=== PATIENT | female | born 1945 | race Caucasian/White ===

== ENCOUNTER 2019-11-18 21:30 | Inpatient (IN) | payer MEDICARE, SELFPAY ==
[2019-11-18 21:37] VITALS: BP 150/89; PULSE 78; RESP 20; TEMP 36.5; O2SAT 95; BMI 47.4
--- NOTE | 2019-11-18 21:44 | XRR_ITS ---
PROCEDURE INFORMATION: Exam: XR Left Knee Exam date and time: 11/18/2019 10:09 PM Age: 74 years old Clinical indication: Injury or trauma; Fall; Initial encounter; Blunt trauma; Knee; Left TECHNIQUE: Imaging protocol: XR Left knee. Views: 3 views. COMPARISON: CR Knee 3 views, LEFT* [id number] 09/04/2016 12:43 PM FINDINGS: Bones/joints: There is a comminuted impacted fracture of the distal left femoral diametaphysis. There is approximately 1 full bone width of posterior displacement of the distal fracture fragment and approximately 4.1 cm overlap and impaction. Soft tissues: Normal. XR/XR knee LT 3V* [id number] IMPRESSION: Acute comminuted impacted posteriorly displaced fracture of the distal left femoral diametaphysis.
[2019-11-18 21:47] VITALS: RESP 20; O2SAT 94
[2019-11-18] MEDS: morphine 4 mg/mL SDV 1 mL IVP ×2 (21:47→22:19)
--- NOTE | 2019-11-18 21:58 | W.ED.FALL ---
HPI - Fall General: Chief Complaint: Fall Stated Complaint: PATELLAR PAIN POST FALL Time Seen by Provider: 11/18/19 21:34 History of Present Illness: MD complaint: fall Onset (ago): minute(s) Fall from: standing Fall witnessed: yes, by family Place fall occurred: home Loss of consciousness: None Prolonged down time: no Symptoms prior to fall: none Context: tripped/slipped (Over a cable) Location of injury - extremities: Left: knee Severity: severe Severity scale (1-10): 6 Quality: sharp Associated symptoms-after fall: Reports no associated symptoms and abdominal pain; Denies chest pain, confusion, headache(s), hematuria, neck pain or vertigo Review of Systems Const: Denies: fever or chills Eyes: Denies: change in vision or blurry vision ENMT: Denies: painful swallowing, swelling of lips/tongue, bleeding gums, dental pain, Change in hearing, nose bleeds, post nasal drip or facial/sinus pain Card: Denies: chest pain, palpitations, irregular heart rhythm or edema Resp: Denies: shortness of breath, productive cough, non-productive cough or wheezing GI: Reports: abdominal pain; Denies: nausea, vomiting or black tarry stool : Denies: painful urination or blood in urine Musc: Denies: neck pain, back pain, redness or joint warmth Skin/Breast: Denies: rash, itching or redness Neuro: Denies: headache, dizziness, vertigo or confusion Psych: Denies: anxiety PFSH ED PFSH: Social History Smoking and tobacco status: never smoked Physical Exam Const: GENERAL APPEARANCE: well developed ORIENTATION/CONSCIOUSNESS: Yes oriented to person, Yes oriented to place and Yes oriented to time HENMT: COMMON NORMALS: normocephalic and external nose normal HEAD & SCALP: normocephalic; no scalp tenderness FACE & SINUS: normal facial exam NOSE: external nose normal and no nasal discharge Eye: COMMON NORMALS: PERRL and EOMs intact bilaterally EYELID: eyelids normal PUPIL: Yes PERRL Neck/C-Spine: GENERAL: No tracheal deviation CERVICAL SPINE: Yes normal cervical lordosis and No cervical spine tenderness Chest: COMMONS NORMALS: inspection of chest normal CHEST: No tenderness Resp: COMMON NORMALS: clear to auscultation bilaterally EFFORT & INSPECTION: No tachypneic, No respiratory distress, No retractions, No uses accessory muscles and No tracheal deviation AUSCULTATION: clear to auscultation bilaterally, no rhonchi, no wheezes and lung sounds not diminished Cardio: COMMON NORMALS: regular rate and regular rhythm RATE: regular rate RHYTHM: regular rhythm HEART SOUNDS: no murmurs PERIPHERAL PULSES: radial pulses present GI: INSPECTION: No abdominal distension AUSCULTATION: No hyperactive bowel sounds and No hypoactive bowel sounds PALPATION: No guarding and No rigid PERCUSSION: no dullness to percussion and no tympanic to percussion Extremity: LEFT LOWER EXTREMITY: Yes knee joint (Appearance of deformity, with swelling. Tenderness to the distal femur and patella. Range of motion significantly limited by pain.) Left knee: Yes inspection Neuro: SENSORIUM/ORIENTATION: Yes oriented to person, Yes oriented to place and Yes oriented to time Psych: COMMON NORMALS: mental status grossly normal Skin: COMMON NORMALS: no rashes or lesions noted GENERAL SKIN EXAM: no rashes or lesions noted Course Vital Signs: Vital signs: Vital Signs Temperature 97.7 F 11/18/19 21:37 Pulse Rate 78 11/18/19 23:35 Respiratory Rate 17 11/18/19 23:35 Blood Pressure 104/47 11/18/19 23:35 Pulse Oximetry 100 11/18/19 23:35 MDM - Fall MDM Narrative: Medical decision making narrative: 74-year-old female who fell at home. She tripped over a cable. She has a comminuted posteriorly displaced supracondylar fracture of her left distal femur. There is a small puncture wound in the anterior distal thigh, consistent with an in and out type opening of the fracture. Discussed with orthopedics. They agreed with Ancef. Splint. Surgery in the morning. They request hospitalist admission, hospitalist has seen the patient in the ER. Discharge Plan Discharge Admit Provider: Salvador George Coding Level of Care Code ED Senior Cost Estimator for g Fwd Exam Comprehensive
[2019-11-18 22:19] VITALS: RESP 18; O2SAT 95
--- NOTE | 2019-11-18 22:19 | XRR_ITS ---
PROCEDURE INFORMATION: Exam: XR Chest, 1 View Exam date and time: 11/18/2019 10:25 PM Age: 74 years old Clinical indication: Injury or trauma; Fall; Initial encounter; Blunt trauma (contusions or hematomas); Injury details: Best images due to patient's condition; Prior surgery; Surgery type: RT shoulder TECHNIQUE: Imaging protocol: XR of the chest Views: 1 view. COMPARISON: CR Chest 1 [place] [id number] 10/25/2016 10:33 AM FINDINGS: Lungs: See Soft tissues finding. Pleural space: Unremarkable. No pleural effusion. No pneumothorax. Heart/Mediastinum: Unremarkable. No cardiomegaly. Bones/joints: Status post total right shoulder replacement. Soft tissues: A calcifications seen in the left mid hemithorax compatible with a calcified granuloma. It appears stable compared with 10/25/2016. There are mildly increased bronchovascular markings present bilaterally, findings likely representing COPD changes. This appears stable as well compared with 10/25/2016. XR/XR chest 1V portable [id number] IMPRESSION: There are no acute chest findings. Stable chest radiograph compared with 10/25/2016.
--- NOTE | 2019-11-18 22:20 | ECG_ITS ---
Measurements Intervals [place] Rate: 74 P: 44 WV: 173 QRS: -74 QRSD: 165 T: 27 QT: 414 QTc: 461 SINUS RHYTHM RIGHT BUNDLE BRANCH BLOCK [120+ ms QRS DURATION, UPRIGHT V1, 40+ ms S IN I I/aVL/V4/V5/V6] LEFT ANTERIOR FASCICULAR BLOCK [QRS AXIS <= -45, QR IN I, RS IN II] POSSIBLE ANTEROSEPTAL MYOCARDIAL INFARCTION , OF INDETERMINATE AGE [30 ms Q WAVE IN V1-V4] Compared to ECG 12/03/2018 10:42:19 Right bundle-branch block now present Left anterior fascicular block now present Myocardial infarct finding now present Electronically Signed On 11-19-2019 14:00:47 CDT by Fely Alvarado M.D. [email or web address]
[2019-11-18 22:30] VITALS: RESP 18; O2SAT 95
[2019-11-18] MEDS: fentaNYL 50 mcg/mL INJ 2mL 100 MCG IVP (22:30)
[2019-11-18] MEDS: ondansetron 2 mg/ML SDV 2 mL 4 MG IVP (22:30)
[2019-11-18 23:06] VITALS: RESP 18; O2SAT 96
[2019-11-18] MEDS: HYDROmorphone 1 mg/mL INJ 1 mL IVP (23:06)
[2019-11-18 23:35] VITALS: BP 104/47; PULSE 78; RESP 17; O2SAT 100
[2019-11-18 23:50] LABS: Add Urine Microscopic? YES; Bacteria Urine TRACE; Bilirubin Urine Neg (NEGATIVE); Blood Urine Neg (Negative); Glucose Urine UA Norm (Normal); Ketones Urine Negative (Negative); Leukocyte Esterase Urine Trace (Negative); Nitrate Urine Negative (Negative); Protein Urine Neg (Negative); RBC Urine RARE /hpf (0-2); Squamous Epithelial Cell Urine RARE (0-5); Urine Appearance Clear (CLEAR); Urine Color Yellow (Yellow); Urobilinogen Urine Norm (Negative); WBC Urine 0-4 /hpf (0-5); pH Urine 5 (5-7)
--- NOTE | 2019-11-18 23:51 | PM.HP ---
Providers/Chief Complaint Admitting Physician: Salvador George MD Primary Care Provider: Vicente More MD Chief Complaint: PATELLAR PAIN POST FALL History of Present Illness Kaitlin Meade is a 74 year old female with a past medical history of hypertension, history of DVT secondary to Humira, hypokalemia secondary to chronic diarrhea Crohn's disease on Entyvio, status post bowel resection, GERD, depression, hypokalemia secondary to chronic diarrhea, who presents to the emergency room status post fall. Patient states that this afternoon, she was taking care of her grandkids, when she tripped over a cord, and she fell on her left knee. Had left knee pain, swelling, pain with ambulation. Patient denies lightheadedness, dizziness, chest pain, shortness of breath preceding the fall. Denies a history of UTIs, dysuria, hematuria. Denies fevers, cough, travel, sick contacts, exposure to covid19. Review of Systems Const: Denies: fever, chills, fatigue or malaise Eyes: Denies: change in vision or blurry vision ENMT: Denies: nasal congestion Resp: Denies: shortness of breath, productive cough, non-productive cough or wheezing GI: Reports: diarrhea; Denies: abdominal pain, nausea, vomiting, vomiting blood, constipation, blood in stool or black tarry stool : Denies: flank pain, painful urination or urinary frequency Musc: Reports: back pain, joint pain and joint swelling; Denies: neck pain Skin/Breast: Denies: rash Neuro: Denies: headache, dizziness or vertigo Psych: Denies: anxiety or depression Endo: Denies: excessive urination or excessive thirst Medications/Allergies Home Medications Medication Instructions Recorded Confirmed Last Taken Type Unable to Assess 11/18/19 11/18/19 Unknown History Allergies Allergy/AdvReac Type Severity Reaction Status Date / Time Iodine and Iodide Containing Allergy ALGY-Anaphy Verified 11/18/19 21:37 Produc laxis prochlorperazine Allergy Unknown Verified 11/18/19 21:37 [From Compazine] PFSH Acute PFSH: Medical History (Updated 11/19/19 @ 00:05 by Salvador George MD) Depression GERD (gastroesophageal reflux disease) History of DVT (deep vein thrombosis) Hypertension Surgical History (Updated 11/18/19 @ 23:57 by Salvador George MD) History of bowel resection History of incisional hernia repair Family History (Updated 11/18/19 @ 23:57 by Salvador George MD) Other Diabetes Social History Smoking and tobacco status: never smoked Vitals/I&O/Wt Last Vital Signs Temp 97.7 F 11/18/19 21:37 Pulse 78 11/18/19 23:35 Resp 17 11/18/19 23:35 BP 104/47 11/18/19 23:35 Pulse Ox 100 11/18/19 23:35 Weight last 48 hrs Weight 137.438 kg Physical Exam Const: COMMON NORMALS: no apparent distress and oriented x3 GENERAL APPEARANCE: cooperative and comfortable HENMT: COMMON NORMALS: normocephalic HEAD & SCALP: normocephalic Eye: COMMON NORMALS: PERRL, EOMs intact bilaterally and no papilledema GENERAL EYE: normal appearance of both eyes PUPIL: Yes PERRL DIRECT OPHTHALMOSCOPY: Yes no papilledema Neck/C-Spine: COMMON NORMALS: full ROM, no lymphadenopathy, no JVD and thyroid normal THYROID: thyroid normal Lymph: LYMPHATIC: no lymphadenopathy noted Resp: COMMON NORMALS: normal respiratory effort, no retractions, no use of accessory muscles and clear to auscultation bilaterally AUSCULTATION: clear to auscultation bilaterally Cardio: COMMON NORMALS: no JVD, regular rate, regular rhythm, S1 normal heart sound, S2 normal heart sound, no gallops, no clicks and no murmurs RATE: regular rate RHYTHM: regular rhythm HEART SOUNDS: S1 normal and S2 normal GI: COMMON NORMALS: normal to inspection, nondistended, normoactive bowel sounds, soft to palpation, non-tender and no hepatosplenomegaly PALPATION: Yes soft and Yes no hepatosplenomegaly Extremity: NARRATIVE EXTREMITY EXAM: Left lower extremity, knee, pain, swelling, tenderness Neuro: COMMON NORMALS: oriented x3, CN's II-XII intact bilaterally, moves all extremities and no focal motor deficits Psych: COMMON NORMALS: mental status grossly normal, thought process normal and cooperative THOUGHT PROCESS: normal thought process Urinary Catheter Management^: Kate: Cath Placed During This Visit: yes Urinary Catheter Date of Insertion: 11/18/19 Urinary Catheter Time of Insertion: 22:58 A&P Assessment and plan (1) Fracture of distal end of left femur: -Acute comminuted impacted posteriorly displaced fracture of the distal left femoral diametaphysis status post mechanical fall -Surgical risk: -Patient denies any history of issues with anesthesia in the past -does have a history of DVT related to Humira for which she took for her Crohn's disease, off anticoagulation for some time -Denies a history of pulmonary embolism -Denies a history of CAD -Did have a cardiac stress test for palpitations on 05/22/2019: Myocardial perfusion imaging revealing a small area of persistent decreased tracer uptake in the mid inferior wall region, suggestive of myocardial scarring versus attenuation artifact, normal left ventricular ejection fraction of 61%, left ventricular wall motion analysis revealing no gross wall motion abnormalities, slightly elevated transient ischemic dilatation index of 1.17 -She also had Holter monitoring which showed isolated PVCs and PACs -EKG shows right bundle branch block, left anterior fascicular block, T wave inversions in leads V1 to V3 -Chest x-ray showed no focal pneumonia, blood work pending -Patient states that they thought that her palpitations related to hypokalemia, that she takes potassium pills, due to her chronic diarrhea from her Crohn's disease -Denies chest pain, denies shortness of breath, denies history of heart failure -Denies any history of strokes, denies any of diabetes, denies a history of chronic kidney disease -Patient is a moderate risk for moderate risk surgery Plan: -N.p.o. midnight -We will have surgical treatment by Dr. Fuentes tomorrow morning -Pain control with Dilaudid -DVT prophylaxis Heparin -Anticoagulation as per orthopedic team -Physical therapy, observational therapy -Consult case management -Gentle IV hydration over midnight Status: Acute (2) Hypertension: -States she takes half a pill of chlorthalidone, she is not sure of the dose, hold for now Status: Acute (3) GERD (gastroesophageal reflux disease): Hold Protonix Status: Acute (4) Depression: Uses Zoloft 50 mg once daily Status: Acute (5) History of DVT (deep vein thrombosis): -Secondary to Humira, off anticoagulation Status: Acute (6) Crohn disease: -Status post bowel resection -Suffered a DVT with Humira, off Humira -Currently on Entyvio -Has chronic diarrhea with hypokalemia Status: Acute Attestations Medical Necessity Statement*: Patient requires hospitalization, inpatient, greater than 2 midnights, mechanical fall, right femur fracture Coding Level of Care Code Acute Ingot Car Operator for Chg Fwd Diagnoses Fracture of distal end of left femur S72.402A Hypertension I10 GERD (gastroesophageal reflux disease) K21.9 Depression F32.9 History of DVT (deep vein thrombosis) Z86.718 Crohn disease K50.90
[2019-11-19] VITALS (44 sets, daily range): BP systolic 106–150; BP diastolic 58–106; PULSE 74–96; RESP 10–27; TEMP 36.3–37.2; O2SAT 92–100
[2019-11-19] LABS: Basophils # 0.1 10^3/uL (0.0-0.1); Basophils % 0.4 %; Eosinophils # 0.1 10^3/uL (0.0-0.8); Eosinophils % 0.6 %; Hematocrit 36.9 % (37.0-47.0); Hemoglobin 11.2 g/dL (11.5-15.3); Lymphocytes % 7.9 %; Mean Corpuscular HGB Conc 30.4 g/dL (30.0-36.0); Mean Corpuscular Hemoglobin 28.6 pg (28.0-34.0); Mean Corpuscular Volume 94.4 fL (81-99); Mean Platelet Volume 9.4 fL (7.4-10.4); Monocytes # 0.5 10^3/uL (0.2-0.9); Monocytes % 3.9 %; Neutrophils % 86.7 %; Nucleated Red Blood Cells % 0 %; Platelet Count 208 10^3/cmm (130-400); Red Blood Count 3.91 10^6/uL (4.1-5.3); Red Cell Distribution Width 13.5 % (12.1-15.1); White Blood Count 12.7 10^3/uL (4.0-10.0)
--- NOTE | 2019-11-19 | XRR_ITS ---
PROCEDURE INFORMATION: Exam: XR Left Femur Exam date and time: 11/19/2019 12:37 PM Age: 74 years old Clinical indication: Condition or disease; Other: Surgery; Additional info: Or pics. Femur FX TECHNIQUE: Imaging protocol: XR Left femur. Views: Frontal and lateral views. Other technique: 5 stored digital fluoroscopic images obtained during operative reduction and internal fixation of the distal femoral fracture are submitted for evaluation. The fluoroscopic time was 129.1 seconds continuous mode. COMPARISON: CR XR knee LT 3V* [id number] 11/18/2019 9:49 PM FINDINGS: The interpreting radiologist was not present at the fluoroscopy. Serial images in orthogonal planes demonstrate final hardware placement. Comminuted distal femoral diaphyseal, metadiaphyseal, lateral metaphyseal and intercondylar fracture with reduced impaction, and lateral reconstruction with long lateral plate and multiple screws. Improved postsurgical alignment XR/XR femur LT min 2V* [id number] IMPRESSION: Status post ORIF.
--- NOTE | 2019-11-19 | SCC_ITS ---
Procedure Done: Open reduction internal fixation left distal femur 129.1 seconds of fluoroscopic guidance, for a cumulative dose of 8.64 mGy, was provided to Dr. Fuentes by the radiology department. C-arm images of the LEFT femur were saved for the patient's permanent record. [facility]
[2019-11-19] MEDS: HYDROmorphone 1 mg/mL INJ 1 mL IVP ×4 (00:02→07:58)
[2019-11-19 00:16] LABS: Alanine Aminotransferase 17 U/L (0-33); Alkaline Phosphatase 85 IU/L (35-105); Aspartate Amino Transferase 28 U/L (0-32); Blood Urea Nitrogen 28 mg/dL (8-23); Carbon Dioxide 26 mmol/L (22-29); Chloride 101 mmol/L (98-107); Globulin 2.6 g/dL (1.3-4.6); Glucose 175 mg/dL (65-115); Osmolality Calculated 291 mOsm/kg (285-295); Sodium 140 mmol/L (136-145); Total Bilirubin 0.4 mg/dL (0.15-1.2); Total Protein 6.6 g/dL (6.6-8.7)
--- NOTE | 2019-11-19 00:23 | ECG_ITS ---
Measurements Intervals [place] Rate: 81 P: 41 [place]: 163 QRS: 264 QRSD: 154 T: 3 QT: 401 QTc: 466 SINUS RHYTHM MARKED RIGHT AXIS DEVIATION [QRS AXIS > 100] RIGHT BUNDLE BRANCH BLOCK [120+ ms QRS DURATION, UPRIGHT V1, 40+ ms S IN I/aVL/V4/V5/V6] POSSIBLE ANTEROSEPTAL MYOCARDIAL INFARCTION [30 ms Q WAVE IN V1-V4], PROBABLY OLD Compared to ECG 11/18/2019 23:20:58 Right-axis deviation now present Left anterior fascicular block no longer present Myocardial infarct finding still present Electronically Signed On 11-19-2019 18:01:53 CDT by Fely Alvarado M.D. [email or web address]
[2019-11-19 00:29] LABS: INR 1.06 (0.8-1.2); Partial Thromboplastin Time 22.1 SECONDS (23.9-36.7)
[2019-11-19] MEDS: ondansetron 2 mg/ML SDV 2 mL 4 MG IVP ×3 (00:44→13:43)
[2019-11-19 01:20] LABS: Magnesium 1.4 mg/dL (1.7-2.3); Phosphorus 2.5 mg/dL (2.5-4.5)
[2019-11-19] MEDS: dextrose 5%-sod chloride 0.9% 1,000 ML 100 ML IV ×2 (01:51→17:13)
[2019-11-19 06:08] LABS: Basophils % 0.4 %; Eosinophils % 0.1 %; Hematocrit 32.8 % (37.0-47.0); Hemoglobin 9.7 g/dL (11.5-15.3); Lymphocytes # 0.8 10^3/uL (0.8-4.8); Lymphocytes % 8.1 %; Mean Corpuscular HGB Conc 29.6 g/dL (30.0-36.0); Mean Corpuscular Volume 98.2 fL (81-99); Mean Platelet Volume 9.7 fL (7.4-10.4); Monocytes # 0.5 10^3/uL (0.2-0.9); Monocytes % 5.3 %; Neutrophils # 8.4 10^3/uL (1.8-7.7); Neutrophils % 85.7 %; Nucleated Red Blood Cells % 0 %; Platelet Count 168 10^3/cmm (130-400); Red Blood Count 3.34 10^6/uL (4.1-5.3); Red Cell Distribution Width 13.6 % (12.1-15.1); White Blood Count 9.8 10^3/uL (4.0-10.0)
[2019-11-19 06:21] LABS: Alanine Aminotransferase 15 U/L (0-33); Albumin Level 3.5 g/dL (3.5-5.2); Alkaline Phosphatase 71 IU/L (35-105); Anion Gap 17.3 (5-19); Aspartate Amino Transferase 22 U/L (0-32); Blood Urea Nitrogen 23 mg/dL (8-23); Calcium 8.6 mg/dL (8.5-10.5); Carbon Dioxide 24 mmol/L (22-29); Chloride 102 mmol/L (98-107); Globulin 2.7 g/dL (1.3-4.6); Glucose 167 mg/dL (65-115); Magnesium 1.5 mg/dL (1.7-2.3); Osmolality Calculated 289 mOsm/kg (285-295); Phosphorus 3.7 mg/dL (2.5-4.5); Potassium 4.3 mmol/L (3.5-5.1); Sodium 139 mmol/L (136-145); Total Bilirubin 0.3 mg/dL (0.15-1.2); Total Protein 6.2 g/dL (6.6-8.7)
[2019-11-19 06:32] LABS: Procalcitonin 0.13 ng/mL (0-0.5)
[2019-11-19] MEDS: chlorthalidone 25 mg Tablet 12.5 MG PO (09:05)
--- NOTE | 2019-11-19 09:08 | P.CONIM_ITS ---
Providers/Reason For Consult Consulting Physican/Specialty*: Anup Fuentes MD; orthopedic surgeon Reason for Consult*: Left distal femur fracture Attending Physician: Kady Brandon MD Primary Care Provider: Vicente More MD History of Present Illness History of Present Illness Kaitlin Meade is a 74 year old female who tripped over a cord in her home last night falling forward on her flexed left knee. She described a previous history of arthritis with symptoms more on the right than the left but states she certainly did have some knee pain in the left prior to this fall. She is seen in the emergency room where she was found to have a small anterior puncture wound and radiographs showing a displaced fracture of the left supracondylar femur. She is admitted to the medicine service and Ortho was consulted for ultimate stabilization of the fracture. Review of Systems Const: Denies: fever or chills Card: Denies: chest pain or palpitations Resp: Denies: shortness of breath or productive cough Neuro: Reports: weakness in extremities (Left lower extremity secondary to fracture); Denies: numbness in extremities (Left lower extremity) Meds/Allergies Home Medications and Allergies Home Medications Medication Instructions Recorded Confirmed Type Unable to Assess 11/18/19 11/18/19 History Allergies Allergy/AdvReac Type Severity Reaction Status Date / Time Iodine and Iodide Containing Allergy ALGY-Anaphy Verified 11/18/19 21:37 Produc laxis prochlorperazine Allergy Unknown Verified 11/18/19 21:37 [From Compazine] Current Medications Current Medications Generic Name Dose Route Start Last Admin Trade Name Freq PRN Reason Stop Dose Admin Heparin Sodium (Beef Lung) 5,000 unit 11/19/19 00:23 11/19/19 02:04 Heparin SUBCUT Not Given Q12H SAMANTHA Hydromorphone HCl 1 mg 11/19/19 00:23 11/19/19 07:58 Dilaudid Inj IVP 1 mg Q4H PRN Administration pain Dextrose/Sodium Chloride 1,000 mls @ 100 mls/hr 11/19/19 00:23 11/19/19 01:51 Dextrose 5%-Sod Chloride 0.9% IV 100 mls/hr .Q10H SAMANTHA Administration Ondansetron HCl 4 mg 11/19/19 00:23 11/19/19 00:44 Zofran IVP 4 mg Q8H PRN Administration vomiting, or N/V if npo Pantoprazole Sodium 40 mg 11/19/19 09:00 11/19/19 08:56 Protonix PO Not Given DAILY SAMANTHA Potassium Chloride 20 meq 11/19/19 09:00 11/19/19 08:56 Klor-Con 10 PO Not Given DAILY SAMANTHA Sertraline HCl 50 mg 11/19/19 09:00 11/19/19 08:56 Zoloft PO Not Given DAILY SAMANTHA PFSH Acute PFSH: Medical History (Updated 11/19/19 @ 09:53 by Kady Brandon MD) CKD stage G3b/A1, GFR 30-44 and albumin creatinine ratio <30 mg/g Depression GERD (gastroesophageal reflux disease) History of DVT (deep vein thrombosis) Hypertension Morbid obesity Normocytic anemia Surgical History History of bowel resection History of incisional hernia repair Family History (Updated 11/18/19 @ 23:58 by Salvador George MD) Other Diabetes Social History Smoking and tobacco status: never smoked Vitals/I&O/Wt Last Vital Signs Temp 98.9 F 11/19/19 08:00 Pulse 96 11/19/19 08:00 Resp 18 11/19/19 08:00 BP 136/86 11/19/19 08:00 Pulse Ox 98 11/19/19 08:00 11/18/19 11/19/19 11/19/19 22:59 06:59 14:59 Intake Total 50 / 50 Output Total 225 / 225 Balance -175 / -175 Weight last 48 hrs Weight 303 lb Physical Exam Narrative: EXAM NARRATIVE: Patient is supine in bed in no obvious distress. She has a splint on her left leg. She will flex extend her left toes and ankle. The splint is not removed to check vascular status or examined the knee. He has no pain with palpation or range of motion of her right lower extremity or upper extremities Heart her heart reveals normal heart sounds Chest her chest is clear to auscultation Abdomen she is obese but her abdomen is soft nontender nondistended Urinary Catheter Management^: Kate: Cath Placed During This Visit: yes Reason for Continuing Indwelling Catheter: Required Immobilization for Trauma or Surgery or Anesthesia Urinary Catheter Date of Insertion: 11/18/19 Urinary Catheter Time of Insertion: 22:58 A&P Additional A&P Information Left supracondylar femur fracture in a previously ambulatory female. She was noted to have a small anterior puncture wound by and the emergency room but I suspect this represents a grade 1 open injury. I discussed treatment options with the patient. Certainly think she would benefit from surgical stabilization of the femur to facilitate immobilization allow her best chance of healing in a functional position. I told her at her age she is certainly there are risk involved. There are risk of nonunion malunion. Discussed hardware at much my ultimately need to be removed. Certain there is a risk of infection with any procedure. I suspect, as above, this is grade 1 open wound but with reasonable antibiotics and debridement we should be able to minimize any risk of infection. I discussed the risk of bleeding. Her hemoglobin is a bit low and she is aware of the possible need for blood products. She is on an immunosuppressant for Crohn's disease. I am not familiar with his agent but this may place her at a slightly higher risk for infection. Unfortunately we do not have the lecture he can be able to stop the medication before surgery. She will be given appropriate DVT prophylaxis. We will proceed to the operating today if medicine feels she is medically stable. Coding Level of Care Code Acute Senior Information Security Consultant for Shahriar Dubois
--- NOTE | 2019-11-19 09:08 | P.PN_ITS ---
Subjective Subjective: Interval history: Chart reviewed, including labs and imaging, plan for OR today by Dr. Fuentes. Patient seen and examined prior to going to the OR, is alert and oriented x3, currently on 2 L nasal cannula, hemodynamically stable. Kate catheter in place with approximately 500 mL output so far. This discussed briefly with Dr. Fuentes. Will replace magnesium IV and start on Rocephin for treatment of UTI. Patient states that she prefers dilaudid to morphine in terms of pain control as morphine typically gives her a headache. She requests that we call her daughter Amaya Jaramillo when she returns from surgery to update her. Medications: Reviewed: Yes Medication Review Details: Active Medications Generic Name Dose Route Start Last Admin Trade Name Freq PRN Reason Stop Dose Admin Chlorthalidone 12.5 mg 11/19/19 09:00 11/19/19 09:05 Thalitone PO 12.5 mg DAILY SAMANTHA Administration Heparin Sodium (Be ef Lung) 5,000 unit 11/19/19 00:23 11/19/19 02:04 Heparin SUBCUT Not Given Q12H SAMANTHA Hydromorphone HCl 1 mg 11/19/19 00:23 11/19/19 07:58 Dilaudid Inj IVP 1 mg Q4H PRN Administration pain Dextrose/Sodium Ch loride 1,000 mls @ 100 m ls/hr 11/19/19 00:23 11/19/19 01:51 Dextrose 5%-Sod Chloride 0.9% IV 100 mls/hr .Q10H SAMANTHA Administration Magnesium Sulfate 2 gm in 50 mls @ 50 mls/hr 11/19/19 09:06 Magnesium Sulfat e Premix IV 11/19/19 10:05 ONCE ONE Ceftriaxone Sodium 1,000 mg/ 50 mls @ 100 mls/ hr 11/19/19 09:30 Sodium Chloride IV Q24H SAMANTHA Protocol Labetalol HCl 10 mg 11/19/19 00:23 Trandate IVP Q4H.RESPIRATORY P RN SBP>180, hold if HR<60 Ondansetron HCl 4 mg 11/19/19 00:23 11/19/19 00:44 Zofran IVP 4 mg Q8H PRN Administration vomiting, or N/V if npo Pantoprazole Sodiu m 40 mg 11/19/19 09:00 11/19/19 08:56 Protonix PO Not Given DAILY SAMANTHA Potassium Chloride 20 meq 11/19/19 09:00 11/19/19 08:56 Klor-Con 10 PO Not Given DAILY SAMANTHA Sertraline HCl 50 mg 11/19/19 09:00 11/19/19 08:56 Zoloft PO Not Given DAILY SAMANTHA Iodine and Iodide Containing Produc Allergy (Verified 11/18/19 21:37) ALGY-Anaphylaxis prochlorperazine [From Compazine] Allergy (Verified 11/18/19 21:37) Unknown Vitals/I&O/Wt Last Vital Signs Temp 98.9 F 11/19/19 08:00 Pulse 96 11/19/19 08:00 Resp 18 11/19/19 08:00 BP 136/86 11/19/19 08:00 Pulse Ox 98 11/19/19 08:00 11/18/19 11/19/19 11/19/19 22:59 06:59 14:59 Intake Total 50 / 50 Output Total 225 / 225 Balance -175 / -175 Weight last 48 hrs Weight 137.438 kg Physical Exam Const: COMMON NORMALS: no apparent distress, oriented x3 and alert GENERAL APPEARANCE: cooperative and comfortable; not ill appearing NUTRITIONAL APPEARANCE: obese morbidly obese ORIENTATION/CONSCIOUSNESS: Yes awake, Yes oriented to person, Yes oriented to place and Yes oriented to time HENMT: COMMON NORMALS: normocephalic, head/scalp atraumatic and hearing grossly normal bilaterally HEAD & SCALP: normocephalic and atraumatic MOUTH: moist mucous membranes abnormal Details: parched Eye: COMMON NORMALS: PERRL, EOMs intact bilaterally and conjunctivae normal CONJUNCTIVA: Yes conjunctivae normal PUPIL: Yes PERRL Neck/C-Spine: COMMON NORMALS: full ROM GENERAL: Yes normal visual inspection and Yes trachea midline OTHER: -short, thick neck Chest: COMMONS NORMALS: inspection of chest normal Resp: COMMON NORMALS: normal respiratory effort, no retractions, no use of accessory muscles and clear to auscultation bilaterally EFFORT & INSPECTION: Yes able to speak in complete sentences, Yes symmetric chest movement and No tachypneic AUSCULTATION: clear to auscultation bilaterally OTHER: -on 2 L NC Cardio: COMMON NORMALS: regular rate, regular rhythm, S1 normal heart sound, S2 normal heart sound and no murmurs RATE: regular rate RHYTHM: regular rhythm HEART SOUNDS: S1 normal and S2 normal GI: COMMON NORMALS: normal to inspection, nondistended, normoactive bowel sounds, soft to palpation and non-tender INSPECTION: Yes central obesity PALPATION: Yes soft : BLADDER/KIDNEY EXAM: Yes catheter in place Catheter type (Female): urethral Extremity: COMMON NORMALS: no clubbing, cyanosis or edema and no pedal edema NARRATIVE EXTREMITY EXAM: -LLE: bulky dressing in place -RLE: normal to inspection Neuro: COMMON NORMALS: oriented x3, no focal motor deficits and no sensory deficits noted SENSORIUM/ORIENTATION: Yes alert, Yes oriented to person, Yes oriented to place and Yes oriented to time Psych: COMMON NORMALS: mental status grossly normal, thought process normal, cooperative, affect normal and speech normal SPEECH: Yes normal speech THOUGHT PROCESS: normal thought process Skin: COMMON NORMALS: no rashes or lesions noted, no jaundice, no petechiae and no mottling GENERAL SKIN EXAM: no rashes or lesions noted Urinary Catheter Management^: Kate: Cath Placed During This Visit: yes Urethral Indwelling: Yes Reason for Continuing Indwelling Catheter: Required Immobilization for Trauma or Surgery or Anesthesia Urinary Catheter Date of Insertion: 11/18/19 Urinary Catheter Time of Insertion: 22:58 Data : 11/19/19 05:40 11/19/19 05:40 A&P Assessment and plan (1) Fracture of distal end of left femur: -L femur fracture secondary to mechanical fall -imaging reviewed -pain control as needed -splinted in ED -has been NPO after midnight -Ortho consult by Dr. Fuentes appreciated; OR today -IVF hydration -has had prior surgical procedures with no reported issues with anesthesia in the past -denies prior OR, has known HTN, is morbidly obese; has had prior cardiac workup including stress testing in 05/2019 (negative), Holter monitoring (no arrhythmia), no active chest pain, SOB, clinical evidence of fluid overload -UA borderline indicative of infection (trace LE, trace bacteria, trace pyuria); will start on ceftriaxone -no leukocytosis, K wnl; Mg low, replacement ongoing -has Kate catheter in place, continue to monitor Is & Os, anticipate removal post-op -telemetry monitoring -VSS; continue to monitor -supplemental oxygen as needed -complete jerson-op abx (on Cefazolin) -fall precautions; bed rest for now -PT/OT evaluations post-op Status: Acute Qualifiers: Encounter type: initial encounter Fracture type: closed Fracture morphology: unspecified fracture morphology Qualified Code(s): S72.402A - Unspecified fracture of lower end of left femur, initial encounter for closed fracture (2) Normocytic anemia: -has hx of chronic normocytic anemia; baseline Hg 10-11 -monitor H/H closely Status: Chronic (3) CKD stage G3b/A1, GFR 30-44 and albumin creatinine ratio <30 mg/g: -has known CKD stage 3; now with AURELIA -monitor renal function closely, avoid nephrotoxins, renally dose meds -on IVF hydration Status: Chronic (4) History of DVT (deep vein thrombosis): -prior hx of RLE DVT secondary to Humira in 2018; treated with Eliquis and now off AC Status: Chronic (5) Crohn disease: -has hx of Crohn's disease with prior bowel resections secondary to SBO and adhesions -previously treated with Humira which was discontinued after she developed RLE DVT (2018); not on Entivyo Status: Chronic Qualifiers: Gastrointestinal tract location: unspecified location Digestive disease complication type: unspecified complication Qualified Code(s): K50.919 - Crohn's disease, unspecified, with unspecified complications Additional A&P Information -Morbid obesity: BMI-48 kg/m2 -HTN; BP controlled; diuretic on hold -GERD; on PPI -Depression -GI ppx with PPI -DVT ppx with heparin -Dispo: pending surgery -Code status: FULL code Attestations Medical Necessity Statement*: Patient requires hospitalization pending surgery for left femur fracture as well as appropriate postop care. Time Spent in Patient Care: Greater than 35 minutes (>than 50% of time spent in counselling and/or direct pt care on unit) . Coding Level of Care Code Acute Java Developer With Security Clearance for Chg Fwd Diagnoses Fracture of distal end of left femur S72.402A Encounter type: initial encounter Fracture type: closed Fracture morphology: unspecified fracture morphology Normocytic anemia D64.9 CKD stage G3b/A1, GFR 30-44 and albumin creatinine ratio <30 mg/g N18.3 History of DVT (deep vein thrombosis) Z86.718 Crohn disease K50.919 Gastrointestinal tract location: unspecified location Digestive disease complication type: unspecified complication
[2019-11-19] MEDS: magnesium sulfate premix 2 GM/50 ML PIGGYBACK IV (09:25)
[2019-11-19] MEDS: cefTRIAXone 1,000 MG in sodium chloride 0.9% (plus) 50 ML 100 MG IV (09:26)
--- NOTE | 2019-11-19 09:59 | P.ANESASSM_ITS ---
Pre-Anesthetic Assessment Pre-Anesthetic Assessment: Height/Weight: Height 1.7 m Weight 137.438 kg Temp Pulse Resp BP Pulse Ox 98.3 F 83 18 113/75 96 11/19/19 09:43 11/19/19 09:43 11/19/19 09:43 11/19/19 09:43 11/19/19 09:43 Preop Diagnosis: left distal femur fracxture Proposed Procedure: Operation Date: 11/19/19 11:20 Proposed Procedures p ORIF Femur(Left) - Anup Fuentes MD Last intake: Intake Last Liquid Date 11/18/19 Last Liquid Time 20:00 Last Solid Date 11/18/19 Last Solid Time 20:00 Social: Social History: No alcohol and No tobacco Exam: Pre-Anes Outpt Exam: alert, oriented x 3, clear to auscultation bilaterally and regular rate & rhythm Airway: Submandibular: WNL Cervical ROM: WNL MP: 2 Dentition: Other (front upper bridge.) History/ROS: No significant history except as noted Pulmonary: Pulmonary: BILLS CV/HEM: CV/HEM: HTN : : Chronic renal Insufficiency (stage III. stones) Hepatic: Hepatic: None reported GI: GI: GERD Comments: Crohn's Dz Metabolic: Metabolic: Morbid obesity Musc/skel: Musc/skel: Lower Back Pain and OA/DJD Neuropsych: Neuropsych: Anxiety and Depression Anesthetic Plan: ASA status: 3 Anesthesia: Anesthesia Evaluation and General Risk of > 500 ml blood loss (7ml/kg in children): Yes, adequate IV access and fluids planned Meds/Allergies Current Medications: Current Medications Generic Name Dose Route Start Last Admin Trade Name Freq PRN Reason Stop Dose Admin Chlorthalidone 12.5 mg 11/19/19 09:00 11/19/19 09:05 Thalitone PO 12.5 mg DAILY SAMANTHA Administration Heparin Sodium (Be ef Lung) 5,000 unit 11/19/19 00:23 11/19/19 02:04 Heparin SUBCUT Not Given Q12H SAMANTHA Hydromorphone HCl 1 mg 11/19/19 00:23 11/19/19 07:58 Dilaudid Inj IVP 1 mg Q4H PRN Administration pain Dextrose/Sodium Ch loride 1,000 mls @ 100 m ls/hr 11/19/19 00:23 11/19/19 01:51 Dextrose 5%-Sod Chloride 0.9% IV 100 mls/hr .Q10H SAMANTHA Administration Magnesium Sulfate 2 gm in 50 mls @ 50 mls/hr 11/19/19 09:06 11/19/19 09:25 Magnesium Sulfat e Premix IV 11/19/19 10:05 50 mls/hr ONCE ONE Administration Ceftriaxone Sodium 1,000 mg/ 50 mls @ 100 mls/ hr 11/19/19 09:30 11/19/19 09:26 Sodium Chloride IV 100 mls/hr Q24H SAMANTHA Administration Protocol Ondansetron HCl 4 mg 11/19/19 00:23 11/19/19 00:44 Zofran IVP 4 mg Q8H PRN Administration vomiting, or N/V if npo Pantoprazole Sodiu m 40 mg 11/19/19 09:00 11/19/19 08:56 Protonix PO Not Given DAILY SAMANTHA Potassium Chloride 20 meq 11/19/19 09:00 11/19/19 08:56 Klor-Con 10 PO Not Given DAILY SAMANTHA Sertraline HCl 50 mg 11/19/19 09:00 11/19/19 08:56 Zoloft PO Not Given DAILY SAMANTHA Additional Medication Information: Active Medications Generic Name Dose Route Start Last Admin Trade Name Freq PRN Reason Stop Dose Admin Chlorthalidone 12.5 mg 11/19/19 09:00 11/19/19 09:05 Thalitone PO 12.5 mg DAILY SAMANTHA Administration Heparin Sodium (Be ef Lung) 5,000 unit 11/19/19 00:23 11/19/19 02:04 Heparin SUBCUT Not Given Q12H SAMANTHA Hydromorphone HCl 1 mg 11/19/19 00:23 11/19/19 07:58 Dilaudid Inj IVP 1 mg Q4H PRN Administration pain Dextrose/Sodium Ch loride 1,000 mls @ 100 m ls/hr 11/19/19 00:23 11/19/19 01:51 Dextrose 5%-Sod Chloride 0.9% IV 100 mls/hr .Q10H SAMANTHA Administration Magnesium Sulfate 2 gm in 50 mls @ 50 mls/hr 11/19/19 09:06 Magnesium Sulfat e Premix IV 11/19/19 10:05 ONCE ONE Ceftriaxone Sodium 1,000 mg/ 50 mls @ 100 mls/ hr 11/19/19 09:30 Sodium Chloride IV Q24H SAMANTHA Protocol Labetalol HCl 10 mg 11/19/19 00:23 Trandate IVP Q4H.RESPIRATORY P RN SBP>180, hold if HR<60 Ondansetron HCl 4 mg 11/19/19 00:23 11/19/19 00:44 Zofran IVP 4 mg Q8H PRN Administration vomiting, or N/V if npo Pantoprazole Sodiu m 40 mg 11/19/19 09:00 11/19/19 08:56 Protonix PO Not Given DAILY [facility] Potassium Chloride 20 meq 11/19/19 09:00 11/19/19 08:56 Klor-Con 10 PO Not Given DAILY SAMANTHA Sertraline HCl 50 mg 11/19/19 09:00 11/19/19 08:56 Zoloft PO Not Given DAILY SAMANTHA Iodine and Iodide Containing Produc Allergy (Verified 11/18/19 21:37) ALGY-Anaphylaxis prochlorperazine [From Compazine] Allergy (Verified 11/18/19 21:37) Unknown PFSH Anesthesia PFSH: Medical History CKD stage G3b/A1, GFR 30-44 and albumin creatinine ratio <30 mg/g Depression GERD (gastroesophageal reflux disease) History of DVT (deep vein thrombosis) Hypertension Morbid obesity Normocytic anemia Surgical History History of bowel resection History of incisional hernia repair Family History Other Diabetes Social History Smoking and tobacco status: never smoked Data Anesthesia CBC & Chem 7: 11/19/19 05:40 11/19/19 05:40 Other Labs: Laboratory Results - last 48 hr 11/18/19 11/18/19 11/18/19 22:53 23:52 23:52 WBC 12.7 H RBC 3.91 L Hgb 11.2 L Hct 36.9 L MCV 94.4 MCH 28.6 MCHC 30.4 RDW 13.5 Plt Count 208 MPV 9.4 Neut % (Auto) 86.7 Lymph % (Auto) 7.9 [place] % (Auto) 3.9 Eos % (Auto) 0.6 Baso % (Auto) 0.4 Neut # (Auto) 11.0 H Lymph # (Auto) 1.0 [place] # (Auto) 0.5 Eos # (Auto) 0.1 Baso # (Auto) 0.1 Nucleated RBC % (auto) 0 Nucleated RBCs # 0.0 PT 13.90 H INR 1.06 APTT 22.1 L Sodium Potassium Chloride Carbon Dioxide Anion Gap BUN Creatinine Glucose Calculated Osmolality Calcium Phosphorus Magnesium Total Bilirubin AST ALT Alkaline Phosphatase Total Protein Albumin Globulin Procalcitonin Urine Color Yellow Urine Appearance Clear Urine pH 5 Ur Specific [place] 1.020 Urine Protein Neg Urine Glucose (UA) Norm Urine Ketones Negative Urine Blood Neg Urine Nitrate Negative Urine Bilirubin Neg Urine Urobilinogen Norm Ur Leukocyte Esterase Trace H Urine RBC Rare Urine WBC 0-4 H Ur Squamous Epith Cells Rare Urine Bacteria Trace 11/18/19 11/18/19 11/19/19 23:52 23:52 05:40 WBC 9.8 RBC 3.34 L Hgb 9.7 L Hct 32.8 L MCV 98.2 MCH 29.0 MCHC 29.6 L RDW 13.6 Plt Count 168 MPV 9.7 Neut % (Auto) 85.7 Lymph % (Auto) 8.1 [place] % (Auto) 5.3 Eos % (Auto) 0.1 Baso % (Auto) 0.4 Neut # (Auto) 8.4 H Lymph # (Auto) 0.8 [place] # (Auto) 0.5 Eos # (Auto) 0.0 Baso # (Auto) 0.0 Nucleated RBC % (auto) 0 Nucleated RBCs # 0.0 PT INR APTT Sodium 140 Potassium 4.0 Chloride 101 Carbon Dioxide 26 Anion Gap 17.0 BUN 28 H Creatinine 2.3 H Glucose 175 H Calculated Osmolality 291 Calcium 9.0 Phosphorus 2.5 Magnesium 1.4 L Total Bilirubin 0.4 AST 28 ALT 17 Alkaline Phosphatase 85 Total Protein 6.6 Albumin 4.0 Globulin 2.6 Procalcitonin Urine Color Urine Appearance Urine pH Ur Specific [place] Urine Protein Urine Glucose (UA) Urine Ketones Urine Blood Urine Nitrate Urine Bilirubin Urine Urobilinogen Ur Leukocyte Esterase Urine RBC Urine WBC Ur Squamous Epith Cells Urine Bacteria 11/19/19 11/19/19 05:40 05:40 WBC RBC Hgb Hct MCV MCH MCHC RDW Plt Count MPV Neut % (Auto) Lymph % (Auto) [place] % (Auto) Eos % (Auto) Baso % (Auto) Neut # (Auto) Lymph # (Auto) [place] # (Auto) Eos # (Auto) Baso # (Auto) Nucleated RBC % (auto) Nucleated RBCs # PT INR APTT Sodium 139 Potassium 4.3 Chloride 102 Carbon Dioxide 24 Anion Gap 17.3 BUN 23 Creatinine 1.9 H Glucose 167 H Calculated Osmolality 289 Calcium 8.6 Phosphorus 3.7 Magnesium 1.5 L Total Bilirubin 0.3 AST 22 ALT 15 Alkaline Phosphatase 71 Total Protein 6.2 L Albumin 3.5 Globulin 2.7 Procalcitonin 0.13 Urine Color Urine Appearance Urine pH Ur Specific [place] Urine Protein Urine Glucose (UA) Urine Ketones Urine Blood Urine Nitrate Urine Bilirubin Urine Urobilinogen Ur Leukocyte Esterase Urine RBC Urine WBC Ur Squamous Epith Cells Urine Bacteria Cardiac Studies: No Data to Display
--- NOTE | 2019-11-19 12:49 | P.OP_ITS ---
Operative Report Date of procedure: November 19, 2019 Pre-op Diagnosis: Left supracondylar femur fracture Post-op Diagnosis: Left supracondylar femur fracture with intra-articular extension Post-op Findings: The patient had a comminuted supracondylar fracture of the left femur with a sagittal split Procedure Done: Open reduction internal fixation left distal femur Implants: [place] AXOS distal femoral plate Pathology: none sent Perishable Fruit Inspector: Anup Fuentes Anesthesia: General Estimated blood loss (mL): 300 Complications: None Findings: The patient had a comminuted supracondylar humerus fracture with a displaced sagittal split extending into the intercondylar notch Condition: stable Disposition: PACU Procedure: The patient was taken to the operating room and given 2 g of Ancef. She is prepped and draped in the supine position. A timeout was performed. Initially an 8 cm lateral incision was made beginning just distal to the joint line and extending proximally over the lateral condyle and the distal shaft. Dissection was carried down to the iliotibial band which was split the vastus lateralis was elevated distally and the intra-articular sagittal split identified. With a Rdz elevator and bone hooks the lateral condyle could be redrew reduced to the medial condyle. It was fixed distally with a two 6.0 mm partially-threaded cancellous screws. The distal femoral plate was then passed subperiosteally along the lateral femur. His distal position was secured on the lateral femoral condyle with a K wire. It was positioned over the lateral femur and a unicortical screw placed to the proximal hole along the lateral femur utilizing the guide. The fracture was then reduced in the sagittal plane and fixed with a nonlocking cortical screw to the distal diaphysis. Efforts were made to leg a medial butterfly fragment. The plate was then fixed to the distal condyles with 6 locking screws. An additional distal nonlocking screw was placed to the distal diaphysis to control a butterfly fragment and proximal to that 5 bicortical locking screws were placed. An additional nonlocking and 1 locking screw were placed approximately. Intraoperative imaging showed satisfactory alignment. 15 cc or allograft bone were packed in defects in the diaphyseal diaphyseal junction. The wound was irrigated with saline. The fascia pratibha was closed with 1 Ethibond. Subcutaneous tissues were closed with 2-0 Vicryl. The skin was closed with skin thai. Sterile dressings were applied. The patient was extubated and taken to recovery in stable condition.
--- NOTE | 2019-11-19 13:02 | SUR.PHASEI ---
Addendum entered by Nancy Bhandari RN 11/19/19 13:06: LEFT PEDAL PULSE MARKED. CAP REFILL INTACT. FIRST ICE APPLIED. Original Note: 1256 PATIENT TO PACU AT THIS TIME FROM OR. PLACED ON SIMPLE MASK AT 8L, SPO2 100%. NOVAK CATH IN PLACE, DRAINING CLEAR YELLOW URINE, SECURED TO RIGHT LEG. DRESSING TO LEFT KNEE, CDI.
[2019-11-19] MEDS: fentaNYL 50 mcg/mL INJ 2mL IVP ×3 (13:44→14:29)
[2019-11-19] MEDS: metoclopramide 5 mg/mL SDV 2 mL 10 MG IVP ×2 (13:50→14:06)
[2019-11-19] MEDS: HYDROmorphone 1 mg/mL INJ 1 mL 0.5 MG IVP ×2 (14:08→14:18)
--- NOTE | 2019-11-19 14:15 | SUR.PHASEI ---
1408 DILAUDID GIVEN PRIOR TO MORPHINE DUE TO PATIENT HAVING NAUSEA. REVIEWED WITH DR. BRITO PRIOR TO ADMINISTRATION.
--- NOTE | 2019-11-19 14:34 | PC.CHAP ---
Pastoral Care Encounter/Spiritual Assessment Type of Contact [] Declined wedding planner visit [] Patient/Family/Request visit [] Outpatient visit [] Follow-up visit [] Physician referral [] Code/Alert [] Routine visit [] Staff referral [] Actively dying [] Patient sleeping [] Family support [] [] Out of room [] Palliative care [] [] Receiving care in room [] Pre-surgical visit [] Trauma [] Long length of stay [] ICU visit [] Other: Relational/Emotional Strength [] Patient feels connected with others/family/visitors/staff [] Distress [] Loneliness/isolation [] Abandonment Spirituality of Patient [] Person of Stephanie [] Attends Judaism of their Stephanie [] Believes in Prayer [] Reads Bible or Jain materials [] There are Spiritual issues to be addressed Chili Powder Mixer Interventions [] Prayer [] Active listening [] Non-anxious presence [] Spiritual/emotional support [] Crisis/trauma care [] Spiritual counseling [] Bereavement support [] Provided bereavement packet [] Provided Bible/devotional materials [] Provided toy/stuffed animal, coloring book to patient or family member [] Provided Communion [] Anointing/[place] [] Salvation [] Completed spiritual assessment [] Other: Impact on Illness or Injury [] Angry [] Fearful [] Anxious [] Often cries [] Exhaustion [] Unable to work [] Unable to attend alevism [] Unable to walk/stand [] Unable to read [] Unable to drive [] Unable to eat/drink [] Unable to sleep [] Unable to be with family [] Patient intubated [] Other: Summary DISCHARGED Time spent with patient
--- NOTE | 2019-11-19 14:50 | SUR.PHASEI ---
1437 PATIENT TO MED SURG AT THIS TIME. RR EVEN AND UNLABORED. DRESSING TO LEFT KNEE, CDI, WITH FIRST ICE IN PLACE. PATIENT NAUSEA MUCH IMPROVED. ANESTHESIA AWARE OF LAST PAIN MEDICATIONS GIVEN. THIS NURSE REMAINED WITH PATIENT UNTIL 1444.
[2019-11-19] MEDS: oxyCODONE 5 mg IR Tab/Cap PO (21:38)
[2019-11-20] VITALS (17 sets, daily range): BP systolic 101–136; BP diastolic 53–77; PULSE 78–97; RESP 16–20; TEMP 36.7–37.6; O2SAT 90–98
[2019-11-20] MEDS: oxyCODONE 5 mg IR Tab/Cap PO ×6 (00:53→23:57)
[2019-11-20] MEDS: rivaroxaban 10 mg Tablet PO ×2 (00:54→08:40)
[2019-11-20 05:51] LABS: Basophils % 0.3 %; Eosinophils % 0.2 %; Hematocrit 25.7 % (37.0-47.0); Hemoglobin 7.6 g/dL (11.5-15.3); Lymphocytes # 1.2 10^3/uL (0.8-4.8); Mean Corpuscular HGB Conc 29.6 g/dL (30.0-36.0); Mean Corpuscular Hemoglobin 28.8 pg (28.0-34.0); Mean Corpuscular Volume 97.3 fL (81-99); Mean Platelet Volume 9.6 fL (7.4-10.4); Monocytes # 0.9 10^3/uL (0.2-0.9); Monocytes % 10.1 %; Neutrophils # 7.1 10^3/uL (1.8-7.7); Neutrophils % 75.9 %; Nucleated Red Blood Cells % 0 %; Platelet Count 126 10^3/cmm (130-400); Red Blood Count 2.64 10^6/uL (4.1-5.3); White Blood Count 9.3 10^3/uL (4.0-10.0)
[2019-11-20 06:18] LABS: Anion Gap 16.3 (5-19); Blood Urea Nitrogen 19 mg/dL (8-23); Calcium 7.5 mg/dL (8.5-10.5); Carbon Dioxide 22 mmol/L (22-29); Chloride 102 mmol/L (98-107); Glucose 167 mg/dL (65-115); Osmolality Calculated 282 mOsm/kg (285-295); Potassium 4.3 mmol/L (3.5-5.1); Sodium 136 mmol/L (136-145)
[2019-11-20 06:32] LABS: Magnesium 1.6 mg/dL (1.7-2.3)
[2019-11-20] MEDS: pantoprazole DR 40 mg Tablet PO (08:40)
[2019-11-20] MEDS: chlorthalidone 25 mg Tablet 12.5 MG PO (08:41)
[2019-11-20] MEDS: sertraline 50 mg Tablet PO (08:41)
[2019-11-20] MEDS: cefTRIAXone 1,000 MG in sodium chloride 0.9% (plus) 50 ML 100 MG IV (08:46)
--- NOTE | 2019-11-20 09:10 | P.PN_ITS ---
Subjective Subjective: Interval history: Complain of pain /10. Better with meds. Tolerating po intake Vitals/I&O/Wt Last Vital Signs Temp 99.7 F H 11/20/19 08:00 Pulse 78 11/20/19 08:00 Resp 16 11/20/19 08:41 BP 112/69 11/20/19 08:00 Pulse Ox 93 11/20/19 08:00 11/19/19 11/20/19 11/20/19 22:59 06:59 14:59 Intake Total 240 / 1490 60 / 60 Output Total 0 / 775 300 / 1075 Balance 0 / 475 -60 / 415 60 / 60 Weight last 48 hrs Weight 303 lb Physical Exam Narrative: EXAM NARRATIVE: LLE dressing clean and dry. Very large leg but I can not appreciate any atypical swelling. Moves toes and ankle. Palpable Dorsalis pedis pulse. Distal sensation intact to light touch Urinary Catheter Management^: Kate: Cath Placed During This Visit: yes Urethral Indwelling: Yes Reason for Continuing Indwelling Catheter: Perioperative Use in Selected Surgeries Urinary Catheter Date of Insertion: 11/18/19 Urinary Catheter Time of Insertion: 22:58 Data : 11/20/19 05:31 11/20/19 05:31 A&P Assessment and plan (1) Postoperative state: The patient had severe comminution in the metaphyseal femur as well as the intra-articular split. She will be no more than touchdown weightbearing for at least 3 months. Therapy can begin mobilizing the patient to work on range of motion from 0 to 90 degrees. Unfortunately the size of her leg makes bracing r eally not an option. She has a history of a deep venous thromboses and with her obesity and difficu lty with mobilization I think she is at a higher DVT risk. She is placed on Xarelto postoperatively Status: Acute (2) Postoperative anemia: We will check a hemoglobin in the morning Status: Acute Attestations Medical Necessity Statement*: Okay for transfer to [facility] tomorrow Coding Level of Care Code Acute Airport Shuttle Driver for Shahriar Dubois Diagnoses Postoperative state Z98.890 Postoperative anemia D64.9
--- NOTE | 2019-11-20 09:57 | PM.PN ---
Subjective Subjective: Interval history: Patient is POD # 1 ORIF of left distal femur. Had 300 mL urine output overnight. AM labs noted, drop in Hg to 7.6, improved renal function, slight drop in platelet count. Seen while working with PT, able to stand briefly, is toe-touch weight bearing status on the L. PT setting up trapeze. Will repeat H/H this afternoon. Had dose of Entivyo about 2 weeks ago (given every 8 weeks) and gets monthly vitamin B12 injections (last given just before admission). Med rec pending. Medications: Reviewed: Yes Medication Review Details: Active Medications Generic Name Dose Route Start Last Admin Trade Name Freq PRN Reason Stop Dose Admin Albuterol Sulfate 2.5 mg 11/19/19 10:53 Albuterol INHALATION ONCE PRN WHEEZING Chlorthalidone 12.5 mg 11/19/19 09:00 11/20/19 08:41 Thalitone PO 12.5 mg DAILY SAMANTHA Administration Hydromorphone HCl 1 mg 11/19/19 00:23 11/19/19 07:58 Dilaudid Inj IVP 1 mg Q4H PRN Administration pain Ceftriaxone Sodium 1,000 mg/ 50 mls @ 100 mls/ hr 11/19/19 09:30 11/20/19 08:46 Sodium Chloride IV 100 mls/hr Q24H SAMANTHA Administration Protocol Labetalol HCl 10 mg 11/19/19 00:23 Trandate IVP Q4H.RESPIRATORY P RN SBP>180, hold if HR<60 Morphine Sulfate 2 mg 11/19/19 15:12 Morphine IVP Q1H PRN PAIN not managed by oral agent Ondansetron HCl 4 mg 11/19/19 00:23 11/19/19 00:44 Zofran IVP 4 mg Q8H PRN Administration vomiting, or N/V if npo Oxycodone HCl 5 - 10 mg 11/19/19 15:12 11/20/19 08:41 Oxycodone Ir PO 10 mg Q4H PRN Administration MODERATE TO SEVER E PAIN Pantoprazole Sodiu m 40 mg 11/19/19 09:00 11/20/19 08:40 Protonix PO 40 mg DAILY SAMANTHA Administration Potassium Chloride 20 meq 11/19/19 09:00 11/20/19 08:41 Klor-Con 10 PO 20 meq DAILY SAMANTHA Administration Sertraline HCl 50 mg 11/19/19 09:00 11/20/19 08:41 Zoloft PO 50 mg DAILY SAMANTHA Administration Iodine and Iodide Containing Produc Allergy (Verified 11/18/19 21:37) ALGY-Anaphylaxis prochlorperazine [From Compazine] Allergy (Verified 11/18/19 21:37) Unknown Vitals/I&O/Wt Last Vital Signs Temp 99.7 F H 11/20/19 08:00 Pulse 78 11/20/19 08:00 Resp 16 11/20/19 08:41 BP 112/69 11/20/19 08:00 Pulse Ox 93 11/20/19 08:00 11/19/19 11/20/19 11/20/19 22:59 06:59 14:59 Intake Total 240 / 1490 60 / 60 Output Total 0 / 775 300 / 1075 Balance 0 / 475 -60 / 415 60 / 60 Weight last 48 hrs Weight 137.438 kg Physical Exam Const: COMMON NORMALS: no apparent distress, oriented x3 and alert GENERAL APPEARANCE: cooperative and comfortable; not ill appearing NUTRITIONAL APPEARANCE: obese morbidly obese ORIENTATION/CONSCIOUSNESS: Yes awake, Yes oriented to person, Yes oriented to place and Yes oriented to time HENMT: COMMON NORMALS: normocephalic, head/scalp atraumatic and hearing grossly normal bilaterally HEAD & SCALP: normocephalic and atraumatic MOUTH: moist mucous membranes abnormal Details: parched Eye: COMMON NORMALS: PERRL, EOMs intact bilaterally and conjunctivae normal CONJUNCTIVA: Yes conjunctivae normal PUPIL: Yes PERRL Neck/C-Spine: COMMON NORMALS: full ROM GENERAL: Yes normal visual inspection and Yes trachea midline OTHER: -short, thick neck Chest: COMMONS NORMALS: inspection of chest normal Resp: COMMON NORMALS: normal respiratory effort, no retractions, no use of accessory muscles and clear to auscultation bilaterally EFFORT & INSPECTION: Yes able to speak in complete sentences, Yes symmetric chest movement and No tachypneic AUSCULTATION: clear to auscultation bilaterally OTHER: -on RA Cardio: COMMON NORMALS: regular rate, regular rhythm, S1 normal heart sound, S2 normal heart sound and no murmurs RATE: regular rate RHYTHM: regular rhythm HEART SOUNDS: S1 normal and S2 normal GI: COMMON NORMALS: normal to inspection, nondistended, normoactive bowel sounds, soft to palpation and non-tender INSPECTION: Yes central obesity PALPATION: Yes soft : BLADDER/KIDNEY EXAM: Yes catheter in place Catheter type (Female): urethral Extremity: COMMON NORMALS: no clubbing, cyanosis or edema and no pedal edema NARRATIVE EXTREMITY EXAM: -LLE: bulky dressing in place -RLE: normal to inspection Neuro: COMMON NORMALS: oriented x3, no focal motor deficits and no sensory deficits noted SENSORIUM/ORIENTATION: Yes alert, Yes oriented to person, Yes oriented to place and Yes oriented to time Psych: COMMON NORMALS: mental status grossly normal, thought process normal, cooperative, affect normal and speech normal SPEECH: Yes normal speech THOUGHT PROCESS: normal thought process Skin: COMMON NORMALS: no rashes or lesions noted, no jaundice, no petechiae and no mottling GENERAL SKIN EXAM: no rashes or lesions noted Urinary Catheter Management^: Kate: Cath Placed During This Visit: yes Urethral Indwelling: Yes Reason for Continuing Indwelling Catheter: Perioperative Use in Selected Surgeries Urinary Catheter Date of Insertion: 11/18/19 Urinary Catheter Time of Insertion: 22:58 Data : 11/20/19 05:31 11/20/19 05:31 A&P Assessment and plan (1) Fracture of distal end of left femur: -L supracondylar comminuted femur fracture secondary to mechanical fall; POD # 1 s/p ORIF, done by Dr. Fuentes -imaging reviewed -pain control as needed -Ortho consult by Dr. Fuentes appreciated -off IVF hydration; encourage oral hydration -has had prior surgical procedures with no reported issues with anesthesia in the past -denies prior MO, has known HTN, is morbidly obese; has had prior cardiac workup including stress testing in 05/2019 (negative), Holter monitoring (no arrhythmia), no active chest pain, SOB, clinical evidence of fluid overload -UA borderline indicative of infection (trace LE, trace bacteria, trace pyuria); on ceftriaxone -no leukocytosis, K wnl; Mg low, replacement ongoing -has Kate catheter in place, continue to monitor Is & Os, anticipate removal post-op -telemetry monitoring -VSS; continue to monitor -supplemental oxygen as needed -complete jerson-op abx (Cefazolin) -fall precautions; toe-touch on LLE -PT/OT evaluations post-op Status: Acute Qualifiers: Encounter type: initial encounter Fracture morphology: unspecified fracture morphology Fracture type: closed Qualified Code(s): S72.402A - Unspecified fracture of lower end of left femur, initial encounter for closed fracture (2) Normocytic anemia: -has hx of chronic normocytic anemia now with post-op worsening anemia -baseline Hg 10-11 -noted continued drop in Hg, may need transfusion of blood products if continued -continue to monitor H/H closely Status: Chronic (3) CKD stage G3b/A1, GFR 30-44 and albumin creatinine ratio <30 mg/g: -has known CKD stage 3, baseline Cr around 1; now with AURELIA -continue to monitor renal function closely, avoid nephrotoxins, renally dose meds -off IVF; encourage oral hydration Status: Chronic (4) History of DVT (deep vein thrombosis): -prior hx of RLE DVT secondary to Humira in 2018; treated with Eliquis and now off AC -due to hx and high risk for developing another DVT, is on ppx with Xarelto Status: Chronic (5) Crohn disease: -has hx of Crohn's disease with prior bowel resections secondary to SBO and adhesions -previously treated with Humira which was discontinued after she developed RLE DVT (2018); now on Entivyo Status: Chronic Qualifiers: Digestive disease complication type: unspecified complication Gastrointestinal tract location: unspecified location Qualified Code(s): K50.919 - Crohn's disease, unspecified, with unspecified complications Additional A&P Information -Morbid obesity: BMI-48 kg/m2 -HTN; BP controlled; diuretic on hold due to renal impairment -GERD; on PPI -Depression -GI ppx with PPI -DVT ppx with Xarelto; with caution due to worsening anemia -Dispo: will need SNF placement, preference is [facility] -Code status: FULL code Attestations Medical Necessity Statement*: Patient requires hospitalization for continued post-op care including pain management, therapy, management of post-op anemia and pending appropriate disposition. Time Spent in Patient Care: 16 - 35 minutes (>than 50% of time spent in counselling and/or direct pt care on unit). Coding Level of Care Code Acute Web Marketing Strategist for [facility] Fwd Exam Comprehensive Diagnoses Fracture of distal end of left femur S72.402A Encounter type: initial encounter Fracture morphology: unspecified fracture morphology Fracture type: closed Normocytic anemia D64.9 CKD stage G3b/A1, GFR 30-44 and albumin creatinine ratio <30 mg/g N18.3 History of DVT (deep vein thrombosis) Z86.718 Crohn disease K50.919 Digestive disease complication type: unspecified complication Gastrointestinal tract location: unspecified location
[2019-11-20] MEDS: magnesium sulfate premix 2 GM/50 ML PIGGYBACK IV (11:06)
[2019-11-20 18:07] LABS: Hematocrit 23.5 % (37.0-47.0); Hemoglobin 6.8 g/dL (11.5-15.3)
[2019-11-21] VITALS (18 sets, daily range): BP systolic 104–122; BP diastolic 50–71; PULSE 77–99; RESP 16–20; TEMP 36.6–37.2; O2SAT 94–100
[2019-11-21] MEDS: morphine 4 mg/mL SDV 1 mL 2 MG IVP (02:03)
[2019-11-21] MEDS: oxyCODONE 5 mg IR Tab/Cap PO ×4 (05:35→21:13)
[2019-11-21] MEDS: sodium chloride 0.9% 100 ML 125 ML (05:37)
[2019-11-21] MEDS: sodium chloride 0.9% 100 ML 150 ML (05:38)
[2019-11-21 05:49] LABS: Basophils % 0.2 %; Eosinophils # 0.1 10^3/uL (0.0-0.8); Hematocrit 25.4 % (37.0-47.0); Lymphocytes # 1.1 10^3/uL (0.8-4.8); Lymphocytes % 12.5 %; Mean Corpuscular HGB Conc 31.5 g/dL (30.0-36.0); Mean Corpuscular Hemoglobin 29.3 pg (28.0-34.0); Mean Platelet Volume 9.9 fL (7.4-10.4); Monocytes # 0.7 10^3/uL (0.2-0.9); Neutrophils # 6.9 10^3/uL (1.8-7.7); Neutrophils % 77.2 %; Nucleated Red Blood Cells % 0.2 %; Platelet Count 128 10^3/cmm (130-400); Red Blood Count 2.73 10^6/uL (4.1-5.3); Red Cell Distribution Width 14.8 % (12.1-15.1)
[2019-11-21 05:56] LABS: Anion Gap 13.9 (5-19); Blood Urea Nitrogen 18 mg/dL (8-23); Calcium 7.5 mg/dL (8.5-10.5); Carbon Dioxide 26 mmol/L (22-29); Chloride 101 mmol/L (98-107); Glucose 151 mg/dL (65-115); Osmolality Calculated 283 mOsm/kg (285-295); Potassium 3.9 mmol/L (3.5-5.1); Sodium 137 mmol/L (136-145)
[2019-11-21 06:04] LABS: Magnesium 2.1 mg/dL (1.7-2.3)
--- NOTE | 2019-11-21 08:56 | PC.NURSE ---
blood vitals in chart. blood sheet says blood ended at 0410 on 11/21/19 for unit #[id number]. leader writer entered end time in [facility]AR.
--- NOTE | 2019-11-21 09:14 | PC.SOCIAL ---
*IMM* Patient received the important message from medicare. Original is in the chart, copy gave to the patient.
[2019-11-21] MEDS: sertraline 50 mg Tablet PO (09:18)
[2019-11-21] MEDS: pantoprazole DR 40 mg Tablet PO (09:18)
[2019-11-21] MEDS: cefTRIAXone 1,000 MG in sodium chloride 0.9% (plus) 50 ML 100 MG IV (09:18)
[2019-11-21] MEDS: rivaroxaban 10 mg Tablet PO (09:18)
--- NOTE | 2019-11-21 09:19 | PM.PN ---
Subjective Subjective: Interval history: The patient continues to have significant pain related to her fracture. She is also having constipation secondary to the pain medications. Says that she is feeling well overall. She denies any chest pains or shortness of breath. Vitals/I&O/Wt Last Vital Signs Temp 98.6 F 11/21/19 08:00 Pulse 77 11/21/19 08:00 Resp 18 11/21/19 08:00 BP 108/69 11/21/19 08:00 Pulse Ox 97 11/21/19 08:00 11/20/19 11/21/19 11/21/19 22:59 06:59 14:59 Intake Total 600 / 1900 350 / 2250 350 / 350 Output Total 650 / 650 450 / 1100 Balance -50 / 1250 -100 / 1150 350 / 350 Physical Exam Narrative: EXAM NARRATIVE: General: Alert and oriented x3, patient sitting on bedside commode. Cardiac: Regular rate and rhythm without murmurs Lungs: Clear to auscultation bilaterally without wheezes, crackles or rhonchi Abdomen: Soft, non-tender Extremities: Trace edema in the right lower extremity, with +1 pitting edema in the left lower extremity. Urinary Catheter Management^: Kate: Cath Placed During This Visit: yes Urethral Indwelling: Yes Reason for Continuing Indwelling Catheter: Required Immobilization for Trauma or Surgery or Anesthesia Urinary Catheter Date of Insertion: 11/18/19 Urinary Catheter Time of Insertion: 22:58 Data : 11/21/19 05:30 11/21/19 05:30 A&P Additional A&P Information 1. Severe fracture of the left distal femur status post ORIF day #2 -the patient is continued to have significant pain related to this. Her pain meds are controlling it sufficiently. The patient will need to have senior care facility placement secondary to being nonweightbearing. They are working on getting her transferred to [facility]. 2. Anemia -the patient received 2 units of blood yesterday, and her hemoglobin has increased from 6.8 to 8.0. I would like to follow her hemoglobin for 1 more day to be sure that it is not dropping again. If it is stable, then I would be comfortable with discharging her tomorrow from a medical standpoint. 3. Chronic kidney disease -improving. 4. Crohn's disease -she received her last dose of Entyvio 2 weeks ago. Her next dose is not due for 6 weeks. 5. Prophylaxis -we will continue with Eliquis as recommended by orthopedics for DVT prophylaxis. This will be secondary to her prolonged immobility. Attestations Medical Necessity Statement*: Patient will be here for greater than 2 midnights due to the above issues. Coding Level of Care Code Acute Senior Datastage Developer for Shahriar Dubois
[2019-11-21] MEDS: sennosides-docusate Tablet 1 TAB PO (17:35)
[2019-11-21] MEDS: diphenhydrAMINE 25 mg Capsule PO (21:35)
[2019-11-22] VITALS: BP 175/88; PULSE 82; RESP 18; TEMP 36.7; O2SAT 93
[2019-11-22 04:00] VITALS: BP 93/59; PULSE 76; RESP 18; TEMP 36.9; O2SAT 93
[2019-11-22 04:24] LABS: Basophils % 0.5 %; Eosinophils # 0.3 10^3/uL (0.0-0.8); Eosinophils % 2.9 %; Hematocrit 26.1 % (37.0-47.0); Hemoglobin 7.8 g/dL (11.5-15.3); Lymphocytes # 1.2 10^3/uL (0.8-4.8); Lymphocytes % 13.7 %; Mean Corpuscular HGB Conc 29.9 g/dL (30.0-36.0); Mean Corpuscular Hemoglobin 29.1 pg (28.0-34.0); Mean Corpuscular Volume 97.4 fL (81-99); Mean Platelet Volume 10.3 fL (7.4-10.4); Monocytes # 0.6 10^3/uL (0.2-0.9); Neutrophils # 6.4 10^3/uL (1.8-7.7); Neutrophils % 74.6 %; Nucleated Red Blood Cells % 0.4 %; Platelet Count 159 10^3/cmm (130-400); Red Blood Count 2.68 10^6/uL (4.1-5.3); Red Cell Distribution Width 15.2 % (12.1-15.1); White Blood Count 8.6 10^3/uL (4.0-10.0)
[2019-11-22 04:54] LABS: Alanine Aminotransferase 11 U/L (0-33); Alkaline Phosphatase 70 IU/L (35-105); Anion Gap 16.6 (5-19); Aspartate Amino Transferase 22 U/L (0-32); Blood Urea Nitrogen 22 mg/dL (8-23); Calcium 7.8 mg/dL (8.5-10.5); Carbon Dioxide 23 mmol/L (22-29); Chloride 100 mmol/L (98-107); Glucose 120 mg/dL (65-115); Osmolality Calculated 280 mOsm/kg (285-295); Phosphorus 2.6 mg/dL (2.5-4.5); Potassium 3.6 mmol/L (3.5-5.1); Sodium 136 mmol/L (136-145); Total Bilirubin 0.5 mg/dL (0.15-1.2)
[2019-11-22 05:54] VITALS: RESP 16
[2019-11-22] MEDS: oxyCODONE 5 mg IR Tab/Cap PO (05:54)
[2019-11-22 07:29] VITALS: BP 101/66; PULSE 76; RESP 18; TEMP 37.1; O2SAT 94
--- NOTE | 2019-11-22 07:41 | PM.DCS ---
Discharge Providers Date of Admission: 11/18/19 22:59 Date of Discharge: November 22, 2019 Attending Provider at Admission: Salvador George MD Attending Provider at Discharge: Vicente More MD Primary Care Provider: Vicente More MD Diagnoses at Discharge Discharge Diagnosis (1) Fracture of distal end of left femur: Status: Acute Qualifiers: Encounter type: initial encounter Fracture morphology: unspecified fracture morphology Fracture type: closed Qualified Code(s): S72.402A - Unspecified fracture of lower end of left femur, initial encounter for closed fracture (2) Normocytic anemia: Status: Chronic (3) CKD stage G3b/A1, GFR 30-44 and albumin creatinine ratio <30 mg/g: Status: Chronic (4) History of DVT (deep vein thrombosis): Status: Chronic (5) Crohn disease: Status: Chronic Qualifiers: Digestive disease complication type: unspecified complication Gastrointestinal tract location: unspecified location Qualified Code(s): K50.919 - Crohn's disease, unspecified, with unspecified complications Reason for Visit Reason for Visit: Reason For Visit: PATELLAR PAIN POST FALL Hospital Course Hospital Course: The patient presents to the emergency department secondary to a fall where she tripped on a cord in her home and landed on her left knee. She sustained a left supracondylar femur fracture with intra-articular extension. The patient had ORIF by Dr. Fuentes on 11/19/2019. The patient is nonweightbearing at this time on this leg. The patient has done well after surgery and is currently on oxycodone for pain control. The patient is also been placed on Xarelto for DVT prophylaxis. I would recommend that she is on this for a total of 5 weeks. She has history of a DVT after being on Humira a couple of years ago. The patient did have some blood loss during surgery and her hemoglobin dropped to 6.8. She was given 2 units of packed red blood cells and her hemoglobin increased to 8.0. 24 hours later it was 7.8. Overall her hemoglobin is stable at this time, however her CBC does need to be rechecked on Thursday to be sure that it is starting to rebound. Certainly being on a blood thinner for DVT prophylaxis could increase the risk of this. The patient should be fine to continue with her Entyvio for Crohn's disease. The patient has had some itching and Benadryl has helped relieve this. This is likely secondary to the pain medications. Currently the patient is improving well and will be discharged to the nursing facility for further rehabilitation. All questions were answered. Physical Exam Narrative: EXAM NARRATIVE: General: Alert and oriented x3. Cardiac: Regular rate and rhythm without murmurs Lungs: Clear to auscultation bilaterally without wheezes, crackles or rhonchi Abdomen: Soft, non-tender Extremities: Trace edema in the right lower extremity, with +1 pitting edema in the left lower extremity. Left lower extremity wrapped. Urinary Catheter Management^: Kate: Cath Placed During This Visit: yes Urethral Indwelling: Yes Reason for Continuing Indwelling Catheter: Required Immobilization for Trauma or Surgery or Anesthesia Urinary Catheter Date of Insertion: 11/18/19 Urinary Catheter Time of Insertion: 22:58 Discharge Data Data Completed and Pending: Completed Studies During Hospitalization Category Date Time Status XR chest 1V ariel ble [id number] Stat Exams 11/18/19 22:19 Completed XR femur LT min 2 V* [id number] Routine Exams 11/19/19 Completed XR knee LT 3V* [id number] Stat Exams 11/18/19 21:44 Completed Pending at discharge Category Date Time Status Leukocyte Reduced RBC Routine Lab 11/18/19 23:52 Results Type and Screen R outine Lab 11/18/19 23:52 Results Labs from last 24 hours 11/22/19 11/22/19 11/18/19 04:10 04:10 23:52 WBC 8.6 RBC 2.68 L Hgb 7.8 L Hct 26.1 L MCV 97.4 MCH 29.1 MCHC 29.9 L D RDW 15.2 H Plt Count 159 MPV 10.3 Neut % (Auto) 74.6 Lymph % (Auto) 13.7 Dickinson % (Auto) 7.0 Eos % (Auto) 2.9 Baso % (Auto) 0.5 Neut # (Auto) 6.4 Lymph # (Auto) 1.2 Dickinson # (Auto) 0.6 Eos # (Auto) 0.3 Baso # (Auto) 0.0 Nucleated RBC % (a uto) 0.4 Nucleated RBCs # 0.0 Sodium 136 Potassium 3.6 Chloride 100 Carbon Dioxide 23 Anion Gap 16.6 BUN 22 Creatinine 1.3 H Glucose 120 H Calculated Osmolal ity 280 L Calcium 7.8 L Phosphorus 2.6 Magnesium 2.0 Total Bilirubin 0.5 AST 22 ALT 11 Alkaline Phosphata se 70 Total Protein 5.0 L Albumin 3.0 L Globulin 2.0 Crossmatch See Detail Vitals: Last Vital Signs Temp 98.8 F 11/22/19 07:29 Pulse 76 11/22/19 07:29 Resp 18 11/22/19 07:29 BP 101/66 11/22/19 07:29 Pulse Ox 94 11/22/19 07:29 Discharge Plan Discharge Patient Disposition: Xfer SNF Condition: Stable Prescriptions: New oxycodone 5 mg Tablet 5 - 10 mg PO Q4H PRN (Reason: Moderate To Severe Pain) Qty: 60 RF: 0 diphenhydramine HCl 25 mg Capsule 25 mg PO Q6H PRN (Reason: PRN) Qty: 30 RF: 0 Xarelto 10 mg Tablet 10 mg PO DAILY Qty: 30 RF: 0 magnesium hydroxide [Milk of Magnesia] 400 mg/5 mL Suspension 30 ml PO DAILY PRN (Reason: Constipation) Qty: 100 RF: 0 sennosides-docusate sodium 8.6-50 mg Tablet 1 tab PO BID Qty: 60 RF: 0 ferrous gluconate 324 mg (37.5 mg iron) tablet 324 mg PO BID Qty: 60 RF: 0 Continued potassium chloride 10 mEq Tablet Extended Release 10 meq PO BID RF: 0 chlorthalidone 25 mg Tablet 12.5 mg PO DAILY RF: 0 Protonix 40 mg Tablet,Delayed Release (Dr/Ec) 40 mg PO DAILY RF: 0 folic acid 1 mg Tablet 1 mg PO DAILY RF: 0 Zoloft 50 mg Tablet 50 mg PO BEDTIME RF: 0 Vitamin D3 10 mcg (400 unit) Tablet 10 mcg PO DAILY RF: 0 Entyvio 300 mg Recon Soln See Rx Instructions .ROUTE .COMPLEX RF: 0 Discharge Orders: Discharge Order (Routine); Ordered 11/22/19 Ordered By: Vicente More Referrals: Vicente More MD [Primary Care Provider] - (Please follow up with Dr. More upon discharge from nursing facility.) Discharge Diet: Low Fat Discharge Activity: Limit activity as instructed Activity Restrictions/Additional Instructions: Please recheck his CBC on 11/25/2019. Discharge Attestations Time Spent in Discharge Care*: greater than 30 min Specific Discharge Activities: Specific discharge activities: educating patient, documenting/other paperwork and evaluating patient/reviewing data Quality Metrics Clinical Quality Measures During this hospital stay, did patient experience: None Coding Level of Care Code Acute Speech Therapy Assistant for [employer] Fwd Diagnoses Fracture of distal end of left femur S72.402A Encounter type: initial encounter Fracture morphology: unspecified fracture morphology Fracture type: closed Normocytic anemia D64.9 CKD stage G3b/A1, GFR 30-44 and albumin creatinine ratio <30 mg/g N18.3 History of DVT (deep vein thrombosis) Z86.718 Crohn disease K50.919 Digestive disease complication type: unspecified complication Gastrointestinal tract location: unspecified location
[2019-11-22 08:04] VITALS: BP 101/66; PULSE 76; RESP 18; TEMP 37.1; O2SAT 94
[2019-11-22] MEDS: rivaroxaban 10 mg Tablet PO (08:30)
[2019-11-22] MEDS: sertraline 50 mg Tablet PO (08:31)
[2019-11-22] MEDS: sennosides-docusate Tablet 1 TAB PO (08:31)
[2019-11-22] MEDS: pantoprazole DR 40 mg Tablet PO (08:31)
[2019-11-22] MEDS: cefTRIAXone 1,000 MG in sodium chloride 0.9% (plus) 50 ML 100 MG IV (08:48)
--- NOTE | 2019-11-22 09:56 | PC.NURSE ---
ot is helping the patient with her ADL's
--- NOTE | 2019-11-22 09:58 | PM.PN ---
Subjective Subjective: Interval history: Pain controlled with oral meds. Better p.o. intake. Vitals/I&O/Wt Last Vital Signs Temp 98.8 F 11/22/19 08:04 Pulse 76 11/22/19 08:04 Resp 18 11/22/19 08:04 BP 101/66 11/22/19 08:04 Pulse Ox 94 11/22/19 08:04 11/21/19 11/22/19 11/22/19 22:59 06:59 14:59 Intake Total 360 / 1300 240 / 1540 480 / 480 Output Total 0 / 250 650 / 900 Balance 360 / 1050 -410 / 640 480 / 480 Physical Exam Narrative: EXAM NARRATIVE: Incisions clean and free of drainage left leg. She has a larger leg and I cannot appreciate any swelling Urinary Catheter Management^: Kate: Cath Placed During This Visit: yes Urethral Indwelling: Yes Reason for Continuing Indwelling Catheter: Required Immobilization for Trauma or Surgery or Anesthesia Urinary Catheter Date of Insertion: 11/18/19 Urinary Catheter Time of Insertion: 22:58 Data : 11/22/19 04:10 11/22/19 04:10 A&P Assessment and plan (1) Displaced supracondylar fracture of distal end of left femur with intracondylar extension: Status: Acute (2) Postoperative state: I discussed patient's postoperative plan with her. Due to the degree of comminution and intra-articular extension she will be non-weightbearing for some period of time, I would estimate at least 3 months. Will be discharged to assisted today. She will be no more than touchdown weightbearing of the left lower extremity. She performed gentle passive and active assisted range of motion. I will see her back in my clinic in 2 weeks Status: Acute Attestations Medical Necessity Statement*: Discharge plan today Coding Level of Care Code Acute Coke Oven Patcher for Shahriar Fwhelena Diagnoses Displaced supracondylar fracture of distal end of left femur with intracondylar extension S72.462A Postoperative state Z98.890
--- NOTE | 2019-11-22 10:19 | PC.NURSE ---
tag writer called patient's daughter celeste pelaez [phone], unable to leave message. [employer] called SANDY Jaramillo [phone] and let her know patient is being discharged to [facility] today.
[2019-11-22 11:18] VITALS: BP 101/66; PULSE 76; RESP 18; TEMP 37.1; O2SAT 94
== END 2019-11-22 11:19 | disposition skilled nursing facility (03) | DRG 481 ==
LOC: ER 22:03 → MEDSURG 23:17
PROVIDERS: Family Medicine; Orthopaedic Surgery; Admitting Provider Family Medicine; Emergency Provider Emergency Medicine; Family Provider Family Medicine; PCP Family Medicine; Visit Provider Family Medicine
PROC: 0QSC04Z Reposition Left Lower Femur with Internal Fixation Device, Open Approach (ICD-10-PCS; principal; 2019-11-19 10:50)
DX: S72.462A Displaced supracondylar fracture with intracondylar extension of lower end of left femur, initial encounter for closed fracture (principal); K50.90 Crohn's disease, unspecified, without complications; Z68.42 Body mass index [BMI] 45.0-49.9, adult; N17.9 Acute kidney failure, unspecified; D62 Acute posthemorrhagic anemia; W01.0XXA Fall on same level from slipping, tripping and stumbling without subsequent striking against object, initial encounter; Y93.89 Activity, other specified; Y92.009 Unspecified place in unspecified non-institutional (private) residence as the place of occurrence of the external cause; I12.9 Hypertensive chronic kidney disease with stage 1 through stage 4 chronic kidney disease, or unspecified chronic kidney disease; N18.3 Chronic kidney disease, stage 3 (moderate); Z86.718 Personal history of other venous thrombosis and embolism; E87.6 Hypokalemia; Z79.899 Other long term (current) drug therapy; Z90.49 Acquired absence of other specified parts of digestive tract; K21.9 Gastro-esophageal reflux disease without esophagitis; F32.9 Major depressive disorder, single episode, unspecified; E66.01 Morbid (severe) obesity due to excess calories; D63.1 Anemia in chronic kidney disease; K59.03 Drug induced constipation; L29.9 Pruritus, unspecified; T40.2X5A Adverse effect of other opioids, initial encounter
CPT/HCPCS: 12345; 29505; 36415; 36430; 51702; 71045; 73552; 73562; 76000; 80048; 80053; 81001; 83735; 84100; 84145; 85014; 85018; 85025; 85610; 85730; 86850; 86900; 86920; 93005; 94664; 96365; 96374; 96375; 96376; 97162; 97166; 97530; 97535; 99283; 99285; C1713; J0330; J0690; J0696; J1170; J1580; J2001; J2250; J2270; J2405; J2704; J2710; J2765; J3010; J3475; J3490; P9016

== ENCOUNTER 2019-11-25 08:45 | Outpatient (CLI) | payer MEDICARE, SELFPAY ==
[2019-11-25] VITALS (10 sets, daily range): BP systolic 111–131; BP diastolic 59–85; PULSE 72–88; RESP 16–19; TEMP 36.8–37.1; O2SAT 93–98
--- NOTE | 2019-11-25 20:11 | PC.NURSE ---
Blood Pt. IV noted to be infiltrated by patient care nurse Josefa. This nurse agrees that IV appears to be infiltrated. Blood administration stopped. Pt. was an extremely hard stick during day shift requiring multiple attempts. Anesthesia was unable to obtain IV access during the day. ER nurse with ultrasound obtained IV during day shift. ER notified by this nurse to attempt IV access with ultrasound, that patient is in the middle of a unit of blood. ER to floor to attempt IV access.
--- NOTE | 2019-11-25 20:30 | PC.NURSE ---
IV access IV access obtained to right AC by ER staff with ultrasound. Blood administration continued.
[2019-11-25] MEDS: HYDROcodone-acetaminophen 5-325 mg Tablet 1 TAB PO (21:04)
[2019-11-26] VITALS (10 sets, daily range): BP systolic 108–125; BP diastolic 65–79; PULSE 65–86; RESP 18; TEMP 36.7–37; O2SAT 92–96
== END 2019-11-26 07:30 | disposition home or self-care (01) ==
LOC: OPMS 08:47 → MEDSURG 14:09
PROVIDERS: Family Provider Family Medicine; PCP Family Medicine; Visit Provider Family Medicine
DX: D64.9 Anemia, unspecified (principal)
CPT/HCPCS: 36430; 86850; 86900; 86920; P9016

== ENCOUNTER → 2019-12-22 15:37 | Outpatient (BNVA) | payer MEDICARE, SELFPAY | PROVIDERS: Family Provider Family Medicine; PCP Family Medicine; Visit Provider Orthopaedic Surgery | DX: S72.462D Displaced supracondylar fracture with intracondylar extension of lower end of left femur, subsequent encounter for closed fracture with routine healing (principal); W18.09XD Striking against other object with subsequent fall, subsequent encounter | CPT/HCPCS: 73560 ==

== ENCOUNTER → 2020-01-24 16:03 | Outpatient (BNVA) | payer MEDICARE, SELFPAY | PROVIDERS: Family Provider Family Medicine; PCP Family Medicine; Visit Provider Orthopaedic Surgery | DX: S72.462D Displaced supracondylar fracture with intracondylar extension of lower end of left femur, subsequent encounter for closed fracture with routine healing (principal); Z48.89 Encounter for other specified surgical aftercare; W18.09XD Striking against other object with subsequent fall, subsequent encounter | CPT/HCPCS: 73562 ==

== ENCOUNTER → 2020-02-21 15:23 | Outpatient (BNVA) | payer MEDICARE, SELFPAY | PROVIDERS: Family Provider Family Medicine; PCP Family Medicine; Visit Provider Orthopaedic Surgery | DX: S72.462D Displaced supracondylar fracture with intracondylar extension of lower end of left femur, subsequent encounter for closed fracture with routine healing (principal); W18.09XD Striking against other object with subsequent fall, subsequent encounter; Z47.89 Encounter for other orthopedic aftercare | CPT/HCPCS: 73560; 73562 ==

== ENCOUNTER → 2020-02-28 11:54 | Outpatient (BNVA) | payer MEDICARE, SELFPAY | PROVIDERS: Family Provider Family Medicine; PCP Family Medicine; Visit Provider Orthopaedic Surgery | DX: S72.462A Displaced supracondylar fracture with intracondylar extension of lower end of left femur, initial encounter for closed fracture (principal); Z98.890 Other specified postprocedural states; X58.XXXA Exposure to other specified factors, initial encounter | CPT/HCPCS: 73562 ==

== ENCOUNTER → 2020-03-20 15:31 | Outpatient (BNVA) | payer MEDICARE, SELFPAY | PROVIDERS: Family Provider Family Medicine; PCP Family Medicine; Visit Provider Orthopaedic Surgery | DX: S72.492D Other fracture of lower end of left femur, subsequent encounter for closed fracture with routine healing (principal); X58.XXXD Exposure to other specified factors, subsequent encounter | CPT/HCPCS: 73562 ==

== ENCOUNTER → 2020-04-17 14:35 | Outpatient (BNVA) | payer MEDICARE, SELFPAY | PROVIDERS: Family Provider Family Medicine; PCP Family Medicine; Visit Provider Orthopaedic Surgery | DX: S72.462A Displaced supracondylar fracture with intracondylar extension of lower end of left femur, initial encounter for closed fracture (principal); X58.XXXA Exposure to other specified factors, initial encounter | CPT/HCPCS: 73560; 73562 ==

== ENCOUNTER 2020-05-10 10:48 | Inpatient (IN) | payer MEDICARE, SELFPAY ==
[2020-05-10] VITALS (10 sets, daily range): BP systolic 106–189; BP diastolic 60–95; PULSE 64–108; RESP 12–20; TEMP 36.7–37.1; O2SAT 93–97
--- NOTE | 2020-05-10 11:32 | PC.NURSE ---
EKG done at 1130 and shown to ER doctor
[2020-05-10] MEDS: potassium chloride oral liq 20 mEq/15 mL UDC 60 MEQ PO (11:42)
[2020-05-10 11:57] LABS: Basophils # 0.1 10^3/uL (0.0-0.1); Eosinophils # 0.1 10^3/uL (0.0-0.8); Eosinophils % 1.7 %; Hematocrit 43.1 % (37.0-47.0); Hemoglobin 13.4 g/dL (11.5-15.3); Lymphocytes # 1.7 10^3/uL (0.8-4.8); Lymphocytes % 20.4 %; Mean Corpuscular HGB Conc 31.1 g/dL (30.0-36.0); Mean Corpuscular Hemoglobin 28.8 pg (28.0-34.0); Mean Corpuscular Volume 92.7 fL (81-99); Mean Platelet Volume 9.3 fL (7.4-10.4); Monocytes # 0.4 10^3/uL (0.2-0.9); Neutrophils # 5.89 10^3/uL (1.8-7.7); Neutrophils % 71.4 %; Nucleated Red Blood Cells % 0 %; Platelet Count 233 10^3/cmm (130-400); Red Blood Count 4.65 10^6/uL (4.1-5.3); Red Cell Distribution Width 14.8 % (12.1-15.1); White Blood Count 8.2 10^3/uL (4.0-10.0)
[2020-05-10] MEDS: ondansetron 2 mg/ML SDV 2 mL 4 MG IM (12:15)
[2020-05-10 12:22] LABS: Anion Gap 19.2 (5-19); Blood Urea Nitrogen 28 mg/dL (8-23); Calcium 8.2 mg/dL (8.5-10.5); Carbon Dioxide 26 mmol/L (22-29); Chloride 98 mmol/L (98-107); Glucose 143 mg/dL (65-115); Magnesium 1.3 mg/dL (1.7-2.3); Osmolality Calculated 300 mOsm/kg (285-295); Sodium 141 mmol/L (136-145)
[2020-05-10 12:34] LABS: Potassium 2.2 mmol/L (3.5-5.1)
[2020-05-10 12:53] LABS: Slide Review Slide Review Perform
--- NOTE | 2020-05-10 13:48 | PC.NURSE ---
pt transferred from er via wheelchair. admission and assessment performed. pt resting in bed with call light within reach and will continue to monitor.
--- NOTE | 2020-05-10 13:59 | ECG_ITS ---
[facility] Test Date: 2020-05-10 Pat Name: Kaitlin Meade Department: Room: 104 Gender: Female Pattern Data Operator: : 1945 Requested By: Jasper Moore Order Number: [id number] Kody MD: Gloria Bass M.D. Measurements Intervals [place] Rate: 66 P: 18 [place]: 181 QRS: -87 QRSD: 192 T: 29 QT: 479 QTc: 502 Interpretive Statements SINUS RHYTHM LEFT AXIS DEVIATION [QRS AXIS < -30] RIGHT BUNDLE BRANCH BLOCK [120+ ms QRS DURATION, UPRIGHT V1, 40+ ms S IN I/aVL/V4/V5/V6] POSSIBLE ANTEROSEPTAL MYOCARDIAL INFARCTION , OF INDETERMINATE AGE [30 ms Q WAVE IN V1-V4] Compared to ECG 11/19/2019 15:01:27 Left-axis deviation now present Right-axis deviation no longer present Myocardial infarct finding still present Electronically Signed On 05-10-2020 21:36:49 CDT by Gloria Bass M.D. [email or web address]
[2020-05-10] MEDS: D5-NS 0.45% + KCL 20 mEq 20 MEQ/1,000 ML BAG 100 MEQ IV ×2 (14:16→23:55)
--- NOTE | 2020-05-10 15:59 | PM.HP ---
Providers/Chief Complaint Admitting Physician: Vicente More MD Primary Care Provider: Vicente More MD Chief Complaint: low potassium History of Present Illness Kaitlin Meade is a 75 year old female with past medical history of Crohn's disease, hypertension who presented to my clinic on 05/09/2020 with complaints of weakness and muscle cramps. The patient had labs done and was found to have a potassium level of 2.4. I contacted her on the morning of 05/10/2020 to give her lab results and she stated that she was having significant palpitations like her heart was jumping. For this reason she was sent to the emergency department for further evaluation. In the emergency department her potassium level was 2.2. Her magnesium level was also low. The patient was given 60 milequivalents of liquid potassium by mouth. Currently the patient is starting to feel better. She denies any active chest pains, nausea, vomiting, constipation. She does have chronic diarrhea secondary to Crohn's disease. Medications/Allergies Home Medications Medication Instructions Recorded Confirmed Last Taken Type Entyvio See Rx Instructions .ROUTE .COMPLEX 11/20/19 05/10/20 Unknown History chlorthalidone 12.5 mg PO DAILY 11/20/19 05/10/20 05/09/20 History cholecalciferol (vitamin D3) 10 mcg PO DAILY 11/20/19 05/10/20 05/09/20 History [Vitamin D3] pantoprazole [Protonix] 40 mg PO DAILY 11/20/19 05/10/20 05/09/20 History potassium chloride 10 meq PO BID 11/20/19 05/10/20 05/09/20 History sertraline [Zoloft] 50 mg PO BEDTIME 11/20/19 05/10/20 05/09/20 History Wheelchair #1 each 12/22/19 05/10/20 Unknown Rx cyanocobalamin (vitamin B-12) 1,000 mcg IM Q30D 05/10/20 05/10/20 05/03/20 History Allergies Allergy/AdvReac Type Severity Reaction Status Date / Time Iodine and Iodide Containing Allergy ALGY-Anaphy Verified 04/17/20 14:47 Produc laxis prochlorperazine Allergy Unknown Verified 04/17/20 14:47 [From Compazine] PFSH Acute PFSH: Medical History (Updated 05/10/20 @ 16:03 by Vicente More MD) CKD stage G3b/A1, GFR 30-44 and albumin creatinine ratio <30 mg/g Depression GERD (gastroesophageal reflux disease) History of DVT (deep vein thrombosis) Hypertension Morbid obesity Normocytic anemia Surgical History History of bowel resection History of incisional hernia repair Family History Other Diabetes Social History Smoking and tobacco status: never smoked Vitals/I&O/Wt Last Vital Signs Temp 98.5 F 05/10/20 15:06 Pulse 69 05/10/20 15:06 Resp 15 05/10/20 15:06 BP 167/90 05/10/20 15:06 Pulse Ox 94 05/10/20 15:06 Physical Exam Narrative: EXAM NARRATIVE: General: Alert and oriented x3 Eyes: PERRLA, EOMI Mouth: Mucous membranes are moist without lesions Neck: No masses noted Cardiac: Regular rate and rhythm without murmurs Lungs: Clear to auscultation bilaterally without wheezes, crackles or rhonchi Abdomen: Soft, stable mild tenderness, no hepatosplenomegaly appreciated Extremities: Trace edema in the bilateral lower extremities Data : 05/10/20 11:52 05/10/20 11:52 A&P Assessment and plan (1) Crohn disease: Status: Chronic Qualifiers: Gastrointestinal tract location: unspecified location Digestive disease complication type: unspecified complication Qualified Code(s): K50.919 - Crohn's disease, unspecified, with unspecified complications (2) CKD stage G3b/A1, GFR 30-44 and albumin creatinine ratio <30 mg/g: Status: Chronic Additional A&P Information 1. Severe hypokalemia -the patient had a potassium level of 2.2 in the emergency department. She has been given 60 mEq of potassium by mouth and is getting potassium via IV. We will continue with 40 mEq by mouth twice daily. I will recheck levels this afternoon and in the morning. The likely underlying cause was secondary to chlorthalidone use in association with chronic diarrhea and the patient not taking her potassium for a number of weeks. 2. Hypomagnesemia -we will replace by IV for now and by mouth after that if improving. 3. Muscle weakness -this is likely secondary to hypokalemia and hypomagnesemia. We will watch to be sure that this continues to improve with treatment. 4. Palpitations -the patient is currently on telemetry and does not show any signs of concerning arrhythmia. Symptomatically things are starting to improve. We will continue to follow as her potassium levels improve. 5. Crohn's disease -the patient is on Entyvio for Crohn's disease and received her last infusion a couple of weeks ago. This is stable at this point. 6. Hypertension -the patient's blood pressure is elevated at this time. If he continues to be high, we may need to add further medications. 7. Prophylaxis -we will start Lovenox for DVT prophylaxis. Attestations Medical Necessity Statement*: The patient will be here for observation as we work on increasing her potassium and magnesium levels. If they are not coming up sufficiently, she may need to stay beyond 1 midnight. Coding Level of Care Code Acute Sports Umpire for [facility] Diagnoses Crohn disease K50.919 Gastrointestinal tract location: unspecified location Digestive disease complication type: unspecified complication CKD stage G3b/A1, GFR 30-44 and albumin creatinine ratio <30 mg/g N18.3
[2020-05-10 16:45] LABS: Phosphorus 2.6 mg/dL (2.5-4.5)
[2020-05-10 17:17] LABS: Potassium 2.4 mmol/L (3.5-5.1)
[2020-05-10] MEDS: magnesium sulfate premix 2 GM/50 ML PIGGYBACK IV (17:35)
[2020-05-10] MEDS: enoxaparin 40 mg/0.4 mL Syringe SUBCUT (17:37)
[2020-05-10] MEDS: potassium chloride ER 10 mEq Tablet 40 MEQ PO (17:38)
--- NOTE | 2020-05-10 18:39 | PC.NURSE ---
pt had an uneventful shift. pt resting in bed. call light within reach, will continue to monitor.
[2020-05-10] MEDS: sertraline 50 mg Tablet PO (21:17)
--- NOTE | 2020-05-10 21:26 | PC.NURSE ---
Addendum entered by Nishi Osorio RN 05/10/20 21:43: Called Dr More and informed of patient request and mentioned what order I received from Dr George. Changed order to reflect order from Dr More who was in total agreement with Dr George's order. Original Note: Patient requesting something to help with sleep. Patient reports taking something over the counter from [employer]. Informed Dr George in person of patient request. Received verbal order which was read back and verified.
[2020-05-11 03:11] VITALS: BP 126/78; PULSE 67; RESP 19; TEMP 36.7; O2SAT 90
[2020-05-11 04:03] LABS: Basophils # 0.1 10^3/uL (0.0-0.1); Basophils % 0.6 %; Eosinophils # 0.2 10^3/uL (0.0-0.8); Eosinophils % 2.4 %; Hematocrit 35.8 % (37.0-47.0); Hemoglobin 11.3 g/dL (11.5-15.3); Mean Corpuscular HGB Conc 31.6 g/dL (30.0-36.0); Mean Corpuscular Volume 91.8 fL (81-99); Mean Platelet Volume 10.7 fL (7.4-10.4); Monocytes # 0.5 10^3/uL (0.2-0.9); Neutrophils # 5.63 10^3/uL (1.8-7.7); Neutrophils % 66.6 %; Nucleated Red Blood Cells % 0 %; Platelet Count 178 10^3/cmm (130-400); White Blood Count 8.5 10^3/uL (4.0-10.0)
[2020-05-11 04:27] LABS: Blood Urea Nitrogen 28 mg/dL (8-23); Calcium 7.6 mg/dL (8.5-10.5); Carbon Dioxide 23 mmol/L (22-29); Chloride 102 mmol/L (98-107); Glucose 131 mg/dL (65-115); Osmolality Calculated 297 mOsm/kg (285-295); Sodium 140 mmol/L (136-145)
[2020-05-11 04:31] LABS: Anion Gap 17.5 (5-19)
[2020-05-11 04:32] LABS: Magnesium 1.6 mg/dL (1.7-2.3); Potassium 2.5 mmol/L (3.5-5.1)
--- NOTE | 2020-05-11 04:37 | PC.NURSE ---
Critical KCL of 2.5. Informed Dr More of critical value. Order received.
[2020-05-11] MEDS: potassium chloride ER 10 mEq Tablet 60 MEQ PO ×2 (04:44→17:13)
[2020-05-11 05:07] LABS: Slide Review Slide Review Perform
[2020-05-11 08:00] VITALS: BP 108/64; PULSE 70; RESP 14; TEMP 36.6; O2SAT 94
[2020-05-11] MEDS: pantoprazole DR 40 mg Tablet PO (08:38)
[2020-05-11] MEDS: D5-NS 0.45% + KCL 20 mEq 20 MEQ/1,000 ML BAG 100 MEQ IV (09:06)
[2020-05-11] MEDS: magnesium sulfate premix 2 GM/50 ML PIGGYBACK IV (10:35)
[2020-05-11 11:18] VITALS: BP 104/77; PULSE 67; RESP 16; TEMP 36.6; O2SAT 94
[2020-05-11 12:30] LABS: Potassium 2.5 mmol/L (3.5-5.1)
--- NOTE | 2020-05-11 12:38 | PC.NURSE ---
Dr. More notified of critical lab of K 2.5. No new orders received. Physician gave telephone order to only notify if level is lower, otherwise do not notify provider, RBTO.
--- NOTE | 2020-05-11 13:10 | P.PN_ITS ---
Subjective Subjective: Interval history: The patient has less muscle twitching and is starting to feel better. She does not have any palpitations anymore. We had a discussion regarding her home medications and she says that she has likely been forgetting them. She had not been on her potassium for a number of weeks as she ran out and never got the refill. She has been having lots of loose stools that are 3-5 times per day. She feels that this is secondary to her Crohn's disease. Vitals/I&O/Wt Last Vital Signs Temp 97.9 F 05/11/20 11:18 Pulse 67 05/11/20 11:18 Resp 16 05/11/20 11:18 BP 104/77 05/11/20 11:18 Pulse Ox 94 05/11/20 11:18 05/10/20 05/11/20 05/11/20 22:59 06:59 14:59 Intake Total 170 / 170 965 / 1135 1338.333 / 1338.333 Balance 170 / 170 965 / 1135 1338.333 / 1338.333 Physical Exam Narrative: EXAM NARRATIVE: General: Alert and oriented x3 Eyes: PERRLA, EOMI Mouth: Mucous membranes are moist without lesions Neck: No masses noted Cardiac: Regular rate and rhythm without murmurs Lungs: Clear to auscultation bilaterally without wheezes, crackles or rhonchi Abdomen: Soft, stable mild tenderness, no hepatosplenomegaly appreciated Extremities: Trace edema in the bilateral lower extremities Data : 05/11/20 03:19 05/11/20 10:54 A&P Assessment and plan (1) Crohn disease: Status: Chronic Qualifiers: Gastrointestinal tract location: unspecified location Digestive disease complication type: unspecified complication Qualified Code(s): K50.919 - Crohn's disease, unspecified, with unspecified complications (2) CKD stage G3b/A1, GFR 30-44 and albumin creatinine ratio <30 mg/g: Status: Chronic Additional A&P Information 1. Severe hypokalemia -the patient had a potassium level of 2.2 upon admission and this has increased to 2.5 after receiving approximately 180 mEq of potassium in the last 24 hours. We will continue with potassium in the IV fluids and give a K rider of 40 mEq. Recheck levels in the morning. At this time she is not stable for discharge. 2. Hypomagnesemia -the patient has received 2 doses of magnesium IV. These levels are starting to improve. Continue to replace as needed. The likely underlying cause is her frequent bowel movements in combination with chlorthalidone and the patient not taking her oral potassium supplements. 3. Muscle weakness -this is likely secondary to hypokalemia and hypomagnesemia. This is starting to improve. 4. Palpitations -the patient is no longer symptomatic with palpitations. Continue telemetry for now. 5. Crohn's disease -the patient is on Entyvio for Crohn's disease and received her last infusion a couple of weeks ago. This is stable at this point. 6. Hypertension -the patient's blood pressure is stable at this time. 7. Diarrhea -the patient states that she is having 3-4 loose bowel movements per day. To be sure that this is noninfectious we will check a C. difficile level. As long as this is negative, we can start Bentyl for slowing down bowel movements that may be related to Crohn's disease and complicating her low potassium levels. 8. Acute on chronic kidney disease -the patient's creatinine has only slightly improved. We will continue with IV rehydration. 9. Prophylaxis -we will start Lovenox for DVT prophylaxis. Attestations Medical Necessity Statement*: The patient will need to be switched to inpatient status as she continues to have significantly low potassium levels. I expect her stay to cross 2 midnights. Coding Level of Care Code Acute Refrigeration Houseman for [facility] Diagnoses Crohn disease K50.919 Gastrointestinal tract location: unspecified location Digestive disease complication type: unspecified complication CKD stage G3b/A1, GFR 30-44 and albumin creatinine ratio <30 mg/g N18.3
[2020-05-11] MEDS: lidocaine 1% 5 ML in potassium chloride premix 100 ML 25 ML IV (14:24)
[2020-05-11] MEDS: dicyclomine 20 mg Tablet PO (14:29)
--- NOTE | 2020-05-11 14:35 | PC.CHAP ---
Pastoral Care Encounter/Spiritual Assessment Type of Contact [x] Declined life cycle assessment analyst visit [] Patient/Family/Request visit [] Outpatient visit [] Follow-up visit [] Physician referral [] Code/Alert [] Routine visit [] Staff referral [] Actively dying [] Patient sleeping [] Family support [] [] Out of room [] Palliative care [] [] Receiving care in room [] Pre-surgical visit [] Trauma [] Long length of stay [] ICU visit [] Other: Relational/Emotional Strength [] Patient feels connected with others/family/visitors/staff [] Distress [] Loneliness/isolation [] Abandonment Spirituality of Patient [] Person of Stephanie [] Attends Quaker of their Stephanie [] Believes in Prayer [] Reads Bible or Presybeterian materials [] There are Spiritual issues to be addressed Three Dimensional Map Modeler Interventions [] Prayer [] Active listening [] Non-anxious presence [] Spiritual/emotional support [] Crisis/trauma care [] Spiritual counseling [] Bereavement support [] Provided bereavement packet [] Provided Bible/devotional materials [] Provided toy/stuffed animal, coloring book to patient or family member [] Provided Communion [] Anointing/[place] [] Salvation [] Completed spiritual assessment [] Other: Impact on Illness or Injury [] Angry [] Fearful [] Anxious [] Often cries [] Exhaustion [] Unable to work [] Unable to attend anglican [] Unable to walk/stand [] Unable to read [] Unable to drive [] Unable to eat/drink [] Unable to sleep [] Unable to be with family [] Patient intubated [] Other: Summary Patient was tired and declined a visit at this time. Referred patient for a follow up visit by the next life cycle assessment analyst. Patient visit was attempted by Three Dimensional Map Modeler Indra Carter. Time spent with patient 3 minutes
[2020-05-11 15:35] VITALS: BP 98/60; PULSE 60; RESP 22; TEMP 36.7; O2SAT 97
--- NOTE | 2020-05-11 16:20 | PC.NURSE ---
Dr. More updated on patient condition. Patient BP is 98/60, HR 60. Patient is asymptomatic. Physician gave telephone order to increase fluid rate to 125 ml/hr and notify provider if patient develops symptomatic hypotension. RBTO. Nurse to continue to monitor.
[2020-05-11] MEDS: enoxaparin 40 mg/0.4 mL Syringe SUBCUT (17:13)
[2020-05-11] MEDS: D5-NS 0.45% + KCL 20 mEq 20 MEQ/1,000 ML BAG 125 MEQ IV (17:40)
[2020-05-11 19:12] VITALS: BP 96/55; PULSE 68; RESP 22; TEMP 36.8; O2SAT 96
--- NOTE | 2020-05-11 19:18 | PC.NURSE ---
Received report from ROSA Charles. Assumed care at this time. Patient lying in bed watching tv. Patient reports feeling some better, denies pain. No other distress observed. Assessment completed as documented.
[2020-05-11] MEDS: sertraline 50 mg Tablet PO (20:46)
[2020-05-11 23:32] VITALS: BP 98/61; PULSE 67; RESP 18; TEMP 36.6; O2SAT 92
[2020-05-12] MEDS: D5-NS 0.45% + KCL 20 mEq 20 MEQ/1,000 ML BAG 125 MEQ IV (01:23)
[2020-05-12 03:51] VITALS: BP 129/62; PULSE 62; RESP 22; TEMP 36.6; O2SAT 94
[2020-05-12 04:54] LABS: Alanine Aminotransferase 14 U/L (0-33); Alkaline Phosphatase 107 IU/L (35-105); Aspartate Amino Transferase 26 U/L (0-32); Blood Urea Nitrogen 22 mg/dL (8-23); Calcium 7.9 mg/dL (8.5-10.5); Carbon Dioxide 20 mmol/L (22-29); Chloride 106 mmol/L (98-107); Globulin 2.9 g/dL (1.3-4.6); Glucose 123 mg/dL (65-115); Osmolality Calculated 291 mOsm/kg (285-295); Sodium 138 mmol/L (136-145); Total Bilirubin 0.2 mg/dL (0.15-1.2); Total Protein 5.9 g/dL (6.6-8.7)
[2020-05-12 05:15] LABS: Anion Gap 15.2 (5-19); Potassium 3.2 mmol/L (3.5-5.1)
[2020-05-12 07:32] VITALS: BP 100/69; PULSE 62; RESP 18; TEMP 36.7; O2SAT 96
[2020-05-12 07:54] LABS: Basophils # 0.1 10^3/uL (0.0-0.1); Basophils % 0.8 %; Eosinophils # 0.2 10^3/uL (0.0-0.8); Eosinophils % 2.9 %; Hematocrit 39.4 % (37.0-47.0); Hemoglobin 11.6 g/dL (11.5-15.3); Lymphocytes # 1.6 10^3/uL (0.8-4.8); Lymphocytes % 24.5 %; Mean Corpuscular HGB Conc 29.4 g/dL (30.0-36.0); Mean Corpuscular Hemoglobin 28.6 pg (28.0-34.0); Mean Platelet Volume 9.4 fL (7.4-10.4); Monocytes # 0.3 10^3/uL (0.2-0.9); Monocytes % 4.9 %; Neutrophils # 4.35 10^3/uL (1.8-7.7); Neutrophils % 66.3 %; Nucleated Red Blood Cells % 0 %; Platelet Count 213 10^3/cmm (130-400); Red Blood Count 4.06 10^6/uL (4.1-5.3); Red Cell Distribution Width 15.4 % (12.1-15.1); White Blood Count 6.6 10^3/uL (4.0-10.0)
[2020-05-12] MEDS: pantoprazole DR 40 mg Tablet PO (08:11)
[2020-05-12] MEDS: potassium chloride ER 10 mEq Tablet 60 MEQ PO (08:12)
--- NOTE | 2020-05-12 08:31 | PM.DCS ---
Discharge Providers Date of Admission: 05/11/20 13:09 Date of Discharge: May 12, 2020 Attending Provider at Admission: Vicente More MD Attending Provider at Discharge: Vicente More MD Primary Care Provider: Vicente More MD Diagnoses at Discharge Discharge Diagnosis (1) Crohn disease: Status: Chronic Qualifiers: Gastrointestinal tract location: unspecified location Digestive disease complication type: unspecified complication Qualified Code(s): K50.919 - Crohn's disease, unspecified, with unspecified complications (2) CKD stage G3b/A1, GFR 30-44 and albumin creatinine ratio <30 mg/g: Status: Chronic (3) Hypokalemia: Status: Acute (4) Hypomagnesemia: Status: Acute (5) Palpitations: Status: Acute (6) Muscle weakness: Status: Acute Other Information Additional DC diagnoses/information: 1. Severe hypokalemia 2. Hypomagnesemia 3. Muscle weakness 4. Palpitations 5. Crohn's disease 6. Hypertension 7. Diarrhea 8. Acute on chronic renal insufficiency Reason for Visit Reason for Visit: low potassium Hospital Course Hospital Course: The patient was admitted to the hospital secondary to severe hypokalemia with potassium levels of 2.2. The patient was given a significant amount of potassium orally and by IV. Her levels did not improve quickly at first and she had palpitations with significant muscle weakness and for this reason she was admitted for further observation. The patient was given potassium via IV fluids, K rider and orally. It has taken approximately 48 hours to get her levels up to 3.2. The patient's palpitations, muscle weakness and overall status is improving at this time. The patient feels better and is ready to be discharged home. All questions were answered. She will take potassium 30 mEq by mouth twice a day for the next week and follow-up with pain clinic. She will also take magnesium once a day for the next week and follow-up with me in clinic. The patient did have some acute on chronic renal insufficiency and this is also showing signs of improvement. The patient is in agreement with discharge home at this time. Physical Exam Narrative: EXAM NARRATIVE: General: Alert and oriented x3 Neck: No masses noted Cardiac: Regular rate and rhythm without murmurs Lungs: Clear to auscultation bilaterally without wheezes, crackles or rhonchi Abdomen: Soft, stable mild tenderness, no hepatosplenomegaly appreciated Extremities: Trace edema in the bilateral lower extremities Discharge Data Data Completed and Pending: Labs from last 24 hours 05/12/20 05/12/20 05/12/20 07:32 03:57 03:57 WBC 6.6 Cancelled Corrected WBC Cancelled RBC 4.06 L Cancelled Hgb 11.6 Cancelled Hct 39.4 Cancelled MCV 97.0 Cancelled MCH 28.6 Cancelled MCHC 29.4 L Cancelled RDW 15.4 H Cancelled Plt Count 213 Cancelled MPV 9.4 Cancelled Gran % Cancelled Neut % (Auto) 66.3 Cancelled Lymph % (Auto) 24.5 Cancelled [place] % (Auto) 4.9 Cancelled Eos % (Auto) 2.9 Cancelled Baso % (Auto) 0.8 Cancelled Neut # (Auto) 4.35 Cancelled Lymph # (Auto) 1.6 Cancelled [place] # (Auto) 0.3 Cancelled Eos # (Auto) 0.2 Cancelled Baso # (Auto) 0.1 Cancelled Absolute Gran (aut o) Cancelled Nucleated RBC % (a uto) 0 Cancelled Nucleated RBCs # 0.0 Cancelled Sodium 138 Potassium 3.2 L Chloride 106 Carbon Dioxide 20 L Anion Gap 15.2 BUN 22 Creatinine 1.8 H GFR Calculation Not Reportable Glucose 123 H Calculated Osmolal ity 291 Calcium 7.9 L Magnesium 2.0 Total Bilirubin 0.2 AST 26 ALT 14 Alkaline Phosphata se 107 H C-React Prot High Sens 1.030 H Total Protein 5.9 L Albumin 3.0 L Globulin 2.9 05/11/20 10:54 WBC Corrected WBC RBC Hgb Hct MCV MCH MCHC RDW Plt Count MPV Gran % Neut % (Auto) Lymph % (Auto) [place] % (Auto) Eos % (Auto) Baso % (Auto) Neut # (Auto) Lymph # (Auto) [place] # (Auto) Eos # (Auto) Baso # (Auto) Absolute Gran (aut o) Nucleated RBC % (a uto) Nucleated RBCs # Sodium Potassium 2.5 L* Chloride Carbon Dioxide Anion Gap BUN Creatinine GFR Calculation Glucose Calculated Osmolal ity Calcium Magnesium Total Bilirubin AST ALT Alkaline Phosphata se C-React Prot High Sens Total Protein Albumin Globulin Vitals: Last Vital Signs Temp 98.1 F 05/12/20 07:32 Pulse 62 05/12/20 07:32 Resp 18 05/12/20 07:32 BP 100/69 05/12/20 07:32 Pulse Ox 96 05/12/20 07:32 Discharge Plan Discharge Patient Disposition: Home Condition: Stable Prescriptions: New potassium chloride 10 mEq Tablet Extended Release 30 meq PO BID Qty: 60 RF: 1 dicyclomine 20 mg Tablet 20 mg PO Q4H PRN (Reason: Spasms) Qty: 30 RF: 0 Continued pantoprazole [Protonix] 40 mg Tablet,Delayed Release (Dr/Ec) 40 mg PO DAILY RF: 0 sertraline [Zoloft] 50 mg Tablet 50 mg PO BEDTIME RF: 0 cholecalciferol (vitamin D3) [Vitamin D3] 10 mcg (400 unit) Tablet 10 mcg PO DAILY RF: 0 Entyvio 300 mg Recon Soln See Rx Instructions .ROUTE .COMPLEX RF: 0 cyanocobalamin (vitamin B-12) 1,000 mcg/mL Solution 1,000 mcg IM Q30D RF: 0 Discontinued potassium chloride 10 mEq Tablet Extended Release 10 meq PO BID RF: 0 chlorthalidone 25 mg Tablet 12.5 mg PO DAILY RF: 0 No Action (DME) Wheelchair See Rx Instructions .ROUTE .MEDSUPPLY Qty: 1 RF: 0 Discharge Orders: Discharge Order (Routine); Ordered 05/12/20 Ordered By: Vicente More Referrals: Vicente More MD [Primary Care Provider] - 4-7 days Discharge Diet: Regular Discharge Activity: Increase activity as tolerated Activity Restrictions/Additional Instructions: Please make sure you take the potassium 30 mEq twice a day for the next week. We will check your potassium levels in clinic at that time and readjust dosing as needed. Discharge Attestations Time Spent in Discharge Care*: greater than 30 min Quality Metrics Clinical Quality Measures During this hospital stay, did patient experience: None Coding Level of Care Code Acute Cutter Head Sharpener for [facility] Diagnoses Crohn disease K50.919 Gastrointestinal tract location: unspecified location Digestive disease complication type: unspecified complication CKD stage G3b/A1, GFR 30-44 and albumin creatinine ratio <30 mg/g N18.3 Hypokalemia E87.6 Hypomagnesemia E83.42 Palpitations R00.2 Muscle weakness M62.81
[2020-05-12 09:26] VITALS: BP 100/69; PULSE 62; RESP 18; TEMP 36.7; O2SAT 96
--- NOTE | 2020-05-15 08:47 | W.ED.RECABL ---
HPI - Recheck/Abnormal Lab/Rx General: Chief Complaint: Recheck/Abnormal Lab/Rx Stated Complaint: low potassium Time Seen by Provider: 05/10/20 11:23 History of Present Illness: HPI narrative: 75-year-old female who presents to the emergency room at the direction of her primary care provider she had a potassium of 2.4 yesterday at her doctor's office the result just came back and she was advised to present here. She did take 10 mEq of p.o. potassium yesterday. She denies any other recent illness she denies any diarrhea no nausea or vomiting she is not had a cough or short of breath she denies any congestion or cold symptoms or rhinorrhea. She does state she has chronic loose stools but does not note significant change from her baseline. complaint: abnormal lab Initial visit (ago): day(s) (Yesterday) Returns today for: other (Hypokalemia, potassium of 2.4 yesterday.) Symptoms since prior visit: no new symptoms Context: called for abnormal lab result Review of Systems Const: Denies: fever(s), chills, body aches, change in appetite, fatigue or malaise ENMT: Denies: throat pain, ear or mastoid pain, nasal discharge or nasal congestion Card: Denies: chest pain, edema, dyspnea on exertion or orthopnea Resp: Denies: dyspnea, productive cough or non-productive cough GI: Denies: abdominal pain, nausea, vomiting, hematemesis, coffee ground emesis, diarrhea, constipation, bloating, hematochezia or melena : Denies: flank pain, difficulty voiding, dysuria, urinary frequency or urinary urgency Skin/Breast: Denies: rash or pruritus PFSH ED PFSH: Medical History CKD stage G3b/A1, GFR 30-44 and albumin creatinine ratio <30 mg/g Depression GERD (gastroesophageal reflux disease) History of DVT (deep vein thrombosis) Hypertension Morbid obesity Normocytic anemia Surgical History History of bowel resection History of incisional hernia repair Family History Other Diabetes Social History Smoking and tobacco status: never smoked Physical Exam Const: COMMON NORMALS: no acute distress GENERAL APPEARANCE: cooperative and comfortable ORIENTATION/CONSCIOUSNESS: Yes awake, Yes oriented to person, Yes oriented to place and Yes oriented to time HENMT: COMMON NORMALS: normocephalic, atraumatic and hearing grossly normal bilaterally HEAD & SCALP: normocephalic and atraumatic Neck/C-Spine: COMMON NORMALS: no JVD Resp: COMMON NORMALS: normal respiratory effort, No retractions, No use of accessory muscles and clear to auscultation bilaterally AUSCULTATION: clear to auscultation bilaterally Cardio: COMMON NORMALS: no JVD, regular rate, regular rhythm and No murmurs present (Cardio) RATE: regular rate RHYTHM: regular rhythm GI: COMMON NORMALS: Soft to palpation and No hepatosplenomegaly present AUSCULTATION: Yes normoactive bowel sounds PALPATION: Yes Soft to palpation, No Tenderness to palpation present (GI), No Guarding due to palpation present (GI) and Yes No hepatosplenomegaly present Extremity: COMMON NORMALS: normal to inspection, capillary refill normal, no clubbing, cyanosis or edema, no calf tenderness and no pedal edema Neuro: SENSORIUM/ORIENTATION: Yes oriented to person, Yes oriented to place and Yes oriented to time Skin: COMMON NORMALS: no rashes or lesions noted GENERAL SKIN EXAM: no rashes or lesions noted Course Vital Signs: Vital signs: Vital Signs Temperature 98.1 F 05/12/20 09:26 Pulse Rate 62 05/12/20 09:26 Respiratory Rate 18 05/12/20 09:26 Blood Pressure 100/69 05/12/20 09:26 Pulse Oximetry 96 05/12/20 09:26 MDM - Recheck/Abnormal Lab/Rx MDM Narrative: Medical decision making narrative: Mar More will admit for her hypokalemia as well as underlying chronic kidney disease. Orders have been written Lab Data: Labs: Lab Results 05/10/20 05/10/20 05/10/20 Range/Units 11:52 11:52 16:13 WBC 8.2 (4.0-10.0) 10^3/ uL RBC 4.65 (4.1-5.3) 10^6/u L Hgb 13.4 (11.5-15.3) g/dL Hct 43.1 (37.0-47.0) % MCV 92.7 (81-99) fL MCH 28.8 (28.0-34.0) pg MCHC 31.1 (30.0-36.0) g/dL RDW 14.8 (12.1-15.1) % Plt Count 233 (130-400) 10^3/c mm MPV 9.3 (7.4-10.4) fL Neut % (Auto) 71.4 % Lymph % (Auto) 20.4 % [place] % (Auto) 5.0 % Eos % (Auto) 1.7 % Baso % (Auto) 1.0 % Neut # (Auto) 5.89 (1.8-7.7) 10^3/u L Lymph # (Auto) 1.7 (0.8-4.8) 10^3/u L [place] # (Auto) 0.4 (0.2-0.9) 10^3/u L Eos # (Auto) 0.1 (0.0-0.8) 10^3/u L Baso # (Auto) 0.1 (0.0-0.1) 10^3/u L Nucleated RBC % (a uto) 0 % Nucleated RBCs # 0.0 /100WBC Sodium 141 (136-145) mmol/L Potassium 2.2 L* 2.4 L* (3.5-5.1) mmol/L Chloride 98 (98-107) mmol/L Carbon Dioxide 26 (22-29) mmol/L Anion Gap 19.2 H (5-19) BUN 28 H (8-23) mg/dL Creatinine 2.4 H (0.5-0.9) mg/dL GFR Calculation Not Reportable Glucose 143 H (65-115) mg/dL Calculated Osmolal ity 300 H (285-295) mOsm/k g Calcium 8.2 L (8.5-10.5) mg/dL Phosphorus 2.6 (2.5-4.5) mg/dL Magnesium 1.3 L (1.7-2.3) mg/dL 05/11/20 05/11/20 05/11/20 Range/Units 03:19 03:19 03:19 WBC 8.5 (4.0-10.0) 10^3/ uL RBC 3.90 L (4.1-5.3) 10^6/u L Hgb 11.3 L (11.5-15.3) g/dL Hct 35.8 L (37.0-47.0) % MCV 91.8 (81-99) fL MCH 29.0 (28.0-34.0) pg MCHC 31.6 (30.0-36.0) g/dL RDW 15.0 (12.1-15.1) % Plt Count 178 (130-400) 10^3/c mm MPV 10.7 H (7.4-10.4) fL Neut % (Auto) 66.6 % Lymph % (Auto) 24.0 % [place] % (Auto) 6.0 % Eos % (Auto) 2.4 % Baso % (Auto) 0.6 % Neut # (Auto) 5.63 (1.8-7.7) 10^3/u L Lymph # (Auto) 2.0 (0.8-4.8) 10^3/u L [place] # (Auto) 0.5 (0.2-0.9) 10^3/u L Eos # (Auto) 0.2 (0.0-0.8) 10^3/u L Baso # (Auto) 0.1 (0.0-0.1) 10^3/u L Nucleated RBC % (a uto) 0 % Nucleated RBCs # 0.0 /100WBC Sodium 140 (136-145) mmol/L Potassium 2.5 L* (3.5-5.1) mmol/L Chloride 102 (98-107) mmol/L Carbon Dioxide 23 (22-29) mmol/L Anion Gap 17.5 (5-19) BUN 28 H (8-23) mg/dL Creatinine 2.2 H (0.5-0.9) mg/dL GFR Calculation Not Reportable Glucose 131 H (65-115) mg/dL Calculated Osmolal ity 297 H (285-295) mOsm/k g Calcium 7.6 L (8.5-10.5) mg/dL Phosphorus (2.5-4.5) mg/dL Magnesium 1.6 L (1.7-2.3) mg/dL 05/11/20 Range/Units 10:54 WBC (4.0-10.0) 10^3/ uL RBC (4.1-5.3) 10^6/u L Hgb (11.5-15.3) g/dL Hct (37.0-47.0) % MCV (81-99) fL MCH (28.0-34.0) pg MCHC (30.0-36.0) g/dL RDW (12.1-15.1) % Plt Count (130-400) 10^3/c mm MPV (7.4-10.4) fL Neut % (Auto) % Lymph % (Auto) % [place] % (Auto) % Eos % (Auto) % Baso % (Auto) % Neut # (Auto) (1.8-7.7) 10^3/u L Lymph # (Auto) (0.8-4.8) 10^3/u L [place] # (Auto) (0.2-0.9) 10^3/u L Eos # (Auto) (0.0-0.8) 10^3/u L Baso # (Auto) (0.0-0.1) 10^3/u L Nucleated RBC % (a uto) % Nucleated RBCs # /100WBC Sodium (136-145) mmol/L Potassium 2.5 L* (3.5-5.1) mmol/L Chloride (98-107) mmol/L Carbon Dioxide (22-29) mmol/L Anion Gap (5-19) BUN (8-23) mg/dL Creatinine (0.5-0.9) mg/dL GFR Calculation Glucose (65-115) mg/dL Calculated Osmolal ity (285-295) mOsm/k g Calcium (8.5-10.5) mg/dL Phosphorus (2.5-4.5) mg/dL Magnesium (1.7-2.3) mg/dL Discharge Plan Discharge Patient Disposition: Admitted As Inpatient Admit Provider: Vicente More Condition: Stable Referrals: Vicente More MD [Primary Care Provider] - 4-7 days (Please call patient and schedule a follow up at the earliest convenience for 4-7 days.) Discharge Diet: Regular Discharge Activity: Increase activity as tolerated Patient Instructions: Dicyclomine (By mouth), Potassium Chloride (By mouth) Additional Instructions: Please make sure you take the potassium 30 mEq twice a day for the next week. We will check your potassium levels in clinic at that time and readjust dosing as needed. Discharge Date/Time: 05/10/20 13:37 Coding Level of Care Code ED Veterinary Bacteriologist for Shahriar Dubois
== END 2020-05-12 11:36 | disposition home or self-care (01) | DRG 641 ==
LOC: ER 11:23 → CSU 13:21
PROVIDERS: Emergency Medicine; Family Medicine; Admitting Provider Family Medicine; PCP Family Medicine; Visit Provider Family Medicine
DX: E87.6 Hypokalemia (principal); K50.919 Crohn's disease, unspecified, with unspecified complications; N17.9 Acute kidney failure, unspecified; Z68.41 Body mass index [BMI] 40.0-44.9, adult; N18.30 Chronic kidney disease, stage 3 unspecified; E83.42 Hypomagnesemia; I12.9 Hypertensive chronic kidney disease with stage 1 through stage 4 chronic kidney disease, or unspecified chronic kidney disease; R19.7 Diarrhea, unspecified; M62.81 Muscle weakness (generalized); F32.9 Major depressive disorder, single episode, unspecified; K21.9 Gastro-esophageal reflux disease without esophagitis; Z86.718 Personal history of other venous thrombosis and embolism; E66.01 Morbid (severe) obesity due to excess calories; D64.9 Anemia, unspecified
CPT/HCPCS: 12345; 36415; 80048; 80053; 83735; 84100; 84132; 85025; 86141; 87493; 93005; 96372; 99283; G0378; J1650; J2405; J3475; J3480; J3490

== ENCOUNTER → 2020-05-15 13:30 | Outpatient (BNVA) | payer MEDICARE, SELFPAY | PROVIDERS: PCP Family Medicine; Visit Provider Orthopaedic Surgery | DX: S72.462A Displaced supracondylar fracture with intracondylar extension of lower end of left femur, initial encounter for closed fracture (principal); Z98.890 Other specified postprocedural states; Z48.89 Encounter for other specified surgical aftercare; X58.XXXA Exposure to other specified factors, initial encounter | CPT/HCPCS: 73562 ==

== ENCOUNTER 2020-05-31 20:00 | Outpatient (CLI) | payer MEDICARE, SELFPAY | END 2020-05-31 20:01 | disposition home or self-care (01) | LOC: SLEEP 06-01 09:25 | PROVIDERS: PCP Family Medicine; Visit Provider Family Medicine | DX: G47.10 Hypersomnia, unspecified (principal); G47.33 Obstructive sleep apnea (adult) (pediatric) | CPT/HCPCS: 95810 ==

== ENCOUNTER → 2020-06-26 13:18 | Outpatient (BNVA) | payer MEDICARE, SELFPAY | PROVIDERS: PCP Family Medicine; Visit Provider Orthopaedic Surgery | DX: S72.462A Displaced supracondylar fracture with intracondylar extension of lower end of left femur, initial encounter for closed fracture (principal); Z98.890 Other specified postprocedural states; Z48.89 Encounter for other specified surgical aftercare; X58.XXXA Exposure to other specified factors, initial encounter | CPT/HCPCS: 73560 ==

== ENCOUNTER → 2020-08-28 13:28 | Outpatient (BNVA) | payer MEDICARE, SELFPAY | PROVIDERS: PCP Family Medicine; Visit Provider Orthopaedic Surgery | DX: Z47.89 Encounter for other orthopedic aftercare (principal); S72.462D Displaced supracondylar fracture with intracondylar extension of lower end of left femur, subsequent encounter for closed fracture with routine healing; W18.09XD Striking against other object with subsequent fall, subsequent encounter | CPT/HCPCS: 73560 ==

== ENCOUNTER 2020-12-25 17:40 | Emergency (ER) | payer MEDICARE, SELFPAY ==
[2020-12-25 17:52] VITALS: BP 90/62; PULSE 86; RESP 18; TEMP 37.6; O2SAT 98; BMI 41.9
--- NOTE | 2020-12-25 21:06 | XRR_ITS ---
PROCEDURE INFORMATION: Exam: XR Chest Exam date and time: 12/25/2020 9:13 PM Age: 75 years old Clinical indication: Fever; Additional info: Weakness TECHNIQUE: Imaging protocol: XR of the chest. Views: 1 view. COMPARISON: CR XR chest 1V portable [id number] 11/18/2019 9:55 PM FINDINGS: Lungs: Left upper lobe calcified granuloma. Pleural spaces: Unremarkable. No pleural effusion. No pneumothorax. Heart/Mediastinum: Unremarkable. No cardiomegaly. Bones/joints: Unremarkable. XR/XR chest 1V portable [id number] IMPRESSION: Negative for infiltrate
--- NOTE | 2020-12-25 21:07 | ECG_ITS ---
Test Date: 2020-12-25 Pat Name: Kaitlin Meade Department: Room: Gender: Female [employer]: : 1945 Requested By: Vicente Chase Order Number: [id number] Kody MD: Eugenio Echavarria M.D. Measurements Intervals [place] Rate: 71 P: -67 [place]: 165 QRS: -84 QRSD: 147 T: -3 QT: 375 QTc: 408 Interpretive Statements SINUS RHYTHM RIGHT BUNDLE BRANCH BLOCK [120+ ms QRS DURATION, UPRIGHT V1, 40+ ms S IN I/aVL/V4/V5/V6] POSSIBLE ANTERIOR MYOCARDIAL INFARCTION , OF INDETERMINATE AGE [30 ms Q WAVE IN V3/V4, OR R < 0.2 mV IN V4] INFERIOR MYOCARDIAL INFARCTION , OF INDETERMINATE AGE [40+ ms Q WAVE AND/OR ST/T ABNORMALITY IN II/aVF] Compared to ECG 05/10/2020 11:28:06 Sinus rhythm no longer present Left-axis deviation no longer present Myocardial infarct finding still present Electronically Signed On 12-26-2020 17:33:31 CDT by Eugenio Echavarria M.D. [email or web address]
--- NOTE | 2020-12-25 21:09 | ED_ITS ---
HPI - Dizziness General: Chief Complaint: Dizziness Stated Complaint: fever,muscle aches,headache,dizzy Time Seen by Provider: 12/25/20 21:06 History of Present Illness: HPI Narrative: Patient is a 75-year-old female comes to the ED with dizziness and weakness. Patient says symptoms started this morning when she woke up. She states last night she woke up with chills. This morning she is been feeling weak and has gotten nauseous every time she eats something. She is also reporting some dizziness and a headache as well. She states the headache is located in the front part of her head and she says is unusual for her to get headaches. She does state that she was having some neck muscle pain all day and the headache developed after she was having the neck muscle pain. Patient had a hernia surgery performed back in Early November 2020 and was supposed to get thai removed in [place] today, but since she was not feeling very good she remove the thai herself at home and did not go to follow up. Patient says surgery went well and there were no complications. She reports her abdominal pain post surgery is mild and in line with postsurgical pain. She denies any acute pain of abdomen. Associated symptoms: Reports chills, headache(s) and nausea; Denies chest pain, nasal congestion, palpitations or vomiting Associated neuro symptoms: Deny numbness in extremities Review of Systems Const: Reports: chills, change in appetite (Decreased appetite today) and fatigue; Denies: fever(s) Eyes: Denies: change in vision or eye discomfort ENMT: Denies: throat pain, odynophagia, nasal discharge or nasal congestion Card: Denies: chest pain, palpitations, edema, swelling of feet/ankles, dyspnea on exertion or orthopnea Resp: Denies: dyspnea, productive cough or non-productive cough GI: Reports: nausea; Denies: abdominal pain, vomiting, diarrhea, constipation or hematochezia : Denies: flank pain, dysuria or hematuria Musc: Reports: muscle cramps (Generalized muscle aches); Denies: neck pain, back pain or extremity swelling Skin/Breast: Denies: rash or new lesions Neuro: Reports: headache(s) and dizziness; Denies: numbness in extremities or weakness in extremities PFS ED PFSH: Medical History CKD stage G3b/A1, GFR 30-44 and albumin creatinine ratio <30 mg/g Depression GERD (gastroesophageal reflux disease) History of DVT (deep vein thrombosis) Hypertension Morbid obesity Normocytic anemia Surgical History History of bowel resection History of incisional hernia repair Family History Other Diabetes Social History Smoking and tobacco status: never smoked Physical Exam Const: COMMON NORMALS: no acute distress, patient oriented x3 and alert GENERAL APPEARANCE: cooperative and comfortable NUTRITIONAL APPEARANCE: obese HENMT: COMMON NORMALS: normocephalic HEAD & SCALP: normocephalic MOUTH: Normal oral and palatal mucosa present THROAT: posterior oropharynx normal and uvula midline Neck/C-Spine: COMMON NORMALS: supple GENERAL: Yes normal visual inspection Resp: COMMON NORMALS: normal respiratory effort, No retractions, No use of accessory muscles and clear to auscultation bilaterally AUSCULTATION: clear to auscultation bilaterally Cardio: COMMON NORMALS: regular rate, regular rhythm, S1 normal heart sound present, S2 normal heart sound present, No gallops present (Cardio), No clicks present (Cardio), No murmurs present (Cardio) and Peripheral pulses 2+ throughout RATE: regular rate RHYTHM: regular rhythm HEART SOUNDS: S1 normal heart sound present and S2 normal heart sound present PERIPHERAL PULSES: Peripheral pulses 2+ throughout GI: COMMON NORMALS: Normal to inspection, nondistended, normoactive bowel sounds present, Soft to palpation, non-tender and no masses INSPECTION: Yes incision (Central Abdomen-Mostly healing well. Umbilical area mild cellulitis.) and Yes central obesity PALPATION: Yes Soft to palpation and Yes Tenderness to palpation present (GI) (Mild tenderness over surgical site on central abdomen) OTHER: Patient's surgical site centrally located on abdomen appears to be healing well. There is a little bit of erythema and warmth around incision site near periumbilical region. No purulent drainage seen. Exam findings suggestive of some very mild cellulitis. : COMMON NORMALS: Yes no CVA tenderness BLADDER/KIDNEY EXAM: Yes no CVA tenderness Back/Pelvis: COMMON NORMALS: no CVA tenderness Extremity: COMMON NORMALS: normal to inspection Neuro: COMMON NORMALS: patient oriented x3 and moves all extremities SENSORIUM/ORIENTATION: Yes alert Skin: GENERAL SKIN EXAM: dry skin Course Vital Signs: Vital signs: Vital Signs Temperature 98.4 F 12/26/20 01:45 Pulse Rate 64 12/26/20 01:45 Respiratory Rate 16 12/26/20 01:45 Blood Pressure 100/58 12/26/20 01:45 Pulse Oximetry 96 12/26/20 01:45 MDM - Dizziness MDM Narrative: Medical decision making narrative: Patient is a 75-year-old female comes to the ED with headache, dizziness chills. Denies chest pain or shortness of breath. Patient had hernia surgery back in early November and was supposed to have a follow-up appointment today with the surgeon and have thai removed. Since patient was not feeling well she did not go and remove the thai her self. Here in the ED patient appears in no acute distress or pain and appears nontoxic. Her surgical site on the abdomen does appear to have some developing cellulitis around the umbilical region. White blood cell count 15.7 and she had a potassium of 3.4. Rest of her CBC and CMP were unremarkable. Troponins negative. EKG showed normal sinus rhythm with no ST segment elevation or depression seen. CT of head showed no acute findings. Chest x-ray showed no acute findings. Lactic was normal. Patient was given IV fluids and IV Tylenol while here in the ED. She was also given a dose of cephalexin while here in the ED. Patient was diagnosed with postoperative cellulitis of surgical wound and headache. She was told to follow-up with her PCP in 7 to 10 days for reevaluation. She was discharged home with a prescription for cephalexin and Zofran as needed for nausea. Return to ED precautions given. Patient understood with plan. Lab Data: Labs: Lab Results 12/25/20 12/25/20 12/25/20 Range/Units 22:40 22:40 22:40 WBC 15.7 H (4.0-10.0) 10^3/ uL RBC 3.56 L (4.1-5.3) 10^6/u L Hgb 10.5 L (11.5-15.3) g/dL Hct 35.1 L (37.0-47.0) % MCV 98.6 (81-99) fL MCH 29.5 (28.0-34.0) pg MCHC 29.9 L (30.0-36.0) g/dL RDW 13.8 (12.1-15.1) % Plt Count 157 (130-400) 10^3/c mm MPV 10.0 (7.4-10.4) fL Neut % (Auto) 89.9 % Lymph % (Auto) 7.2 % [place] % (Auto) 2.2 % Eos % (Auto) 0.0 % Baso % (Auto) 0.3 % Neut # (Auto) 14.09 H (1.8-7.7) 10^3/u L Lymph # (Auto) 1.1 (0.8-4.8) 10^3/u L [place] # (Auto) 0.4 (0.2-0.9) 10^3/u L Eos # (Auto) 0.0 (0.0-0.8) 10^3/u L Baso # (Auto) 0.1 (0.0-0.1) 10^3/u L Nucleated RBC % (a uto) 0 % Nucleated RBCs # 0.0 /100WBC Sodium 141 (136-145) mmol/L Potassium 3.4 L (3.5-5.1) mmol/L Chloride 108 H (98-107) mmol/L Carbon Dioxide 19 L (22-29) mmol/L Anion Gap 17.4 (5-19) BUN 20 (8-23) mg/dL Creatinine 1.1 H (0.5-0.9) mg/dL GFR Calculation Not Reportable Glucose 95 (65-115) mg/dL Calculated Osmolal ity 294 (285-295) mOsm/k g Lactic Acid (0.5-2.2) mmol/L Calcium 7.9 L (8.5-10.5) mg/dL Total Bilirubin 0.5 (0.15-1.2) mg/dL AST 15 (0-32) U/L ALT 8 (0-33) U/L Alkaline Phosphata se 89 (35-105) IU/L Troponin T Baselin e 31 H (0-10) ng/L Troponin T 120 Min santiago (0-10) ng/L Delta Troponin T (0-10) ABS# Total Protein 5.8 L (6.6-8.7) g/dL Albumin 3.7 (3.5-5.2) g/dL Globulin 2.1 (1.3-4.6) g/dL Lipase 46 (13-60) U/L Urine Color (Yellow) Urine Appearance (CLEAR) Urine pH (5-7) Ur Specific Gravit y (1.005-1.030) Urine Protein (Negative) Urine Glucose (UA) (Normal) Urine Ketones (Negative) Urine Blood (Negative) Urine Nitrate (Negative) Urine Bilirubin (Negative) Urine Urobilinogen (Negative) mg/dL Ur Leukocyte Valencia ase (Negative) Urine RBC (0-2) /hpf Urine WBC (0-5) /hpf Ur Squamous Epith Cells (0-5) /hpf Amorphous Sediment Urine Bacteria (NONE) /hpf Hyaline Casts /lpf Urine Mucus /hpf 12/25/20 12/26/20 12/26/20 Range/Units 22:40 00:00 00:00 WBC (4.0-10.0) 10^3/ uL RBC (4.1-5.3) 10^6/u L Hgb (11.5-15.3) g/dL Hct (37.0-47.0) % MCV (81-99) fL MCH (28.0-34.0) pg MCHC (30.0-36.0) g/dL RDW (12.1-15.1) % Plt Count (130-400) 10^3/c mm MPV (7.4-10.4) fL Neut % (Auto) % Lymph % (Auto) % [place] % (Auto) % Eos % (Auto) % Baso % (Auto) % Neut # (Auto) (1.8-7.7) 10^3/u L Lymph # (Auto) (0.8-4.8) 10^3/u L [place] # (Auto) (0.2-0.9) 10^3/u L Eos # (Auto) (0.0-0.8) 10^3/u L Baso # (Auto) (0.0-0.1) 10^3/u L Nucleated RBC % (a uto) % Nucleated RBCs # /100WBC Sodium (136-145) mmol/L Potassium (3.5-5.1) mmol/L Chloride (98-107) mmol/L Carbon Dioxide (22-29) mmol/L Anion Gap (5-19) BUN (8-23) mg/dL Creatinine (0.5-0.9) mg/dL GFR Calculation Glucose (65-115) mg/dL Calculated Osmolal ity (285-295) mOsm/k g Lactic Acid 0.7 (0.5-2.2) mmol/L Calcium (8.5-10.5) mg/dL Total Bilirubin (0.15-1.2) mg/dL AST (0-32) U/L ALT (0-33) U/L Alkaline Phosphata se (35-105) IU/L Troponin T Baselin e (0-10) ng/L Troponin T 120 Min santiago 31.13 H (0-10) ng/L Delta Troponin T 0.13 (0-10) ABS# Total Protein (6.6-8.7) g/dL Albumin (3.5-5.2) g/dL Globulin (1.3-4.6) g/dL Lipase (13-60) U/L Urine Color Yellow (Yellow) Urine Appearance Clear (CLEAR) Urine pH 5 (5-7) Ur Specific Gravit y 1.020 (1.005-1.030) Urine Protein 1+ H (Negative) Urine Glucose (UA) Norm (Normal) Urine Ketones Negative (Negative) Urine Blood Trace H (Negative) Urine Nitrate Negative (Negative) Urine Bilirubin 1+ H (Negative) Urine Urobilinogen Norm (Negative) mg/dL Ur Leukocyte Valencia ase 1+ H (Negative) Urine RBC 0-4 H (0-2) /hpf Urine WBC 25-40 H (0-5) /hpf Ur Squamous Epith Cells 0-4 H (0-5) /hpf Amorphous Sediment Not Reportable Urine Bacteria 3+ H (NONE) /hpf Hyaline Casts 0-4 H /lpf Urine Mucus Trace /hpf Imaging Data^: CT Head: Attestation: I personally reviewed and interpreted this imaging study as follows: Radiologist's impression: [address] [address] [address] Scan Report Signed Patient: Kaitlin Meade Unit #: [id number] : 1945 Age/Sex: 75 / F ADM Date: 12/25/20 Loc: ER Room/Bed: Attending Dr: Ordering Provider/Ordering MD: Vicente Chase Date of Service: 12/25/20 Procedure(s): CT head wo con* [id number] Accession Number(s): [id number] Report Number: [id number] PROCEDURE INFORMATION: Exam: CT Head Without Contrast Exam date and time: 12/25/2020 10:02 PM Age: 75 years old Clinical indication: Pain; Headache; Patient HX: BAY with dizziness. Hypotensive. ; Additional info: Dizziness and headache TECHNIQUE: Imaging protocol: Computed tomography of the head without contrast. Radiation optimization: All CT scans at this facility use at least one of these dose optimization techniques: automated exposure control; mA and/or kV adjustment per patient size (includes targeted exams where dose is matched to clinical indication); or iterative reconstruction. COMPARISON: CT head wo con* [id number] 04/06/2016 6:41 PM RADIATION DOSE METRICS: Total DLP (mGy-cm): 1001.4 FINDINGS: Brain: Normal. No hemorrhage. Unremarkable white matter. No mass effect. Cerebral ventricles: No ventriculomegaly. Bones/joints: Unremarkable. No acute fracture. Paranasal sinuses: Visualized sinuses are unremarkable. No fluid levels. Mastoid air cells: Visualized mastoid air cells are well aerated. Soft tissues: Unremarkable. CT/CT head wo con* [id number] IMPRESSION: Negative for intracranial hemorrhage or mass effect. Radiation Dose CTDIVOL = (mGy): DLP = 1001.4 (mGy-cm) Dictated By: Rikki Mckeon MD Signed By: Rikki Mckeon MD Signed Date/Time: 12/25/202217 DD/ 16 CXR: Attestation: I personally reviewed and interpreted this imaging study as follows: Radiologist's impression: [address] [place] [address] XRay Report Signed Patient: Kaitlin Meade Unit #: [id number] : 1945 Age/Sex: 75 / F ADM Date: 12/25/20 Loc: ER Room/Bed: Attending Dr: Ordering Provider/Ordering MD: Vicente Chase Date of Service: 12/25/20 Procedure(s): XR chest 1V portable [id number] Accession Number(s): [id number] Report Number: [id number] PROCEDURE INFORMATION: Exam: XR Chest Exam date and time: 12/25/2020 9:13 PM Age: 75 years old Clinical indication: Fever; Additional info: Weakness TECHNIQUE: Imaging protocol: XR of the chest. Views: 1 view. COMPARISON: CR XR chest 1V portable [id number] 11/18/2019 9:55 PM FINDINGS: Lungs: Left upper lobe calcified granuloma. Pleural spaces: Unremarkable. No pleural effusion. No pneumothorax. Heart/Mediastinum: Unremarkable. No cardiomegaly. Bones/joints: Unremarkable. XR/XR chest 1V portable [id number] IMPRESSION: Negative for infiltrate Dictated By: Rikki Mckeon MD Signed By: Rikki Mckeon MD Signed Date/Time: 12/25/202156 DD/ 54 EKG Data^: EKG 1: Attestation: I personally reviewed and interpreted this EKG as follows: EKG interpretation date: 12/25/20 Interpretation: Ectopic atrial rhythm, 71 bpm, no ST segment elevation or depression seen. EKG 2: Attestation: I personally reviewed and interpreted this EKG as follows: EKG interpretation date: 12/26/20 Interpretation: Normal sinus rhythm, 64 bpm, no ST segment elevation or depression seen. No acute changes compared to first EKG. Discharge Plan Discharge Patient Disposition: Home Clinical Impression: Postoperative cellulitis of surgical wound Headache Qualifiers: Headache type: tension-type Headache chronicity pattern: acute headache Intractability: not intractable Qualified Code(s): G44.209 - Tension-type headache, unspecified, not intractable Condition: Stable Prescriptions: New cephalexin 500 mg capsule 500 mg PO Q6H 7 Days Qty: 28 RF: 0 ondansetron 4 mg tablet,disintegrating 4 mg PO Q8H Qty: 15 RF: 0 No Action (DME) Wheelchair See Rx Instructions .ROUTE .MEDSUPPLY Qty: 1 RF: 0 tramadol 50 mg tablet 50 mg PO Q6H PRN (Reason: pain) Qty: 30 RF: 0 pantoprazole [Protonix] 40 mg Tablet,Delayed Release (Dr/Ec) 40 mg PO DAILY RF: 0 sertraline [Zoloft] 50 mg Tablet 50 mg PO BEDTIME RF: 0 cholecalciferol (vitamin D3) [Vitamin D3] 10 mcg (400 unit) Tablet 10 mcg PO DAILY RF: 0 Entyvio 300 mg Recon Soln See Rx Instructions .ROUTE .COMPLEX RF: 0 cyanocobalamin (vitamin B-12) 1,000 mcg/mL Solution 1,000 mcg IM Q30D RF: 0 potassium chloride 10 mEq Tablet Extended Release 30 meq PO BID Qty: 60 RF: 1 dicyclomine 20 mg Tablet 20 mg PO Q4H PRN (Reason: Spasms) Qty: 30 RF: 0 Discharge Orders: Discharge ED (Routine); Ordered 12/26/20 Ordered By: Vicente Chase Referrals: Vicente More MD [Primary Care Provider] - Discharge Diet: Regular Discharge Activity: Increase activity as tolerated Patient Instructions: Cellulitis (ED), Tension Headache (ED) Activity Restrictions/Additional Instructions: Follow-up with medical provider as directed in 7 to 10 days for reevaluation. Take medications as prescribed. Return to the ER or your medical provider if condition worsens. Please read and understand discharge instructions. Thank you for choosing [facility] for your healthcare needs today. Please realize this is an emergency room and that we are providing you with a medical screening exam and this may not be complete and all inclusive of all the testing and or work up that you may need to determine your ailment or severity of your illness. It is very important that you follow up as instructed or that you return to the Emergency Department should you have concerns or if your condition changes or worsens in any way. 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
--- NOTE | 2020-12-25 21:54 | CTR_ITS ---
PROCEDURE INFORMATION: Exam: CT Head Without Contrast Exam date and time: 12/25/2020 10:02 PM Age: 75 years old Clinical indication: Pain; Headache; Patient HX: BAY with dizziness. Hypotensive. ; Additional info: Dizziness and headache TECHNIQUE: Imaging protocol: Computed tomography of the head without contrast. Radiation optimization: All CT scans at this facility use at least one of these dose optimization techniques: automated exposure control; mA and/or kV adjustment per patient size (includes targeted exams where dose is matched to clinical indication); or iterative reconstruction. COMPARISON: CT head wo con* [id number] 04/06/2016 6:41 PM RADIATION DOSE METRICS: Total DLP (mGy-cm): 1001.4 FINDINGS: Brain: Normal. No hemorrhage. Unremarkable white matter. No mass effect. Cerebral ventricles: No ventriculomegaly. Bones/joints: Unremarkable. No acute fracture. Paranasal sinuses: Visualized sinuses are unremarkable. No fluid levels. Mastoid air cells: Visualized mastoid air cells are well aerated. Soft tissues: Unremarkable. CT/CT head wo con* [id number] IMPRESSION: Negative for intracranial hemorrhage or mass effect. Radiation Dose CTDIVOL = (mGy): DLP = 1001.4 (mGy-cm)
[2020-12-25 21:59] VITALS: BP 120/90; PULSE 78; RESP 17; TEMP 37.4; O2SAT 96
[2020-12-25 22:49] LABS: Basophils # 0.1 10^3/uL (0.0-0.1); Basophils % 0.3 %; Hematocrit 35.1 % (37.0-47.0); Hemoglobin 10.5 g/dL (11.5-15.3); Lymphocytes # 1.1 10^3/uL (0.8-4.8); Lymphocytes % 7.2 %; Mean Corpuscular HGB Conc 29.9 g/dL (30.0-36.0); Mean Corpuscular Hemoglobin 29.5 pg (28.0-34.0); Mean Corpuscular Volume 98.6 fL (81-99); Monocytes # 0.4 10^3/uL (0.2-0.9); Monocytes % 2.2 %; Neutrophils # 14.09 10^3/uL (1.8-7.7); Neutrophils % 89.9 %; Nucleated Red Blood Cells % 0 %; Platelet Count 157 10^3/cmm (130-400); Red Blood Count 3.56 10^6/uL (4.1-5.3); Red Cell Distribution Width 13.8 % (12.1-15.1); White Blood Count 15.7 10^3/uL (4.0-10.0)
[2020-12-25 23:04] LABS: Troponin(5th) Baseline 31 ng/L (0-10)
[2020-12-25 23:06] LABS: Alanine Aminotransferase 8 U/L (0-33); Albumin Level 3.7 g/dL (3.5-5.2); Alkaline Phosphatase 89 IU/L (35-105); Anion Gap 17.4 (5-19); Aspartate Amino Transferase 15 U/L (0-32); Blood Urea Nitrogen 20 mg/dL (8-23); Calcium 7.9 mg/dL (8.5-10.5); Carbon Dioxide 19 mmol/L (22-29); Chloride 108 mmol/L (98-107); Globulin 2.1 g/dL (1.3-4.6); Glucose 95 mg/dL (65-115); Lipase 46 U/L (13-60); Osmolality Calculated 294 mOsm/kg (285-295); Potassium 3.4 mmol/L (3.5-5.1); Sodium 141 mmol/L (136-145); Total Bilirubin 0.5 mg/dL (0.15-1.2); Total Protein 5.8 g/dL (6.6-8.7)
--- NOTE | 2020-12-25 23:07 | ECG_ITS ---
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 Measurements Intervals [place] Rate: 64 P: 38 ND: 186 QRS: -83 QRSD: 178 T: -2 QT: 440 QTc: 455 Interpretive Statements SINUS RHYTHM RIGHT BUNDLE BRANCH BLOCK [120+ ms QRS DURATION, UPRIGHT V1, 40+ ms S IN I/aVL/V4/V5/V6] LEFT ANTERIOR FASCICULAR BLOCK [QRS AXIS <= -45, QR IN I, RS IN II] POSSIBLE SEPTAL MYOCARDIAL INFARCTION , PROBABLY OLD [30 ms Q WAVE IN V1/V2] Compared to ECG 12/25/2020 22:16:09 Left anterior fascicular block now present Ectopic atrial rhythm no longer present Myocardial infarct finding still present Electronically Signed On 12-26-2020 17:42:56 CDT by Eugenio Echavarria M.D. [id number]
[2020-12-25 23:14] LABS: Add Urine Culture? Yes; Bacteria Urine 3+ /hpf; Bilirubin Urine 1+ (Negative); Blood Urine Trace (Negative); Glucose Urine UA Norm (Normal); Hyaline Casts Urine 0-4 /lpf; Ketones Urine Negative (Negative); Leukocyte Esterase Urine 1+ (Negative); Mucus Urine TRACE /hpf; Nitrate Urine Negative (Negative); Protein Urine 1+ (Negative); RBC Urine 0-4 /hpf (0-2); Squamous Epithelial Cell Urine 0-4 /hpf (0-5); Urine Appearance Clear (CLEAR); Urine Color Yellow (Yellow); Urobilinogen Urine Norm (Negative); WBC Urine 25-40 /hpf (0-5); pH Urine 5 (5-7)
[2020-12-25] MEDS: sodium chloride 0.9% 1,000 ML 999 ML IV (23:22)
[2020-12-25] MEDS: acetaminophen 1,000 MG/100 ML PIGGYBACK 400 MG IV (23:23)
[2020-12-25 23:29] VITALS: BP 115/59; PULSE 73; RESP 16; O2SAT 97
[2020-12-26] VITALS: BP 102/62; PULSE 65; RESP 20; O2SAT 92
[2020-12-26 00:24] LABS: Troponin 5 2HR 31.13 ng/L (0-10); Troponin 5 2HR Delta 0.13 ABS# (0-10)
[2020-12-26 00:25] LABS: Lactic Sepsis W/Reflex 0.7 mmol/L (0.5-2.2)
[2020-12-26] MEDS: cephALEXin 500 mg Capsule PO (01:31)
[2020-12-26] MEDS: potassium chloride ER 20 mEq Tablet PO (01:31)
[2020-12-26 01:45] VITALS: BP 100/58; PULSE 64; RESP 16; TEMP 36.9; O2SAT 96
== END 2020-12-26 01:48 | disposition home or self-care (01) ==
PROVIDERS: Emergency Provider Physician Assistant; PCP Family Medicine
DX: T81.41XA Infection following a procedure, superficial incisional surgical site, initial encounter (principal); L03.316 Cellulitis of umbilicus; Y83.8 Other surgical procedures as the cause of abnormal reaction of the patient, or of later complication, without mention of misadventure at the time of the procedure; G44.209 Tension-type headache, unspecified, not intractable; I12.9 Hypertensive chronic kidney disease with stage 1 through stage 4 chronic kidney disease, or unspecified chronic kidney disease; N18.32 Chronic kidney disease, stage 3b; Z86.718 Personal history of other venous thrombosis and embolism; E66.01 Morbid (severe) obesity due to excess calories; Z68.41 Body mass index [BMI] 40.0-44.9, adult
CPT/HCPCS: 36415; 70450; 71045; 80053; 81001; 83605; 83690; 84484; 85025; 87086; 93005; 96361; 96374; 99284; J7030

== ENCOUNTER 2021-02-11 11:33 | Emergency (ER) | payer MEDICARE, SELFPAY ==
--- NOTE | 2021-02-11 | CTR_ITS ---
[facility] Final Radiology Report Call: [phone] assistance Online chat: [email or web address] Name: RUTH KAPLAN Age: 75Years F Date: 02/11/2021 SSN: -- : 1945 Study: CT ABDOMEN/PELVIS WO Requesting Physician: CANDIDO ERAZO Images: [id number] Add?l Studies: Provided Clinical History: Procedure Accession CTDI Vol (mGy) DLP (mGy-cm) CT ABDOMEN/PELVIS WO [id number] 1762.2 PROCEDURE INFORMATION: Exam: CT Abdomen And Pelvis Without Contrast Exam date and time: 02/11/2021 1:55 PM Age: 75 years old Clinical indication: Other: Bladder pain; Prior surgery; Surgery type: Hernia, bowel TECHNIQUE: Imaging protocol: Computed tomography of the abdomen and pelvis without contrast. Radiation optimization: All CT scans at this facility use at least one of these dose optimization techniques: automated exposure control; mA and/or kV adjustment per patient size (includes targeted exams where dose is matched to clinical indication); or iterative reconstruction. COMPARISON: CT abdomen pelvis wo con [id number] 10/24/2016 11:09 AM RADIATION DOSE METRICS: Total DLP (mGy-cm): 1762.2 FINDINGS: Liver: Normal. No mass. Gallbladder and bile ducts: Normal. No calcified stones. No ductal dilation. Pancreas: Normal. No ductal dilation. Spleen: Calcified splenic granulomas. Adrenal glands: Normal. No mass. Kidneys and ureters: Normal. No hydronephrosis. Stomach and bowel: Stable partial right colectomy. Appendix: No evidence of appendicitis. Intraperitoneal space: Unremarkable. No free air. No significant fluid collection. Vasculature: Unremarkable. No abdominal aortic aneurysm. Lymph nodes: Unremarkable. No enlarged lymph nodes. Urinary bladder: Unremarkable as visualized. Reproductive: Unremarkable as visualized. Bones/joints: Grade 1 anterior non-spondylitic spondylolisthesis of L4 on L5 with central spinal stenosis and prominent facet degenerative changes. Moderate to severe multilevel spine degenerative changes including degenerative disc disease, spondylosis and facet degenerative changes. Soft tissues: Interval appearance of midline laparotomy scar. IMPRESSION: 1. Stable partial right colectomy. 2. Interval appearance of midline laparotomy scar. Thank you for allowing us to participate in the care of your patient. Dictated and Authenticated by: Ghassan Lux MD 02/11/2021 2:50 PM Central Time ([place] & [place]) LUL[facility]
[2021-02-11 11:37] VITALS: BP 123/68; PULSE 76; RESP 18; TEMP 36.6; O2SAT 95; BMI 40.1
[2021-02-11 13:00] VITALS: BP 133/87; PULSE 76; RESP 18; TEMP 36.7
--- NOTE | 2021-02-11 13:37 | ED_ITS ---
HPI - Female Genitourinary General: Chief complaint: Urogenital-Female Stated complaint: Kidney Stone Complications Time Seen by Provider: 02/11/21 13:28 Source: patient Mode of arrival: ambulatory Limitations: no limitations History of Present Illness: HPI Narrative: Patient is a 75-year-old female with a history of Crohn's disease and urolithiasis presents to the emergency de partment with urinary symptoms that started 3 days ago. Symptoms include suprapubic pain, dysuria, frequency, hematuria. She states that she feels she has a kidney stone that is lodged in her bladder as she has had similar thing happen in the past. She denies any fever has occasional nausea. She was unable to sleep yesterday because of the pain. She has been drinking lots of cranberry juice and water hoping to improve her symptoms. MD elicited complaint: dysuria Onset (ago): day(s) (3) Location of symptoms: suprapubic Severity: severe Female Urogenital Radiation: Non-Radiating Quality of pain: cramping Consistency: constant Vaginal discharge: none Vaginal bleeding: none Urinary symptoms: Dysuria Exacerbating factors: urination Relieving factors: none Associated symptoms: Reports abdominal pain and nausea; Deny short of breath, fevers/chills, headache(s), rash, seizures, syncope, vaginal discharge or weakness Treatment prior to arrival: OTC urinary analgesics Sexual activity: No Patient : No Review of Systems General: Reports: 10 or more systems reviewed and unremarkable except in HPI and below Card: Denies: syncope GI: Reports: abdominal pain and nausea : Denies: vaginal discharge Neuro: Denies: headache(s) PFS ED PFSH: Medical History (Updated 02/11/21 @ 17:18 by Muriel Erazo MD, [facility] [place]) CKD stage G3b/A1, GFR 30-44 and albumin creatinine ratio <30 mg/g Depression GERD (gastroesophageal reflux disease) History of DVT (deep vein thrombosis) Hypertension Morbid obesity Normocytic anemia Surgical History History of bowel resection History of incisional hernia repair Family History Other Diabetes Social History Smoking and tobacco status: never smoked Physical Exam Const: COMMON NORMALS: no acute distress, average body habitus, patient oriented x3, no limitations, healthy appearing, alert and well nourished HENMT: COMMON NORMALS: normocephalic, atraumatic and moist oral mucous membranes HEAD & SCALP: normocephalic and atraumatic Neck/C-Spine: COMMON NORMALS: no meningeal signs and no JVD Resp: COMMON NORMALS: normal respiratory effort, No retractions, No use of accessory muscles, clear to auscultation bilaterally and percussion normal AUSCULTATION: clear to auscultation bilaterally PERCUSSION: percussion normal Cardio: COMMON NORMALS: no JVD, regular rate, regular rhythm, S1 normal heart sound present, S2 normal heart sound present, No gallops present (Cardio), No clicks present (Cardio), No murmurs present (Cardio), No rub (Cardio) and Peripheral pulses 2+ throughout RATE: regular rate RHYTHM: regular rhythm HEART SOUNDS: S1 normal heart sound present and S2 normal heart sound present PERIPHERAL PULSES: Peripheral pulses 2+ throughout GI: COMMON NORMALS: Normal to inspection, nondistended, normoactive bowel sounds present, Soft to palpation, No hepatosplenomegaly present, no masses and no bruits PALPATION: Yes Soft to palpation, Yes Tenderness to palpation present (GI) (suprapubic) and Yes No hepatosplenomegaly present : COMMON NORMALS: Yes no CVA tenderness BLADDER/KIDNEY EXAM: Yes no CVA tenderness Back/Pelvis: COMMON NORMALS: no CVA tenderness Extremity: COMMON NORMALS: normal to inspection, full ROM, capillary refill normal, no calf tenderness and no pedal edema Neuro: COMMON NORMALS: patient oriented x3 SENSORIUM/ORIENTATION: Yes alert MENINGEAL SIGNS: Yes no meningeal signs Course Reevaluation(s): Reevaluation #1: Discussed her lab and imaging findings with her. Imaging findings are negative for urolithiasis. Lab work-up is consistent with a urinary tract infection. She was given a dose of intravenous ceftriaxone in the emergency department and discharged home with a prescription for Augmentin. She voiced understanding and is in agreement with the plan. Time: 17:18 Vital Signs: Vital signs: Vital Signs Temperature 97.9 F 02/11/21 17:54 Pulse Rate 79 02/11/21 17:54 Respiratory Rate 16 02/11/21 17:54 Blood Pressure 139/72 02/11/21 17:54 Pulse Oximetry 99 02/11/21 17:54 MDM - Female MDM Narrative: Medical decision making narrative: 75-year-old female patient who presents to the emergency department with lower abdominal pain that she thought was from a kidney stone. Work-up in the emergency department shows a urinary tract infection, acute cystitis only. No urolithiasis noted on imaging. She is discharged home with a prescription for Augmentin. Medical Records: Attestation: I reviewed the patient's medical records. Lab Data: Attestation: I reviewed the patient's lab results. Labs: Lab Results 02/11/21 02/11/21 02/11/21 Range/Units 14:17 15:46 15:46 WBC 12.1 H (4.0-10.0) 10^3/ uL RBC 3.50 L (4.1-5.3) 10^6/u L Hgb 10.6 L (11.5-15.3) g/dL Hct 34.0 L (37.0-47.0) % MCV 97.1 (81-99) fL MCH 30.3 (28.0-34.0) pg MCHC 31.2 (30.0-36.0) g/dL RDW 13.8 (12.1-15.1) % Plt Count 179 (130-400) 10^3/c mm MPV 9.7 (7.4-10.4) fL Neut % (Auto) 82.8 % Lymph % (Auto) 10.4 % Logan % (Auto) 5.7 % Eos % (Auto) 0.4 % Baso % (Auto) 0.5 % Neut # (Auto) 9.99 H (1.8-7.7) 10^3/u L Lymph # (Auto) 1.3 (0.8-4.8) 10^3/u L Logan # (Auto) 0.7 (0.2-0.9) 10^3/u L Eos # (Auto) 0.1 (0.0-0.8) 10^3/u L Baso # (Auto) 0.1 (0.0-0.1) 10^3/u L Nucleated RBC % (a uto) 0 % Nucleated RBCs # 0.0 /100WBC Sodium 140 (136-145) mmol/L Potassium 3.0 L (3.5-5.1) mmol/L Chloride 108 H (98-107) mmol/L Carbon Dioxide 18 L (22-29) mmol/L Anion Gap 17.0 (5-19) BUN 16 (8-23) mg/dL Creatinine 1.6 H (0.5-0.9) mg/dL GFR Calculation Not Reportable Glucose 109 (65-115) mg/dL Calculated Osmolal ity 292 (285-295) mOsm/k g Calcium 8.0 L (8.5-10.5) mg/dL Total Bilirubin 0.5 (0.15-1.2) mg/dL AST 14 (0-32) U/L ALT 10 (0-33) U/L Alkaline Phosphata se 82 (35-105) IU/L C-Reactive Protein 29.7 H (0.0-4.9) mg/L Total Protein 6.3 L (6.6-8.7) g/dL Albumin 3.6 (3.5-5.2) g/dL Globulin 2.7 (1.3-4.6) g/dL Lipase 33 (13-60) U/L Urine Color [place] (Yellow) Urine Appearance Sl hazy (CLEAR) Urine pH 5 (5-7) Ur Specific Gravit y 1.010 (1.005-1.030) Urine Protein 3+ H (Negative) Urine Glucose (UA) Norm (Normal) Urine Ketones 1+ H (Negative) Urine Blood 3+ H (Negative) Urine Nitrate Negative (Negative) Urine Bilirubin Neg (Negative) Urine Urobilinogen 1 H (Negative) mg/dL Ur Leukocyte Valencia ase 2+ H (Negative) Urine RBC 25-40 H (0-2) /hpf Urine WBC 25-40 H (0-5) /hpf Ur Squamous Epith Cells 0-4 H (0-5) /hpf Amorphous Sediment Not Reportable Urine Bacteria Trace (NONE) /hpf Imaging Data: CT Abd/Pel: Attestation: I personally reviewed and interpreted this imaging study as follows: Radiologist's impression: [address] [place] [address] CT Scan Report Signed Patient: Kaitlin Meade Unit #: [id number] : 1945 Age/Sex: 75 / F ADM Date: 02/11/21 Loc: ER Room/Bed: Attending Dr: Ordering Provider/Ordering MD: Muriel Erazo MD, [facility] [place] Date of Service: 02/11/21 Procedure(s): CT kidney stone 38560 Accession Number(s): [id number] Report Number: [id number] [facility] Final Radiology Report Call: [phone] assistance Online chat: [email or web address] Name: KAITLIN MEADE Age: 75Years F Date: 02/11/2021 SSN: -- : 1945 Study: CT ABDOMEN/PELVIS WO Requesting Physician: MURIEL ERAZO Images: [id number] Add???l Studies: Provided Clinical History: Procedure Accession CTDI Vol (mGy) DLP (mGy-cm) CT ABDOMEN/PELVIS WO [id number] 1762.2 PROCEDURE INFORMATION: Exam: CT Abdomen And Pelvis Without Contrast Exam date and time: 02/11/2021 1:55 PM Age: 75 years old Clinical indication: Other: Bladder pain; Prior surgery; Surgery type: Hernia, bowel TECHNIQUE: Imaging protocol: Computed tomography of the abdomen and pelvis without contrast. Radiation optimization: All CT scans at this facility use at least one of these dose optimization techniques: automated exposure control; mA and/or kV adjustment per patient size (includes targeted exams where dose is matched to clinical indication); or iterative reconstruction. COMPARISON: CT abdomen pelvis wo con [id number] 10/24/2016 11:09 AM RADIATION DOSE METRICS: Total DLP (mGy-cm): 1762.2 FINDINGS: Liver: Normal. No mass. Gallbladder and bile ducts: Normal. No calcified stones. No ductal dilation. Pancreas: Normal. No ductal dilation. Spleen: Calcified splenic granulomas. Adrenal glands: Normal. No mass. Kidneys and ureters: Normal. No hydronephrosis. Stomach and bowel: Stable partial right colectomy. Appendix: No evidence of appendicitis. Intraperitoneal space: Unremarkable. No free air. No significant fluid collection. Vasculature: Unremarkable. No abdominal aortic aneurysm. Lymph nodes: Unremarkable. No enlarged lymph nodes. Urinary bladder: Unremarkable as visualized. Reproductive: Unremarkable as visualized. Bones/joints: Grade 1 anterior non-spondylitic spondylolisthesis of L4 on L5 with central spinal stenosis and prominent facet degenerative changes. Moderate to severe multilevel spine degenerative changes including degenerative disc disease, spondylosis and facet degenerative changes. Soft tissues: Interval appearance of midline laparotomy scar. IMPRESSION: 1. Stable partial right colectomy. 2. Interval appearance of midline laparotomy scar. Thank you for allowing us to participate in the care of your patient. Dictated and Authenticated by: Ghassan Lux MD 02/11/2021 2:50 PM Central Time ([facility]) Dictated By: Ghassan Contreras MD Signed By: Ghassan Contreras MD Signed Date/Time: 02/11/21 151 DD/ 1450 Discharge Plan Discharge Patient Disposition: Home Clinical Impression: Urinary tract infection Qualifiers: Urinary tract infection type: acute cystitis Hematuria presence: with hematuria Qualified Code(s): N30.01 - Acute cystitis with hematuria Condition: Stable Prescriptions: New Augmentin 500-125 mg tablet 1 tab PO BID Qty: 10 RF: 0 Continued pantoprazole [Protonix] 40 mg Tablet,Delayed Release (Dr/Ec) 40 mg PO DAILY RF: 0 cholecalciferol (vitamin D3) [Vitamin D3] 10 mcg (400 unit) Tablet 10 mcg PO DAILY RF: 0 Entyvio 300 mg Recon Soln See Rx Instructions .ROUTE .COMPLEX RF: 0 ondansetron 4 mg tablet,disintegrating 4 mg PO Q8H Qty: 15 RF: 0 sucralfate 1 gram tablet 1 g PO Q6H RF: 0 Vitamin C 250 mg Tablet 250 mg PO DAILY RF: 0 venlafaxine 50 mg tablet 50 mg PO BID RF: 0 Vitamin D3 50 mcg (2,000 unit) Tablet 50 mcg PO DAILY RF: 0 cyanocobalamin (vitamin B-12) 1,000 mcg/mL Solution 1,000 mcg IM Q30D RF: 0 potassium chloride 10 mEq Tablet Extended Release 30 meq PO BID Qty: 60 RF: 1 Discharge Orders: Discharge ED (Routine); Ordered 02/11/21 Ordered By: Muriel Erazo Referrals: Vicente More MD [Primary Care Provider] - 1-3 days Discharge Diet: Usual diet Discharge Activity: Increase activity as tolerated Patient Instructions: Urinary Tract Infection in Women (ED) Activity Restrictions/Additional Instructions: Return for any new or worsening symptoms. Follow-up with your primary care provider within 3 days. Continue home medications. Take the antibiotic as prescribed. Drink plenty of fluids to keep well-hydrated. Coding Level of Care Code ED Drug Abuse Social Worker for Chg Fwd Exam Comprehensive
[2021-02-11 14:44] LABS: Blood Urine 3+ (Negative); Glucose Urine UA Norm (Normal); Ketones Urine 1+ (Negative); Nitrate Urine Negative (Negative); Protein Urine 3+ (Negative); Urine Appearance SL Hazy (CLEAR); Urine Color Amber (Yellow); pH Urine 5 (5-7)
[2021-02-11 14:45] LABS: Add Urine Culture? Yes; Add Urine Microscopic? YES; Bacteria Urine TRACE /hpf; Bilirubin Urine Neg (Negative); Leukocyte Esterase Urine 2+ (Negative); RBC Urine 25-40 /hpf (0-2); Squamous Epithelial Cell Urine 0-4 /hpf (0-5); Urobilinogen Urine 1 mg/dL (Negative); WBC Urine 25-40 /hpf (0-5)
[2021-02-11 16:00] VITALS: BP 103/62; PULSE 69; RESP 16; O2SAT 95
[2021-02-11] MEDS: ondansetron 2 mg/ML SDV 2 mL 4 MG IVP (16:01)
[2021-02-11 16:07] VITALS: O2SAT 95
[2021-02-11] MEDS: morphine 4 mg/mL SDV 1 mL IVP (16:07)
[2021-02-11 16:08] LABS: Basophils # 0.1 10^3/uL (0.0-0.1); Basophils % 0.5 %; Eosinophils # 0.1 10^3/uL (0.0-0.8); Eosinophils % 0.4 %; Hemoglobin 10.6 g/dL (11.5-15.3); Lymphocytes # 1.3 10^3/uL (0.8-4.8); Lymphocytes % 10.4 %; Mean Corpuscular HGB Conc 31.2 g/dL (30.0-36.0); Mean Corpuscular Hemoglobin 30.3 pg (28.0-34.0); Mean Corpuscular Volume 97.1 fL (81-99); Mean Platelet Volume 9.7 fL (7.4-10.4); Monocytes # 0.7 10^3/uL (0.2-0.9); Monocytes % 5.7 %; Neutrophils # 9.99 10^3/uL (1.8-7.7); Neutrophils % 82.8 %; Nucleated Red Blood Cells % 0 %; Platelet Count 179 10^3/cmm (130-400); Red Cell Distribution Width 13.8 % (12.1-15.1); White Blood Count 12.1 10^3/uL (4.0-10.0)
[2021-02-11 16:37] LABS: Alanine Aminotransferase 10 U/L (0-33); Albumin Level 3.6 g/dL (3.5-5.2); Alkaline Phosphatase 82 IU/L (35-105); Aspartate Amino Transferase 14 U/L (0-32); Blood Urea Nitrogen 16 mg/dL (8-23); C Reactive Protein 29.7 mg/L (0.0-4.9); Carbon Dioxide 18 mmol/L (22-29); Chloride 108 mmol/L (98-107); Globulin 2.7 g/dL (1.3-4.6); Glucose 109 mg/dL (65-115); Lipase 33 U/L (13-60); Osmolality Calculated 292 mOsm/kg (285-295); Sodium 140 mmol/L (136-145); Total Bilirubin 0.5 mg/dL (0.15-1.2); Total Protein 6.3 g/dL (6.6-8.7)
[2021-02-11] MEDS: cefTRIAXone 1,000 MG in sodium chloride 0.9% (plus) 50 ML 100 MG IV (16:57)
[2021-02-11 17:54] VITALS: BP 139/72; PULSE 79; RESP 16; TEMP 36.6; O2SAT 99
== END 2021-02-11 17:48 | disposition home or self-care (01) ==
PROVIDERS: Emergency Provider Family Medicine; PCP Family Medicine
DX: N30.01 Acute cystitis with hematuria (principal); I12.9 Hypertensive chronic kidney disease with stage 1 through stage 4 chronic kidney disease, or unspecified chronic kidney disease; N18.32 Chronic kidney disease, stage 3b
CPT/HCPCS: 36415; 74176; 80053; 81001; 83690; 85025; 86140; 87086; 96365; 96375; 99284; J0696; J2270; J2405

== ENCOUNTER 2021-02-22 12:07 | Emergency (ER) | payer MEDICARE, SELFPAY ==
[2021-02-22 12:19] VITALS: BP 119/70; PULSE 65; RESP 14; TEMP 36.5; O2SAT 95; BMI 44.1
--- NOTE | 2021-02-22 15:04 | XR_ITS ---
WS: [id number] Portable AP upright chest, 02/22/2021 Clinical Data: dizziness, palpitations Comparison: Portable chest, 12/25/2020. Findings: No nodules, masses or effusions are seen. The heart is normal. The pulmonary vascularity is not increased. No pneumonia or pneumothorax is seen. The aortic arch and descending aorta show tortu osity. There is a right shoulder arthroplasty. Monitor leads are on the chest wall. XR/XR chest 1V portable 12116 Impression: Atherosclerosis.
--- NOTE | 2021-02-22 15:05 | ECG_ITS ---
[facility] Test Date: 2021-02-22 Pat Name: Kaitlin Meade Department: Room: Gender: Female [employer]: : 1945 Requested By: Muriel Solitario I Order Number: [id number] Kody MD: Fely Alvarado M.D. Measurements Intervals [place] Rate: 51 P: 63 [place]: 184 QRS: -78 QRSD: 191 T: 15 QT: 479 QTc: 442 Interpretive Statements SINUS BRADYCARDIA WITH OCCASIONAL VENTRICULAR PREMATURE COMPLEXES MARKED LEFT AXIS DEVIATION [QRS AXIS < -30] RIGHT BUNDLE BRANCH BLOCK [120+ ms QRS DURATION, UPRIGHT V1, 40+ ms S IN I/aVL/V4/V5/V6] POSSIBLE SEPTAL MYOCARDIAL INFARCTION [30 ms Q WAVE IN V1/V2], PROBABLY OLD Compared to ECG 12/26/2020 00:33:16 Ventricular premature complex(es) now present Left-axis deviation now present Sinus rhythm no longer present Left anterior fascicular block no longer present Myocardial infarct finding still present Electronically Signed On 02-25-2021 22:16:14 CDT by Fely Alvarado M.D. [id number]
[2021-02-22 15:45] VITALS: BP 115/66; PULSE 56; RESP 18; O2SAT 96
--- NOTE | 2021-02-22 15:47 | ED_ITS ---
HPI - General Adult General: Chief complaint: General Medical Stated complaint: DIZZY, WEAK, HEART PALPITATIONS Time Seen by Provider: 02/22/21 14:55 Source: patient, RN notes reviewed and old records reviewed Mode of arrival: ambulatory Limitations: no limitations History of Present Illness: HPI narrative: This is a 75-year-old female with a history of Crohn's disease who has recurrent episodes of hypokalemia according to her and she presents with dizziness, palpitation, generalized weakness that she says is consistent with when she has hypokalemia. Symptoms started last night and have persisted today. She denies any chest pain or shortness of breath. She called her primary care provider who advised that she come to the emergency department to be evaluated. Onset (ago): day(s) (1) Associated symptoms: Reports malaise and palpitations; Deny chest pain, confusion, cough, diaphoresis, decreased appetite, dyspnea, fevers/chills, headache(s), nausea, rash, seizures, short of breath, syncope, vomiting or weakness Treatments prior to arrival: none Review of Systems General: Reports: 10 or more systems reviewed and unremarkable except in HPI and below Const: Reports: malaise; Denies: diaphoresis Card: Reports: palpitations; Denies: chest pain or syncope Resp: Denies: dyspnea GI: Denies: nausea or vomiting Skin/Breast: Denies: rash Neuro: Denies: headache(s) or confusion PFS ED PFSH: Medical History (Updated 02/22/21 @ 20:25 by Muriel Solitario MD, [facility] [place]) CKD stage G3b/A1, GFR 30-44 and albumin creatinine ratio <30 mg/g Depression GERD (gastroesophageal reflux disease) History of DVT (deep vein thrombosis) Hypertension Morbid obesity Normocytic anemia Surgical History (Reviewed 02/22/21 @ 15:50 by Muriel Solitario MD, [facility] [place]) History of bowel resection History of incisional hernia repair Family History (Reviewed 02/22/21 @ 15:50 by Muriel Solitario MD, [facility] [place]) Other Diabetes Social History (Reviewed 02/22/21 @ 15:50 by Muriel Sloitario MD, [facility] [place]) Smoking and tobacco status: never smoked Physical Exam Const: COMMON NORMALS: no acute distress, average body habitus, patient oriented x3, no limitations, healthy appearing, alert and well nourished HENMT: COMMON NORMALS: normocephalic, atraumatic and moist oral mucous membranes HEAD & SCALP: normocephalic and atraumatic Eye: COMMON NORMALS: Equal, round and reactive pupils present, EOMs intact bilaterally, conjunctivae normal and no scleral icterus CONJUNCTIVA: Yes conjunctivae normal PUPIL: Yes Equal, round and reactive pupils present Neck/C-Spine: COMMON NORMALS: no meningeal signs and no JVD Resp: COMMON NORMALS: normal respiratory effort, No retractions, No use of accessory muscles, clear to auscultation bilaterally and percussion normal AUSCULTATION: clear to auscultation bilaterally PERCUSSION: percussion normal Cardio: COMMON NORMALS: no JVD, regular rate, regular rhythm, S1 normal heart sound present, S2 normal heart sound present, No gallops present (Cardio), No clicks present (Cardio), No murmurs present (Cardio), No rub (Cardio) and Peripheral pulses 2+ throughout RATE: regular rate RHYTHM: regular rhythm HEART SOUNDS: S1 normal heart sound present and S2 normal heart sound present PERIPHERAL PULSES: Peripheral pulses 2+ throughout GI: COMMON NORMALS: Normal to inspection, nondistended, normoactive bowel sounds present, Soft to palpation, non-tender, No hepatosplenomegaly present, no masses and no bruits PALPATION: Yes Soft to palpation and Yes No hepatosplenomegaly present Extremity: COMMON NORMALS: normal to inspection, full ROM, capillary refill normal, no calf tenderness and no pedal edema Neuro: COMMON NORMALS: patient oriented x3 SENSORIUM/ORIENTATION: Yes alert MENINGEAL SIGNS: Yes no meningeal signs Skin: COMMON NORMALS: no rashes or lesions noted, no wounds, turgor normal, no jaundice, no petechiae and no mottling GENERAL SKIN EXAM: no rashes or lesions noted and turgor normal Course Reevaluation(s): Reevaluation #1: Discussed her lab and imaging findings with her. Unremarkable. She has mild hypokalemia. She was instructed to be compliant with her potassium dose as she has not been taking potassium supplements before yesterday when she started feeling symptoms. No need for intravenous replacement of potassium. She will be discharged home with no new orders. She voiced understanding and is in agreement with the plan. Time: 20:23 Vital Signs: Vital signs: Vital Signs Temperature 97.7 F 02/22/21 12:19 Pulse Rate 62 02/22/21 20:31 Respiratory Rate 18 02/22/21 20:31 Blood Pressure 123/53 02/22/21 20:31 Pulse Oximetry 98 02/22/21 18:00 MDM - General Adult MDM Narrative: Medical decision making narrative: 75-year-old female patient with a history of hypokalemia and who was supposed to be taking potassium supplements 3 times a day. The patient has not been taking her potassium as prescribed by her primary care provider. She had nonspecific symptoms of nausea, dizziness, or generalized weakness which she says is how she feels when her potassium is low. Potassium today was a little low at 3, last time she was in the emergency department it was the same value. It is not low enough to require intravenous replacement. She is discharged home and is advised to be compliant with her potassium. Medical Records: Attestation: I reviewed the patient's medical records. Lab Data: Attestation: I reviewed the patient's lab results. Labs: Lab Results 02/22/21 02/22/21 02/22/21 Range/Units 16:25 16:25 16:25 WBC 7.1 (4.0-10.0) 10^3/ uL RBC 3.66 L (4.1-5.3) 10^6/u L Hgb 10.9 L (11.5-15.3) g/dL Hct 35.4 L (37.0-47.0) % MCV 96.7 (81-99) fL MCH 29.8 (28.0-34.0) pg MCHC 30.8 (30.0-36.0) g/dL RDW 13.7 (12.1-15.1) % Plt Count 222 (130-400) 10^3/c mm MPV 9.6 (7.4-10.4) fL Neut % (Auto) 63.6 % Lymph % (Auto) 27.2 % Cannon % (Auto) 4.6 % Eos % (Auto) 3.2 % Baso % (Auto) 1.0 % Neut # (Auto) 4.51 (1.8-7.7) 10^3/u L Lymph # (Auto) 1.9 (0.8-4.8) 10^3/u L Cannon # (Auto) 0.3 (0.2-0.9) 10^3/u L Eos # (Auto) 0.2 (0.0-0.8) 10^3/u L Baso # (Auto) 0.1 (0.0-0.1) 10^3/u L Nucleated RBC % (a uto) 0 % Nucleated RBCs # 0.0 /100WBC Sodium 142 (136-145) mmol/L Potassium 3.0 L (3.5-5.1) mmol/L Chloride 110 H (98-107) mmol/L Carbon Dioxide 17 L (22-29) mmol/L Anion Gap 18.0 (5-19) BUN 17 (8-23) mg/dL Creatinine 1.8 H (0.5-0.9) mg/dL GFR Calculation Not Reportable Glucose 101 (65-115) mg/dL Calculated Osmolal ity 296 H (285-295) mOsm/k g Calcium 8.1 L (8.5-10.5) mg/dL Total Bilirubin 0.2 (0.15-1.2) mg/dL AST 17 (0-32) U/L ALT 12 (0-33) U/L Alkaline Phosphata se 84 (35-105) IU/L Troponin T Baselin e 35 H (0-10) ng/L Troponin T 120 Min [place] Delta Troponin T NT-Pro-B Natriuret Pep 233 H (0-125) pg/mL Total Protein 5.9 L (6.6-8.7) g/dL Albumin 3.6 (3.5-5.2) g/dL Globulin 2.3 (1.3-4.6) g/dL TSH 2.24 (0.27-4.20) uIU/ mL Urine Color (Yellow) Urine Appearance (CLEAR) Urine pH (5-7) Ur Specific Gravit y (1.005-1.030) Urine Protein (Negative) Urine Glucose (UA) (Normal) Urine Ketones (Negative) Urine Blood (Negative) Urine Nitrate (Negative) Urine Bilirubin (Negative) Urine Urobilinogen (Negative) mg/dL Ur Leukocyte Valencia ase (Negative) Urine RBC (0-2) /hpf Urine WBC (0-5) /hpf Ur Squamous Epith Cells (0-5) /hpf Amorphous Sediment Urine Bacteria (NONE) /hpf 02/22/21 02/22/21 02/22/21 Range/Units 16:51 18:19 19:30 WBC (4.0-10.0) 10^3/ uL RBC (4.1-5.3) 10^6/u L Hgb (11.5-15.3) g/dL Hct (37.0-47.0) % MCV (81-99) fL MCH (28.0-34.0) pg MCHC (30.0-36.0) g/dL RDW (12.1-15.1) % Plt Count (130-400) 10^3/c mm MPV (7.4-10.4) fL Neut % (Auto) % Lymph % (Auto) % Cannon % (Auto) % Eos % (Auto) % Baso % (Auto) % Neut # (Auto) (1.8-7.7) 10^3/u L Lymph # (Auto) (0.8-4.8) 10^3/u L Cannon # (Auto) (0.2-0.9) 10^3/u L Eos # (Auto) (0.0-0.8) 10^3/u L Baso # (Auto) (0.0-0.1) 10^3/u L Nucleated RBC % (a uto) % Nucleated RBCs # /100WBC Sodium (136-145) mmol/L Potassium (3.5-5.1) mmol/L Chloride (98-107) mmol/L Carbon Dioxide (22-29) mmol/L Anion Gap (5-19) BUN (8-23) mg/dL Creatinine (0.5-0.9) mg/dL GFR Calculation Glucose (65-115) mg/dL Calculated Osmolal ity (285-295) mOsm/k g Calcium (8.5-10.5) mg/dL Total Bilirubin (0.15-1.2) mg/dL AST (0-32) U/L ALT (0-33) U/L Alkaline Phosphata se (35-105) IU/L Troponin T Baselin e (0-10) ng/L Troponin T 120 Min [place] Cancelled 30.96 H Delta Troponin T Cancelled -4.04 L NT-Pro-B Natriuret Pep (0-125) pg/mL Total Protein (6.6-8.7) g/dL Albumin (3.5-5.2) g/dL Globulin (1.3-4.6) g/dL TSH (0.27-4.20) uIU/ mL Urine Color Yellow (Yellow) Urine Appearance Clear (CLEAR) Urine pH 6 (5-7) Ur Specific Gravit y 1.015 (1.005-1.030) Urine Protein Neg (Negative) Urine Glucose (UA) Norm (Normal) Urine Ketones Negative (Negative) Urine Blood Neg (Negative) Urine Nitrate Negative (Negative) Urine Bilirubin Neg (Negative) Urine Urobilinogen Norm (Negative) mg/dL Ur Leukocyte Valencia ase Negative (Negative) Urine RBC None (0-2) /hpf Urine WBC 10-15 H (0-5) /hpf Ur Squamous Epith Cells 0-4 H (0-5) /hpf Amorphous Sediment Not Reportable Urine Bacteria Trace (NONE) /hpf Imaging Data^: CXR: Attestation: I personally reviewed and interpreted this imaging study as follows: Radiologist's impression: [address] [id number] ReportSigned Patient: Kaitlin Meade #: [id number]: 1945cct#:[id number]/Sex: 75 / FADM Date: 02/22/21Loc: [facility]/Bed:Attending Dr: Ordering Provider/Ordering MD: Muriel Solitario MD, [facility] [place] Date of Service: 02/22/21 Procedure(s): XR chest 1V portable [id number] Accession Number(s): [id number] Report Number: [id number] WS: [id number] Portable AP upright chest, 02/22/2021 Clinical Data: dizziness, palpitations Comparison: Portable chest, 12/25/2020. Findings: No nodules, masses or effusions are seen. The heart is normal. The pulmonary vascularity is not increased. No pneumonia or pneumothorax is seen. The aortic arch and descending aorta show tortuosity. There is a right shoulder arthroplasty. Monitor leads are on the chest wall. XR/XR chest 1V portable [id number] Impression: Atherosclerosis. Dictated By:Ondina Greco MDSigned By:Ondina Greco MDSigned Date/Time:02/22/21 1529DD/ 1528 EKG Data^: EKG 1: Attestation: I personally reviewed and interpreted this EKG as follows: EKG interpretation date: 02/22/21 EKG interpretation time: 15:45 Prior EKG tracings: available for review Interpretation: Sinus bradycardia with occasional PVCs. Heart rate 51 bpm. Left axis deviation. Right bundle branch block. No ST changes. No significant change from the EKG of 12/25/2020 Computer generated interpretation: Chest X-Ray 02/22/21 15:04 Impression: Atherosclerosis. Discharge Plan Discharge Patient Disposition: Home Clinical Impression: Hypokalemia Condition: Stable Prescriptions: Continued pantoprazole [Protonix] 40 mg Tablet,Delayed Release (Dr/Ec) 40 mg PO DAILY RF: 0 Entyvio 300 mg Recon Soln See Rx Instructions .ROUTE .COMPLEX RF: 0 ondansetron 4 mg tablet,disintegrating 4 mg PO Q8H Qty: 15 RF: 0 sucralfate 1 gram tablet 1 g PO Q6H RF: 0 ascorbic acid (vitamin C) [Vitamin C] 250 mg Tablet 250 mg PO DAILY RF: 0 sulfamethoxazole-trimethoprim 800-160 mg tablet 1 tab PO BID RF: 0 cyanocobalamin (vitamin B-12) 1,000 mcg/mL Solution 1,000 mcg IM Q30D RF: 0 potassium chloride 10 mEq Tablet Extended Release 30 meq PO BID Qty: 60 RF: 1 Discharge Orders: Discharge ED (Routine); Ordered 02/22/21 Ordered By: Muriel Solitario Referrals: Vicente More MD [Primary Care Provider] - 1-3 days Discharge Diet: Usual diet Discharge Activity: Increase activity as tolerated Patient Instructions: Hypokalemia (ED) Activity Restrictions/Additional Instructions: Return for any new or worsening symptoms. Follow-up with your primary care provider within 3 days. It is important that you take your potassium as prescribed 3 times a day this will prevent your potassium from getting low and you develop any symptoms again. Coding Level of Care Code ED Cycle Consultant for Chg Fwd Exam Comprehensive
[2021-02-22 16:49] LABS: Basophils # 0.1 10^3/uL (0.0-0.1); Eosinophils # 0.2 10^3/uL (0.0-0.8); Eosinophils % 3.2 %; Hematocrit 35.4 % (37.0-47.0); Hemoglobin 10.9 g/dL (11.5-15.3); Lymphocytes # 1.9 10^3/uL (0.8-4.8); Lymphocytes % 27.2 %; Mean Corpuscular HGB Conc 30.8 g/dL (30.0-36.0); Mean Corpuscular Hemoglobin 29.8 pg (28.0-34.0); Mean Corpuscular Volume 96.7 fL (81-99); Mean Platelet Volume 9.6 fL (7.4-10.4); Monocytes # 0.3 10^3/uL (0.2-0.9); Monocytes % 4.6 %; Neutrophils # 4.51 10^3/uL (1.8-7.7); Neutrophils % 63.6 %; Nucleated Red Blood Cells % 0 %; Platelet Count 222 10^3/cmm (130-400); Red Blood Count 3.66 10^6/uL (4.1-5.3); Red Cell Distribution Width 13.7 % (12.1-15.1); White Blood Count 7.1 10^3/uL (4.0-10.0)
[2021-02-22 17:00] VITALS: BP 122/58; PULSE 55; RESP 16; O2SAT 98
[2021-02-22 17:15] LABS: Troponin(5th) Baseline 35 ng/L (0-10)
[2021-02-22 17:18] LABS: Alanine Aminotransferase 12 U/L (0-33); Albumin Level 3.6 g/dL (3.5-5.2); Alkaline Phosphatase 84 IU/L (35-105); Aspartate Amino Transferase 17 U/L (0-32); Blood Urea Nitrogen 17 mg/dL (8-23); Calcium 8.1 mg/dL (8.5-10.5); Carbon Dioxide 17 mmol/L (22-29); Chloride 110 mmol/L (98-107); Globulin 2.3 g/dL (1.3-4.6); Glucose 101 mg/dL (65-115); NT Pro B Type Natriuretic Pept 233 pg/mL (0-125); Osmolality Calculated 296 mOsm/kg (285-295); Sodium 142 mmol/L (136-145); Thyroid Stimulating Hormone 2.24 uIU/mL (0.27-4.20); Total Bilirubin 0.2 mg/dL (0.15-1.2); Total Protein 5.9 g/dL (6.6-8.7)
[2021-02-22 18:00] VITALS: BP 117/74; PULSE 56; RESP 17; O2SAT 98
[2021-02-22 18:39] LABS: Bilirubin Urine Neg (Negative); Blood Urine Neg (Negative); Glucose Urine UA Norm (Normal); Ketones Urine Negative (Negative); Leukocyte Esterase Urine Negative (Negative); Nitrate Urine Negative (Negative); Protein Urine Neg (Negative); Specific Gravity, Urine 1.015 (1.005-1.030); Urine Appearance Clear (CLEAR); Urine Color Yellow (Yellow); Urobilinogen Urine Norm (Negative); pH Urine 6 (5-7)
[2021-02-22 18:46] LABS: Squamous Epithelial Cell Urine 0-4 /hpf (0-5)
[2021-02-22 18:47] LABS: Add Urine Culture? No; Bacteria Urine TRACE /hpf
[2021-02-22 20:16] LABS: Troponin 5 2HR 30.96 ng/L (0-10)
[2021-02-22 20:18] LABS: Troponin 5 2HR Delta -4.04 ABS# (0-10)
[2021-02-22 20:31] VITALS: BP 123/53; PULSE 62; RESP 18
== END 2021-02-22 20:40 | disposition home or self-care (01) ==
PROVIDERS: Emergency Provider Family Medicine; PCP Family Medicine
DX: E87.6 Hypokalemia (principal); K50.90 Crohn's disease, unspecified, without complications; I12.9 Hypertensive chronic kidney disease with stage 1 through stage 4 chronic kidney disease, or unspecified chronic kidney disease; N18.32 Chronic kidney disease, stage 3b; E66.01 Morbid (severe) obesity due to excess calories; Z68.41 Body mass index [BMI] 40.0-44.9, adult
CPT/HCPCS: 71045; 80053; 81001; 83880; 84443; 84484; 85025; 93005; 99283

== ENCOUNTER → 2021-03-21 12:01 | Outpatient (BNVA) | payer MEDICARE, SELFPAY | PROVIDERS: PCP Family Medicine; Visit Provider Surgery | DX: Z20.822 Contact with and (suspected) exposure to COVID-19 (principal); Z11.52 Encounter for screening for COVID-19 | CPT/HCPCS: 87635 ==

== ENCOUNTER → 2021-05-10 13:28 | Outpatient (BNVA) | payer MEDICARE, SELFPAY | PROVIDERS: PCP Family Medicine; Visit Provider Surgery | DX: I87.8 Other specified disorders of veins (principal) | CPT/HCPCS: 87635 ==

== ENCOUNTER 2021-05-15 06:48 | Day surgery (SDC) | payer MEDICARE, SELFPAY ==
[2021-05-14 11:05] VITALS: BMI 40.7
[2021-05-15] VITALS (7 sets, daily range): BP systolic 124–146; BP diastolic 69–92; PULSE 54–70; RESP 13–18; TEMP 36.1–36.3; O2SAT 96–99
--- NOTE | 2021-05-15 | SC_ITS ---
WS: [id number] C-ARM RADIOGRAPHS CHEST; 2 IMAGES HISTORY: PORTACATH PLACEMENT COMPARISON: None available. Intraoperative imaging during right-sided Mediport placement. Tip in the distal SVC. SC/C-arm FL for CVA [id number] IMPRESSION: Intraoperative imaging during Mediport placement.
--- NOTE | 2021-05-15 | SCC_ITS ---
Procedure Done: 1. Placement of PowerPort in the right internal jugular vein 2. Fluoroscopic guidance and interpretation for placement of catheter 3. Ultrasound guidance and interpretation to access the right internal jugular vein 72.2 seconds of fluoroscopic guidance, for a cumulative dose of 12.26mGy, was provided to Dr. Christiansen by the radiology department. C-arm images of the chest were saved for the patient's permanent record. LULU
--- NOTE | 2021-05-15 06:51 | W.PM.OPSFHP ---
Same Day Surgery H&P Indication for Procedure/HPI DATE OF PROCEDURE: May 15, 2021 CHIEF COMPLAINT/INDICATIONFOR SURGICAL PROCEDURE: port placement PREOP DIAGNOSIS: Left supracondylar femur fracture PLANNED PROCEDRUE: Operation Date: 05/15/21 08:15 Proposed Procedures p Portacath Placement 00506 I87.8(Not Applicable) - Gokul Christiansen MD Medications/Allergies* Home Medications Medication Instructions Recorded Confirmed Type Entyvio See Rx Instructions .ROUTE .COMPLEX 11/20/19 05/14/21 History pantoprazole [Protonix] 40 mg PO DAILY 11/20/19 05/14/21 History cyanocobalamin (vitamin B-12) 1,000 mcg IM Q30D 05/10/20 05/14/21 History ascorbic acid (vitamin C) [Vitamin 250 mg PO DAILY 02/11/21 05/14/21 History C] sucralfate 1 g PO Q6H 02/11/21 05/14/21 History venlafaxine [Effexor] 50 mg PO BID 05/14/21 05/14/21 History Allergies/Adverse Reactions Allergy/AdvReac Type Severity Reaction Status Date / Time Iodine and Iodide Containing Allergy ALGY-Anaphy Verified 05/15/21 07:07 Produc laxis prochlorperazine Allergy Unknown Verified 05/15/21 07:07 [From Compazine] Pertinent History/Comorbid Conditions* Medical History (Updated 03/19/21 @ 10:00 by Gokul Christiansen MD) CKD stage G3b/A1, GFR 30-44 and albumin creatinine ratio <30 mg/g Crohn's disease Depression GERD (gastroesophageal reflux disease) History of DVT (deep vein thrombosis) Hypertension Normocytic anemia Surgical History (Updated 11/20/19 @ 09:12 by Anup Fuentes MD) History of bowel resection History of incisional hernia repair Family History (Updated 11/18/19 @ 23:57 by Salvador George MD) Diabetes Social History Smoking and tobacco status: never smoked Pertinent Exam Findings alert, oriented x 3 and regular rate & rhythm Recommendations Surgery/Procedure today Coding Level of Care Code Acute Probate Clerk for Chg Silvino
--- NOTE | 2021-05-15 07:19 | ANES.PREANE2 ---
Pre-Anesthetic Assessment Pre-Anesthetic Assessment: Height/Weight: Height 1.7 m Weight 117.934 kg Temp Pulse Resp BP Pulse Ox 97.2 F L 70 18 146/84 96 05/15/21 07:03 05/15/21 07:03 05/15/21 07:03 05/15/21 07:03 05/15/21 07:03 Preop Diagnosis: poor venous access Proposed Procedure: Operation Date: 05/15/21 08:15 Proposed Procedures p Portacath Placement 86116 I87.8(Not Applicable) - Gokul Christiansen MD Familial anesthetic complications: none Was Beta Xin taken within 24 hours: N/A Was Clonidine taken within 24 hours: N/A Last intake: Intake Last Liquid Date 05/14/21 Last Liquid Time 21:00 Last Solid Date 05/14/21 Last Solid Time 17:00 Social: Social History: No alcohol and No tobacco Exam: Pre-Anes Outpt Exam: alert, oriented x 3, clear to auscultation bilaterally and regular rate & rhythm Airway: Cervical ROM: WNL MP: 2 Dentition: Full Pulmonary: Comments: hx remote asthma CV/HEM: CV/HEM: HTN : : Chronic renal Insufficiency GI: GI: GERD Comments: crohn's Metabolic: Metabolic: Morbid obesity Comments: chronic hypokalemia/hypomagnesemia Anesthetic Plan: ASA status: 3 Anesthesia: MAC Risk of > 500 ml blood loss (7ml/kg in children): No PFSH Anesthesia PFSH: Medical History (Updated 03/19/21 @ 10:00 by Gokul Christiansen MD) CKD stage G3b/A1, GFR 30-44 and albumin creatinine ratio <30 mg/g Crohn's disease Depression GERD (gastroesophageal reflux disease) History of DVT (deep vein thrombosis) Hypertension Normocytic anemia Surgical History History of bowel resection History of incisional hernia repair Family History Other Diabetes Social History Smoking and tobacco status: never smoked Data Anesthesia Cardiac Studies: No Data to Display
[2021-05-15] MEDS: sodium chloride 0.9% 1,000 ML 30 ML IV (07:29)
[2021-05-15] MEDS: lidocaine 1% INJ 20 mL INJECTION (08:51)
[2021-05-15] MEDS: heparin, porcine 1,000 unit/mL INJ 10 mL 10000 UNIT INJECTION (08:52)
--- NOTE | 2021-05-15 09:23 | PM.OP ---
Operative Report Date of procedure: May 15, 2021 Pre-op Diagnosis: Poor venous access requiring frequent IV infusions Post-op diagnosis: same Procedure Done: 1. Placement of PowerPort in the right internal jugular vein 2. Fluoroscopic guidance and interpretation for placement of catheter 3. Ultrasound guidance and interpretation to access the right internal jugular vein Pathology: none sent Surgeon: Gokul Christiansen Anesthesia: MAC Condition: stable Disposition: PACU Procedure: The patient was taken to the Operating Room and the chest and neck bilaterally were prepped and draped in a sterile manner after the antibiotic had been administered and shoulder rolls had been placed. 1% lidocaine with 0.5% Marcaine was infiltrated at the side at the site of the planned around the left subclavian vein. I was able to access the left subclavian vein but could not thread the guidewire. An ultrasound of the right internal jugular vein revealed patent flow, no thrombus. An introducer needle was then used to access the right internal jugular vein and after withdrawing blood syringe was removed and a guidewire passed under fluoroscopy into the superior vena cava. The site of the planned port was then marked on the chest and a 15 blade was used to make a 3 cm skin incision this was extended into the subcutaneous tissue using electrocautery and a subcutaneous pocket over the pectoralis fascia was created 2-0 Vicryl suture was used to suture the port to the pectoral fascia in the pocket on 3 sides. The catheter, after having been flushed with hep saline, was attached to the tunneler and a tunnel created between the port site and the internal jugular vein entry site. Under fluoroscopy the dilator sheath was passed over the guidewire into the proximal superior vena cava. The inner dilator was removed and the sheath left behind and the catheter was introduced through the peel-away sheath with the tip in the superior vena cava. The peel-away sheath was removed. The proximal end of the catheter was cut to the right size and was attached to the port. Using a Roberts needle the port was accessed, it withdrew blood easily and flushed easily. A final 5cc of heparin was used to flush the PowerPort. The subcutaneous tissue was approximated using interrupted 3-0 Vicryl sutures and the skin at the introducer site and the port site was closed using subcuticular running 4-0 Monocryl sutures. Surgical glue was applied and the patient was stable throughout the procedure. Fluoroscopic guidance and interpretation was performed for introduction of the guidewire in the right internal jugular vein, passage of dilator and placement of catheter tip in the distal superior vena cava
--- NOTE | 2021-05-15 09:27 | XR_ITS ---
WS: [id number] PORTABLE CHEST HISTORY: Postop. COMPARISON: Intraoperative imaging. Since the intraoperative imaging during Port-A-Cath placement the tip has retracted by 3 to 4 cm. The tip now terminates in the proximal at the junction of the RIGHT brachiocephalic vein with the SVC. Lungs are clear and well expanded. No pleural effusion or pneumothorax. Cardiac size: Normal. Mediastinum/Aorta: Mildly prominent mediastinum is probably due to positioning. Prior RIGHT humeral head prosthesis. XR/XR chest 1V portable [id number] IMPRESSION: 1. Since the intraoperative placement of the Mediport the tip has retracted an d now lies near the junction of the RIGHT brachiocephalic with the SVC. 2. No pneumothorax.
--- NOTE | 2021-05-15 09:32 | P.PCN_ITS ---
PACU note PACU note: VSS, Good respiratory effort, report to FEED IN WORKER Post-Anesthesia Exam: awake
--- NOTE | 2021-05-15 09:32 | PM.PACU ---
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
--- NOTE | 2021-05-15 15:06 | ANE.PACU2 ---
Inpatient post-anesthesia follow up: Airway intact: Yes Vital signs: Temperature 97 F Pulse Rate 56 Respiratory Rate 18 Blood Pressure 124/92 Pulse Oximetry 98 Oxygen Delivery Me thod Room Air Oxygen Flow Rate Fraction of Inspir ed Oxygen Hydration adequate: Yes Nausea and vomiting: No Pain level: 2 Mental status: Baseline
== END 2021-05-15 10:45 | disposition home or self-care (01) ==
PROVIDERS: PCP Family Medicine; Visit Provider Surgery
PROC: (CPT 36561; principal; 2021-05-15 08:15)
DX: Z45.2 Encounter for adjustment and management of vascular access device (principal); E66.01 Morbid (severe) obesity due to excess calories; Z68.41 Body mass index [BMI] 40.0-44.9, adult; K50.90 Crohn's disease, unspecified, without complications; I12.9 Hypertensive chronic kidney disease with stage 1 through stage 4 chronic kidney disease, or unspecified chronic kidney disease; N18.32 Chronic kidney disease, stage 3b; F32.9 Major depressive disorder, single episode, unspecified; Z86.718 Personal history of other venous thrombosis and embolism; Z83.3 Family history of diabetes mellitus
CPT/HCPCS: 36561; 71045; 77001; C1788; J0690; J1644; J2704; J3010; J3490; J7030

== ENCOUNTER 2021-07-05 12:39 | Emergency (ER) | payer MEDICARE, SELFPAY ==
[2021-07-05 12:57] VITALS: BP 119/70; PULSE 72; RESP 16; TEMP 36.4; O2SAT 96
--- NOTE | 2021-07-05 13:09 | USCV_ITS ---
Kaitlin Meade Age: 76 Gender: F : 1945 Exam Date: 07/05/2021 13:31 Ordering Phys: Breanna Echols Technologist: Geetha Garay [place] [facility] [place] LLE PAIN AND SWELLING HISTORY: Lower extremity swelling. Lower extremity pain. PROCEDURES: Venous duplex imaging was performed in only the left lower extremity. The following venous structures were evaluated: common femoral vein, profunda vein, proximal portion of the greater saphenous vein, superficial femoral vein, and the popliteal vein. In addition, the posterior tibial and peroneal trunk were evaluated. Serial compression, augmentation maneuvers, and spectral Doppler flow evaluation were performed. FINDINGS: No evidence of DVT seen in any vessel visualized at this time. Examination was technically limited due to body habitus. CONCLUSIONS No evidence of left lower extremity DVT. Dallas Rhodes MD (Electronically Signed) Final Date: 05 July 2021 17:28 S
--- NOTE | 2021-07-05 13:33 | ED_ITS ---
HPI - Extremity Problem General: Chief complaint: Extremity Problem,Nontraumatic Stated complaint: L THIGH PAIN (PENS/NEEDLES):HX DVT,FEELS SIMILAR Time Seen by Provider: 07/05/21 13:11 Source: patient Mode of arrival: ambulatory Limitations: no limitations History of Present Illness: HPI Narrative: 76-year-old female presents to the ER today for left lower extremity pain x3 to 4 days that has been worsening. Patient reports this is a numbness and tingling from her left knee to the left foot. She reports in the past she did have a DVT and at that time had some numbness and tingling so she became concerned that maybe she has a DVT again. Patient denies any swelling or redness of this leg. She denies any known injury. Patient does admit to chronic low back pain with significant degeneration in her disc spaces of the L-spine and sacrum. Patient has been taking her home medications with minimal relief of the pain. Denies any other concerns at this time. Denies chest pain, shortness of breath, nausea, vomiting, diarrhea, constipation. MD Complaint: extremity pain Onset (ago): day(s) Pain Consistency: constant Location: left and lower extremity Severity scale (1-10): 6 Quality: burning and other (numbness and tingling) Relieving factors: nothing Exacerbating factors: weight bearing Associated symptoms: Deny chest pain, fever(s) or rash Review of Systems General: Reports: 10 or more systems reviewed and unremarkable except in HPI and below Const: Denies: fever(s), chills or body aches ENMT: Denies: throat pain, nasal discharge or nasal congestion Card: Denies: chest pain, palpitations, edema or swelling of feet/ankles Resp: Denies: dyspnea, productive cough or wheezing GI: Denies: abdominal pain, nausea, vomiting, diarrhea or constipation Musc: Reports: back pain and extremity pain Skin/Breast: Denies: rash or pruritus Neuro: Reports: numbness in extremities; Denies: headache(s) PFSH ED PFSH: Medical History CKD stage G3b/A1, GFR 30-44 and albumin creatinine ratio <30 mg/g Crohn's disease Depression GERD (gastroesophageal reflux disease) History of DVT (deep vein thrombosis) Hypertension Normocytic anemia Surgical History History of bowel resection History of incisional hernia repair Port-A-Cath in place (05/15/21) Family History Other Diabetes Physical Exam Const: COMMON NORMALS: no acute distress, patient oriented x3 and no limitations GENERAL APPEARANCE: cooperative and comfortable NUTRITIONAL APPEARANCE: obese HENMT: COMMON NORMALS: normocephalic, external ears normal and Normal external nose present HEAD & SCALP: normocephalic NOSE: Normal external nose present EXTERNAL EAR: Yes external ears normal Eye: COMMON NORMALS: conjunctivae normal CONJUNCTIVA: Yes conjunctivae normal Resp: COMMON NORMALS: normal respiratory effort EFFORT & INSPECTION: Yes able to speak in complete sentences Cardio: COMMON NORMALS: regular rate and regular rhythm RATE: regular rate RHYTHM: regular rhythm GI: COMMON NORMALS: Normal to inspection, nondistended, normoactive bowel sounds present, Soft to palpation and non-tender PALPATION: Yes Soft to palpation Back/Pelvis: LUMBAR SPINE/LOWER BACK: Yes normal to inspection, Yes ROM limited (chronic), No lumbar spinal tenderness, No paraspinal muscle tenderness and No paraspinal muscle spasm Extremity: COMMON NORMALS: normal to inspection, full ROM, no joint enlargement and no clubbing, cyanosis or edema NARRATIVE EXTREMITY EXAM: pulses equal bilaterally Neuro: COMMON NORMALS: patient oriented x3, moves all extremities and gait normal Psych: COMMON NORMALS: mental status grossly normal, Normal thought process present and cooperative THOUGHT PROCESS: Normal thought process present Skin: COMMON NORMALS: no rashes or lesions noted and no wounds GENERAL SKIN EXAM: no rashes or lesions noted Course ED course: Patient presents to the ER today with left lower extremity pain with concerns of a DVT. Will get Doppler venous ultrasound left lower extremity. Vital Signs: Vital signs: Vital Signs Temperature 97.6 F 07/05/21 12:57 Pulse Rate 72 07/05/21 12:57 Respiratory Rate 16 07/05/21 12:57 Blood Pressure 119/70 07/05/21 12:57 Pulse Oximetry 96 07/05/21 12:57 Critical Care Time Critical Care Time: Critical Care Time: No MDM - Extremity (Nontraumatic) MDM Narrative: Medical decision making narrative: 76-year-old female presents to the ER today for left lower extremity pain. Patient reports this is a numbness and tingling that goes from the knee to the foot. She reports a history of DVT and at that time had some numbness and tingling and so she became concerned. Ultrasound performed of Doppler venous lower left extremity appears negative in ER. Discussed findings with patient. This is likely stemming from patient's chronic low back pain and issues with her disc spacing there. We will try a short burst of steroids in addition to some gabapentin to see if that helps with patient's pain. She should follow-up with her PCP in 3 to 5 days to discuss further imaging. Return to the ER with any new or worsening symptoms. Patient verbalized understanding and is in agreement with this treatment plan. Lab Data: Labs: Lab Results 07/05/21 07/05/21 13:50 13:50 WBC 9.8 10^3/uL 10^3/ uL (4.0-10.0) RBC 4.22 10^6/uL 10^6 /uL (4.1-5.3) Hgb 12.4 g/dL g/dL (11.5-15.3) Hct 43.4 % % (37.0-47.0) MCV 102.8 fl H fl (81-99) MCH 29.4 pg pg (28.0-34.0) MCHC 28.6 g/dL L g/dL (30.0-36.0) RDW 13.1 % % (12.1-15.1) Plt Count 192 10^3/cmm 10^3 /cmm (130-400) MPV 9.3 fL fL (7.4-10.4) Neut % (Auto) 74.9 % % Lymph % (Auto) 18.5 % % [place] % (Auto) 4.4 % % Eos % (Auto) 1.3 % % Baso % (Auto) 0.6 % % Neut # (Auto) 7.36 10^3/uL 10^3 /uL (1.8-7.7) Lymph # (Auto) 1.8 10^3/uL 10^3/ uL (0.8-4.8) [place] # (Auto) 0.4 10^3/uL 10^3/ uL (0.2-0.9) Eos # (Auto) 0.1 10^3/uL 10^3/ uL (0.0-0.8) Baso # (Auto) 0.1 10^3/uL 10^3/ uL (0.0-0.1) Nucleated RBC % (a uto) 0 % % Nucleated RBCs # 0.0 /100WBC /100W BC Sodium 140 mmol/L mmol/L (136-145) Anion Gap 15.4 (5-19) BUN 17 mg/dL mg/dL (8-23) GFR Calculation Not Reportable Glucose 84 mg/dL mg/dL (65-115) Calculated Osmolal ity 291 mOsm/kg mOsm/ kg (285-295) Total Bilirubin 0.4 mg/dL mg/dL (0.15-1.2) AST 15 U/L U/L (0-32) ALT 10 U/L U/L (0-33) Alkaline Phosphata se 91 IU/L IU/L (35-105) Total Protein 6.6 g/dL g/dL (6.6-8.7) Albumin 3.8 g/dL g/dL (3.5-5.2) Globulin 2.8 g/dL g/dL (1.3-4.6) Imaging Data^: US Vascular: Radiologist's impression: neg for DVT Discharge Plan Discharge Patient Disposition: Home Clinical Impression: Numbness and tingling of left leg Chronic low back pain Qualifiers: Back pain laterality: bilateral Sciatica presence: with sciatica Sciatica laterality: sciatica of left side Qualified Code(s): M54.42 - Lumbago with sciatica, left side Condition: Stable Prescriptions: New gabapentin 100 mg capsule 100 mg PO DAILY Qty: 14 RF: 0 prednisone 20 mg tablet 40 mg PO DAILY 4 Days RF: 0 No Action pantoprazole [Protonix] 40 mg Tablet,Delayed Release (Dr/Ec) 40 mg PO DAILY RF: 0 Entyvio 300 mg Recon Soln See Rx Instructions .ROUTE .COMPLEX RF: 0 ondansetron 4 mg tablet,disintegrating 4 mg PO Q8H Qty: 15 RF: 0 ascorbic acid (vitamin C) [Vitamin C] 250 mg Tablet 250 mg PO DAILY RF: 0 venlafaxine 50 mg Tablet 50 mg PO BID RF: 0 hydrocodone-acetaminophen 5-325 mg tablet 1 tab PO Q6H PRN (Reason: pain) Qty: 20 RF: 0 Zofran 4 mg tablet 4 mg PO Q6H PRN (Reason: nausea and vomiting) Qty: 20 RF: 0 Colace 100 mg capsule 100 mg PO BID Qty: 30 RF: 0 cyanocobalamin (vitamin B-12) 1,000 mcg/mL Solution 1,000 mcg IM Q30D RF: 0 potassium chloride 10 mEq Tablet Extended Release 30 meq PO BID Qty: 60 RF: 1 Discharge Orders: Discharge ED (Routine); Ordered 07/05/21 Ordered By: Breanna Echols Referrals: Vicente More MD [Primary Care Provider] - Discharge Diet: Usual diet Discharge Activity: Resume usual activity Patient Instructions: Opioid Safety Activity Restrictions/Additional Instructions: Take gabapentin and prednisone as prescribed. Warm, moist heat recommended on the low back. Recommend topical muscle rub but do not use with heat or ice. Contact primary care doctor and follow-up in 3 to 5 days. Return to the ER with any new or worsening symptoms. 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
[2021-07-05 14:06] LABS: Basophils # 0.1 10^3/uL (0.0-0.1); Basophils % 0.6 %; Eosinophils # 0.1 10^3/uL (0.0-0.8); Eosinophils % 1.3 %; Hematocrit 43.4 % (37.0-47.0); Hemoglobin 12.4 g/dL (11.5-15.3); Lymphocytes # 1.8 10^3/uL (0.8-4.8); Lymphocytes % 18.5 %; Mean Corpuscular HGB Conc 28.6 g/dL (30.0-36.0); Mean Corpuscular Hemoglobin 29.4 pg (28.0-34.0); Mean Corpuscular Volume 102.8 fl (81-99); Mean Platelet Volume 9.3 fL (7.4-10.4); Monocytes # 0.4 10^3/uL (0.2-0.9); Monocytes % 4.4 %; Neutrophils # 7.36 10^3/uL (1.8-7.7); Neutrophils % 74.9 %; Nucleated Red Blood Cells % 0 %; Platelet Count 192 10^3/cmm (130-400); Red Blood Count 4.22 10^6/uL (4.1-5.3); Red Cell Distribution Width 13.1 % (12.1-15.1); White Blood Count 9.8 10^3/uL (4.0-10.0)
[2021-07-05 14:18] LABS: Alanine Aminotransferase 10 U/L (0-33); Albumin Level 3.8 g/dL (3.5-5.2); Alkaline Phosphatase 91 IU/L (35-105); Anion Gap 15.4 (5-19); Aspartate Amino Transferase 15 U/L (0-32); Blood Urea Nitrogen 17 mg/dL (8-23); Calcium 8.1 mg/dL (8.5-10.5); Carbon Dioxide 19 mmol/L (22-29); Chloride 109 mmol/L (98-107); Globulin 2.8 g/dL (1.3-4.6); Glucose 84 mg/dL (65-115); Osmolality Calculated 291 mOsm/kg (285-295); Potassium 3.4 mmol/L (3.5-5.1); Sodium 140 mmol/L (136-145); Total Bilirubin 0.4 mg/dL (0.15-1.2); Total Protein 6.6 g/dL (6.6-8.7)
== END 2021-07-05 14:27 | disposition home or self-care (01) ==
PROVIDERS: Emergency Provider Physician Assistant; PCP Family Medicine
DX: M54.42 Lumbago with sciatica, left side (principal); R20.0 Anesthesia of skin; I12.9 Hypertensive chronic kidney disease with stage 1 through stage 4 chronic kidney disease, or unspecified chronic kidney disease; N18.32 Chronic kidney disease, stage 3b
CPT/HCPCS: 80053; 85025; 93971; 99282

== ENCOUNTER 2021-07-15 15:44 | Outpatient (CLI) | payer MEDICARE, SELFPAY ==
--- NOTE | 2021-07-15 15:51 | XR_ITS ---
WS: [id number] XR lumbar spine 2-3V* [id number] REASON FOR EXAM: BACK PAIN,LUMBAR WITH RADICULOPATHY FINDINGS: Rotatory scoliosis of the lumbar spine convex right. Mild compression deformities of the vertebral bodies L2-L4. The examination of 08/27/2017 the L5 vertebral body had a normal configuration but appeared to be mild ly sclerotic with somewhat indistinct cortices. At this time the L5 vertebral body has indistinct cor tices and mild sclerosis with a moderate degree of compression posteriorly. Compared to the previous examination of 08/27/2017 the L1-L2 disc space has become significantly narro wed with degenerative gas in the interspace. There is mild narrowing of the intervertebral disc space s L2-L4 without significant interval change. There is anterior subluxation of L4 in relation to L3 and L5. The degree of subluxation of L4 in rela tion to L3 is increased from 6 to 10 mm compared to the previous study. The subluxation of L4 in rela tion to L5 is relatively stable. No significant change in vertebral body position with flexion and extension. Severe degenerative changes in the lumbar facet joints L3-S1, most notably at L4-L5 and L5-S1. XR/XR lumbar spine 2-3V* [id number] IMPRESSION: Progression of degenerative spondylosis as above. Abnormal L5 vertebral body with progression since the previous examination. Unc ertain etiology. If further evaluation is needed, MRI of the lumbar spine is re commended.
== END 2021-07-15 15:45 | disposition home or self-care (01) ==
LOC: RAD 15:48
PROVIDERS: PCP Family Medicine; Visit Provider Family Medicine
DX: M54.16 Radiculopathy, lumbar region (principal)
CPT/HCPCS: 72100

== ENCOUNTER 2021-10-13 13:21 | Emergency (ER) | payer MEDICARE, SELFPAY ==
[2021-10-13 13:29] VITALS: BP 135/77; TEMP 36.2; BMI 43.2
--- NOTE | 2021-10-13 13:34 | ECG_ITS ---
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 Measurements Intervals [place] Rate: 66 P: 64 HI: 182 QRS: -72 QRSD: 140 T: 23 QT: 396 QTc: 417 Interpretive Statements SINUS RHYTHM RIGHT BUNDLE BRANCH BLOCK [120+ ms QRS DURATION, UPRIGHT V1, 40+ ms S IN I/aVL/V4/V5/V6] LEFT ANTERIOR FASCICULAR BLOCK [QRS AXIS <= -45, QR IN I, RS IN II] VOLTAGE CRITERIA FOR LVH [MEETS CRITERIA IN ONE OF: R(aVL), S(V1), R(V5), R(V5/V6)+S(V1)] POSSIBLE ANTEROSEPTAL MYOCARDIAL INFARCTION , OF INDETERMINATE AGE [30 ms Q WAVE IN V1-V4] Compared to ECG 02/22/2021 15:44:51 Left anterior fascicular block now present Left ventricular hypertrophy now present Sinus bradycardia no longer present Ventricular premature complex(es) no longer present Left-axis deviation no longer present Myocardial infarct finding still present Electronically Signed On 10-13-2021 15:38:12 CDT by Eugenio Echavarria M.D. [id number]
--- NOTE | 2021-10-13 13:51 | W.ED.WEAKNES ---
HPI - Weakness General: Chief complaint: Weakness Stated complaint: states low potassium Time Seen by Provider: 10/13/21 13:41 Source: patient Mode of arrival: ambulatory Limitations: no limitations History of Present Illness: 76-year-old female states she has a history of Crohn's disease causing her have chronic diarrhea that is caused to be hypokalemic in the past. States over the last 3 to 4 days she been having some generalized weakness she states she feels exactly like this when her potassium gets low. She has not had her blood checked but she believes she may have low potassium. She denies any vomiting denies any abdominal pain she has some dyspnea she states that is typical with her symptoms as well. Denies any worsening improving factors. Associated symptoms: Denies chest pain, chills, dysuria, easy bruising or fever(s) Review of Systems Const: Denies: fever(s), chills, body aches or change in appetite Eyes: Denies: blurry vision or eye discomfort ENMT: Denies: throat pain or dental pain Card: Denies: chest pain Resp: Denies: dyspnea GI: Reports: diarrhea : Denies: dysuria Musc: Denies: neck pain or back pain Skin/Breast: Denies: rash Neuro: Reports: weakness in extremities Psych: Denies: depression Eddie/Lymph: Denies: easy bruising All/Imm: Denies: urticaria PFSH ED PFSH: Medical History CKD stage G3b/A1, GFR 30-44 and albumin creatinine ratio <30 mg/g Crohn's disease Depression GERD (gastroesophageal reflux disease) History of DVT (deep vein thrombosis) Hypertension Normocytic anemia Surgical History History of bowel resection History of incisional hernia repair Port-A-Cath in place (05/15/21) Family History Other Diabetes Physical Exam Const: COMMON NORMALS: no acute distress, patient oriented x3 and healthy appearing HENMT: COMMON NORMALS: normocephalic and atraumatic HEAD & SCALP: normocephalic and atraumatic Eye: COMMON NORMALS: Equal, round and reactive pupils present and EOMs intact bilaterally PUPIL: Yes Equal, round and reactive pupils present Neck/C-Spine: COMMON NORMALS: full ROM and supple Chest: COMMONS NORMALS: normal inspection of the chest and normal palpation of entire chest wall Resp: COMMON NORMALS: normal respiratory effort, No retractions, No use of accessory muscles and clear to auscultation bilaterally AUSCULTATION: clear to auscultation bilaterally Cardio: COMMON NORMALS: regular rate, regular rhythm and No murmurs present (Cardio) RATE: regular rate RHYTHM: regular rhythm GI: COMMON NORMALS: Normal to inspection, nondistended, normoactive bowel sounds present, Soft to palpation, non-tender and no masses PALPATION: Yes Soft to palpation Extremity: COMMON NORMALS: normal to inspection and full ROM Neuro: COMMON NORMALS: patient oriented x3, moves all extremities and no focal motor deficits Psych: COMMON NORMALS: mental status grossly normal, Normal thought process present and cooperative THOUGHT PROCESS: Normal thought process present Skin: COMMON NORMALS: no rashes or lesions noted and no wounds GENERAL SKIN EXAM: no rashes or lesions noted Course Vital Signs: Vital signs: Vital Signs Temperature 97.1 F L 10/13/21 13:29 Pulse Rate 65 10/13/21 14:14 Respiratory Rate 16 10/13/21 14:14 Blood Pressure 148/86 10/13/21 14:14 Pulse Oximetry 95 10/13/21 14:14 MDM - Weakness Medical Decision Making Patient does present here with some weakness could be related to her diarrhea and hypomagnesia. Her potassium level here is normal she has no signs of acute infection other blood works normal did give her IV magnesium she is to take a supplement [id number] at home as well. She feels improved here she is to follow-up with her PCP and return if worsening she understands agrees to plan. Lab Data : 10/13/21 14:12 10/13/21 14:12 Laboratory Results WBC 8.4 10^3/uL (4.0-10.0) 10/13/21 14:12 RBC 3.84 10^6/uL (4.1-5.3) L 10/13/21 14:12 Hgb 11.2 g/dL (11.5-15.3) L 10/13/21 14:12 Hct 37.0 % (37.0-47.0) 10/13/21 14:12 MCV 96.4 fl (81-99) 10/13/21 14:12 MCH 29.2 pg (28.0-34.0) 10/13/21 14:12 MCHC 30.3 g/dL (30.0-36.0) 10/13/21 14:12 RDW 13.0 % (12.1-15.1) 10/13/21 14:12 Plt Count 230 10^3/cmm (130-400) 10/13/21 14:12 MPV 9.2 fL (7.4-10.4) 10/13/21 14:12 Neut % (Auto) 75.6 % 10/13/21 14:12 Lymph % (Auto) 17.6 % 10/13/21 14:12 [place] % (Auto) 4.3 % 10/13/21 14:12 Eos % (Auto) 1.3 % 10/13/21 14:12 Baso % (Auto) 0.8 % 10/13/21 14:12 Neut # (Auto) 6.36 10^3/uL (1.8-7.7) 10/13/21 14:12 Lymph # (Auto) 1.5 10^3/uL (0.8-4.8) 10/13/21 14:12 [place] # (Auto) 0.4 10^3/uL (0.2-0.9) 10/13/21 14:12 Eos # (Auto) 0.1 10^3/uL (0.0-0.8) 10/13/21 14:12 Baso # (Auto) 0.1 10^3/uL (0.0-0.1) 10/13/21 14:12 Nucleated RBC % (auto) 0 % 10/13/21 14:12 Nucleated RBCs # 0.0 /100WBC 10/13/21 14:12 Sodium 139 mmol/L (136-145) 10/13/21 14:12 Potassium 4.0 mmol/L (3.5-5.1) 10/13/21 14:12 Chloride 109 mmol/L (98-107) H 10/13/21 14:12 Carbon Dioxide 18 mmol/L (22-29) L 10/13/21 14:12 Anion Gap 16.0 (5-19) 10/13/21 14:12 BUN 15 mg/dL (8-23) 10/13/21 14:12 Creatinine 1.3 mg/dL (0.5-0.9) H 10/13/21 14:12 GFR Calculation Not Reportable 10/13/21 14:12 Glucose 111 mg/dL (65-115) 10/13/21 14:12 Calculated Osmolality 290 mOsm/kg (285-295) 10/13/21 14:12 Calcium 8.6 mg/dL (8.5-10.5) 10/13/21 14:12 Magnesium 1.3 mg/dL (1.7-2.3) L 10/13/21 14:12 Total Bilirubin 0.4 mg/dL (0.15-1.2) 10/13/21 14:12 AST 15 U/L (0-32) 10/13/21 14:12 ALT 10 U/L (0-33) 10/13/21 14:12 Alkaline Phosphatase 88 IU/L (35-105) 10/13/21 14:12 Total Protein 6.2 g/dL (6.6-8.7) L 10/13/21 14:12 Albumin 4.2 g/dL (3.5-5.2) 10/13/21 14:12 Globulin 2.0 g/dL (1.3-4.6) 10/13/21 14:12 EKG Data EKG 1: I personally reviewed and interpreted this EKG as follows: EKG interpretation date: 10/13/21 EKG interpretation time: 13:37 Interpretation: nsr hr [address] or t wave abnormalities qrs 140 qtc 410 Discharge Plan Discharge Patient Disposition: Home Clinical Impression: Hypomagnesemia, Weakness Condition: Stable Prescriptions: No Action pantoprazole [Protonix] 40 mg Tablet,Delayed Release (Dr/Ec) 40 mg PO DAILY 0RF Entyvio 300 mg Recon Soln See Rx Instructions .ROUTE .COMPLEX 0RF Rx Instructions: IV every 6 weeks ondansetron 4 mg tablet,disintegrating 4 mg PO Q8H Qty: 15 0RF ascorbic acid (vitamin C) [Vitamin C] 250 mg Tablet 250 mg PO DAILY 0RF venlafaxine 50 mg Tablet 50 mg PO BID 0RF hydrocodone-acetaminophen 5-325 mg tablet 1 tab PO Q6H PRN (Reason: pain) Qty: 20 0RF Zofran 4 mg tablet 4 mg PO Q6H PRN (Reason: nausea and vomiting) Qty: 20 0RF Colace 100 mg capsule 100 mg PO BID Qty: 30 0RF gabapentin 100 mg capsule 100 mg PO DAILY Qty: 14 0RF Rx Instructions: at bedtime cyanocobalamin (vitamin B-12) 1,000 mcg/mL Solution 1,000 mcg IM Q30D 0RF potassium chloride 10 mEq Tablet Extended Release 30 meq PO BID Qty: 60 1RF Discharge Orders: Discharge ED (Routine); Ordered 10/13/21 Ordered By: Noelle Wong Referrals: Vicente More MD [Primary Care Provider] - 1-3 days Discharge Diet: Advance as tolerated Discharge Activity: Resume usual activity Patient Instructions: Hypomagnesemia (ED) Coding Level of 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
[2021-10-13 14:14] VITALS: BP 148/86; PULSE 65; RESP 16; O2SAT 95
[2021-10-13 14:19] LABS: Basophils # 0.1 10^3/uL (0.0-0.1); Basophils % 0.8 %; Eosinophils # 0.1 10^3/uL (0.0-0.8); Eosinophils % 1.3 %; Hemoglobin 11.2 g/dL (11.5-15.3); Lymphocytes # 1.5 10^3/uL (0.8-4.8); Lymphocytes % 17.6 %; Mean Corpuscular HGB Conc 30.3 g/dL (30.0-36.0); Mean Corpuscular Hemoglobin 29.2 pg (28.0-34.0); Mean Corpuscular Volume 96.4 fl (81-99); Mean Platelet Volume 9.2 fL (7.4-10.4); Monocytes # 0.4 10^3/uL (0.2-0.9); Monocytes % 4.3 %; Neutrophils # 6.36 10^3/uL (1.8-7.7); Neutrophils % 75.6 %; Nucleated Red Blood Cells % 0 %; Platelet Count 230 10^3/cmm (130-400); Red Blood Count 3.84 10^6/uL (4.1-5.3); White Blood Count 8.4 10^3/uL (4.0-10.0)
--- NOTE | 2021-10-13 14:22 | XRR_ITS ---
PROCEDURE INFORMATION: Exam: XR Chest Exam date and time: 10/13/2021 2:22 PM Age: 76 years old Clinical indication: Shortness of breath; Additional info: SOB TECHNIQUE: Imaging protocol: XR of the chest. Views: 1 view. COMPARISON: CR XR chest 1V portable [id number] 05/15/2021 9:21 AM FINDINGS: Lungs: There is a calcified granuloma in the mid left lung. No acute pneumonia or edema. Pleural spaces: Unremarkable. No pleural effusion. No pneumothorax. Heart/Mediastinum: Cardiomegaly is identified. Bones/joints: There has been a right shoulder replacement. XR/XR chest 1V portable [id number] IMPRESSION: There are no acute concerning abnormalities.
[2021-10-13 14:50] LABS: Alanine Aminotransferase 10 U/L (0-33); Albumin Level 4.2 g/dL (3.5-5.2); Alkaline Phosphatase 88 IU/L (35-105); Aspartate Amino Transferase 15 U/L (0-32); Blood Urea Nitrogen 15 mg/dL (8-23); Calcium 8.6 mg/dL (8.5-10.5); Carbon Dioxide 18 mmol/L (22-29); Chloride 109 mmol/L (98-107); Glucose 111 mg/dL (65-115); Magnesium 1.3 mg/dL (1.7-2.3); Osmolality Calculated 290 mOsm/kg (285-295); Sodium 139 mmol/L (136-145); Total Bilirubin 0.4 mg/dL (0.15-1.2); Total Protein 6.2 g/dL (6.6-8.7)
[2021-10-13 15:55] VITALS: BP 154/85; PULSE 58; RESP 16; O2SAT 94
[2021-10-13 16:01] VITALS: BP 152/98; PULSE 82; RESP 16; O2SAT 97
== END 2021-10-13 16:05 | disposition home or self-care (01) ==
PROVIDERS: Physician Assistant; Emergency Provider Emergency Medicine; PCP Family Medicine
DX: R53.1 Weakness (principal); E83.42 Hypomagnesemia; I12.9 Hypertensive chronic kidney disease with stage 1 through stage 4 chronic kidney disease, or unspecified chronic kidney disease; N18.32 Chronic kidney disease, stage 3b; Z86.718 Personal history of other venous thrombosis and embolism
CPT/HCPCS: 71045; 80053; 83735; 85025; 93005; 96365; 99284; J3475

== ENCOUNTER → 2021-12-27 09:42 | Outpatient (BNVA) | payer MEDICARE, SELFPAY | PROVIDERS: PCP Family Medicine; Visit Provider Surgery | DX: Z95.828 Presence of other vascular implants and grafts (principal) | CPT/HCPCS: 71046; 99214 ==

== ENCOUNTER 2022-01-09 07:27 | Day surgery (SDC) | payer MEDICARE, SELFPAY ==
[2022-01-08 11:00] VITALS: BMI 42.4
[2022-01-09] VITALS (8 sets, daily range): BP systolic 118–153; BP diastolic 63–85; PULSE 56–68; RESP 15–18; TEMP 36.2–36.6; O2SAT 93–98
--- NOTE | 2022-01-09 | SCC_ITS ---
Procedure done: 1. Removal of PowerPort from the right internal jugular vein 2. Placement of PowerPort in the right internal jugular vein 3. Fluoroscopic guidance and interpretation for placement of catheter 4. Ultrasound guidance to access the right internal jugular vein 36.6 seconds of fluoroscopic guidance, for a cumulative dose of 7.56 mGy, was provided to Dr. Christiansen by the radiology department. C-arm images of the chest were saved for the patient's permanent record. [facility]
--- NOTE | 2022-01-09 | SC_ITS ---
WS: [id number] Exam: C-arm FL for CVA [id number] Date/Time of Exam: 01/09/2022 12:00 AM Reason For Exam: Port a cath placement Single anterior posterior C-arm image of the right chest is submitted for evaluation. A right-sided port has been placed. The tip of the port probably extends into the right atrium. The r ight lung is fully expanded and clear as visualized. No other significant finding on this limited jose luis dy. SC/C-arm FL for CVA [id number] IMPRESSION: 1. Right-sided Port-A-Cath is been placed and probably extends into the right a trium.
--- NOTE | 2022-01-09 07:36 | P.HP_ITS ---
Same Day Surgery H&P Indication for Procedure/HPI DATE OF PROCEDURE: January 09, 2022 CHIEF COMPLAINT/INDICATIONFOR SURGICAL PROCEDURE: port exchange PREOP DIAGNOSIS: non functioning powerport PLANNED PROCEDURE: Operation Date: 01/09/22 08:55 Proposed Procedures p PLACEMENT OF PORT-A-CATH, [id number] [id number],[id number](Not Applicable) - Gokul Christiansen MD s Portacath Placement(Not Applicable) - Gokul Christiansen MD Medications/Allergies* Home Medications Medication Instructions Recorded Confirmed Type pantoprazole 40 mg tablet,delayed 40 mg PO DAILY 11/20/19 12/27/21 History release (Protonix) vedolizumab 300 mg intravenous See Rx Instructions .ROUTE .COMPLEX 11/20/19 12/27/21 History solution (Entyvio) cyanocobalamin (vitamin B-12) 1,000 mcg IM Q30D 05/10/20 12/27/21 History 1,000 mcg/mL injection solution ascorbic acid (vitamin C) 250 mg 250 mg PO DAILY 02/11/21 12/27/21 History tablet (Vitamin C) cholecalciferol (vitamin D3) 25 25 mcg PO DAILY 12/27/21 12/27/21 History mcg (1,000 unit) capsule cyclobenzaprine 10 mg tablet 10 mg PO TID PRN 12/27/21 12/27/21 History folic acid 1 mg tablet 1 mg PO DAILY 12/27/21 12/27/21 History magnesium oxide 500 mg capsule 500 mg PO DAILY 12/27/21 12/27/21 History sertraline 50 mg tablet 50 mg PO DAILY 01/08/22 01/08/22 History Allergies/Adverse Reactions Allergy/AdvReac Type Severity Reaction Status Date / Time Iodine and Iodide Containing Allergy ALGY-Anaphy Verified 07/22/21 09:52 Produc laxis prochlorperazine Allergy Unknown Verified 07/22/21 09:52 [From Compazine] Pertinent History/Comorbid Conditions* Medical History (Updated 10/21/21 @ 00:01 by ) CKD stage G3b/A1, GFR 30-44 and albumin creatinine ratio <30 mg/g Crohn's disease Depression GERD (gastroesophageal reflux disease) History of DVT (deep vein thrombosis) Hypertension Normocytic anemia Surgical History (Updated 12/27/21 @ 12:45 by Gokul Christiansen MD) History of bowel resection History of incisional hernia repair Port-A-Cath in place (05/15/21) Family History (Updated 11/18/19 @ 23:57 by Salvador George MD) Diabetes Social History Smoking and tobacco status: never smoked Pertinent Exam Findings alert, oriented x 3 and regular rate & rhythm Recommendations Surgery/Procedure today Coding Level of Care Code Acute 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
[2022-01-09] MEDS: sodium chloride 0.9% 1,000 ML 30 ML IV (08:16)
--- NOTE | 2022-01-09 08:43 | ANES.PREANE2 ---
Pre-Anesthetic Assessment Height/Weight: Height 1.65 m Weight 115.666 kg Temp Pulse Resp BP Pulse Ox 97.8 F 68 16 153/84 96 01/09/22 07:50 01/09/22 07:50 01/09/22 07:50 01/09/22 07:50 01/09/22 07:50 Preop Diagnosis: non functioning powerport Operation Date: 01/09/22 08:55 Proposed Procedures p PLACEMENT OF PORT-A-CATH, [id number]-[id number] [id number],Z95.828(Not Applicable) - Gokul Christiansen MD s Portacath Placement(Not Applicable) - Gokul Christiansen MD Familial anesthetic complications: none Was Beta Xin taken within 24 hours: N/A Was Clonidine taken within 24 hours: N/A Last intake: Intake Last Liquid Date 01/08/22 Last Liquid Time 23:00 Last Solid Date 01/08/22 Last Solid Time 21:00 Social No alcohol and No tobacco Exam alert, oriented x 3, clear to auscultation bilaterally and regular rate & rhythm Airway Submandibular: within normal limits Cervical ROM: within normal limits Mallampati: Class II Comments: Comments: missing teeth Pulmonary None reported Denies COPD, JEFFREY CV/HEM Anemia, Arrythmia (Hx of palpitations with hypokalemia/hypomagnesemia ), Deep Vein Thrombosis and Hypertension METS = 4 Denies CAD EKG 10/2021 SINUS RHYTHM RIGHT BUNDLE BRANCH BLOCK? [120+ ms QRS DURATION, UPRIGHT V1, 40+ ms S IN I/aVL/V4/V5/V6] LEFT ANTERIOR FASCICULAR BLOCK? [QRS AXIS <= -45, QR IN I, RS IN II] VOLTAGE CRITERIA FOR LVH? [MEETS CRITERIA IN ONE OF: R(aVL), S(V1), R(V5), R(V5/V6)+S(V1)] POSSIBLE ANTEROSEPTAL MYOCARDIAL INFARCTION , OF INDETERMINATE AGE [30 ms Q WAVE IN V1-V4] Compared to ECG 02/22/2021 15:44:51 Left anterior fascicular block now present Left ventricular hypertrophy now present Sinus bradycardia no longer present Ventricular premature complex(es) no longer present Left-axis deviation no longer present Myocardial infarct finding still present Electronically Signed On 10-13-2021 15:38:12 CDT by Eugenio Echavarria M.D. [id number] Hx of hypokalemia, hypomagnesemia related to chronic diarreha from Crohn's disease Hepatic None reported GI Gastroesophageal Reflux Disease (Well controlled on pantroprazole ) Crohn's Metabolic Morbid Obesity Musc/[facility] Osteoarthritis/DJD Hx of LE knee injury limiting mobility Anesthetic Plan ASA status: 3 Anesthesia: Anesthesia Evaluation, General and MAC Other: We discussed risk and benefits of general anesthesia including PONV, sore throat (sometimes severe), corneal abrasion, positioning and peripheral nerve injuries, life threatening allergic reaction, post operative ICU admission requiring prolonged intubation, aspiration, stroke, heart attack, , and rare incidences of recall. I discussed with the patient risks, goals, and benefits of MAC and general anesthesia. We discussed spectrum of MAC anesthesia including conversion to general as well as possibility of recall of intraoperative stimuli including discomfort/pain. Patient consents to MAC or General pending further discussion with surgeon. Risk of > 500 ml blood loss (7ml/kg in children): No Other Pertinent Information Potassium level pending Medications/Allergies Home Medications Medication Instructions Recorded Confirmed Last Taken Type pantoprazole 40 mg tablet,delayed 40 mg PO DAILY 11/20/19 01/09/22 05/15/21 05:00 History release (Protonix) vedolizumab 300 mg intravenous See Rx Instructions .ROUTE .COMPLEX 11/20/19 01/09/22 12/19/21 History solution (Entyvio) cyanocobalamin (vitamin B-12) 1,000 mcg IM Q30D 05/10/20 01/09/22 05/03/20 History 1,000 mcg/mL injection solution potassium chloride 10 mEq 30 meq PO BID #60 tab 05/12/20 01/09/22 1 Day Ago Rx tablet,extended release ~05/14/21 ascorbic acid (vitamin C) 250 mg 250 mg PO DAILY 02/11/21 01/09/22 01/08/22 History tablet (Vitamin C) ondansetron HCl 4 mg tablet 4 mg PO Q6H PRN #20 tab 05/15/21 01/09/22 Unknown Rx (Zofran) gabapentin 100 mg capsule 100 mg PO DAILY #14 cap 07/05/21 01/09/22 01/08/22 Rx cholecalciferol (vitamin D3) 25 25 mcg PO DAILY 12/27/21 01/09/22 01/08/22 History mcg (1,000 unit) capsule cyclobenzaprine 10 mg tablet 10 mg PO TID PRN 12/27/21 01/09/22 Unknown History folic acid 1 mg tablet 1 mg PO DAILY 12/27/21 01/09/22 01/08/22 History magnesium oxide 500 mg capsule 500 mg PO DAILY 12/27/21 01/09/22 01/08/22 History sertraline 50 mg tablet 50 mg PO DAILY 01/08/22 01/08/22 Unknown History Allergies Allergy/AdvReac Type Severity Reaction Status Date / Time Iodine and Iodide Containing Allergy ALGY-Anaphy Verified 01/09/22 07:39 Produc laxis prochlorperazine Allergy Unknown Verified 01/09/22 07:39 [From Compazine] [facility] Anesthesia Medical History CKD stage G3b/A1, GFR 30-44 and albumin creatinine ratio <30 mg/g Crohn's disease Depression GERD (gastroesophageal reflux disease) History of DVT (deep vein thrombosis) Hypertension Normocytic anemia Surgical History History of bowel resection History of incisional hernia repair Port-A-Cath in place (05/15/21) Family History Other Diabetes Social History Smoking and tobacco status: never smoked Data Anesthesia : 01/09/22 08:31 Cardiac Studies: No Data to Display
[2022-01-09 09:05] LABS: Magnesium 1.3 mg/dL (1.7-2.3); Potassium 3.4 mmol/L (3.5-5.1)
[2022-01-09] MEDS: heparin, porcine 1,000 unit/mL INJ 10 mL 10000 UNIT IRRIGATION (10:11)
[2022-01-09] MEDS: lidocaine 2% INJ 20 mL INJECTION (10:11)
[2022-01-09] MEDS: sodium chloride 0.9% 100 mL Bag XX (10:13)
--- NOTE | 2022-01-09 10:44 | PM.OP ---
Operative Report Date of procedure: January 09, 2022 Pre-op diagnosis: Nonfunctioning PowerPort with poor peripheral venous access requiring central venous access for IV infusions Post-op diagnosis: Nonfunctioning PowerPort with poor peripheral venous access requiring central venous access for IV infusions Tip of the catheter in the right internal jugular vein Procedure done: 1. Removal of PowerPort from the right internal jugular vein 2. Placement of PowerPort in the right internal jugular vein 3. Fluoroscopic guidance and interpretation for placement of catheter 4. Ultrasound guidance to access the right internal jugular vein Pathology: none sent Surgeon: Gokul Christiansen Anesthesia: MAC Condition: stable Disposition: PACU Procedure: Patient was taken to the operating room and her right chest was prepped and draped in a sterile manner after she was placed under MAC and IV antibiotic had been administered. Fluoroscopy showed tip of the catheter in the right internal jugular vein. A skin incision was made at the site of entry of the cath into the right internal jugular vein and the catheter was dissected free but only a small portion of the catheter was within the vein and it soon fell out. 20 mL of 1% lidocaine with 0.5% Marcaine was infiltrated around the MediPort . Using a 15 blade the previous incision was opened, the subcutaneous tissue was divided using electrocautery and MediPort along the catheter was dissected free from the surrounding subcutaneous tissue and removed entirely. The wound was irrigated with saline, hemostasis ensured with electrocautery and subcutaneous tissue was approximated using 3-0 Vicryl suture and skin was closed using running subcuticular 4-0 Monocryl suture. An ultrasound of the right internal jugular vein revealed patent flow, no thrombus. An introducer needle was then used to access the right internal jugular vein and after withdrawing blood syringe was removed and a guidewire passed under fluoroscopy into the superior vena cava. The site of the planned port was then marked on the chest and a 15 blade was used to make a 3 cm skin incision this was extended into the subcutaneous tissue using electrocautery and a subcutaneous pocket over the pectoralis fascia was created 2-0 Vicryl suture was used to suture the port to the pectoral fascia in the pocket on 3 sides. The catheter, after having been flushed with hep saline, was attached to the tunneler and a tunnel created between the port site and the internal jugular vein entry site. Under fluoroscopy the dilator sheath was passed over the guidewire into the proximal superior vena cava. The inner dilator was removed and the sheath left behind and the catheter was introduced through the peel-away sheath with the tip in the superior vena cava. The peel-away sheath was removed. The proximal end of the catheter was cut to the right size and was attached to the port. Using a Roberts needle the port was accessed, it withdrew blood easily and flushed easily. A final 5cc of heparin was used to flush the PowerPort. The subcutaneous tissue was approximated using interrupted 3-0 Vicryl sutures and the skin at the introducer site and the port site was closed using subcuticular running 4-0 Monocryl sutures. Surgical glue was applied and the patient was stable throughout the procedure. Fluoroscopic guidance and interpretation was performed for introduction of the guidewire in the right internal jugular vein, passage of dilator and placement of catheter tip in the distal superior vena cava 4x4 and sterile dressings were used as a pressure dressing. The patient was transferred to the recovery room in stable condition.
[2022-01-09] MEDS: fentaNYL 50 mcg/mL INJ 2mL IVP (10:59)
[2022-01-09] MEDS: magnesium sulfate premix 2 GM/50 ML PIGGYBACK IV (11:05)
[2022-01-09] MEDS: HYDROcodone-acetaminophen 5-325 mg Tablet 1 TAB PO (11:30)
[2022-01-09] MEDS: ondansetron 2 mg/ML SDV 2 mL 4 MG IVP (12:00)
--- NOTE | 2022-01-09 14:02 | ANE.PACU2 ---
Inpatient post-anesthesia follow up: Airway intact: Yes Vital signs: Temperature 98 F Pulse Rate 58 Respiratory Rate 16 Blood Pressure 137/85 Pulse Oximetry 95 Oxygen Delivery Me thod Room Air Oxygen Flow Rate Fraction of Inspir ed Oxygen Hydration adequate: Yes Nausea and vomiting: No Pain level: 1 Mental status: Baseline
== END 2022-01-09 12:25 | disposition home or self-care (01) ==
PROVIDERS: PCP Family Medicine; Visit Provider Surgery
PROC: (CPT 36589; principal; 2022-01-09 08:55)
PROC: (CPT 36582; 2022-01-09 08:55)
DX: T82.598A Other mechanical complication of other cardiac and vascular devices and implants, initial encounter (principal); I12.9 Hypertensive chronic kidney disease with stage 1 through stage 4 chronic kidney disease, or unspecified chronic kidney disease; N18.32 Chronic kidney disease, stage 3b; F32.9 Major depressive disorder, single episode, unspecified; K21.9 Gastro-esophageal reflux disease without esophagitis; I45.10 Unspecified right bundle-branch block; E66.01 Morbid (severe) obesity due to excess calories; Z68.41 Body mass index [BMI] 40.0-44.9, adult
CPT/HCPCS: 36582; 36415; 77001; 83735; 84132; C1788; J1644; J2405; J2704; J3010; J3475; J3490; J7030

== ENCOUNTER → 2022-01-21 08:09 | Outpatient (BNVA) | payer MEDICARE, SELFPAY | PROVIDERS: PCP Family Medicine; Visit Provider Surgery | DX: Z95.828 Presence of other vascular implants and grafts (principal) | CPT/HCPCS: 99213 ==

== ENCOUNTER 2022-01-21 08:43 | Emergency (ER) | payer MEDICARE, SELFPAY ==
[2022-01-21 08:47] VITALS: BP 120/76; PULSE 72; RESP 16; TEMP 37; O2SAT 96; BMI 39.9
--- NOTE | 2022-01-21 08:59 | XR_ITS ---
WS: [id number] Exam: XR chest 1V portable [id number] Date/Time of Exam: 01/21/2022 8:59 AM Reason For Exam: chest pain Comparison 05/15/2021. The lungs are clear and fully expanded. Normal cardiomediastinal silhouette. Eventration of the diaph ragms. Right-sided IJ port ends in the lower one third of the SVC. Right humeral head prosthesis. XR/XR chest 1V portable [id number] IMPRESSION: 1. No acute cardiopulmonary finding.
--- NOTE | 2022-01-21 08:59 | ECG_ITS ---
[facility] Test Date: 2022-01-21 Pat Name: Kaitlin Meade Department: Room: Gender: Female [employer]: : 1945 Requested By: Jasper Moore Order Number: [id number] Kody MD: Gloria Bass M.D. Measurements Intervals [place] Rate: 67 P: 54 MT: 198 QRS: -79 QRSD: 168 T: 23 QT: 414 QTc: 439 Interpretive Statements SINUS RHYTHM RIGHT BUNDLE BRANCH BLOCK [120+ ms QRS DURATION, UPRIGHT V1, 40+ ms S IN I/aVL/V4/V5/V6] LEFT ANTERIOR FASCICULAR BLOCK [QRS AXIS <= -45, QR IN I, RS IN II] POSSIBLE ANTEROSEPTAL MYOCARDIAL INFARCTION , OF INDETERMINATE AGE [30 ms Q WAVE IN V1-V4] Compared to ECG 10/13/2021 13:37:00 Left ventricular hypertrophy no longer present Myocardial infarct finding still present Electronically Signed On 01-21-2022 22:28:12 CDT by Gloria Bass M.D. [id number]
--- NOTE | 2022-01-21 10:34 | W.ED.CHESTPA ---
HPI - Chest Pain General: Chief Complaint: Chest Pain Stated Complaint: abnormal heartbeat Time Seen by Provider: 01/21/22 08:59 Source: patient Mode of arrival: ambulatory History of Present Illness: 76-year-old female presents emergency room complaining of increased diarrhea. Patient has a history of Crohn's and has a baseline chronic diarrhea for last few days she has had increasing frequency of stools that have been acholic but no hematochezia. She has been having little cramping she has had difficulty with magnesium and potassium stores in the past. No vomiting. She recently had a port placed in the right subclavian. She refers pain to the right lower quadrant. MD complaint: chest pain Onset (ago): hour(s) Timing of current episode: episodic Onset: during rest Pain radiation: none Severity: moderate Associated symptoms: Reports abdominal pain; Deny diaphoresis, dyspnea, fever(s), nausea, palpitations, sense of impending doom, syncope or vomiting Treatment prior to arrival: none Review of Systems Const: Reports: fatigue and malaise; Denies: fever(s), chills or diaphoresis ENMT: Denies: throat pain, ear or mastoid pain, nasal discharge or nasal congestion Card: Denies: palpitations or syncope Resp: Denies: dyspnea GI: Reports: abdominal pain; Denies: nausea or vomiting : Denies: flank pain, difficulty voiding, dysuria, urinary frequency or urinary urgency Skin/Breast: Denies: rash or pruritus [facility] ED PFSH: Medical History CKD stage G3b/A1, GFR 30-44 and albumin creatinine ratio <30 mg/g Crohn's disease Depression GERD (gastroesophageal reflux disease) History of DVT (deep vein thrombosis) Hypertension Normocytic anemia Surgical History History of bowel resection History of colonoscopy History of incisional hernia repair Port-A-Cath in place (05/15/21) Family History Other Diabetes Social History Smoking and tobacco status: never smoked Physical Exam Const: COMMON NORMALS: no acute distress GENERAL APPEARANCE: cooperative and comfortable ORIENTATION/CONSCIOUSNESS: Yes awake, Yes oriented to person, Yes oriented to place and Yes oriented to time HENMT: COMMON NORMALS: normocephalic, atraumatic and hearing grossly normal bilaterally HEAD & SCALP: normocephalic and atraumatic Neck/C-Spine: COMMON NORMALS: no JVD Resp: COMMON NORMALS: normal respiratory effort, No retractions, No use of accessory muscles and clear to auscultation bilaterally AUSCULTATION: clear to auscultation bilaterally Cardio: COMMON NORMALS: no JVD, regular rate, regular rhythm and No murmurs present (Cardio) RATE: regular rate RHYTHM: regular rhythm GI: COMMON NORMALS: Soft to palpation and No hepatosplenomegaly present AUSCULTATION: Yes normoactive bowel sounds PALPATION: Yes Soft to palpation, No Tenderness to palpation present (GI), No Guarding due to palpation present (GI) and Yes No hepatosplenomegaly present Extremity: COMMON NORMALS: normal to inspection, capillary refill normal, no clubbing, cyanosis or edema, no calf tenderness and no pedal edema Neuro: SENSORIUM/ORIENTATION: Yes oriented to person, Yes oriented to place and Yes oriented to time Skin: COMMON NORMALS: no rashes or lesions noted GENERAL SKIN EXAM: no rashes or lesions noted Course Vital Signs: Vital signs: Vital Signs Temperature 98.6 F 01/21/22 08:47 Pulse Rate 72 01/21/22 08:47 Respiratory Rate 16 01/21/22 08:47 Blood Pressure 120/76 01/21/22 08:47 Pulse Oximetry 96 01/21/22 08:47 MDM - Chest Pain Medical Decision Making Magnesium potassium calcium all within normal ranges creatinine a little better than her usual baseline. The time she is monitored no significant arrhythmias we will go ahead and discharge her home Medical Records I reviewed the patient's medical records. Lab Data I reviewed the patient's lab results. : 01/21/22 11:45 01/21/22 11:00 Radiology Impressions Chest X-Ray 01/21/22 08:59 IMPRESSION: 1. No acute cardiopulmonary finding. Laboratory Results WBC 6.6 10^3/uL (4.0-10.0) 01/21/22 11:45 Corrected WBC Cancelled 01/21/22 11:00 RBC 3.77 10^6/uL (4.1-5.3) L 01/21/22 11:45 Hgb 10.9 g/dL (11.5-15.3) L 01/21/22 11:45 Hct 35.5 % (37.0-47.0) L 01/21/22 11:45 MCV 94.2 fl (81-99) 01/21/22 11:45 MCH 28.9 pg (28.0-34.0) 01/21/22 11:45 MCHC 30.7 g/dL (30.0-36.0) 01/21/22 11:45 RDW 13.4 % (12.1-15.1) 01/21/22 11:45 Plt Count 178 10^3/cmm (130-400) 01/21/22 11:45 MPV 9.3 fL (7.4-10.4) 01/21/22 11:45 Gran % Cancelled 01/21/22 11:00 Neut % (Auto) 70.6 % 01/21/22 11:45 Lymph % (Auto) 21.0 % 01/21/22 11:45 [place] % (Auto) 5.3 % 01/21/22 11:45 Eos % (Auto) 1.7 % 01/21/22 11:45 Baso % (Auto) 0.9 % 01/21/22 11:45 Neut # (Auto) 4.67 10^3/uL (1.8-7.7) 01/21/22 11:45 Lymph # (Auto) 1.4 10^3/uL (0.8-4.8) 01/21/22 11:45 [place] # (Auto) 0.4 10^3/uL (0.2-0.9) 01/21/22 11:45 Eos # (Auto) 0.1 10^3/uL (0.0-0.8) 01/21/22 11:45 Baso # (Auto) 0.1 10^3/uL (0.0-0.1) 01/21/22 11:45 Absolute Gran (auto) Cancelled 01/21/22 11:00 Nucleated RBC % (auto) 0 % 01/21/22 11:45 Nucleated RBCs # 0.0 /100WBC 01/21/22 11:45 Sodium 135 mmol/L (136-145) L 01/21/22 11:00 Potassium 4.6 mmol/L (3.5-5.1) 01/21/22 11:00 Chloride 109 mmol/L (98-107) H 01/21/22 11:00 Carbon Dioxide 15 mmol/L (22-29) L 01/21/22 11:00 Anion Gap 15.6 (5-19) 01/21/22 11:00 BUN 23 mg/dL (8-23) 01/21/22 11:00 Creatinine 1.2 mg/dL (0.5-0.9) H 01/21/22 11:00 GFR Calculation Not Reportable 01/21/22 11:00 Glucose 101 mg/dL (65-115) 01/21/22 11:00 Calculated Osmolality 284 mOsm/kg (285-295) L 01/21/22 11:00 Calcium 8.4 mg/dL (8.5-10.5) L 01/21/22 11:00 Magnesium 1.5 mg/dL (1.7-2.3) L 01/21/22 11:03 Total Bilirubin 0.3 mg/dL (0.15-1.2) 01/21/22 11:00 AST 19 U/L (0-32) 01/21/22 11:00 ALT 7 U/L (0-33) 01/21/22 11:00 Alkaline Phosphatase 81 IU/L (35-105) 01/21/22 11:00 Troponin T Baseline 20 ng/L (0-10) H 01/21/22 11:00 Troponin T 120 Minute 19.91 ng/L (0-10) H 01/21/22 12:44 Delta Troponin T -0.09 ABS# (0-10) L 01/21/22 12:44 Total Protein 6.4 g/dL (6.6-8.7) L 01/21/22 11:00 Albumin 3.4 g/dL (3.5-5.2) L 01/21/22 11:00 Globulin 3.0 g/dL (1.3-4.6) 01/21/22 11:00 Discharge Plan Discharge Patient Disposition: Home Clinical Impression: Palpitations, Crohn disease Condition: Stable Prescriptions: No Action folic acid 1 mg tablet 1 mg PO DAILY 0RF magnesium oxide 500 mg capsule 500 mg PO DAILY 0RF cholecalciferol (vitamin D3) 25 mcg (1,000 unit) capsule 25 mcg PO DAILY 0RF cyclobenzaprine 10 mg tablet 10 mg PO TID PRN (Reason: muscle spasms) 0RF pantoprazole [Protonix] 40 mg Tablet,Delayed Release (Dr/Ec) 40 mg PO DAILY 0RF Entyvio 300 mg Recon Soln See Rx Instructions .ROUTE .COMPLEX 0RF Rx Instructions: IV every 8 weeks ascorbic acid (vitamin C) [Vitamin C] 250 mg Tablet 250 mg PO DAILY 0RF gabapentin 100 mg capsule 100 mg PO DAILY Qty: 14 0RF Rx Instructions: at bedtime cyanocobalamin (vitamin B-12) 1,000 mcg/mL Solution 1,000 mcg IM Q30D 0RF potassium chloride 10 mEq Tablet Extended Release 30 meq PO BID Qty: 60 1RF Zofran 4 mg/5 mL Solution 4 mg PO Q6H PRN (Reason: Nausea) 0RF sertraline 50 mg tablet 50 mg PO DAILY 0RF hydrocodone-acetaminophen 5-325 mg tablet 1 tab PO Q6H PRN (Reason: pain) Qty: 20 0RF Discharge Orders: Discharge ED (Routine); Ordered 01/21/22 Ordered By: Jasper Crouch Referrals: Vicente More MD [Primary Care Provider] - Discharge Diet: Usual diet Discharge Activity: Increase activity as tolerated Patient Instructions: Opioid Safety Activity Restrictions/Additional Instructions: manager of financial will call to have a Holter monitor placed to monitor your heart rhythms. Follow-up with your primary care doc we will set her up for 24-hour Holter return if there are problems. Coding Level of Care Code ED [employer] Inspector for [employer]riar Fwd Exam Comprehensive
--- NOTE | 2022-01-21 10:59 | ECG_ITS ---
[facility] Test Date: 2022-01-21 Pat Name: Kaitlin Meade Department: Room: Gender: Female Doctor Of Podiatric Medicine: : 1945 Requested By: Jasper Moore Order Number: [id number] Kody MD: Gloria Bass M.D. Measurements Intervals [place] Rate: 64 P: 47 TN: 201 QRS: -81 QRSD: 169 T: 18 QT: 413 QTc: 429 Interpretive Statements SINUS RHYTHM RIGHT BUNDLE BRANCH BLOCK [120+ ms QRS DURATION, UPRIGHT V1, 40+ ms S IN I/aVL/V4/V5/V6] LEFT ANTERIOR FASCICULAR BLOCK [QRS AXIS <= -45, QR IN I, RS IN II] POSSIBLE ANTEROSEPTAL MYOCARDIAL INFARCTION , OF INDETERMINATE AGE [30 ms Q WAVE IN V1-V4] Compared to ECG 10/13/2021 13:37:00 Left ventricular hypertrophy no longer present Myocardial infarct finding still present Electronically Signed On 01-21-2022 22:36:34 CDT by Gloria Bass M.D. [id number]
[2022-01-21 11:25] LABS: Troponin(5th) Baseline 20 ng/L (0-10)
[2022-01-21 11:27] LABS: Albumin Level 3.4 g/dL (3.5-5.2); Alkaline Phosphatase 81 IU/L (35-105); Blood Urea Nitrogen 23 mg/dL (8-23); Calcium 8.4 mg/dL (8.5-10.5); Carbon Dioxide 15 mmol/L (22-29); Chloride 109 mmol/L (98-107); Glucose 101 mg/dL (65-115); Osmolality Calculated 284 mOsm/kg (285-295); Sodium 135 mmol/L (136-145); Total Bilirubin 0.3 mg/dL (0.15-1.2); Total Protein 6.4 g/dL (6.6-8.7)
[2022-01-21 11:29] LABS: Alanine Aminotransferase 7 U/L (0-33); Anion Gap 15.6 (5-19); Aspartate Amino Transferase 19 U/L (0-32); Potassium 4.6 mmol/L (3.5-5.1)
[2022-01-21 11:50] LABS: Basophils # 0.1 10^3/uL (0.0-0.1); Basophils % 0.9 %; Eosinophils # 0.1 10^3/uL (0.0-0.8); Eosinophils % 1.7 %; Hematocrit 35.5 % (37.0-47.0); Hemoglobin 10.9 g/dL (11.5-15.3); Lymphocytes # 1.4 10^3/uL (0.8-4.8); Mean Corpuscular HGB Conc 30.7 g/dL (30.0-36.0); Mean Corpuscular Hemoglobin 28.9 pg (28.0-34.0); Mean Corpuscular Volume 94.2 fl (81-99); Mean Platelet Volume 9.3 fL (7.4-10.4); Monocytes # 0.4 10^3/uL (0.2-0.9); Monocytes % 5.3 %; Neutrophils # 4.67 10^3/uL (1.8-7.7); Neutrophils % 70.6 %; Nucleated Red Blood Cells % 0 %; Platelet Count 178 10^3/cmm (130-400); Red Blood Count 3.77 10^6/uL (4.1-5.3); Red Cell Distribution Width 13.4 % (12.1-15.1); White Blood Count 6.6 10^3/uL (4.0-10.0)
[2022-01-21 13:10] LABS: Magnesium 1.5 mg/dL (1.7-2.3)
[2022-01-21 13:10] LABS: Troponin 5 2HR 19.91 ng/L (0-10)
[2022-01-21 13:11] LABS: Troponin 5 2HR Delta -0.09 ABS# (0-10)
--- NOTE | 2022-01-21 14:59 | ECG_ITS ---
[facility] Test Date: 2022-01-21 Pat Name: Kaitlin Meade Department: Room: Gender: Female [employer]er: : 1945 Requested By: Jasper Moore Order Number: [id number] Kody MD: Gloria Bass M.D. Measurements Intervals [place] Rate: 70 P: 50 [place]: 195 QRS: -85 QRSD: 166 T: 24 QT: 406 QTc: 440 Interpretive Statements SINUS RHYTHM RIGHT BUNDLE BRANCH BLOCK [120+ ms QRS DURATION, UPRIGHT V1, 40+ ms S IN I/aVL/V4/V5/V6] LEFT ANTERIOR FASCICULAR BLOCK [QRS AXIS <= -45, QR IN I, RS IN II] POSSIBLE ANTEROSEPTAL MYOCARDIAL INFARCTION , OF INDETERMINATE AGE [30 ms Q WAVE IN V1-V4] INTERPRETATION BASED ON A DEFAULT AGE OF 40 YEARS Compared to ECG 10/13/2021 13:37:00 Left ventricular hypertrophy no longer present Myocardial infarct finding still present Electronically Signed On 01-21-2022 22:33:22 CDT by Gloria Bass M.D. [id number]
== END 2022-01-21 13:42 | disposition home or self-care (01) ==
PROVIDERS: Emergency Provider Family Medicine; PCP Family Medicine
DX: K50.90 Crohn's disease, unspecified, without complications (principal); R00.2 Palpitations; I12.9 Hypertensive chronic kidney disease with stage 1 through stage 4 chronic kidney disease, or unspecified chronic kidney disease; N18.32 Chronic kidney disease, stage 3b
CPT/HCPCS: 71045; 80053; 83735; 84484; 85025; 93005; 99213; 99283

== ENCOUNTER 2022-01-28 09:24 | Outpatient (CLI) | payer MEDICARE, SELFPAY ==
--- NOTE | 2022-01-28 09:32 | NM_ITS ---
WS: [id number] NUCLEAR MEDICINE HIDA SCAN CLINICAL INFORMATION: RUQ ABDOMINAL PAIN TECHNIQUE: Following intravenous administration of 6.7 mCi of technetium 99m mebrofenin, images of th e abdomen were obtained over the course of 60 minutes. Next, gallbladder ejection fraction was determ ined by obtaining preprandial and one-hour postprandial images of the gallbladder following oral juli stion of Ensure. COMPARISON: Ultrasound October 28, 2021 FINDINGS: Normal hepatic uptake at 5 minutes. Normal hepatic excretion. Gallbladder is visualized by 30 minutes . No evidence of acute cholecystitis. Normal common bile duct activity. Normal small bowel activity. Gallbladder ejection fraction 66% within normal limits. No evidence of chronic cholecystitis. NM/NM hepatobiliary w phar* [id number] IMPRESSION: 1. No evidence of acute or chronic cholecystitis. 2. Gallbladder ejection fraction 66% within normal limits.
== END 2022-01-28 09:25 | disposition home or self-care (01) ==
LOC: RAD 09:26
PROVIDERS: PCP Family Medicine; Visit Provider Family Medicine
DX: R10.11 Right upper quadrant pain (principal)
CPT/HCPCS: 78227; A9537

== ENCOUNTER → 2022-02-12 14:31 | Outpatient (BNVA) | payer MEDICARE, SELFPAY | PROVIDERS: PCP Family Medicine; Visit Provider Internal Medicine Cardiovascular Disease | DX: R00.2 Palpitations (principal); I49.1 Atrial premature depolarization; I49.3 Ventricular premature depolarization | CPT/HCPCS: 93229 ==

== ENCOUNTER → 2022-04-09 14:13 | Outpatient (BNVA) | payer MEDICARE, SELFPAY | PROVIDERS: PCP Family Medicine; Visit Provider Family Medicine | DX: Z51.81 Encounter for therapeutic drug level monitoring (principal); E83.42 Hypomagnesemia; E87.6 Hypokalemia; I10 Essential (primary) hypertension | CPT/HCPCS: 80053; 83735; 85025 ==

== ENCOUNTER 2022-04-10 16:52 | Emergency (ER) | payer MEDICARE, SELFPAY ==
[2022-04-10 16:56] VITALS: BP 129/81; PULSE 75; RESP 20; TEMP 36.7; O2SAT 97; BMI 41.1
--- NOTE | 2022-04-10 18:11 | W.ED.GENADLT ---
HPI - General Adult General: Chief complaint: General Medical Stated complaint: low potassium Time Seen by Provider: 04/10/22 17:34 Source: patient Mode of arrival: ambulatory Limitations: no limitations History of Present Illness: 76-year-old female who has a history of Crohn's disease she states she has chronic diarrhea states she is had chronic hypokalemia as well due to her diarrhea she is on potassium home states she seen her PCP yesterday and was having her blood drawn and was called today to tell her she was hypokalemic and hypomagnesia M. Informed to come to the ER she states she had some slight weakness denies any vomiting denies any pain. Associated symptoms: Deny chest pain, dyspnea, headache(s) or rash Review of Systems Const: Denies: fever(s), chills, body aches or change in appetite Eyes: Denies: blurry vision or eye discomfort ENMT: Denies: throat pain or dental pain Card: Denies: chest pain Resp: Denies: dyspnea GI: Reports: diarrhea : Denies: dysuria Musc: Denies: neck pain or back pain Skin/Breast: Denies: rash Neuro: Denies: headache(s) Psych: Denies: depression Eddie/Lymph: Denies: easy bruising All/Imm: Denies: urticaria PFSH ED PFSH: Medical History CKD stage G3b/A1, GFR 30-44 and albumin creatinine ratio <30 mg/g Crohn's disease Depression GERD (gastroesophageal reflux disease) History of DVT (deep vein thrombosis) Hypertension Normocytic anemia Surgical History History of bowel resection History of colonoscopy History of incisional hernia repair Port-A-Cath in place (05/15/21) Family History Other Diabetes Social History Smoking and tobacco status: never smoked Physical Exam Const: COMMON NORMALS: no acute distress, patient oriented x3 and healthy appearing HENMT: COMMON NORMALS: normocephalic and atraumatic HEAD & SCALP: normocephalic and atraumatic Eye: COMMON NORMALS: Equal, round and reactive pupils present and EOMs intact bilaterally PUPIL: Yes Equal, round and reactive pupils present Neck/C-Spine: COMMON NORMALS: full ROM and supple Chest: COMMONS NORMALS: normal inspection of the chest and normal palpation of entire chest wall Resp: COMMON NORMALS: normal respiratory effort, No retractions, No use of accessory muscles and clear to auscultation bilaterally AUSCULTATION: clear to auscultation bilaterally Cardio: COMMON NORMALS: regular rate, regular rhythm and No murmurs present (Cardio) RATE: regular rate RHYTHM: regular rhythm GI: COMMON NORMALS: Normal to inspection, nondistended, normoactive bowel sounds present, Soft to palpation, non-tender and no masses PALPATION: Yes Soft to palpation Extremity: COMMON NORMALS: normal to inspection and full ROM Neuro: COMMON NORMALS: patient oriented x3, moves all extremities and no focal motor deficits Psych: COMMON NORMALS: mental status grossly normal, Normal thought process present and cooperative THOUGHT PROCESS: Normal thought process present Skin: COMMON NORMALS: no rashes or lesions noted and no wounds GENERAL SKIN EXAM: no rashes or lesions noted Course Vital Signs: Vital signs: Vital Signs Temperature 98.1 F 04/10/22 16:56 Pulse Rate 91 04/10/22 18:28 Respiratory Rate 20 H 04/10/22 16:56 Blood Pressure 111/78 04/10/22 18:28 Pulse Oximetry 97 04/10/22 18:28 Oxygen Delivery Me thod 04/10/22 16:56 [facility] - General Adult Medical Decision Making Will replacePatient presents here with hypokalemia and hypomagnesia magnesium here IV gave her oral dose potassium she is to double her potassium dose for the next 2 to 3 days and follow-up with her PCP she is well-appearing and stable for discharge. Lab Data : 04/10/22 17:58 04/10/22 17:58 Laboratory Results WBC 8.4 10^3/uL (4.0-10.0) 04/10/22 17:58 RBC 4.10 10^6/uL (4.1-5.3) 04/10/22 17:58 Hgb 12.0 g/dL (11.5-15.3) 04/10/22 17:58 Hct 40.1 % (37.0-47.0) 04/10/22 17:58 MCV 97.8 fl (81-99) 04/10/22 17:58 MCH 29.3 pg (28.0-34.0) 04/10/22 17:58 MCHC 29.9 g/dL (30.0-36.0) L 04/10/22 17:58 RDW 13.2 % (12.1-15.1) 04/10/22 17:58 Plt Count 206 10^3/cmm (130-400) 04/10/22 17:58 MPV 9.3 fL (7.4-10.4) 04/10/22 17:58 Neut % (Auto) 66.8 % 04/10/22 17:58 Lymph % (Auto) 23.7 % 04/10/22 17:58 [place] % (Auto) 6.0 % 04/10/22 17:58 Eos % (Auto) 2.3 % 04/10/22 17:58 Baso % (Auto) 0.7 % 04/10/22 17:58 Neut # (Auto) 5.60 10^3/uL (1.8-7.7) 04/10/22 17:58 Lymph # (Auto) 2.0 10^3/uL (0.8-4.8) 04/10/22 17:58 [place] # (Auto) 0.5 10^3/uL (0.2-0.9) 04/10/22 17:58 Eos # (Auto) 0.2 10^3/uL (0.0-0.8) 04/10/22 17:58 Baso # (Auto) 0.1 10^3/uL (0.0-0.1) 04/10/22 17:58 Nucleated RBC % (auto) 0 % 04/10/22 17:58 Nucleated RBCs # 0.0 /100WBC 04/10/22 17:58 Sodium 137 mmol/L (136-145) 04/10/22 17:58 Potassium 2.8 mmol/L (3.5-5.1) L* 04/10/22 17:58 Chloride 106 mmol/L (98-107) 04/10/22 17:58 Carbon Dioxide 19 mmol/L (22-29) L 04/10/22 17:58 Anion Gap 14.8 (5-19) 04/10/22 17:58 BUN 24 mg/dL (8-23) H 04/10/22 17:58 Creatinine 1.5 mg/dL (0.5-0.9) H 04/10/22 17:58 GFR Calculation Not Reportable 04/10/22 17:58 Glucose 90 mg/dL (65-115) 04/10/22 17:58 Calculated Osmolality 288 mOsm/kg (285-295) 04/10/22 17:58 Calcium 8.6 mg/dL (8.5-10.5) 04/10/22 17:58 Magnesium 1.6 mg/dL (1.7-2.3) L 04/10/22 17:58 Total Bilirubin 0.3 mg/dL (0.15-1.2) 04/10/22 17:58 AST 14 U/L (0-32) 04/10/22 17:58 ALT 11 U/L (0-33) 04/10/22 17:58 Alkaline Phosphatase 100 U/L (35-105) 04/10/22 17:58 Total Protein 6.4 g/dL (6.6-8.7) L 04/10/22 17:58 Albumin 3.5 g/dL (3.5-5.2) 04/10/22 17:58 Globulin 2.9 g/dL (1.3-4.6) 04/10/22 17:58 Discharge Plan Discharge Patient Disposition: Home Clinical Impression: Hypokalemia, Hypomagnesemia Condition: Stable Prescriptions: No Action folic acid 1 mg tablet 1 mg PO DAILY cholecalciferol (vitamin D3) 25 mcg (1,000 unit) capsule 25 mcg PO DAILY cyclobenzaprine 10 mg tablet 10 mg PO TID PRN (Reason: muscle spasms) potassium chloride 10 mEq tablet extended release 30 meq PO TID Qty: 90 1RF magnesium oxide 500 mg capsule 500 mg PO BID Qty: 60 6RF Entyvio 300 mg Recon Soln See Rx Instructions .ROUTE .COMPLEX Rx Instructions: IV every 8 weeks cyanocobalamin (vitamin B-12) 1,000 mcg/mL Solution 1,000 mcg IM Q30D ondansetron HCl [Zofran] 4 mg/5 mL Solution 4 mg PO Q6H PRN (Reason: Nausea) Vitamin C 500 mg Tablet 500 mg PO DAILY gabapentin 100 mg capsule 100 mg PO BEDTIME Rx Instructions: at bedtime Discharge Orders: Discharge ED (Routine); Ordered 04/10/22 Ordered By: Noelle Wong Referrals: Vicente More MD [Primary Care Provider] - 1-3 days Discharge Diet: Advance as tolerated Discharge Activity: Resume usual activity Patient Instructions: Hypokalemia (ED) Coding Level of Care Code ED Sider for Olesyag Fwd Exam Comprehensive
[2022-04-10 18:19] LABS: Basophils # 0.1 10^3/uL (0.0-0.1); Basophils % 0.7 %; Eosinophils # 0.2 10^3/uL (0.0-0.8); Eosinophils % 2.3 %; Hematocrit 40.1 % (37.0-47.0); Lymphocytes % 23.7 %; Mean Corpuscular HGB Conc 29.9 g/dL (30.0-36.0); Mean Corpuscular Hemoglobin 29.3 pg (28.0-34.0); Mean Corpuscular Volume 97.8 fl (81-99); Mean Platelet Volume 9.3 fL (7.4-10.4); Monocytes # 0.5 10^3/uL (0.2-0.9); Neutrophils % 66.8 %; Nucleated Red Blood Cells % 0 %; Platelet Count 206 10^3/cmm (130-400); Red Cell Distribution Width 13.2 % (12.1-15.1); White Blood Count 8.4 10^3/uL (4.0-10.0)
[2022-04-10 18:28] VITALS: BP 111/78; PULSE 91; O2SAT 97
[2022-04-10 19:02] LABS: Alanine Aminotransferase 11 U/L (0-33); Albumin Level 3.5 g/dL (3.5-5.2); Alkaline Phosphatase 100 U/L (35-105); Anion Gap 14.8 (5-19); Aspartate Amino Transferase 14 U/L (0-32); Blood Urea Nitrogen 24 mg/dL (8-23); Calcium 8.6 mg/dL (8.5-10.5); Carbon Dioxide 19 mmol/L (22-29); Chloride 106 mmol/L (98-107); Globulin 2.9 g/dL (1.3-4.6); Glucose 90 mg/dL (65-115); Magnesium 1.6 mg/dL (1.7-2.3); Osmolality Calculated 288 mOsm/kg (285-295); Sodium 137 mmol/L (136-145); Total Bilirubin 0.3 mg/dL (0.15-1.2); Total Protein 6.4 g/dL (6.6-8.7)
[2022-04-10 19:30] LABS: Potassium 2.8 mmol/L (3.5-5.1)
[2022-04-10] MEDS: acetaminophen 325 mg Tablet 650 MG PO (21:18)
[2022-04-10] MEDS: magnesium sulfate premix 2 GM/50 ML PIGGYBACK IV (21:21)
[2022-04-10] MEDS: potassium chloride oral liq 20 mEq/15 mL UDC 80 MEQ PO (21:37)
[2022-04-10 22:42] VITALS: BP 111/89; PULSE 91; RESP 16; O2SAT 97
== END 2022-04-10 22:44 | disposition home or self-care (01) ==
PROVIDERS: Family Medicine; Emergency Provider Emergency Medicine; PCP Family Medicine
DX: E87.6 Hypokalemia (principal); E83.42 Hypomagnesemia; K50.90 Crohn's disease, unspecified, without complications; I12.9 Hypertensive chronic kidney disease with stage 1 through stage 4 chronic kidney disease, or unspecified chronic kidney disease; N18.32 Chronic kidney disease, stage 3b; Z90.49 Acquired absence of other specified parts of digestive tract
CPT/HCPCS: 36415; 80053; 83735; 85025; 96374; 99284; J3475

== ENCOUNTER → 2022-05-27 14:12 | Outpatient (BNVA) | payer MEDICARE, SELFPAY | PROVIDERS: PCP Family Medicine; Visit Provider Family Medicine | DX: E83.42 Hypomagnesemia (principal); E87.6 Hypokalemia | CPT/HCPCS: 83735; 84132 ==

== ENCOUNTER → 2022-07-09 14:30 | Outpatient (BNVA) | payer MEDICARE, SELFPAY | PROVIDERS: PCP Family Medicine; Visit Provider Family Medicine | DX: E83.42 Hypomagnesemia (principal) | CPT/HCPCS: 83735 ==

== ENCOUNTER → 2022-08-12 13:25 | Outpatient (BNVA) | payer MEDICARE, SELFPAY | PROVIDERS: PCP Family Medicine; Visit Provider Orthopaedic Surgery | DX: M60.9 Myositis, unspecified (principal); M17.0 Bilateral primary osteoarthritis of knee | CPT/HCPCS: 20610; 73552; 99213; J0702; J3490 ==

== ENCOUNTER → 2022-08-13 14:41 | Outpatient (BNVA) | payer MEDICARE, SELFPAY | PROVIDERS: PCP Family Medicine; Visit Provider Clinical Nurse Specialist Adult Health | DX: E83.42 Hypomagnesemia (principal); E87.6 Hypokalemia; K50.919 Crohn's disease, unspecified, with unspecified complications; I10 Essential (primary) hypertension | CPT/HCPCS: 83735; 84132 ==

== ENCOUNTER 2022-08-17 21:17 | Emergency (ER) | payer MEDICARE, SELFPAY ==
[2022-08-17 21:18] VITALS: BMI 42.0
--- NOTE | 2022-08-17 21:18 | XRR_ITS ---
PROCEDURE INFORMATION: Exam: XR Chest Exam date and time: 08/17/2022 9:36 PM Age: 77 years old Clinical indication: Sternal or substernal pain; Prior surgery; Surgery date: 6+ months; Surgery type: Port; Additional info: Cp TECHNIQUE: Imaging protocol: Radiologic exam of the chest. Views: 1 view. COMPARISON: CR XR chest 1V portable [id number] 01/21/2022 9:20 AM FINDINGS: Tubes, catheters and devices: The right-sided IJ port catheter terminates in the cavoatrial junction, grossly unchanged in position compared to the prior. Lungs: Focal elevation of the diaphragms bilaterally may represent diaphragmatic eventration. Low lung volumes and bronchovascular crowding. A calcified nodule in the left lung appears grossly similar to the prior. No consolidation. Pleural spaces: The costophrenic angles are obscured. Findings are nonspecific and may represent artifacts although trace right pleural effusions can not be excluded. No large pleural effusion. No pneumothorax. Heart/Mediastinum: The cardiomediastinal silhouette is stable in appearance. The thoracic aorta is tortuous and atherosclerotic. Bones/joints: Redemonstration of right shoulder joint arthroplasty with right humeral head prosthesis unchanged compared to the prior. XR/XR chest 1V portable [id number] IMPRESSION: 1. Suggestion of mild low lung volumes and bronchovascular crowding. 2. Stable position of the right IJ port catheter. 3. Otherwise, no new acute radiographic findings in the chest.
--- NOTE | 2022-08-17 21:19 | ECG_ITS ---
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 Measurements Intervals [place] Rate: 70 P: 57 TX: 176 QRS: -83 QRSD: 162 T: 17 QT: 403 QTc: 436 Interpretive Statements SINUS RHYTHM RIGHT BUNDLE BRANCH BLOCK [120+ ms QRS DURATION, UPRIGHT V1, 40+ ms S IN I/aVL/V4/V5/V6] LEFT ANTERIOR FASCICULAR BLOCK [QRS AXIS <= -45, QR IN I, RS IN II] POSSIBLE SEPTAL MYOCARDIAL INFARCTION , PROBABLY OLD [30 ms Q WAVE IN V1/V2] Compared to ECG 01/21/2022 10:19:08 No significant changes Electronically Signed On 08-18-2022 7:11:57 QUILL FIXER by Shaggy West M.D. [id number]
[2022-08-17 21:21] VITALS: BP 125/69; PULSE 72; RESP 17; TEMP 37.2; O2SAT 94
--- NOTE | 2022-08-17 21:25 | W.ED.CHESTPA ---
HPI - Chest Pain General: Chief Complaint: Chest Pain Stated Complaint: chest pain Time Seen by Provider: 08/17/22 21:17 Source: patient and EMS Mode of arrival: EMS Limitations: no limitations History of Present Illness: 77-year-old female who states that she started having chest pain started tonight at 8 PM states it is a pressure-like pain she states the pain did resolve roughly 10 minutes after patient was brought in by EMS she had high blood pressure as well did start her on a nitro drip her blood pressure is improved she denies any shortness of breath or nausea she denies any worsening proving factors. Associated symptoms: Deny abdominal pain, dyspnea, fever(s), nausea or vomiting Review of Systems Const: Denies: fever(s), chills, body aches or change in appetite Eyes: Denies: blurry vision or eye discomfort ENMT: Denies: throat pain or dental pain Card: Reports: chest pain Resp: Denies: dyspnea GI: Denies: abdominal pain, nausea, vomiting or diarrhea : Denies: dysuria Musc: Denies: neck pain or back pain Skin/Breast: Denies: rash Neuro: Denies: headache(s) Psych: Denies: depression Eddie/Lymph: Denies: easy bruising All/Imm: Denies: urticaria PFSH ED PFSH: Medical History CKD stage G3b/A1, GFR 30-44 and albumin creatinine ratio <30 mg/g Crohn's disease Depression GERD (gastroesophageal reflux disease) History of DVT (deep vein thrombosis) Hypertension Normocytic anemia Surgical History History of bowel resection History of colonoscopy History of incisional hernia repair Port-A-Cath in place (05/15/21) Family History Other Diabetes Social History Smoking and tobacco status: never smoked Physical Exam Const: COMMON NORMALS: patient oriented x3 HENMT: COMMON NORMALS: normocephalic and atraumatic HEAD & SCALP: normocephalic and atraumatic Eye: COMMON NORMALS: Equal, round and reactive pupils present and EOMs intact bilaterally PUPIL: Yes Equal, round and reactive pupils present Neck/C-Spine: COMMON NORMALS: full ROM and supple Chest: COMMONS NORMALS: normal inspection of the chest and normal palpation of entire chest wall Resp: COMMON NORMALS: normal respiratory effort, No retractions, No use of accessory muscles and clear to auscultation bilaterally AUSCULTATION: clear to auscultation bilaterally Cardio: COMMON NORMALS: regular rate, regular rhythm and No murmurs present (Cardio) RATE: regular rate RHYTHM: regular rhythm GI: COMMON NORMALS: Normal to inspection, nondistended, normoactive bowel sounds present, Soft to palpation, non-tender and no masses PALPATION: Yes Soft to palpation Extremity: COMMON NORMALS: normal to inspection and full ROM Neuro: COMMON NORMALS: patient oriented x3, moves all extremities and no focal motor deficits Psych: COMMON NORMALS: mental status grossly normal, Normal thought process present and cooperative THOUGHT PROCESS: Normal thought process present Skin: COMMON NORMALS: no rashes or lesions noted and no wounds GENERAL SKIN EXAM: no rashes or lesions noted Course Vital Signs: Vital signs: Vital Signs Temperature 98.9 F 08/17/22 21:21 Pulse Rate 67 08/18/22 00:11 Respiratory Rate 20 H 08/18/22 00:11 Blood Pressure 98/53 08/18/22 00:11 Pulse Oximetry 96 08/18/22 00:11 Oxygen Delivery Me thod 08/17/22 23:51 MDM - Chest Pain Medical Decision Making Patient presents here with chest pain she has been pain-free here initial repeat troponin here negative. She has no signs of acute coronary syndrome she has no shortness of breath no signs of pulmonary embolism she is stable for discharge at this time she is to follow-up with her PCP I did inform her she likely needs an outpatient stress test she has any worsening chest pain she is to return she understands agrees to plan. Lab Data 08/17/22 21:37 08/17/22 21:37 Radiology Impressions Chest X-Ray 08/17/22 21:18 IMPRESSION: 1. Suggestion of mild low lung volumes and bronchovascular crowding. 2. Stable position of the right IJ port catheter. 3. Otherwise, no new acute radiographic findings in the chest. Laboratory Results WBC 8.4 10^3/uL (4.0-10.0) 08/17/22 21: RBC 3.65 10^6/uL (4.1-5.3) L 08/17/22 21: Hgb 10.6 g/dL (11.5-15.3) L 08/17/22 21: Hct 35.2 % (37.0-47.0) L 08/17/22 21: MCV 96.4 fl (81-99) 08/17/22 21: MCH 29.0 pg (28.0-34.0) 08/17/22 21: MCHC 30.1 g/dL (30.0-36.0) 08/17/22 21: RDW 12.6 % (12.1-15.1) 08/17/22 21: Plt Count 210 10^3/cmm (130-400) 08/17/22 21: MPV 9.2 fL (7.4-10.4) 08/17/22 21:37 Neut % (Auto) 67.2 % 08/17/22 21:37 Lymph % (Auto) 24.0 % 08/17/22 21:37 [place] % (Auto) 6.6 % 08/17/22 21: Eos % (Auto) 1.2 % 08/17/22 21: Baso % (Auto) 0.5 % 08/17/22 21: Neut # (Auto) 5.62 10^3/uL (1.8-7.7) 08/17/22 21:37 Lymph # (Auto) 2.0 10^3/uL (0.8-4.8) 08/17/22 21:37 [place] # (Auto) 0.6 10^3/uL (0.2-0.9) 08/17/22 21:37 Eos # (Auto) 0.1 10^3/uL (0.0-0.8) 08/17/22 21: Baso # (Auto) 0.0 10^3/uL (0.0-0.1) 08/17/22 21: Nucleated RBC % (auto) 0 % 08/17/22 21: Nucleated RBCs # 0.0 /100WBC 08/17/22 21: Sodium 135 mmol/L (136-145) L 08/17/22 21:37 Potassium 4.5 mmol/L (3.5-5.1) 08/17/22 21:37 Chloride 105 mmol/L (98-107) 08/17/22 21:37 Carbon Dioxide 21 mmol/L (22-29) L 08/17/22 21:37 Anion Gap 13.5 (5-19) 08/17/22 21:37 BUN 30 mg/dL (8-23) H 08/17/22 21:37 Creatinine 1.3 mg/dL (0.5-0.9) H 08/17/22 21:37 GFR Calculation Not Reportable 08/17/22 21:37 Glucose 108 mg/dL (65-115) 08/17/22 21:37 Calculated Osmolality 287 mOsm/kg (285-295) 08/17/22 21:37 Calcium 8.0 mg/dL (8.5-10.5) L 08/17/22 21:37 Total Bilirubin 0.2 mg/dL (0.15-1.2) 08/17/22 21:37 AST 14 U/L (0-32) 08/17/22 21:37 ALT 12 U/L (0-33) 08/17/22 21:37 Alkaline Phosphatase 103 U/L (35-105) 08/17/22 21:37 Troponin T Baseline 20 ng/L (0-10) H 08/17/22 21:37 Troponin T 120 Minute 20.96 ng/L (0-10) H 08/17/22 23:43 Delta Troponin T 0.96 ABS# (0-10) 08/17/22 23:43 Total Protein 5.8 g/dL (6.6-8.7) L 08/17/22 21:37 Albumin 3.8 g/dL (3.5-5.2) 08/17/22 21:37 Globulin 2.0 g/dL (1.3-4.6) 08/17/22 21:37 Discharge Plan Discharge Patient Disposition: Home Clinical Impression: Chest pain Condition: Stable Prescriptions: No Action folic acid 1 mg tablet 1 mg PO DAILY cholecalciferol (vitamin D3) 25 mcg (1,000 unit) capsule 25 mcg PO DAILY cyclobenzaprine 10 mg tablet 10 mg PO TID PRN (Reason: muscle spasms) betamethasone acet,sod phos [Celestone Soluspan] 6 mg/mL suspension 6 mg intra-articular ONCE Qty: 1 0RF bupivacaine (PF) 0.5 % (5 mg/mL) solution 5 mg intra-articular ONCE Qty: 2 0RF lidocaine (PF) 10 mg/mL (1 %) solution 10 mg intra-articular ONCE Qty: 2 0RF amoxicillin-pot clavulanate 875-125 mg tablet 1 tab PO BID Qty: 14 0RF hydrocodone-acetaminophen 5-325 mg tablet 1 tab PO Q8H PRN (Reason: pain) 30 Days Qty: 14 0RF magnesium oxide 500 mg capsule 500 mg PO TID Qty: 90 6RF potassium chloride 10 mEq capsule, extended release See Rx Instructions .ROUTE .COMPLEX Qty: 120 6RF Dose Instruction: OPEN AND SPRINKLE CONTENTS OF 2 CAPSULES WITH FOOD TWICE DAILY FOR 2 WEEKS. Rx Instructions: OPEN AND SPRINKLE CONTENTS OF 2 CAPSULES WITH FOOD TWICE DAILY. cyanocobalamin (vitamin B-12) 1,000 mcg/mL solution 1,000 mcg IM Q30D Qty: 10 1RF Entyvio 300 mg Recon Soln See Rx Instructions .ROUTE .COMPLEX Rx Instructions: IV every 8 weeks ondansetron HCl [Zofran] 4 mg/5 mL Solution 4 mg PO Q6H PRN (Reason: Nausea) Vitamin C 500 mg Tablet 500 mg PO DAILY gabapentin 100 mg capsule 100 mg PO BEDTIME Rx Instructions: at bedtime Discharge Orders: Discharge ED (Routine); Ordered 08/18/22 Ordered By: Noelle Wong Referrals: Vicente More MD [Primary Care Provider] - 1-3 days Discharge Diet: Advance as tolerated Discharge Activity: Resume usual activity Patient Instructions: Chest Pain (ED) Coding Level of Care Code ED Senior Consulting Manager for Chg Fwd Exam Comprehensive
[2022-08-17 21:44] LABS: Basophils % 0.5 %; Eosinophils # 0.1 10^3/uL (0.0-0.8); Eosinophils % 1.2 %; Hematocrit 35.2 % (37.0-47.0); Hemoglobin 10.6 g/dL (11.5-15.3); Mean Corpuscular HGB Conc 30.1 g/dL (30.0-36.0); Mean Corpuscular Volume 96.4 fl (81-99); Mean Platelet Volume 9.2 fL (7.4-10.4); Monocytes # 0.6 10^3/uL (0.2-0.9); Monocytes % 6.6 %; Neutrophils # 5.62 10^3/uL (1.8-7.7); Neutrophils % 67.2 %; Nucleated Red Blood Cells % 0 %; Platelet Count 210 10^3/cmm (130-400); Red Blood Count 3.65 10^6/uL (4.1-5.3); Red Cell Distribution Width 12.6 % (12.1-15.1); White Blood Count 8.4 10^3/uL (4.0-10.0)
[2022-08-17 21:51] VITALS: BP 91/70; PULSE 67; RESP 13; O2SAT 97
[2022-08-17 22:05] LABS: Troponin(5th) Baseline 20 ng/L (0-10)
[2022-08-17 22:06] LABS: Alanine Aminotransferase 12 U/L (0-33); Albumin Level 3.8 g/dL (3.5-5.2); Alkaline Phosphatase 103 U/L (35-105); Anion Gap 13.5 (5-19); Aspartate Amino Transferase 14 U/L (0-32); Blood Urea Nitrogen 30 mg/dL (8-23); Carbon Dioxide 21 mmol/L (22-29); Chloride 105 mmol/L (98-107); Glucose 108 mg/dL (65-115); Osmolality Calculated 287 mOsm/kg (285-295); Potassium 4.5 mmol/L (3.5-5.1); Sodium 135 mmol/L (136-145); Total Bilirubin 0.2 mg/dL (0.15-1.2); Total Protein 5.8 g/dL (6.6-8.7)
[2022-08-17 22:08] LABS: Creatinine Clr Calc Pharmacy 48.8632
[2022-08-17 22:21] VITALS: BP 109/50; PULSE 63; RESP 18; O2SAT 96
[2022-08-17 22:51] VITALS: BP 99/60; PULSE 68; RESP 14; O2SAT 98
--- NOTE | 2022-08-17 23:19 | ECG_ITS ---
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 Measurements Intervals [place] Rate: 68 P: 55 CT: 172 QRS: -86 QRSD: 165 T: 1 QT: 411 QTc: 440 Interpretive Statements SINUS RHYTHM RIGHT BUNDLE BRANCH BLOCK [120+ ms QRS DURATION, UPRIGHT V1, 40+ ms S IN I/aVL/V4/V5/V6] LEFT ANTERIOR FASCICULAR BLOCK [QRS AXIS <= -45, QR IN I, RS IN II] Compared to ECG 08/17/2022 21:26:34 Myocardial infarct finding no longer present Electronically Signed On 08-18-2022 7:16:40 ASSISTANT SUPERINTENDENT by Shaggy West M.D. [id number]
[2022-08-17 23:21] VITALS: BP 101/53; PULSE 67; RESP 23; O2SAT 96
[2022-08-17 23:51] VITALS: BP 123/58; PULSE 70; RESP 22; O2SAT 98
[2022-08-18 00:11] VITALS: BP 98/53; PULSE 67; RESP 20; O2SAT 96
[2022-08-18 00:20] LABS: Troponin 5 2HR 20.96 ng/L (0-10)
[2022-08-18] MEDS: lidocaine 2% viscous 15 ML, aluminum-mag hydrox-simethicon 30 ML, sucralfate oral liq 1 GM PO (00:21)
[2022-08-18 00:27] LABS: Troponin 5 2HR Delta 0.96 ABS# (0-10)
--- NOTE | 2022-08-18 00:46 | PC.NURSE ---
Assisted pt to restroom. Pt ambulated without difficulty. No pain at this time.
== END 2022-08-18 01:37 | disposition home or self-care (01) ==
PROVIDERS: Emergency Provider Emergency Medicine; PCP Family Medicine
DX: R07.9 Chest pain, unspecified (principal); I12.9 Hypertensive chronic kidney disease with stage 1 through stage 4 chronic kidney disease, or unspecified chronic kidney disease; N18.32 Chronic kidney disease, stage 3b
CPT/HCPCS: 71045; 80053; 84484; 85025; 93005; 96374; 99285; J1642

== ENCOUNTER 2022-09-25 06:01 | Outpatient (CLI) | payer MEDICARE, SELFPAY ==
--- NOTE | 2022-09-25 | ECG_ITS ---
[facility] Test Date: 2022-09-25 Pat Name: Kaitlin Meade Department: Room: Gender: Female Audio Visual Secretary: : 1945 Requested By: Vicente Shepherd Order Number: [id number] Kody MD: Gloria Bass M.D. Interpretive Statements NAME OF STUDY: LEXISCAN SESTAMIBI STRESS TEST INDICATION: Chest Pain PROCEDURE: At the baseline, the EKG revealed atrial fibrillation with a controlled ventricular response rate. Right bundle branch block and left anterior fascicular block. The baseline heart was bpm with a blood pressue of mm of Hg Lexiscan was infused over a period of 20 seconds. A total of 0.4 milligrams of Lexiscan was infused. The stress phase was continued for a total of 5 minutes. Heart rate at the end of the stress phase was 86 bpm with a blood pressure 131/81 mm of Hg. The EKG at the peak infusion revealed no significant changes. Sestamibi was injected 20 seconds after the Lexiscan infusion. Heart rate at the end of the recovery phase was 83 bpm with a blood pressure of 135/84 mm of Hg. CONCLUSION: 1. No significant EKG changes with the LexiScan infusion 2. No LexiScan induced chest pain or cardiac arrhythmia 3. Normal blood pressure and heart rate response 4. Sestamibi/sestamibi perfusion scan pending; see separate report. Electronically Signed On 10-04-2022 14:53:54 PLASTIC FINISHER by Gloria Bass M.D. [id number]
[2022-09-25 06:13] VITALS: BMI 45.3
--- NOTE | 2022-09-25 06:14 | NMCV_ITS ---
NM latasha perf SPECT r/s* [id number] Kaitlin Meade Age: 77 Gender: F : 1945 Exam Date: 09/25/2022 07:39 Ordering Phys: Vicente More MD Technologist: VEENA Riggins Exam Location: [facility] Indications: CHEST PAIN STRESS TEST Please [facility] IMAGE PROTOCOL Rest/Stress 1 Lexiscan Day Radiopharmaceutical Dose (mCi) Administration Site Administered by Rest: Tc-99m 10.8 IV VEENA Hussein Sestamibi Stress:Tc-99m 33.0 IV VEENA Hussein Sestamibi Rest: 25-Sep-2022 60 Discovery 630 Stress: 25-Sep-2022 30 Discovery 630 0.4mg Lexiscan. Supine position only as patient was unable to lay prone. SPECT RESULTS Technical Quality: Excellent Raw Data Analysis: Normal, Breast attenuation Image Corrections: No attenuation or motion correction applied Summed Stress Score: 5 Summed Rest Score: 5 Summed Difference Score: 0 PERFUSION FINDINGS There is a medium sized, mostly fixed perfusion defect noted in the inferior wall with minimal reversibility. This may represent medium sized prior infarct with minimal jerson-infarct ischemia in RCA territory vs attenuation artifact as prone imaging not done. FUNCTIONAL RESULTS (calculated via Gated SPECT) Stress Image LV EF (%): 62 Stress EDV (mL):133 TID: 1.12 Stress ESV (mL):50 FUNCTIONAL FINDINGS: There is normal left ventricular systolic function. IMPRESSIONS 1. Medium sized area of prior infarct with minimal jerson-infarct ischemia in the RCA territory noted. Attenuation artifact can not be ruled out. Clinical correlation is required 2. LV systolic function is normal Eugenio Echavarria MD (Electronically Signed) Final Date: 27 September 2022 10:34 S
[2022-09-25] MEDS: regadenoson 0.4 Mg/5 ml Syringe IVP (08:16)
[2022-09-25 08:49] VITALS: BP 135/84; PULSE 83
== END 2022-09-25 06:02 | disposition home or self-care (01) ==
LOC: CDL 06:05
PROVIDERS: PCP Family Medicine; Visit Provider Family Medicine
DX: R07.9 Chest pain, unspecified (principal)
CPT/HCPCS: 36415; 78452; 93017; 96374; A9500; J2785

== ENCOUNTER → 2022-10-08 14:32 | Outpatient (BNVA) | payer MEDICARE, SELFPAY | PROVIDERS: PCP Family Medicine; Visit Provider Surgery | DX: K43.2 Incisional hernia without obstruction or gangrene (principal) | CPT/HCPCS: 99203; 99214 ==

== ENCOUNTER → 2022-10-09 10:55 | Outpatient (BNVA) | payer MEDICARE, SELFPAY | PROVIDERS: PCP Family Medicine; Visit Provider Internal Medicine Cardiovascular Disease | DX: R94.39 Abnormal result of other cardiovascular function study (principal); R07.89 Other chest pain; R94.31 Abnormal electrocardiogram [ECG] [EKG]; K50.90 Crohn's disease, unspecified, without complications; I49.8 Other specified cardiac arrhythmias; I10 Essential (primary) hypertension | CPT/HCPCS: 99205 ==

== ENCOUNTER 2022-10-30 07:10 | Outpatient (CLI) | payer MEDICARE, SELFPAY ==
--- NOTE | 2022-10-30 07:30 | USCV_ITS ---
Kaitlin Meade Age: 77 Gender: F : 1945 Exam Date: 10/30/2022 07:29 Ordering Phys: Gloria Bass MD ([email or web address]) Technologist: Benjy Gomez Exam Location: [facility] Indication: abnormal stress test/ chest pain/ ventricular arrhythmia BP: 117 / 70 HR: 81 Rhythm: Sinus Technical Quality: Adequate MEASUREMENTS (Male / Female) Normal Values 2D ECHO LV Diastolic Diameter PLAX 5.9 cm 4.2 - 5.9 / 3.9 - 5.3 cm LV Systolic Diameter PLAX 3.8 cm IVS Diastolic Thickness 0.8 cm 0.6 - 1.0 / 0.6 - 0.9 cm IVS Systolic Thickness 0.9 cm LVPW Diastolic Thickness 1.3 cm 0.6 - 1.0 / 0.6 - 0.9 cm LVPW Systolic Thickness 1.6 cm LVOT Diameter 2.0 cm LV Ejection Fraction 2D Teich 65.0 % LV Ejection Fraction MOD 2C 64.7 % LV Ejection Fraction 2C AL 63.9 % LA Diameter 3.9 cm LA Width 3.5 cm LA Height 4.5 cm RA Width 3.4 cm RA Height 4.7 cm Aorta at Sinotubular Diameter 2.4 cm IVC Diameter 2.2 cm M-MODE Aortic Annulus Diameter 3.3 cm LA Ao Ratio MM 1.3 MV E Point Septal Separation 0.6 cm DOPPLER AV Peak Velocity 162.3 cm/s LVOT Peak Velocity 115.0 cm/s AV Area Cont Eq vti 2.1 cm squared AV Area Cont Eq pk 2.2 cm squared MV Peak Velocity 94.0 cm/s MV Area PHT 4.0 cm squared Mitral E to A Ratio 0.7 MV E' Velocity 37.0 cm/s Mitral E to MV E' Ratio 7.3 Mitral E to LV E' Lateral Ratio 6.8 Mitral E to LV E' Septal Ratio 8.0 TR Peak Velocity 339.8 cm/s TR Peak Gradient 46.2 mmHg TR Mean Velocity 259.1 cm/s TR Mean Gradient 30.3 mmHg TR Velocity Time Integral 101.6 cm Right Atrial Pressure 3.0 mmHg Pulmonary Artery Systolic Pressu 49.2 mmHg PV Peak Velocity 100.7 cm/s RV Acceleration Time 0.1 s RV Ejection Time 0.3 s RV AcT/ET 0.4 FINDINGS Left Ventricle Normal LV size ejection fraction of 55%. Mild hypokinesia of the apical lateral wall segment.Grade I/IV diastolic dysfunction (abnormal relaxation filling pattern), normal to mildly elevated filling pressures. Right Ventricle The right ventricle is normal in size and function. Right Atrium The right atrium is normal in size. Left Atrium The left atrium is normal in size. Mitral Valve Trace mitral valve regurgitation. Aortic Valve Thickened aortic valve. Tricuspid Valve Trace to mild tricuspid valve regurgitation. Pulmonic Valve No gross abnormalities noted Pericardium Normal pericardium without effusion. Aorta Normal ascending aorta dimension. IVC Normal inferior vena cava. CONCLUSIONS Normal LV size ejection fraction of 55%. Mild hypokinesia of the apical lateral wall segment.Grade I/IV diastolic dysfunction (abnormal relaxation filling pattern), normal to mildly elevated filling pressures. Trace to mild tricuspid valve regurgitation. Thickened aortic valve. Trace mitral valve regurgitation. There is no pericardial effusion. There are no intracardiac masses. No similar previous studies are available for comparison Dr Gloria Bass MD [facility] (Electronically Signed) Final Date: 05 November 2022 15:01 S
== END 2022-10-30 07:11 | disposition home or self-care (01) ==
LOC: RAD 07:13
PROVIDERS: PCP Family Medicine; Visit Provider Internal Medicine Cardiovascular Disease
DX: I49.9 Cardiac arrhythmia, unspecified (principal); R94.39 Abnormal result of other cardiovascular function study; I07.1 Rheumatic tricuspid insufficiency
CPT/HCPCS: 93306; 99205

== ENCOUNTER 2022-11-05 04:49 | Observation (INO) | payer MEDICARE, SELFPAY ==
[2022-11-05] VITALS (11 sets, daily range): BP systolic 134–168; BP diastolic 79–92; PULSE 62–85; RESP 14–20; TEMP 36.6–36.7; O2SAT 94–100; BMI 44.4; BMI 45.8
--- NOTE | 2022-11-05 04:53 | ECG_ITS ---
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 Measurements Intervals [place] Rate: 75 P: 0 VT: 0 QRS: -80 QRSD: 150 T: 31 QT: 383 QTc: 428 Interpretive Statements Regular supraventricular rhythm, possibly sinus RIGHT BUNDLE BRANCH BLOCK [120+ ms QRS DURATION, UPRIGHT V1, 40+ ms S IN I/aVL/V4/V5/V6] LEFT ANTERIOR FASCICULAR BLOCK [QRS AXIS <= -45, QR IN I, RS IN II] POSSIBLE ANTERIOR MYOCARDIAL INFARCTION , PROBABLY OLD [30 ms Q WAVE IN V3/V4, OR R < 0.2 mV IN V4] Compared to ECG 08/17/2022 23:12:48 Myocardial infarct finding now present Heavy baseline artifact, needs repeat Electronically Signed On 11-06-2022 0:10:12 CDT by Gloria Bass M.D. [email or web address] Communicationsmer[facility] st[facility].[employer]/store/Ov/[id number]
--- NOTE | 2022-11-05 04:53 | XR_ITS ---
WS: [id number] XR chest 1V portable [id number] REASON FOR EXAM: cp FINDINGS: The chest is stable compared to 08/17/2022. Right-sided chemotherapy port with right internal jugular vein catheter to the atrial level. Moderate tortuosity and ectasia of the thoracic aorta. The heart size is within normal limits. Calcified granulomatous disease in both hemithoraces. Eventration of both hemidiaphragms. No acute or subacute pulmonary parenchymal or pleural abnormality noted. 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 Total right shoulder arthroplasty. There is a vague lucent area in the scapula at the inferior margin of the glenoid which is identifiab le on the examination of 08/17/2022 and the exam 01/21/2022 however the abnormality appears more lucent /larger at this time than on the 01/21/2022 examination. XR/XR chest 1V portable [id number] IMPRESSION: No acute lung abnormality. Concern for destructive lesion in the right scapula, clinical correlation requi red.
--- NOTE | 2022-11-05 04:55 | ECG_ITS ---
[facility] Test Date: 2022-11-05 Pat Name: Kaitlin Meade Department: Room: 107 Gender: Female Curber: : 1945 Requested By: Noelle Wong Order Number: [id number] Reading MD: Gloria Bass M.D. Measurements Intervals [place] Rate: 72 P: 77 FL: 183 QRS: -83 QRSD: 146 T: 38 QT: 394 QTc: 434 Interpretive Statements SINUS RHYTHM WITH OCCASIONAL SUPRAVENTRICULAR PREMATURE COMPLEXES RIGHT BUNDLE BRANCH BLOCK [120+ ms QRS DURATION, UPRIGHT V1, 40+ ms S IN I/aVL/V4/V5/V6] LEFT ANTERIOR FASCICULAR BLOCK [QRS AXIS <= -45, QR IN I, RS IN II] Compared to ECG 08/17/2022 23:12:48 No significant changes Electronically Signed On 11-06-2022 0:19:14 CDT by Gloria Bass M.D. [email or web address] SystemsFuhuuniversity [facility].[employer]/store/Ov/[id number]
--- NOTE | 2022-11-05 04:55 | ED_ITS ---
HPI - Chest Pain General: Chief Complaint: Chest Pain Stated Complaint: cp Time Seen by Provider: 11/05/22 04:53 Source: patient and EMS Mode of arrival: EMS Limitations: no limitations History of Present Illness: 77-year-old female states that she started having chest pain midnight 5 hours ago states its been in the center of her chest a pressure type pain has been sharp as well as been constant nature she is taken nitro with no relief she denies any shortness of breath she denies any vomiting she denies any worsening proving factors. Associated symptoms: Deny abdominal pain, dyspnea, fever(s), nausea or vomiting Review of Systems Const: Denies: fever(s), chills, body aches or change in appetite Eyes: Denies: blurry vision or eye discomfort ENMT: Denies: throat pain or dental pain Card: Reports: chest pain Resp: Denies: dyspnea GI: Denies: abdominal pain, nausea, vomiting or diarrhea : Denies: dysuria Musc: Denies: neck pain or back pain Skin/Breast: Denies: rash Neuro: Denies: headache(s) Psych: Denies: depression Eddie/Lymph: Denies: easy bruising All/Imm: Denies: urticaria PFSH ED PFSH: Medical History CKD stage G3b/A1, GFR 30-44 and albumin creatinine ratio <30 mg/g Crohn's disease Depression GERD (gastroesophageal reflux disease) History of DVT (deep vein thrombosis) Hypertension Normocytic anemia JEFFREY on CPAP Surgical History History of bowel resection History of colonoscopy History of incisional hernia repair Port-A-Cath in place (05/15/21) Family History Other Diabetes Social History Smoking and tobacco status: never smoked Physical Exam Const: COMMON NORMALS: patient oriented x3 HENMT: COMMON NORMALS: normocephalic and atraumatic HEAD & SCALP: normocephalic and atraumatic Eye: COMMON NORMALS: Equal, round and reactive pupils present and EOMs intact bilaterally PUPIL: Yes Equal, round and reactive pupils present Neck/C-Spine: COMMON NORMALS: full ROM and supple Chest: COMMONS NORMALS: normal inspection of the chest and normal palpation of entire chest wall Resp: COMMON NORMALS: normal respiratory effort, No retractions, No use of accessory muscles and clear to auscultation bilaterally AUSCULTATION: clear to auscultation bilaterally Cardio: COMMON NORMALS: regular rate, regular rhythm and No murmurs present (Cardio) RATE: regular rate RHYTHM: regular rhythm GI: COMMON NORMALS: Normal to inspection, nondistended, normoactive bowel sounds present, Soft to palpation, non-tender and no masses PALPATION: Yes Soft to palpation Extremity: COMMON NORMALS: normal to inspection and full ROM Neuro: COMMON NORMALS: patient oriented x3, moves all extremities and no focal motor deficits Psych: COMMON NORMALS: mental status grossly normal, Normal thought process present and cooperative THOUGHT PROCESS: Normal thought process present Skin: COMMON NORMALS: no rashes or lesions noted and no wounds GENERAL SKIN EXAM: no rashes or lesions noted Course Vital Signs: Vital signs: Vital Signs Temperature 97.8 F 11/05/22 06:10 Pulse Rate 65 11/05/22 14:00 Respiratory Rate 18 11/05/22 11:34 Blood Pressure 147/92 11/05/22 06:10 Pulse Oximetry 97 11/05/22 11:34 Oxygen Delivery Me thod 11/05/22 08:55 Oxygen Flow Rate 1.5 11/05/22 08:55 MDM - Chest Pain Medical Decision Making Patient presents. Chest pain original troponin here is normal her pain was resolved here I did speak to the hospitalist she had a recent stress test that showed some slight abnormalities will admit at this time for ACS rule out. Lab Data 11/05/22 05:03 11/05/22 05:03 Radiology Impressions Chest X-Ray 11/05/22 04:53 IMPRESSION: No acute lung abnormality. Concern for destructive lesion in the right scapula, clinical correlation required. Laboratory Results WBC 7.0 10^3/uL (4.0-10.0) 11/05/22 05:03 RBC 3.90 10^6/uL (4.1-5.3) L 11/05/22 05:03 Hgb 11.2 g/dL (11.5-15.3) L 11/05/22 05:03 Hct 38.2 % (37.0-47.0) 11/05/22 05:03 MCV 97.9 fl (81-99) 11/05/22 05:03 MCH 28.7 pg (28.0-34.0) 11/05/22 05:03 MCHC 29.3 g/dL (30.0-36.0) L 11/05/22 05:03 RDW 13.5 % (12.1-15.1) 11/05/22 05:03 Plt Count 189 10^3/cmm (130-400) 11/05/22 05:03 MPV 9.1 fL (7.4-10.4) 11/05/22 05:03 Neut % (Auto) 67.9 % 11/05/22 05:03 Lymph % (Auto) 22.6 % 11/05/22 05:03 [place] % (Auto) 5.7 % 11/05/22 05:03 Eos % (Auto) 2.8 % 11/05/22 05:03 Baso % (Auto) 0.6 % 11/05/22 05:03 Neut # (Auto) 4.76 10^3/uL (1.8-7.7) 11/05/22 05:03 Lymph # (Auto) 1.6 10^3/uL (0.8-4.8) 11/05/22 05:03 [place] # (Auto) 0.4 10^3/uL (0.2-0.9) 11/05/22 05:03 Eos # (Auto) 0.2 10^3/uL (0.0-0.8) 11/05/22 05:03 Baso # (Auto) 0.0 10^3/uL (0.0-0.1) 11/05/22 05:03 Nucleated RBC % (auto) 0 % 11/05/22 05:03 Nucleated RBCs # 0.0 /100WBC 11/05/22 05:03 PT 14.30 SECONDS (12.1-14.9) 11/05/22 05:03 INR 1.07 (0.8-1.2) 11/05/22 05:03 D-Dimer 0.77 ug/mIFEU (0-0.59) H 11/05/22 05:03 Sodium 141 mmol/L (136-145) 11/05/22 05:03 Potassium 4.5 mmol/L (3.5-5.1) 11/05/22 05:03 Chloride 109 mmol/L (98-107) H 11/05/22 05:03 Carbon Dioxide 20 mmol/L (22-29) L 11/05/22 05:03 Anion Gap 16.5 (5-19) 11/05/22 05:03 BUN 21 mg/dL (8-23) 11/05/22 05:03 Creatinine 1.5 mg/dL (0.5-0.9) H 11/05/22 05:03 GFR Calculation Not Reportable 11/05/22 05:03 Glucose 104 mg/dL (65-115) 11/05/22 05:03 Calculated Osmolality 295 mOsm/kg (285-295) 11/05/22 05:03 Calcium 9.2 mg/dL (8.5-10.5) 11/05/22 05:03 Total Bilirubin 0.3 mg/dL (0.15-1.2) 11/05/22 05:03 AST 22 U/L (0-32) 11/05/22 05:03 ALT 16 U/L (0-33) 11/05/22 05:03 Alkaline Phosphatase 100 U/L (35-105) 11/05/22 05:03 Troponin T Baseline 20 ng/L (0-10) H 11/05/22 05:03 Total Protein 6.3 g/dL (6.6-8.7) L 11/05/22 05:03 Albumin 3.9 g/dL (3.5-5.2) 11/05/22 05:03 Globulin 2.4 g/dL (1.3-4.6) 11/05/22 05:03 EKG Data EKG 1: I personally reviewed and interpreted this EKG as follows: EKG interpretation date: 11/05/22 EKG interpretation time: 04:59 Interpretation: nsr with pvc hr [address] elevation qrs 146 qtc 419 no change from previous ekg Discharge Plan Discharge Patient Disposition: Admitted As Inpatient Admit Provider: Michelle Packer Clinical Impression: Chest pain Condition: Stable Coding Level of Care Code ED Supervisor Pigment Making for Chg Silvino
[2022-11-05] MEDS: ondansetron 2 mg/ML SDV 2 mL 4 MG IVP (05:02)
[2022-11-05] MEDS: morphine 4 mg/mL SDV 1 mL IVP (05:02)
[2022-11-05 05:13] LABS: Basophils % 0.6 %; Eosinophils # 0.2 10^3/uL (0.0-0.8); Eosinophils % 2.8 %; Hematocrit 38.2 % (37.0-47.0); Hemoglobin 11.2 g/dL (11.5-15.3); Lymphocytes # 1.6 10^3/uL (0.8-4.8); Lymphocytes % 22.6 %; Mean Corpuscular HGB Conc 29.3 g/dL (30.0-36.0); Mean Corpuscular Hemoglobin 28.7 pg (28.0-34.0); Mean Corpuscular Volume 97.9 fl (81-99); Mean Platelet Volume 9.1 fL (7.4-10.4); Monocytes # 0.4 10^3/uL (0.2-0.9); Monocytes % 5.7 %; Neutrophils # 4.76 10^3/uL (1.8-7.7); Neutrophils % 67.9 %; Nucleated Red Blood Cells % 0 %; Platelet Count 189 10^3/cmm (130-400); Red Cell Distribution Width 13.5 % (12.1-15.1)
[2022-11-05 05:33] LABS: Troponin(5th) Baseline 20 ng/L (0-10)
[2022-11-05 05:49] LABS: Alanine Aminotransferase 16 U/L (0-33); Albumin Level 3.9 g/dL (3.5-5.2); Alkaline Phosphatase 100 U/L (35-105); Aspartate Amino Transferase 22 U/L (0-32); Blood Urea Nitrogen 21 mg/dL (8-23); Calcium 9.2 mg/dL (8.5-10.5); Carbon Dioxide 20 mmol/L (22-29); Chloride 109 mmol/L (98-107); Globulin 2.4 g/dL (1.3-4.6); Glucose 104 mg/dL (65-115); Osmolality Calculated 295 mOsm/kg (285-295); Sodium 141 mmol/L (136-145); Total Bilirubin 0.3 mg/dL (0.15-1.2); Total Protein 6.3 g/dL (6.6-8.7)
--- NOTE | 2022-11-05 05:50 | P.HP_ITS ---
Providers/Chief Complaint Primary Care Provider: Vicente More MD Chief Complaint: cp History of Present Illness Kaitlin Meade is a 77 year old female who recently had stress test which showed jerson-infarct ischemia versus attenuation artifact presenting today with chief complaint of chest pain. First troponin in the ER is 20, patient is chest pain-free, hospitalist service has been requested to observe her, her labs are pending there is no EKG uploaded to the system yet. I requested D-dimer, EKG showing sinus rhythm bundle branch block Patient has been evaluated by Dr. Bass for abnormal stress test patient gets recurrent chest pain which will last for a few minutes to a few hours, this time her chest pain started around midnight which she describes as pressure and stabbing pain, no relief of pain with nitroglycerin, she is able to pinpoint area of pain towards her left chest, she does use local marijuana & consumes alcohol occasionally Dr. Bass recommended echo to see wall motion abnormality, patient has history of anaphylactic reaction to iodine coronary angiogram was considered a last resort Review of Systems Const: Denies: fever(s) Eyes: Denies: change in vision ENMT: Denies: throat pain Card: Reports: chest pain Resp: Denies: dyspnea GI: Denies: abdominal pain : Denies: flank pain Musc: Denies: neck pain Skin/Breast: Denies: rash Neuro: Denies: headache(s) Psych: Reports: anxiety Endo: Denies: polyuria Eddie/Lymph: Denies: easy bruising All/Imm: Denies: urticaria Medications/Allergies Home Medications Medication Instructions Recorded Confirmed Last Taken Type vedolizumab 300 mg intravenous See Rx Instructions .Route .COMPLEX 11/20/19 10/08/22 12/19/21 History solution (Entyvio) cholecalciferol (vitamin D3) 25 25 mcg PO DAILY 12/27/21 10/08/22 04/09/22 History mcg (1,000 unit) capsule cyclobenzaprine 10 mg tablet 10 mg PO TID PRN muscle spasms 12/27/21 10/08/22 Unknown History ondansetron HCl 4 mg/5 mL oral 4 mg PO Q6H PRN Nausea 01/21/22 10/08/22 Unknown History solution ascorbic acid (vitamin C) 500 mg 500 mg PO DAILY 04/10/22 10/08/22 04/09/22 History tablet (Vitamin C) gabapentin 100 mg capsule 100 mg PO BEDTIME 04/10/22 10/08/22 04/09/22 History potassium chloride 10 mEq See Rx Instructions .Route 06/04/22 10/08/22 Unknown Rx capsule,extended release .COMPLEX #120 caps cyanocobalamin (vitamin B-12) 1,000 mcg IM Q30D #10 mL 06/18/22 10/08/22 Unknown Rx 1,000 mcg/mL injection solution folic acid 1 mg tablet 1 mg PO DAILY #90 tabs 09/16/22 10/08/22 Unknown Rx magnesium oxide 500 mg capsule 500 mg PO BID 09/22/22 10/08/22 Unknown History omega-3 fatty acids 1,000 mg 1,000 mg PO DAILY 09/22/22 10/08/22 Unknown History capsule vitamin B complex 1 tab PO DAILY 09/22/22 10/08/22 Unknown History lisinopril 5 mg tablet See Rx Instructions .Route 10/06/22 10/08/22 Unknown Rx .COMPLEX #180 tabs nitroglycerin 0.4 mg sublingual 0.4 mg sublingual Q5M PRN chest 10/09/22 10/09/22 Unknown Rx tablet pain #30 tabs pantoprazole 40 mg tablet,delayed 40 mg PO DAILY 10/09/22 Unknown History release Allergies Allergy/AdvReac Type Severity Reaction Status Date / Time aspirin Allergy Unknown Verified 11/05/22 04:58 Iodine and Iodide Containing Allergy ALGY-Anaphy Verified 11/05/22 04:58 Produc laxis prochlorperazine Allergy Unknown Verified 11/05/22 04:58 [From Compazine] PFSH Acute PFSH: Medical History CKD stage G3b/A1, GFR 30-44 and albumin creatinine ratio <30 mg/g Crohn's disease Depression GERD (gastroesophageal reflux disease) History of DVT (deep vein thrombosis) Hypertension Normocytic anemia Surgical History History of bowel resection History of colonoscopy History of incisional hernia repair Port-A-Cath in place (05/15/21) Family History Other Diabetes Social History Smoking and tobacco status: never smoked Vitals/I&O/Wt Last Vital Signs Temp 98.1 F 11/05/22 04:58 Pulse 71 11/05/22 04:49 Resp 20 H 11/05/22 05:02 BP 168/82 11/05/22 04:49 Pulse Ox 98 11/05/22 05:02 O2 Del Method 11/05/22 04:49 O2 Flow Rate 2 11/05/22 04:49 Weight last 48 hrs Weight 124.738 kg Physical Exam Narrative: Chest pain-free S1, S2 Hemodynamically stable Currently on 2 L of nasal cannula Abdomen soft Euvolemic Pleasant and cooperative No active distress Nonfocal neuro exam GCS 15 Data 11/05/22 05:03 11/05/22 05:03 A&P Assessment and plan (1) Crohn's disease: (2) Benign essential HTN: (3) CKD stage G3b/A1, GFR 30-44 and albumin creatinine ratio <30 mg/g: (4) Normocytic anemia: (5) History of DVT (deep vein thrombosis): (6) Depression: Qualifiers: Depression Type: unspecified Qualified Code(s): F32.9 - Major depressive disorder, single episode, unspecified (7) GERD (gastroesophageal reflux disease): (8) Unstable angina: Plan Atypical chest pain Recurrent chest pain Troponin 20 Bradycardia on EKG and CBC BMP results Patient is chest pain-free, will request echo, if echo shows any wall motion abnormality then she will need cardiology evaluation Recent stress test showed jerson-infarct ischemia in RCA territory versus artifact We will touch base with the store protection specialist to see if patient would benefit from any intervention at this point I will request D-dimer Hemodynamically stable We will give a GI cocktail Chest x-ray consistent with hiatal hernia? EKG showing sinus rhythm right bundle branch block Full code Cardiac diet DVT prophylaxis on board Crohn's disease, no acute flare, continue Entyvio She is stating her echo was done last report is still pending, will request report, I will cancel my order for now Patient symptoms are very atypical and she is able to pinpoint the area of chest discomfort which she describing as stabbing pain she does have history of hiatal hernia I do believe her symptoms are GI related at this point Attestations Medical Necessity Statement*: Anticipating discharge within 48 hours Diagnoses Crohn's disease K50.90 Benign essential HTN I10 CKD stage G3b/A1, GFR 30-44 and albumin creatinine ratio <30 mg/g N18.3 Normocytic anemia D64.9 History of DVT (deep vein thrombosis) Z86.718 Depression F32.9 Depression Type: unspecified GERD (gastroesophageal reflux disease) K21.9 Unstable angina I20.0
[2022-11-05] MEDS: HYDROmorphone 1 mg/mL INJ 1 mL 0.5 MG IVP (05:51)
[2022-11-05 06:04] LABS: Anion Gap 16.5 (5-19)
[2022-11-05 06:05] LABS: INR 1.07 (0.8-1.2); Potassium 4.5 mmol/L (3.5-5.1)
[2022-11-05 06:30] LABS: D Dimer 0.77 ug/mIFEU (0-0.59)
--- NOTE | 2022-11-05 07:15 | ECG_ITS ---
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 Measurements Intervals [place] Rate: 57 P: 106 AR: 196 QRS: 252 QRSD: 177 T: 197 QT: 420 QTc: 411 Interpretive Statements SINUS BRADYCARDIA RIGHT AXIS DEVIATION [QRS AXIS > 100] RIGHT BUNDLE BRANCH BLOCK [120+ ms QRS DURATION, UPRIGHT V1, 40+ ms S IN I/aVL/V4/V5/V6] POSSIBLE SEPTAL MYOCARDIAL INFARCTION , PROBABLY OLD [30 ms Q WAVE IN V1/V2] MODERATE T-WAVE ABNORMALITY, CONSIDER INFERIOR ISCHEMIA [-0.1+ mV T-WAVE IN II/aVF] Compared to ECG 11/05/2022 04:55:59 Right-axis deviation now present Myocardial infarct finding now present T-wave abnormality now present Possible ischemia now present Sinus rhythm no longer present Left anterior fascicular block no longer present Electronically Signed On 11-06-2022 0:19:37 CDT by Gloria Bass M.D. [id number]
[2022-11-05 07:28] LABS: Troponin 5 2HR 18.64 ng/L (0-10)
[2022-11-05 07:29] LABS: Troponin 5 2HR Delta -1.36 ABS# (0-10)
[2022-11-05] MEDS: lidocaine 2% viscous 15 ML, aluminum-mag hydrox-simethicon 30 ML, sucralfate oral liq 1 GM PO (07:51)
[2022-11-05] MEDS: enoxaparin 40 mg/0.4 mL Syringe SUBCUT (07:55)
[2022-11-05] MEDS: lisinopril 5 mg Tablet PO (09:19)
[2022-11-05] MEDS: magnesium oxide 400 mg tablet PO ×2 (09:19→18:37)
[2022-11-05] MEDS: folic acid 1 mg Tablet PO (09:20)
[2022-11-05] MEDS: morphine IR 15 mg Tablet PO (11:34)
[2022-11-05 11:49] LABS: Troponin 5 6HR 19.31 ng/L (0-10)
[2022-11-05 11:53] LABS: Troponin 5 6HR Delta -0.69 ng/L (0-12)
[2022-11-05] MEDS: clopidogrel 75 mg Tablet PO (14:38)
[2022-11-05] MEDS: pantoprazole 40 mg SDV IVP (14:38)
--- NOTE | 2022-11-05 15:33 | P.MISC_ITS ---
Miscellaneous Note Purpose of Documentation: Cross coverage note. Note: H&P and labs appreciated. Patient admitted earlier today morning today. Lying comfortably in bed on examination. Denies any further chest pain. States she has been having on and off chest heaviness which is different than what happened earlier today morning. She was resting in bed when she started having left-sided localized chest pain radiating to jaw relieved after coming to the hospital. Denies any nausea, vomiting, headache. States does have chest pressure on exertion on and off. Smokes THC on and off. No past history of cardiac issues. No family history of CAD. Does have history of sleep apnea for which she uses CPAP on and off. Plan: Care discussed in detail with Dr. Bass who is patient's outpatient electric bath attendant. Echocardiogram done as an outpatient few days ago shows an EF of 55% with grade 1 diastolic dysfunction and regional wall motion abnormality. Check A1c, lipid panel. Meanwhile start patient on atorvastatin 20 mg daily, Plavix 75 mg daily. It states patient is allergic to aspirin. History of CKD. Baseline creatinine seems to be on 1.3-1.5. Currently 1.5. Start on gentle IV hydration with normal saline at 75 cc/h. Hold off on lisinopril for now. Start on amlodipine 10 mg daily. Goal blood pressure less than 140/90 mmHg. Will uptitrate blood pressure medications accordingly. Other Coding Information Prolonged care (total time indicated above or notated here)
[2022-11-05] MEDS: sodium chloride 0.9% 1,000 ML 75 ML IV (16:01)
[2022-11-05 16:08] LABS: Iron 48 ug/dL (37-145); Percent Saturation 13.5 % (20-50); Total Iron Binding Capacity 353 mcg/dl; Unsaturated Iron Binding 305 ug/dL (112-347)
[2022-11-05 16:24] LABS: Vitamin B12 640 pg/mL (232-1245)
[2022-11-05 16:25] LABS: Thyroid Stimulating Hormone 3.65 uIU/mL (0.27-4.20)
--- NOTE | 2022-11-05 17:28 | P.CONIM_ITS ---
Providers/Reason For Consult Consulting Physician/Specialty*: Dr TONY Bass/ Cardiology Reason for Consult*: Pt with chest pain/ Abnormal stress test Requesting Physician: Dr Mon Attending Physician: Felice Guzman MD Primary Care Provider: Vicente More MD History of Present Illness History of Present Illness Kaitlin Meade is a 77 year old female is admitted to the hospital with complaints of chest pain. She had a Myocardial perfusion imaging recently and was found to be abnormal. Cardiology consult is requested for further cardiac evaluation recommendations. This patient has been having episodes of palpitation and chest pain for the last couple of years. She has no definite precipitating factors for these spells. Each of these episodes may last anywhere from few seconds to few minutes. It usually subsides spontaneously. She also has acid reflux symptoms which may last for few minutes to few hours. The chest discomfort usually in the mid substernal area occasionally radiate to the neck. Yesterday around 11 PM, while she was watching TV, started having the pain in the left upper part of the chest. The pain was felt like a hurt and heaviness which was 4-5/10 intensity. The pain radiated to the left side of the neck and also to the jaw. She had associated nausea and sweating. She took a total of 3 sublingual nitro at various intervals. Apparently there was no significant improvement of the symptoms. By 3:30 in the morning, since the symptoms were not subsiding, she called the ambulance and was brought to the emergency room. In the ambulance she was given 1 more sublingual nitro with no relief. In the emergency room, she was given medication for nausea and morphine for the pain. The symptoms gradually started improving. She still has some tight feeling in the chest but is much better. She has no other associated symptoms or radiation of pain. Compared to the previous pains, the quality of the pain, radiation to the jaw, the duration and also the associated sweating were new. She has a history of hypertension and had a recent ER visit for accelerated hypertension. She was complaining of some chest tightness/heaviness at that time too. She had the Myocardial perfusion imaging after this event. Patient has a history of ventricular arrhythmia-symptomatic PVCs and obstructive sleep apnea She has a history of a Crohn's disease , multiple abdominal surgeries and incisional hernias. She is being evaluated by the general surgery for incisional hernia repair. Review of Systems Narrative: CONSTITUTIONAL: No fever or chills. EYES: No blurring of vision or other visual disturbances lately. ENT: No hoarseness of voice, auditory disturbances or sore throat. CARDIOVASCULAR: As mentioned above. RESPIRATORY: No significant cough. GASTROINTESTINAL: No hematemesis or melena. GENITOURINARY: No dysuria or hematuria. INTEGUMENTARY: No skin rashes or history of skin cancer. NEURO: No transient ischemic attacks or amaurosis. PSYCHIATRIC: No history of psychosis or major depression. HEMATOLOGIC: No bleeding disorders or significant anemia. ENDOCRINE: No history of polyuria or polydipsia. MUSCULOSKELETAL: No recent joint pain or swelling. ALLERGY/IMMUNOLOGY: As mentioned above. Medications/Allergies Home Medications Medication Instructions Recorded Confirmed Last Taken Type vedolizumab 300 mg intravenous See Rx Instructions .Route .COMPLEX 11/20/19 11/05/22 12/19/21 History solution (Entyvio) cholecalciferol (vitamin D3) 25 25 mcg PO DAILY 12/27/21 11/05/22 04/09/22 History mcg (1,000 unit) capsule ondansetron HCl 4 mg/5 mL oral 4 mg PO Q6H PRN Nausea 01/21/22 11/05/22 Unknown History solution gabapentin 100 mg capsule 100 mg PO BEDTIME PRN Pain 04/10/22 11/05/22 04/09/22 History potassium chloride 10 mEq See Rx Instructions .Route 06/04/22 11/05/22 Unknown Rx capsule,extended release .COMPLEX #120 caps cyanocobalamin (vitamin B-12) 1,000 mcg IM Q30D #10 mL 06/18/22 11/05/22 Unknown Rx 1,000 mcg/mL injection solution folic acid 1 mg tablet 1 mg PO DAILY #90 tabs 09/16/22 11/05/22 Unknown Rx magnesium oxide 500 mg capsule 500 mg PO BID 09/22/22 11/05/22 Unknown History omega-3 fatty acids 1,000 mg 1,000 mg PO DAILY 09/22/22 11/05/22 Unknown History capsule vitamin B complex 1 tab PO DAILY 09/22/22 11/05/22 Unknown History lisinopril 5 mg tablet See Rx Instructions .Route 10/06/22 11/05/22 Unknown Rx .COMPLEX #180 tabs nitroglycerin 0.4 mg sublingual 0.4 mg sublingual Q5M PRN chest 10/09/22 11/05/22 Unknown Rx tablet pain #30 tabs pantoprazole 40 mg tablet,delayed 40 mg PO DAILY 10/09/22 11/05/22 Unknown History release ascorbic acid 1,000 1 ea PO DAILY 11/05/22 11/05/22 Unknown History jc-wokzsfjptwnk-guxendse powder effervescent pack (Emergen-C) lactobacillus comb no.10 20 20,000 mmu cells PO DAILY 11/05/22 11/05/22 Unknown History billion cell capsule (Probiotic) tumeric 100 mg-sadiq 150 mg-olive 1 cap PO DAILY 11/05/22 11/05/22 Unknown History 50 mg-oreg 150 mg-caprylate capsule Allergies Allergy/AdvReac Type Severity Reaction Status Date / Time aspirin Allergy Unknown Verified 11/05/22 04:58 Iodine and Iodide Containing Allergy ALGY-Anaphy Verified 11/05/22 04:58 Produc laxis prochlorperazine Allergy Unknown Verified 11/05/22 04:58 [From Compazine] Current Medications Generic Name Dose Route Start Last Admin Trade Name Freq PRN Reason Stop Dose Admin Clopidogrel Bisulfate 75 mg 11/05/22 14:20 11/05/22 14:38 Clopidogrel 75 Mg Tablet PO 75 mg DAILY SAMANTHA Administration Enoxaparin Sodium 40 mg 11/05/22 08:00 11/05/22 07:55 Enoxaparin 40 Mg/0.4 Ml Syringe SUBCUT 40 mg Q24H SAMANTHA Administration Folic Acid 1 mg 11/05/22 09:00 11/05/22 09:20 Folic Acid 1 Mg Tablet PO 1 mg DAILY SAMANTHA Administration Sodium Chloride 1,000 mls @ 75 mls/hr 11/05/22 15:45 11/05/22 16:01 Sodium Chloride 0.9% IV 75 mls/hr .[id number] SAMANTHA Administration Magnesium Oxide 400 mg 11/05/22 09:00 11/05/22 09:19 Magnesium Oxide 400 Mg Tablet PO 400 mg BID SAMANTHA Administration Pantoprazole Sodium 40 mg 11/05/22 14:20 11/05/22 14:38 Pantoprazole 40 Mg Sdv IVP 40 mg DAILY SAMANTHA Administration PFSH Acute PFSH: Medical History CKD stage G3b/A1, GFR 30-44 and albumin creatinine ratio <30 mg/g Crohn's disease Depression GERD (gastroesophageal reflux disease) History of DVT (deep vein thrombosis) Hypertension Normocytic anemia JEFFREY on CPAP Surgical History History of bowel resection History of colonoscopy History of incisional hernia repair Port-A-Cath in place (05/15/21) Family History Other Diabetes Social History Smoking and tobacco status: never smoked Vitals/I&O/Wt Last Vital Signs Temp 97.8 F 11/05/22 06:10 Pulse 65 11/05/22 14:00 Resp 18 11/05/22 11:34 BP 147/92 11/05/22 06:10 Pulse Ox 97 11/05/22 11:34 O2 Del Method 11/05/22 08:55 O2 Flow Rate 1.5 11/05/22 08:55 11/05/22 11/05/22 11/05/22 06:59 14:59 22:59 Intake Total 200 / 200 Balance 200 / 200 Weight last 48 hrs Weight 284 lb Weight 275 lb Physical Exam Narrative: GENERAL: The patient is alert and oriented times three. Not in any acute distress. Obese HEENT: No significant pallor, icterus or lymphadenopathy.Oral cavity: There are no mucous membrane lesions. NECK: Trachea appears to be central. No masses noted. No JVD or thyromegaly appr eciated. RESPIRATORY: Chest is symmetrical. No intercostals muscle retraction or any accessory muscle activation. Moderate chest wall tenderness on the left side.. Breath sounds are heard bilaterally. No rales or rhonchi heard. No evidence of any consolidation. BREASTS: Deferred. HEART: The heart sounds are normal. No S3 or S4. No significant murmurs. No pericardial rub ABDOMEN: No vessel pulsations or distention. No tenderness. No organomegaly appreciated. Bowel sounds are normally heard. : Deferred. RECTAL: Deferred. LYMPHATIC: No lymphadenopathy noted in the neck. EXTREMITIES: No edema or cyanosis. No clubbing. MUSCULOSKELETAL: No acute joint deformities or swelling SKIN: There are no significant rashes or ecchymosis NEUROPSYCHIATRIC: The patient is alert and oriented x3. Appears to be in a good mood. No tremors or rigidity noted. Data 11/05/22 05:03 11/05/22 05:03 Other Labs: Laboratory Last Values WBC 7.0 10^3/uL (4.0-10.0) 11/05/22 05:03 RBC 3.90 10^6/uL (4.1-5.3) L 11/05/22 05:03 Hgb 11.2 g/dL (11.5-15.3) L 11/05/22 05:03 Hct 38.2 % (37.0-47.0) 11/05/22 05:03 MCV 97.9 fl (81-99) 11/05/22 05:03 MCH 28.7 pg (28.0-34.0) 11/05/22 05:03 MCHC 29.3 g/dL (30.0-36.0) L 11/05/22 05:03 RDW 13.5 % (12.1-15.1) 11/05/22 05:03 Plt Count 189 10^3/cmm (130-400) 11/05/22 05:03 MPV 9.1 fL (7.4-10.4) 11/05/22 05:03 Neut % (Auto) 67.9 % 11/05/22 05:03 Lymph % (Auto) 22.6 % 11/05/22 05:03 [place] % (Auto) 5.7 % 11/05/22 05:03 Eos % (Auto) 2.8 % 11/05/22 05:03 Baso % (Auto) 0.6 % 11/05/22 05:03 Neut # (Auto) 4.76 10^3/uL (1.8-7.7) 11/05/22 05:03 Lymph # (Auto) 1.6 10^3/uL (0.8-4.8) 11/05/22 05:03 [place] # (Auto) 0.4 10^3/uL (0.2-0.9) 11/05/22 05:03 Eos # (Auto) 0.2 10^3/uL (0.0-0.8) 11/05/22 05:03 Baso # (Auto) 0.0 10^3/uL (0.0-0.1) 11/05/22 05:03 Nucleated RBC % (auto) 0 % 11/05/22 05:03 Nucleated RBCs # 0.0 /100WBC 11/05/22 05:03 PT 14.30 SECONDS (12.1-14.9) 11/05/22 05:03 INR 1.07 (0.8-1.2) 11/05/22 05:03 D-Dimer 0.77 ug/mIFEU (0-0.59) H 11/05/22 05:03 Sodium 141 mmol/L (136-145) 11/05/22 05:03 Potassium 4.5 mmol/L (3.5-5.1) 11/05/22 05:03 Chloride 109 mmol/L (98-107) H 11/05/22 05:03 Carbon Dioxide 20 mmol/L (22-29) L 11/05/22 05:03 Anion Gap 16.5 (5-19) 11/05/22 05:03 BUN 21 mg/dL (8-23) 11/05/22 05:03 Creatinine 1.5 mg/dL (0.5-0.9) H 11/05/22 05:03 GFR Calculation Not Reportable 11/05/22 05:03 Glucose 104 mg/dL (65-115) 11/05/22 05:03 Calculated Osmolality 295 mOsm/kg (285-295) 11/05/22 05:03 Calcium 9.2 mg/dL (8.5-10.5) 11/05/22 05:03 Iron 48 ug/dL (37-145) 11/05/22 06:55 TIBC 353 mcg/dl 11/05/22 06:55 % Saturation 13.5 % (20-50) L 11/05/22 06:55 Unsat Iron Binding 305 ug/dL (112-347) 11/05/22 06:55 Total Bilirubin 0.3 mg/dL (0.15-1.2) 11/05/22 05:03 AST 22 U/L (0-32) 11/05/22 05:03 ALT 16 U/L (0-33) 11/05/22 05:03 Alkaline Phosphatase 100 U/L (35-105) 11/05/22 05:03 Troponin T Baseline 20 ng/L (0-10) H 11/05/22 05:03 Troponin T 120 Minute 18.64 ng/L (0-10) H 11/05/22 06:55 Delta Troponin T -1.36 ABS# (0-10) L 11/05/22 06:55 Troponin T Hi Sens 6Hr 19.31 ng/L (0-10) H 11/05/22 11:21 Troponin T Hi Sens 6Hr Delta -0.69 ng/L (0-12) L 11/05/22 11:21 Total Protein 6.3 g/dL (6.6-8.7) L 11/05/22 05:03 Albumin 3.9 g/dL (3.5-5.2) 11/05/22 05:03 Globulin 2.4 g/dL (1.3-4.6) 11/05/22 05:03 Vitamin B12 640 pg/mL (232-1245) 11/05/22 06:55 TSH 3.65 uIU/mL (0.27-4.20) 11/05/22 06:55 Other data: EKG from today 09/25/22 Normal sinus rhythm with a left axis deviation. Nonspecific IVCD. Right bundle branch block pattern. Nonspecific T wave changes in the inferior and lateral leads. Small Q waves in lead V2 suggesting possible old septal PA. Echocardiogram on 10/30/2022 Normal LV size ejection fraction of 55%.? Mild hypokinesia of ?the apical lateral wall segment.Grade I/IV diastolic dysfunction ?(abnormal relaxation filling pattern), normal to mildly elevated ?filling pressures. ?Trace to mild tricuspid valve regurgitation. ?Thickened aortic valve. ?Trace mitral valve regurgitation. ?There is no pericardial effusion. ?There are no intracardiac masses. ?No similar previous studies are available for comparison Stress test 1. Medium sized area of prior infarct with minimal jerson-infarct ischemia in the ?RCA territory noted. Attenuation artifact can? not be ruled out. Clinical ?correlation is required ?2. LV systolic function is normal 1. No significant EKG changes with the LexiScan infusion 2. No LexiScan induced chest pain or cardiac arrhythmia 3. Normal blood pressure and heart rate response 02/12/22 Event monitor 1.? The baseline rhythm was found to be normal rhythm with frequent ventricular and supraventricular ectopics, comprising 2% and 1% respectively of the total heartbeats.? The ectopics are mostly in the form of isolated beats ?2. The one symptom that was mentioned was found to be associated with the supraventricular ectopics 3.? No previous similar studies, available for comparison 07/05/21 Venous duplex No evidence of left lower extremity DVT. A&P Assessment and plan (1) Chest pain: Patient chest pain, he is atypical. However in view of the multiple risk factors and abnormal Myocardial perfusion imaging along with the wall motion abnormality by echocardiogram all could suggest underlying coronary ischemia. Currently she seems to be stable. She will be treated with nitrates, beta- blockers, aspirin and heparin. So far she has no evidence of any myocardial injury. Patient has some chest wall tenderness, suggesting a musculoskeletal pathology as well. (2) Abnormal cardiovascular stress test: As mentioned above. For further evaluation of the patient's her coronary status, she may benefit from a cardiac catheterization. (3) Benign essential HTN: Currently the blood pressures are stage II. We will try to optimize the antihypertensive medications. (4) Crohn's disease: (5) Ventricular arrhythmia: Currently seems to be stable. No significant arrhythmias on the monitor. (6) JEFFREY on CPAP: May continue on the current management. (7) Allergy to iodine: Patient needs to premedicate with the prednisone. (8) Chronic kidney disease: Patient needs to be started on IV hydration Plan Patient is consult status is not known. We may go ahead and do a lipid profile on the blood in the lab. Patient has iodide allergy. She needs to be premedicated. For further evaluation of the coronary status, she may benefit from a cardiac catheterization. The risk and benefits were discussed. Patient carries a high risk for contrast-induced nephropathy and anaphylactic reaction to iodine. Even after premedication, she still carries risk. The risk of bleeding, hematoma, vascular injury, myocardial infarction, myocardial perforation, malignant card iac arrhythmias ,CVA, renal failure and other concomitant complications were explained in detail. Patient understood these issues well and consented to proceed. Patient with angiogram findings, further recommendations will be made. Patient will be premedicated with prednisone 50 mg every 6 hours times the, Benadryl 25 mg every 8 hours and Pepcid 10 mg p.o. twice daily. Coding Level of Care Code 44610 Diagnoses Chest pain R07.9 Abnormal cardiovascular stress test R94.39 Benign essential HTN I10 Crohn's disease K50.90 Ventricular arrhythmia I49.9 JEFFREY on CPAP G47.33; Z99.89 Allergy to iodine Z88.8 Chronic kidney disease N18.9
[2022-11-05] MEDS: famotidine 20 mg Tablet 10 MG PO (18:38)
[2022-11-05] MEDS: predniSONE 20 mg Tablet 50 MG PO (18:38)
--- NOTE | 2022-11-05 20:30 | PC.NURSE ---
Phone call placed to Dr. Bass to clarify dosing times on benadryl and prednisone. Diphenhydramine to start tonight and patient to be given a third dose of prednisone at 0600.
[2022-11-05 21:18] LABS: Folate Level > 20.0 ng/mL (4.8-37.3)
[2022-11-05] MEDS: diphenhydrAMINE 25 mg Capsule PO (22:00)
[2022-11-05] MEDS: atorvastatin 40 mg Tablet 20 MG PO (22:00)
[2022-11-06] VITALS (58 sets, daily range): BP systolic 113–137; BP diastolic 55–111; PULSE 53–92; RESP 11–22; TEMP 36.4–37.1; O2SAT 90–99
[2022-11-06] MEDS: predniSONE 20 mg Tablet 50 MG PO ×2 (00:10→06:03)
[2022-11-06 05:00] LABS: Basophils % 0.2 %; Eosinophils % 0.4 %; Hematocrit 36.4 % (37.0-47.0); Hemoglobin 10.9 g/dL (11.5-15.3); Lymphocytes # 0.7 10^3/uL (0.8-4.8); Lymphocytes % 12.1 %; Mean Corpuscular HGB Conc 29.9 g/dL (30.0-36.0); Mean Corpuscular Hemoglobin 28.7 pg (28.0-34.0); Mean Corpuscular Volume 95.8 fl (81-99); Mean Platelet Volume 11.2 fL (7.4-10.4); Monocytes % 0.7 %; Neutrophils # 4.61 10^3/uL (1.8-7.7); Nucleated Red Blood Cells % 0 %; Platelet Count 149 10^3/cmm (130-400); Red Cell Distribution Width 13.5 % (12.1-15.1); White Blood Count 5.4 10^3/uL (4.0-10.0)
[2022-11-06 05:19] LABS: Alanine Aminotransferase 14 U/L (0-33); Albumin Level 3.5 g/dL (3.5-5.2); Alkaline Phosphatase 88 U/L (35-105); Anion Gap 15.7 (5-19); Aspartate Amino Transferase 17 U/L (0-32); Blood Urea Nitrogen 25 mg/dL (8-23); Calcium 8.3 mg/dL (8.5-10.5); Carbon Dioxide 17 mmol/L (22-29); Chloride 109 mmol/L (98-107); Chol HDL Ratio 1.99 mg/dL (0.0-4.40); Cholesterol 173 mg/dL (0-200); Globulin 2.8 g/dL (1.3-4.6); Glucose 139 mg/dL (65-115); HDL Cholesterol 87 mg/dL (60-100); LDL Cholesterol Calculated 71 mg/dL (50-129); Magnesium 1.6 mg/dL (1.7-2.3); Osmolality Calculated 291 mOsm/kg (285-295); Potassium 4.7 mmol/L (3.5-5.1); Sodium 137 mmol/L (136-145); Total Bilirubin 0.2 mg/dL (0.15-1.2); Total Protein 6.3 g/dL (6.6-8.7); Triglycerides 75 mg/dL (0-150); VLDL Cholestrol Calculation 15 mg/dL (0-30)
[2022-11-06 05:24] LABS: Estmated Average Glucose 103; Hemoglobin A1C 5.2 % (4.0-6.0)
[2022-11-06] MEDS: diphenhydrAMINE 25 mg Capsule PO ×2 (06:02→14:00)
--- NOTE | 2022-11-06 06:52 | XACV_ITS ---
Exam Room: [facility] Ht: 168 cm Wt: 129 kg BSA: 2.52 m2 Gender: Female : 1945 Any Known Allergies: Other Exam Priority: Routine Indication(s): - Chest Pain in spite of Medical Tx - Abnormal adenosine stress study - Abnormal stress perfusion study Procedure(s): Procedure Description: Diagnostic procedure Procedure Description: Left Heart Catheterization Procedure Description: Left ventriculography Procedure Description: Coronary Angiography [place]; Diagnostic Cath Status: Urgent Diagnostic Findings * Initially the angiogram was attempted through the radial artery.. But the patient subclavian artery was found to be extremely tortuous. So it was decided to go through the right femoral artery. * The left main is a medium caliber vessel with no significant stenotic lesions. * The left anterior descending artery is a medium caliber vessel which appears to wraparound the LV apex minimally. The proximal and mid LAD was found to have mild diffuse intimal irregularities. No significant stenotic lesions were noted. * The left circumflex artery is a medium caliber vessel ,found to have some intimal irregularities distally. No significant stenotic lesions were noted. * The right coronary artery is a medium caliber dominant vessel which WAS found to have mild diffuse intimal irregularities in the proximal and mid segment. No significant stenotic lesions were noted. Conclusions 1. Patient with history of hypertension, dyslipidemia, obesity and Crohn's disease presenting with increasing episodes of chest pain. Abnormal Myocardial perfusion imaging. Cardiac analysis revealed the following. 2. Mild coronary artery disease. Normal LV ejection fraction of 50%. Mild hypokinesia of the anteroapical region. LVEDP of 11 mmHg. Diagnostic RX Recommendation: medical therapy and/or counseling LV EDP: 11 mmHg Ventriculography Ejection Fraction: 50.0 % Left Ventriculography Findings: * The LV gram was performed in the MEDINA view. Study is suboptimal quality because of the poor opacification of the LV cavity. There is mild hypokinesia of the anteroapical region. The LV ejection fraction was around 50%. No significant mitral valve prolapse or mitral regurgitation. Pressures Phase:Rest AO : 131 / 63 ( 92 ) @ 9:57:00 AM 130 / 57 ( 91 ) @ 9:57:00 AM LV : 114 / -5 / 11 @ 9:56:00 AM 125 / 3 / 21 @ 9:57:00 AM 124 / 4 / 20 @ 9:57:00 AM Valves Phase:DefaultPhase AV : 0.0 @ 9:08:29 AM 0.0 @ 9:08:29 AM AV Mean Gradient: 0.0 @ 9:08:29 AM 0.0 @ 9:08:29 AM Clinical Evaluation EBL: 5mL-10mL Procedural Details Procedure Consent Obtained. Pre-Procedure Time Out. Identified patient by full name and date of as verbalized by the patient/guarantor. Does the consent match the physician's order: Yes. Accurate & Complete Informed Consent: Yes. Inpatient/Outpatient History & Physical on Chart: Yes. If H&P is completed, is and addenduem needed: No; If yes, is the addendum complete: N/A. Visualize and Verify Site with Patient/Guarantor: N/A. Relevant Radiology Images available: N/A. The risks, benefits, and alternatives of sedation and/or procedure were discussed by physician. The patient agrees to continue. Procedure started. [facility] Clinical Fraility Score: 4: Vulnerable. 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 Chest Pain Symptom Assessment: Atypical Angina. Cardiovascular Instability: No, stable. Correct patient, site and procedure confirmed by cath team. Current diagnosis: Abnormal stress test; Worsening chest pain. PERRLA. 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 Lungs clear x 5 lobes. IV Site on Arrival: 20 gauge in the left wrist. IV Fluids: 0.9% NaCl at KVO. 400 mL infused prior to supervisor laboratory animal facility. Pre Procedural Pulses: bilateral dorsalis pedis was Doppled. Pre Procedural Pulses: bilateral posterior tibial was Doppled. Pre Procedural Pulses: bilateral radial was 3+. Oxygen started at 3liters/min via nasal canula. right radial was prepped with chloroprep then draped in the usual sterile fashion. right groin was prepped with chloroprep then draped in the usual sterile fashion. Physician notified. Baseline sample Acquired. HR: 65 BPM. Family updated by MD prior to the procedure. Equipment: 5F - Femoral. Cardiac Cath Pack. ACIST Manifold Kit Model BT 2000. Equipment: 5F - Radial. Heparinized Saline (2 units/mL), 1000 mL bag. Physician arrived. Physician scrubbed in. Immediate Pre-Procedure Time Out. Admit Source: In Patient. Current Diagnosis : Chest Pain. Correct Patient: Yes; Correct Procedure: Yes; Correct Site: Yes; Correct Patient Position: Yes; Correct Supplies: Yes; Dried Flammable Prep: Yes; Blood Products Available: N/A;. Lidocaine 1% infiltrated to the right radial. Arterial access obtained. Test dose of 1 ml of contrast given to assess for allergic reaction. No reaction noted. Proceeding with a cath. A 5 mo[place] Jase catheter in over wire. Wire removed. Doing a hand infection in the right subclavian region for anatomy assessment. Glidewire inserted. Unable to advance. Catheter and glidewire removed. Aborting radial procedure. MD attempting to gain access in the femoral artery. A TR Band was successful obtaining hemostatsis at the Right Radial artery insertion site. TR band placed. Hemostasis obtained. Lidocaine 1% infiltrated to the right groin. Kit, Micropuncture. Arterial access obtained with micropuncture set. A CRD 5F JL4 Diagnostic Catheter was advanced over the wire and used for Left coronary angiography. Multiple views taken of left coronary artery. Catheter removed over the standard wire. A CRD 5F JR4 Diagnostic Catheter was advanced over the wire and used for Right coronary angiography. Multiple views taken of right coronary artery. Catheter removed over the standard wire. A CRD 5F 145 Angled Pig Diagnostic Catheter was advanced over the wire and used for Ventriculography. EDP Sample taken: LV 114/-6,11; HR: 63 BPM; SpO2: 97%. LV gram performed in MEDINA @ 10 mL/second for a total of 30 mL. Patient EF: Normal. EDP Sample taken: LV 125/3,21; HR: 65 BPM; SpO2: 100%. Pullback taken: LV 124/4,20; AO 131/63(92); Mean: 0mmHg, Peak to Peak: 0mmHg, SEP: 15sec/min; HR: 65 BPM; SpO2: 100%. Catheter removed over the standard wire. Physician review of films. Physician scrubbed out. A Suture was successful obtaining hemostatsis at the Right Femoral artery insertion site. Sheath(s) sutured into position with 2-0 silk and sterile 4x4's and Op-site applied over the site. No oozing or signs and symptoms of hematoma noted. Arterial sheath flushed and connected to tranducer and pressure bag with heparinized saline. Post Procedure: Pulses reassessed and unchanged. PERRLA. 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 No VTE prophylaxis required. Medication waste: Nitro 49.8 mg; Heparin 2500 units; Fentanyl 50 mcg. Total IV fluids: 53 mL. Fluoro: 6:07. Contrast type used: Omnipaque 300 mg/mL, 150 mL bottle. [id number]. Post-op diagnosis: Mild CAD. Complications: None. Estimated blood loss: 5mL-10mL. Responsiveness - Normal response to verbal stimuli; alert and oriented, PERRLA. Airway - Unaffected, no intervention required; spontaneous ventilation. Circulation: W/N/L, pulses unchanged. Nausea/Vomiting: No. Procedure completed. Patient transferred by bed to 1st floor. Vital chart was stopped. Access Site Site: Right Radial artery Sheath Size: 6 Fr Hemostasis Method: TR Band Hemostasis Success: Successful Site: Right Femoral artery Sheath Size: 5 Fr Hemostasis Method: Suture Hemostasis Success: Successful Procedure Medications Start: 8:21 AM Stop: 8:21 AM Medication: Solu-Medrol (methylprednisolone) Amount: 100 mg Route: I.V. Start: 8:25 AM Stop: 8:25 AM Medication: Versed Amount: 1 mg Route: I.V. Start: 8:25 AM Stop: 8:25 AM Medication: Fentanyl Amount: 50 mcg Route: I.V. Start: 8:33 AM Stop: 8:33 AM Medication: Verapamil Amount: 5 mg Route: I.A. Start: 8:33 AM Stop: 8:33 AM Medication: Nitrogylcerin Amount: 200 mcg Route: I.A. Start: 8:44 AM Stop: 8:44 AM Medication: Versed Amount: 1 mg Route: I.V. Start: 8:54 AM Stop: 8:54 AM Medication: Heparin Amount: 1500 units Route: I.V. I, the attending physician, have reviewed and verified all procedure medications. Yes, all medications given per verbal order History/Risk Factors Hypertension: Yes Dyslipidemia: Yes Peripheral Arterial Disease (PAD): No Myocardial Infarction (AK): No Obesity: No Renal Disease: No Tobacco Use: Never Prior Interventions PCI: No CABG: No Valve Surgery: No Report Signatures Finalized by Dr Gloria Bass MD [facility] on 11/06/2022 07:00 PM
--- NOTE | 2022-11-06 08:04 | P.PN_ITS ---
Subjective Subjective: Patient has not had recurrence of chest pain since last night. No fever, chills or cough. Her creatinine level has come down to 1.3. Telemetry shows sinus rhythm with no significant arrhythmias. Medications: Medication Review Details: Current Medications Acetaminophen (Acetaminophen 500 Mg Tablet) 500 mg PO Q4H PRN PRN Reason: fever Albuterol/Ipratropium (Ipratropium-Albuterol 3 Ml Neb) 3 ml INHALATION Q6H PRN PRN Reason: SHORTNESS OF BREATH Amlodipine Besylate (Amlodipine 10 Mg Tablet) 10 mg PO DAILY [facility] Atorvastatin Calcium (Atorvastatin 40 Mg Tablet) 20 mg PO BEDTIME [facility] Last Admin: 11/05/22 22:00 Dose: 20 mg Clopidogrel Bisulfate (Clopidogrel 75 Mg Tablet) 75 mg PO DAILY [facility] Last Admin: 11/05/22 14:38 Dose: 75 mg Diphenhydramine HCl (Diphenhydramine 25 Mg Capsule) 25 mg PO Q8H [facility] Stop: 11/06/22 14:01 Last Admin: 11/06/22 06:02 Dose: 25 mg Enoxaparin Sodium (Enoxaparin 40 Mg/0.4 Ml Syringe) 40 mg SUBCUT Q24H [facility] Last Admin: 11/05/22 07:55 Dose: 40 mg Famotidine (Famotidine 20 Mg Tablet) 10 mg PO BID [facility] Last Admin: 11/05/22 18:38 Dose: 10 mg Folic Acid (Folic Acid 1 Mg Tablet) 1 mg PO DAILY [facility] Last Admin: 11/05/22 09:20 Dose: 1 mg Gabapentin (Gabapentin 100 Mg Capsule) 100 mg PO BEDTIME PRN PRN Reason: Pain Sodium Chloride (Sodium Chloride 0.9%) 1,000 mls @ 75 mls/hr IV .[id number] [facility] Last Admin: 11/06/22 07:25 Dose: Not Given Sodium Chloride (Sodium Chloride 0.9%) 1,000 mls @ 75 mls/hr IV .[id number] [facility] Last Admin: 11/06/22 02:58 Dose: Not Given Magnesium Oxide (Magnesium Oxide 400 Mg Tablet) 400 mg PO BID [facility] Last Admin: 11/05/22 18:37 Dose: 400 mg Ondansetron HCl (Ondansetron 2 Mg/Ml Sdv 2 Ml) 4 mg IVP Q6H PRN PRN Reason: NAUSEA AND VOMITING Pantoprazole Sodium (Pantoprazole 40 Mg Sdv) 40 mg IVP DAILY [facility] Last Admin: 11/05/22 14:38 Dose: 40 mg Vitals/I&O/Wt Last Vital Signs Temp 97.5 F L 11/06/22 07:23 Pulse 71 11/06/22 07:23 Resp 16 11/06/22 07:23 BP 119/81 11/06/22 07:23 Pulse Ox 93 11/06/22 07:23 O2 Del Method 11/06/22 07:23 O2 Flow Rate 1.5 11/05/22 08:55 11/05/22 11/06/22 11/06/22 22:59 06:59 14:59 Intake Total 518 / 718 Output Total 975 / 975 Balance -457 / -257 Weight last 48 hrs Weight 284 lb Weight 275 lb Physical Exam Narrative: GENERAL: The patient is alert and oriented times three. Not in any acute distress. Obese HEENT: No significant pallor, icterus or lymphadenopathy.Oral cavity: There are no mucous membrane lesions. NECK: Trachea appears to be central. No masses noted. No JVD or thyromegaly appreciated. RESPIRATORY: Chest is symmetrical. No intercostals muscle retraction or any accessory muscle activation. Moderate chest wall tenderness on the left side.. Breath sounds are heard bilaterally. No rales or rhonchi heard. No evidence of any consolidation. BREASTS: Deferred. HEART: The heart sounds are normal. No S3 or S4. No significant murmurs. No pericardial rub ABDOMEN: No vessel pulsations or distention. No tenderness. No organomegaly appreciated. Bowel sounds are normally heard. : Deferred. RECTAL: Deferred. LYMPHATIC: No lymphadenopathy noted in the neck. EXTREMITIES: No edema or cyanosis. No clubbing. MUSCULOSKELETAL: No acute joint deformities or swelling SKIN: There are no significant rashes or ecchymosis NEUROPSYCHIATRIC: The patient is alert and oriented x3. Appears to be in a good mood. No tremors or rigidity noted. Data 11/06/22 04:33 11/06/22 04:33 Other Labs: Laboratory Last Values WBC 5.4 10^3/uL (4.0-10.0) 11/06/22 04:33 RBC 3.80 10^6/uL (4.1-5.3) L 11/06/22 04:33 Hgb 10.9 g/dL (11.5-15.3) L 11/06/22 04:33 Hct 36.4 % (37.0-47.0) L 11/06/22 04:33 MCV 95.8 fl (81-99) 11/06/22 04:33 MCH 28.7 pg (28.0-34.0) 11/06/22 04:33 MCHC 29.9 g/dL (30.0-36.0) L 11/06/22 04:33 RDW 13.5 % (12.1-15.1) 11/06/22 04:33 Plt Count 149 10^3/cmm (130-400) 11/06/22 04:33 MPV 11.2 fL (7.4-10.4) H 11/06/22 04:33 Neut % (Auto) 86.0 % 11/06/22 04:33 Lymph % (Auto) 12.1 % 11/06/22 04:33 [place] % (Auto) 0.7 % 11/06/22 04:33 Eos % (Auto) 0.4 % 11/06/22 04:33 Baso % (Auto) 0.2 % 11/06/22 04:33 Neut # (Auto) 4.61 10^3/uL (1.8-7.7) 11/06/22 04:33 Lymph # (Auto) 0.7 10^3/uL (0.8-4.8) L 11/06/22 04:33 [place] # (Auto) 0.0 10^3/uL (0.2-0.9) L 11/06/22 04:33 Eos # (Auto) 0.0 10^3/uL (0.0-0.8) 11/06/22 04:33 Baso # (Auto) 0.0 10^3/uL (0.0-0.1) 11/06/22 04:33 Nucleated RBC % (auto) 0 % 11/06/22 04:33 Nucleated RBCs # 0.0 /100WBC 11/06/22 04:33 PT 14.30 SECONDS (12.1-14.9) 11/05/22 05:03 INR 1.07 (0.8-1.2) 11/05/22 05:03 D-Dimer 0.77 ug/mIFEU (0-0.59) H 11/05/22 05:03 Sodium 137 mmol/L (136-145) 11/06/22 04:33 Potassium 4.7 mmol/L (3.5-5.1) 11/06/22 04:33 Chloride 109 mmol/L (98-107) H 11/06/22 04:33 Carbon Dioxide 17 mmol/L (22-29) L 11/06/22 04:33 Anion Gap 15.7 (5-19) 11/06/22 04:33 BUN 25 mg/dL (8-23) H 11/06/22 04:33 Creatinine 1.3 mg/dL (0.5-0.9) H 11/06/22 04:33 GFR Calculation Not Reportable 11/06/22 04:33 Glucose 139 mg/dL (65-115) H 11/06/22 04:33 Estimat Average Glucose 103 11/06/22 04:33 Hemoglobin A1c 5.2 % (4.0-6.0) 11/06/22 04:33 Calculated Osmolality 291 mOsm/kg (285-295) 11/06/22 04:33 Calcium 8.3 mg/dL (8.5-10.5) L 11/06/22 04:33 Magnesium 1.6 mg/dL (1.7-2.3) L 11/06/22 04:33 Iron 48 ug/dL (37-145) 11/05/22 06:55 TIBC 353 mcg/dl 11/05/22 06:55 % Saturation 13.5 % (20-50) L 11/05/22 06:55 Unsat Iron Binding 305 ug/dL (112-347) 11/05/22 06:55 Total Bilirubin 0.2 mg/dL (0.15-1.2) 11/06/22 04:33 AST 17 U/L (0-32) 11/06/22 04:33 ALT 14 U/L (0-33) 11/06/22 04:33 Alkaline Phosphatase 88 U/L (35-105) 11/06/22 04:33 Troponin T Baseline 20 ng/L (0-10) H 11/05/22 05:03 Troponin T 120 Minute 18.64 ng/L (0-10) H 11/05/22 06:55 Delta Troponin T -1.36 ABS# (0-10) L 11/05/22 06:55 Troponin T Hi Sens 6Hr 19.31 ng/L (0-10) H 11/05/22 11:21 Troponin T Hi Sens 6Hr Delta -0.69 ng/L (0-12) L 11/05/22 11:21 Total Protein 6.3 g/dL (6.6-8.7) L 11/06/22 04:33 Albumin 3.5 g/dL (3.5-5.2) 11/06/22 04:33 Globulin 2.8 g/dL (1.3-4.6) 11/06/22 04:33 Triglycerides 75 mg/dL (0-150) 11/06/22 04:33 Cholesterol 173 mg/dL (0-200) 11/06/22 04:33 LDL Cholesterol, Calc 71 mg/dL (50-129) 11/06/22 04:33 Total VLDL Cholesterol 15 mg/dL (0-30) 11/06/22 04:33 HDL Cholesterol 87 mg/dL (60-100) 11/06/22 04:33 Cholesterol/HDL Ratio 1.99 mg/dL (0.0-4.40) 11/06/22 04:33 Vitamin B12 640 pg/mL (232-1245) 11/05/22 06:55 Folate > 20.0 ng/mL (4.8-37.3) 11/05/22 05:03 TSH 3.65 uIU/mL (0.27-4.20) 11/05/22 06:55 A&P Assessment and plan (1) Chest pain: Patient chest pain, he is atypical. However in view of the multiple risk factors and abnormal Myocardial perfusion imaging along with the wall motion abnormality by echocardiogram all could suggest underlying coronary ischemia. Currently she seems to be stable. Patient is premedicated. Currently she seems to be stable. (2) Abnormal cardiovascular stress test: As mentioned above. For further evaluation of the patient's her coronary status, she may benefit from a cardiac catheterization. (3) Benign essential HTN: The blood pressure is on the low blood pressure. She may continue on the current medications. (4) Crohn's disease: Stable (5) Ventricular arrhythmia: Currently seems to be stable. No significant arrhythmias on the monitor. (6) JEFFREY on CPAP: May continue on the current management. (7) Allergy to iodine: Patient had 3 medications. (8) Chronic kidney disease: Patient needs to be started on IV hydration Plan Cardiac catheterization today. Based on the angiogram findings, further recommendations will be made Attestations Medical Necessity Statement*: Patient requires continued hospital stay for close monitoring and further management Coding Level of Care Code Acute Code for g Fwd Diagnoses Chest pain R07.9 Abnormal cardiovascular stress test R94.39 Benign essential HTN I10 Crohn's disease K50.90 Ventricular arrhythmia I49.9 JEFFREY on CPAP G47.33; Z99.89 Allergy to iodine Z88.8 Chronic kidney disease N18.9
--- NOTE | 2022-11-06 08:08 | W.PM.OPSUD ---
Surgery/Procedure H&P Update DATE OF PROCEDURE: November 06, 2022 DATE H&P PERFORMED: 11/05/22 H&P UPDATE INFORMATION: I have reviewed H&P completed within last 30 days, No changes to prior documentation and H&P to be scanned into chart PREOP DIAGNOSIS: ASHD PRIMARY INDICATION FOR PROCEDURE: chest pain/ abnormal MPI/ multiple risk factors PLANNED PROCEDURE: Operation Date: 11/06/22 08:30 Proposed Procedures p Cardiac Catheterization(Left) - Gloria Bass MD PATIENT REASSESSED PRIOR TO SEDATION, WITH NO CHANGE NOTED: Yes PHYSICAL EXAM: alert, oriented x 3, clear to auscultation bilaterally and regular rate & rhythm AIRWAY EVAL/ANESTHESIA PLAN: normal airway, see other exam findings, ASA III, Monitored Anesthesia, Local Anesthesia, Risks, benefits & alternatives of sedation and/or procedure discussed and Patient agrees to continue as planned ADDITIONAL INFORMATION: CKD anemia ALlergic reaction to Iodide
[2022-11-06] MEDS: sodium chloride 0.9% 1,000 ML 75 ML IV (11:08)
[2022-11-06] MEDS: amlodipine 10 mg Tablet PO (12:37)
[2022-11-06] MEDS: clopidogrel 75 mg Tablet PO (12:37)
[2022-11-06] MEDS: magnesium oxide 400 mg tablet PO (12:37)
[2022-11-06] MEDS: famotidine 20 mg Tablet 10 MG PO (12:38)
[2022-11-06] MEDS: folic acid 1 mg Tablet PO (12:38)
[2022-11-06] MEDS: pantoprazole 40 mg SDV IVP (12:38)
--- NOTE | 2022-11-06 12:52 | P.DS_ITS ---
Discharge Providers Date of Admission: 11/05/22 05:50 Date of Discharge: November 06, 2022 Attending Provider at Admission: Michelle Packer MD Attending Provider at Discharge: Felice Guzman MD Primary Care Provider: Vicente More MD Diagnoses at Discharge Discharge Diagnosis (1) Chest pain: Status: Acute (2) Abnormal cardiovascular stress test: Status: Acute (3) Benign essential HTN: Status: Acute (4) Crohn's disease: Status: Acute (5) Ventricular arrhythmia: Status: Acute (6) JEFFREY on CPAP: Status: Acute (7) Allergy to iodine: Status: Acute (8) Chronic kidney disease: Status: Acute Reason for Visit Reason for Visit: cp Hospital Course Hospital Course Kaitlin Meade is a 77 year old female is admitted to the hospital with complaints of chest pain.? She had a? Myocardial perfusion imaging recently and was found to be abnormal.? Cardiology consult is requested for further cardiac evaluation recommendations. This patient has been having episodes of palpitation and chest pain for the last couple of years.? She has no definite precipitating factors for these spells.? Each of these episodes may last anywhere from few seconds to few minutes.? It u sually subsides spontaneously.? She also has acid reflux symptoms which may last for few minutes to few hours.? The chest discomfort usually in the mid substernal area occasionally radiate to the neck. Yesterday around 11 PM, while she was watching TV, started having the pain in the left upper part of the chest.? The pain was felt like? a? hurt and heaviness which was 4-5/10 intensity.? The ? pain? radiated to the left side of the neck and also to the jaw.? She had associated nausea and sweating.? She took a total of 3 sublingual nitro at various intervals.? Apparently there was no significant improvement of the symptoms.? By 3:30 in the morning, since the symptoms were not subsiding, she called the ambulance and was brought to the emergency room.? In the ambulance she was given 1 more sublingual nitro with no relief.? In the emergency room, she was given medication for nausea and morphine for the pain.? The symptoms gradually started improving.? She still has some tight feeling in the chest but is much better.? She has no other associated symptoms or radiation of pain. Compared to the previous pains, the quality of the pain, radiation to the jaw, the duration and also? the associated sweating were new. She has a history of hypertension and had a recent ER visit for accelerated hypertension.? She was complaining of some chest tightness/heaviness at that time? too.? She had? the Myocardial perfusion imaging after this event. Patient has a history of ventricular arrhythmia-symptomatic PVCs and obstructive sleep apnea She has a history of a Crohn's disease , multiple abdominal surgeries and incisional hernias.? She is being evaluated by the general surgery for incisional hernia repair. Patient was admitted to the hospital further evaluation and management of chest heaviness in setting of recent positive cardiac stress test. Troponin cycled remain negative. Cardiology was consulted and her outpatient echocardiogram was reviewed which is concerning from mild Neenan wall motion normality. She underwent cardiac catheterization on 11/06 which was concerning for mild CAD(full Report is not available to me currently). She has been discharged hemodynamically stable condition on adjusted cardiac medications. She used to be on Plavix 75 mg daily, atorvastatin 20 mg nightly along with amlodipine 10 mg daily. She is to follow-up with her primary care provider within next 1 week and Rin Reyes/nurse practitioner from [facility] within next 1 week. Physical Exam Narrative: General: No acute distress, AO x3, morbidly obese HEENT: PERRLA, pupils bilaterally equal and reactive Chest: Normal vesicular breath sounds, no added sounds, equal good air entry bilaterally CVS: S1-S2 regular, no murmurs, no tachycardia, no gallops, no rubs Abdomen: Soft, nontender, no organomegaly, bowel sounds present Neuro: No focal deficits, no facial deformity, AO x3, power 5/5 in all limbs Discharge Data Studies Completed and Pending Completed Studies During Hospitalization Category Date Time Status XR chest 1V portable [id number] Stat Exams 11/05/22 04:53 Completed Pending at discharge Category Date Time Status EDUCATION PROFESSOR request for service Routine Exams 11/06/22 06:52 Ordered Radiology Impressions Chest X-Ray 11/05/22 04:53 IMPRESSION: No acute lung abnormality. Concern for destructive lesion in the right scapula, clinical correlation required. Echocardiogram: On 10/30/2022: CONCLUSIONS ?Normal LV size ejection fraction of 55%.? Mild hypokinesia of ?the apical lateral wall segment.Grade I/IV diastolic dysfunction ?(abnormal relaxation filling pattern), normal to mildly elevated ?filling pressures. ?Trace to mild tricuspid valve regurgitation. ?Thickened aortic valve. ?Trace mitral valve regurgitation. ?There is no pericardial effusion. ?There are no intracardiac masses. ?No similar previous studies are available for comparison ?Dr Gloria Bass MD [facility] ?(Electronically Signed) ?Final Date:? ? ? 05 November 2022 ? 15:01 Laboratory Results WBC 5.4 10^3/uL (4.0-10.0) 11/06/22 04:33 RBC 3.80 10^6/uL (4.1-5.3) L 11/06/22 04:33 Hgb 10.9 g/dL (11.5-15.3) L 11/06/22 04:33 Hct 36.4 % (37.0-47.0) L 11/06/22 04:33 MCV 95.8 fl (81-99) 11/06/22 04:33 MCH 28.7 pg (28.0-34.0) 11/06/22 04:33 MCHC 29.9 g/dL (30.0-36.0) L 11/06/22 04:33 RDW 13.5 % (12.1-15.1) 11/06/22 04:33 Plt Count 149 10^3/cmm (130-400) 11/06/22 04:33 MPV 11.2 fL (7.4-10.4) H 11/06/22 04:33 Neut % (Auto) 86.0 % 11/06/22 04:33 Lymph % (Auto) 12.1 % 11/06/22 04:33 [place] % (Auto) 0.7 % 11/06/22 04:33 Eos % (Auto) 0.4 % 11/06/22 04:33 Baso % (Auto) 0.2 % 11/06/22 04:33 Neut # (Auto) 4.61 10^3/uL (1.8-7.7) 11/06/22 04:33 Lymph # (Auto) 0.7 10^3/uL (0.8-4.8) L 11/06/22 04:33 [place] # (Auto) 0.0 10^3/uL (0.2-0.9) L 11/06/22 04:33 Eos # (Auto) 0.0 10^3/uL (0.0-0.8) 11/06/22 04:33 Baso # (Auto) 0.0 10^3/uL (0.0-0.1) 11/06/22 04:33 Nucleated RBC % (auto) 0 % 11/06/22 04:33 Nucleated RBCs # 0.0 /100WBC 11/06/22 04:33 PT 14.30 SECONDS (12.1-14.9) 11/05/22 05:03 INR 1.07 (0.8-1.2) 11/05/22 05:03 D-Dimer 0.77 ug/mIFEU (0-0.59) H 11/05/22 05:03 Sodium 137 mmol/L (136-145) 11/06/22 04:33 Potassium 4.7 mmol/L (3.5-5.1) 11/06/22 04:33 Chloride 109 mmol/L (98-107) H 11/06/22 04:33 Carbon Dioxide 17 mmol/L (22-29) L 11/06/22 04:33 Anion Gap 15.7 (5-19) 11/06/22 04:33 BUN 25 mg/dL (8-23) H 11/06/22 04:33 Creatinine 1.3 mg/dL (0.5-0.9) H 11/06/22 04:33 GFR Calculation Not Reportable 11/06/22 04:33 Glucose 139 mg/dL (65-115) H 11/06/22 04:33 Estimat Average Glucose 103 11/06/22 04:33 Hemoglobin A1c 5.2 % (4.0-6.0) 11/06/22 04:33 Calculated Osmolality 291 mOsm/kg (285-295) 11/06/22 04:33 Calcium 8.3 mg/dL (8.5-10.5) L 11/06/22 04:33 Magnesium 1.6 mg/dL (1.7-2.3) L 11/06/22 04:33 Iron 48 ug/dL (37-145) 11/05/22 06:55 TIBC 353 mcg/dl 11/05/22 06:55 % Saturation 13.5 % (20-50) L 11/05/22 06:55 Unsat Iron Binding 305 ug/dL (112-347) 11/05/22 06:55 Total Bilirubin 0.2 mg/dL (0.15-1.2) 11/06/22 04:33 AST 17 U/L (0-32) 11/06/22 04:33 ALT 14 U/L (0-33) 11/06/22 04:33 Alkaline Phosphatase 88 U/L (35-105) 11/06/22 04:33 Troponin T Baseline 20 ng/L (0-10) H 11/05/22 05:03 Troponin T 120 Minute 18.64 ng/L (0-10) H 11/05/22 06:55 Delta Troponin T -1.36 ABS# (0-10) L 11/05/22 06:55 Troponin T Hi Sens 6Hr 19.31 ng/L (0-10) H 11/05/22 11:21 Troponin T Hi Sens 6Hr Delta -0.69 ng/L (0-12) L 11/05/22 11:21 Total Protein 6.3 g/dL (6.6-8.7) L 11/06/22 04:33 Albumin 3.5 g/dL (3.5-5.2) 11/06/22 04:33 Globulin 2.8 g/dL (1.3-4.6) 11/06/22 04:33 Triglycerides 75 mg/dL (0-150) 11/06/22 04:33 Cholesterol 173 mg/dL (0-200) 11/06/22 04:33 LDL Cholesterol, Calc 71 mg/dL (50-129) 11/06/22 04:33 Total VLDL Cholesterol 15 mg/dL (0-30) 11/06/22 04:33 HDL Cholesterol 87 mg/dL (60-100) 11/06/22 04:33 Cholesterol/HDL Ratio 1.99 mg/dL (0.0-4.40) 11/06/22 04:33 Vitamin B12 640 pg/mL (232-1245) 11/05/22 06:55 Folate > 20.0 ng/mL (4.8-37.3) 11/05/22 05:03 TSH 3.65 uIU/mL (0.27-4.20) 11/05/22 06:55 Vitals Last Vital Signs Temp 97.5 F L 11/06/22 11:18 Pulse 56 L 11/06/22 11:18 Resp 16 11/06/22 11:18 BP 124/62 11/06/22 11:18 Pulse Ox 97 11/06/22 11:18 O2 Del Method 11/06/22 11:18 O2 Flow Rate 2 11/06/22 09:15 Discharge Plan Discharge Patient Disposition: Home Condition: Stable Prescriptions: New amlodipine 10 mg Tablet 10 mg PO DAILY Qty: 30 0RF atorvastatin 40 mg Tablet 20 mg PO BEDTIME Qty: 15 0RF clopidogrel 75 mg Tablet 75 mg PO DAILY Qty: 30 0RF Continued cholecalciferol (vitamin D3) 25 mcg (1,000 unit) capsule 25 mcg PO DAILY magnesium oxide 500 mg capsule 500 mg PO BID omega-3 fatty acids 1,000 mg capsule 1,000 mg PO DAILY vitamin B complex Tablet 1 tab PO DAILY pantoprazole 40 mg tablet,delayed release (DR/EC) 40 mg PO DAILY nitroglycerin 0.4 mg tablet, sublingual 0.4 mg sublingual Q5M PRN (Reason: chest pain) Qty: 30 3RF Rx Instructions: until response; do not exceed 3 doses per episode cyanocobalamin (vitamin B-12) 1,000 mcg/mL solution 1,000 mcg IM Q30D Qty: 10 1RF folic acid 1 mg tablet 1 mg PO DAILY Qty: 90 3RF Entyvio 300 mg Recon Soln See Rx Instructions .ROUTE .COMPLEX Rx Instructions: IV every 8 weeks ondansetron HCl [Zofran] 4 mg/5 mL Solution 4 mg PO Q6H PRN (Reason: Nausea) gabapentin 100 mg capsule 100 mg PO BEDTIME PRN (Reason: Pain) Rx Instructions: at bedtime Emergen-C 1,000 mg Powder Effervescent In Packet 1 ea PO DAILY Probiotic 20 billion cell Capsule 20,000 mmu cells PO DAILY Rx Instructions: administer with a meal hfshmdq-tpmn-saizc-oreg-capryl 100 mg-150 mg- 50 mg-150 mg Capsule 1 cap PO DAILY Discontinued potassium chloride 10 mEq capsule, extended release See Rx Instructions .ROUTE .COMPLEX Qty: 120 6RF Dose Instruction: OPEN AND SPRINKLE CONTENTS OF 2 CAPSULES WITH FOOD TWICE DAILY FOR 2 WEEKS. Rx Instructions: OPEN AND SPRINKLE CONTENTS OF 2 CAPSULES WITH FOOD TWICE DAILY. lisinopril 5 mg tablet See Rx Instructions .ROUTE .COMPLEX Qty: 180 3RF Dose Instruction: TAKE 1 TABLET BY MOUTH DAILY Rx Instructions: TAKE 1 TABLET BY MOUTH TWICE DAILY Discharge Orders: Discharge Order (Routine); Ordered 11/06/22 Ordered By: Felice Guzman Referrals: Rin Reyes FNP [Nurse Practitioner] - 11/17/22 10:15 am Vicente More MD [Primary Care Provider] - 11/19/22 12:40 pm Discharge Diet: Cardiac Discharge Activity: Resume usual activity and Increase activity as tolerated Patient Instructions: Amlodipine (By mouth) (Hypertenipine-2.5, Norvasc, Norliqva), Atorvastatin (By mouth) (Lipitor), Clopidogrel (By mouth) (Plavix), Opioid Safety Discharge Attestations Time Spent in Discharge Care*: greater than 30 min Specific Discharge Activities: educating patient, discussing with pcp/other providers, discussing with nurse outreach case manager/social workers/dc planners, documenting/other paperwork and evaluating patient/reviewing data Status at Discharge: Cognitive status at discharge: cognitively intact , Behavioral status at discharge: cooperative , Functional status at discharge: other assisted ambulation , Overall status at discharge: patient is back to baseline Quality Metrics Clinical Quality Measures [ No reported AMI, CVA or VTE this stay] Coding Level of Care Code 55799 Total time (in minutes) for Discharge: 60 Diagnoses Chest pain R07.9 Abnormal cardiovascular stress test R94.39 Benign essential HTN I10 Crohn's disease K50.90 Ventricular arrhythmia I49.9 JEFFREY on CPAP G47.33; Z99.89 Allergy to iodine Z88.8 Chronic kidney disease N18.9
== END 2022-11-06 17:56 | disposition home or self-care (01) ==
LOC: ER 05:48 → CSU 05:57
PROVIDERS: Internal Medicine Cardiovascular Disease; Admitting Provider Internal Medicine; Emergency Provider Emergency Medicine; PCP Family Medicine; Visit Provider Student in an Organized Health Care Education/Training Program
DX: R07.9 Chest pain, unspecified (principal); I12.9 Hypertensive chronic kidney disease with stage 1 through stage 4 chronic kidney disease, or unspecified chronic kidney disease; N18.32 Chronic kidney disease, stage 3b; R94.39 Abnormal result of other cardiovascular function study; G47.33 Obstructive sleep apnea (adult) (pediatric); I45.2 Bifascicular block; I49.9 Cardiac arrhythmia, unspecified; E78.5 Hyperlipidemia, unspecified; D64.9 Anemia, unspecified; I25.110 Atherosclerotic heart disease of native coronary artery with unstable angina pectoris; F32.9 Major depressive disorder, single episode, unspecified; K21.9 Gastro-esophageal reflux disease without esophagitis; K50.90 Crohn's disease, unspecified, without complications; Z86.718 Personal history of other venous thrombosis and embolism; Z88.8 Allergy status to other drugs, medicaments and biological substances
CPT/HCPCS: 36415; 71045; 80053; 80061; 82607; 82746; 83036; 83540; 83550; 83735; 84443; 84484; 85025; 85378; 85610; 93005; 93458; 96372; 96374; 96375; 96376; 99152; 99153; 99285; C1769; C1887; C1894; C9113; G0378; J1170; J1644; J1650; J2250; J2270; J2405; J2930; J3010; J3490; J7030; J7512; Q9967

== ENCOUNTER → 2022-11-17 09:54 | Outpatient (BNVA) | payer MEDICARE, SELFPAY | PROVIDERS: PCP Family Medicine; Visit Provider Internal Medicine | DX: I12.9 Hypertensive chronic kidney disease with stage 1 through stage 4 chronic kidney disease, or unspecified chronic kidney disease (principal); N18.32 Chronic kidney disease, stage 3b; I25.10 Atherosclerotic heart disease of native coronary artery without angina pectoris; M79.604 Pain in right leg; Z09 Encounter for follow-up examination after completed treatment for conditions other than malignant neoplasm | CPT/HCPCS: 36415; 80048; 93971; 99214 ==

== ENCOUNTER 2022-12-22 06:47 | Day surgery (SDC) | payer MEDICARE, SELFPAY ==
[2022-12-18 10:46] VITALS: BMI 41.9
--- NOTE | 2022-12-18 10:51 | ECG_ITS ---
[facility] Test Date: 2022-12-18 Pat Name: Kaitlin Meade Department: Room: Gender: Female Quantitative Analyst Developer: : 1945 Requested By: Eva Thomas Order Number: [id number] Kody MD: Fely Alvarado M.D. Measurements Intervals [place] Rate: 68 P: 29 [place]: 181 QRS: -86 QRSD: 167 T: -8 QT: 404 QTc: 432 Interpretive Statements SINUS RHYTHM RIGHT BUNDLE BRANCH BLOCK [120+ ms QRS DURATION, UPRIGHT V1, 40+ ms S IN I/aVL/V4/V5/V6] LEFT ANTERIOR FASCICULAR BLOCK [QRS AXIS <= -45, QR IN I, RS IN II] POSSIBLE SEPTAL MYOCARDIAL INFARCTION , PROBABLY OLD [30 ms Q WAVE IN V1/V2] Compared to ECG 11/05/2022 07:15:52 Left anterior fascicular block now present Sinus bradycardia no longer present Right-axis deviation no longer present T-wave abnormality no longer present Possible ischemia no longer present Myocardial infarct finding still present Electronically Signed On 12-20-2022 6:56:08 CDT by Fely Alvarado M.D. [id number]
--- NOTE | 2022-12-18 13:05 | P.ANESASSM_ITS ---
Pre-Anesthetic Assessment Height/Weight: Height 1.68 m Weight 117.934 kg Preop Diagnosis: ASHD Operation Date: 12/22/22 08:30 Proposed Procedures p lap repair incisional hernia 45070, K43.2(Not Applicable) - Alan Feldman DO Familial anesthetic complications: none Social No alcohol and No tobacco Exam alert, oriented x 3, clear to auscultation bilaterally and regular rate & rhythm Airway Mallampati: Class II Dentition: chipped Pulmonary Sleep Apnea CV/HEM Stable Angina, Coronary Artery Disease (mild) and Deep Vein Thrombosis GI crohn's Anesthetic Plan ASA status: 3 Anesthesia: General Risk of > 500 ml blood loss (7ml/kg in children): No Medications/Allergies Home Medications Medication Instructions Recorded Confirmed Last Taken Type vedolizumab 300 mg intravenous 300 mg IV DIRECTED 11/20/19 12/18/22 12/19/21 History solution (Entyvio) cholecalciferol (vitamin D3) 25 25 mcg PO DAILY 12/27/21 12/18/22 12/17/22 23:00 History mcg (1,000 unit) capsule gabapentin 100 mg capsule 100 mg PO BEDTIME PRN Pain 04/10/22 12/18/22 12/17/22 23:00 History cyanocobalamin (vitamin B-12) 1,000 mcg IM Q30D #10 mL 06/18/22 12/18/22 12/12/22 Rx 1,000 mcg/mL injection solution folic acid 1 mg tablet 1 mg PO DAILY #90 tabs 09/16/22 12/18/22 12/17/22 10:00 Rx magnesium oxide 500 mg capsule 1,000 mg PO BID 09/22/22 12/18/22 12/17/22 23:00 History omega-3 fatty acids 1,000 mg 1,000 mg PO DAILY 09/22/22 12/18/22 12/17/22 23:00 History capsule vitamin B complex 1 tab PO DAILY 09/22/22 12/18/22 12/17/22 10:00 History nitroglycerin 0.4 mg sublingual 0.4 mg sublingual Q5M PRN chest 10/09/22 12/18/22 Unknown Rx tablet pain #30 tabs pantoprazole 40 mg tablet,delayed 40 mg PO DAILY 10/09/22 12/18/22 12/17/22 10:00 History release lactobacillus comb no.10 20 20,000 mmu cells PO DAILY 11/05/22 12/18/22 Unknown History billion cell capsule (Probiotic) tumeric 100 mg-sadiq 150 mg-olive 1 cap PO DAILY 11/05/22 12/18/22 12/17/22 10:00 History 50 mg-oreg 150 mg-caprylate capsule apixaban 5 mg tablet (Eliquis) 5 mg PO BID DVT #60 tabs 11/17/22 12/18/22 Unknown Rx atorvastatin 40 mg tablet 20 mg PO BEDTIME #30 tabs 11/27/22 12/18/22 12/17/22 23:00 Rx ondansetron HCl 4 mg tablet 4 mg PO QID PRN Nausea 12/18/22 12/18/22 Unknown History potassium chloride 10 mEq 20 meq PO BID 12/18/22 12/18/22 12/17/22 23:00 History capsule,extended release Allergies Allergy/AdvReac Type Severity Reaction Status Date / Time aspirin Allergy Unknown Verified 12/18/22 10:31 Iodine and Iodide Containing Allergy ALGY-Anaphy Verified 12/18/22 10:31 Produc laxis prochlorperazine Allergy Unknown Verified 12/18/22 10:31 [From Compazine] FOR[facility], [facility] Anesthesia Medical History Allergy to iodine Atherosclerosis of coronary artery Chronic kidney disease CKD stage G3b/A1, GFR 30-44 and albumin creatinine ratio <30 mg/g Crohn's disease Depression GERD (gastroesophageal reflux disease) History of DVT (deep vein thrombosis) Hypertension Normocytic anemia JEFFREY on CPAP Surgical History History of bowel resection History of colonoscopy History of incisional hernia repair Port-A-Cath in place (05/15/21) Family History Other Diabetes Social History Smoking and tobacco status: never smoked Data Anesthesia Cardiac Studies: Echocardiogram 10/30/22 Sestamibi Stress Test (Cardiology) 09/25 Cardiac Event Monitor 02/12/22
[2022-12-22] VITALS (14 sets, daily range): BP systolic 106–151; BP diastolic 57–92; PULSE 58–100; RESP 16–22; TEMP 36.1–36.3; O2SAT 93–100
[2022-12-22] MEDS: sodium chloride 0.9% 1,000 ML 30 ML IV (07:28)
--- NOTE | 2022-12-22 07:56 | PM.HP ---
Providers/Chief Complaint Primary Care Provider: Vicente More MD Chief Complaint: K43.2 History of Present Illness Kaitlin Meade is a 77 year old female here for laparoscopic repair of recurrent incisional hernia with mesh. Medications/Allergies Home Medications Medication Instructions Recorded Confirmed Last Taken Type vedolizumab 300 mg intravenous 300 mg IV DIRECTED 11/20/19 12/18/22 11/24/22 History solution (Entyvio) cholecalciferol (vitamin D3) 25 25 mcg PO DAILY 12/27/21 12/18/22 12/19/22 History mcg (1,000 unit) capsule gabapentin 100 mg capsule 100 mg PO BEDTIME PRN Pain 04/10/22 12/18/22 12/19/22 History cyanocobalamin (vitamin B-12) 1,000 mcg IM Q30D #10 mL 06/18/22 12/18/22 12/12/22 Rx 1,000 mcg/mL injection solution folic acid 1 mg tablet 1 mg PO DAILY #90 tabs 09/16/22 12/18/22 12/21/22 Rx magnesium oxide 500 mg capsule 1,000 mg PO BID 09/22/22 12/18/22 12/21/22 History omega-3 fatty acids 1,000 mg 1,000 mg PO DAILY 09/22/22 12/18/22 12/19/22 History capsule vitamin B complex 1 tab PO DAILY 09/22/22 12/18/22 12/21/22 History nitroglycerin 0.4 mg sublingual 0.4 mg sublingual Q5M PRN chest 10/09/22 12/18/22 Unknown Rx tablet pain #30 tabs pantoprazole 40 mg tablet,delayed 40 mg PO DAILY 10/09/22 12/18/22 12/21/22 History release lactobacillus comb no.10 20 20,000 mmu cells PO DAILY 11/05/22 12/18/22 Unknown History billion cell capsule (Probiotic) tumeric 100 mg-sadiq 150 mg-olive 1 cap PO DAILY 11/05/22 12/18/22 12/19/22 History 50 mg-oreg 150 mg-caprylate capsule apixaban 5 mg tablet (Eliquis) 5 mg PO BID DVT #60 tabs 11/17/22 12/22/22 12/19/22 Rx atorvastatin 40 mg tablet 20 mg PO BEDTIME #30 tabs 11/27/22 12/18/22 12/19/22 Rx ondansetron HCl 4 mg tablet 4 mg PO QID PRN Nausea 12/18/22 12/18/22 Unknown History potassium chloride 10 mEq 20 meq PO BID 12/18/22 12/18/22 12/21/22 11:00 History capsule,extended release Allergies Allergy/AdvReac Type Severity Reaction Status Date / Time aspirin Allergy Unknown Verified 12/18/22 10:31 Iodine and Iodide Containing Allergy ALGY-Anaphy Verified 12/18/22 10:31 Produc laxis prochlorperazine Allergy Unknown Verified 12/18/22 10:31 [From Compazine] PFSH Acute PFSH: Medical History Allergy to iodine Atherosclerosis of coronary artery Chronic kidney disease CKD stage G3b/A1, GFR 30-44 and albumin creatinine ratio <30 mg/g Crohn's disease Depression GERD (gastroesophageal reflux disease) History of DVT (deep vein thrombosis) Hypertension Normocytic anemia JEFFREY on CPAP Surgical History History of bowel resection History of colonoscopy History of incisional hernia repair Port-A-Cath in place (05/15/21) Family History Other Diabetes Social History Smoking and tobacco status: never smoked Vitals/I&O/Wt Last Vital Signs Temp 97.3 F L 12/22/22 07:07 Pulse 78 12/22/22 07:07 Resp 20 H 12/22/22 07:07 BP 151/90 12/22/22 07:07 Pulse Ox 97 12/22/22 07:07 O2 Del Method Room Air 12/22/22 07:10 Data 12/22/22 07:27 A&P Assessment and plan (1) Recurrent incisional hernia: Plan Laparoscopic repair of recurrent incisional hernia with mesh Attestations Medical Necessity Statement*: Home Coding Level of Care Code Acute Code for Chg Fwd Diagnoses Recurrent incisional hernia K43.2
[2022-12-22 08:04] LABS: Anion Gap 17.7 (5-19); Blood Urea Nitrogen 19 mg/dL (8-23); Calcium 8.8 mg/dL (8.5-10.5); Carbon Dioxide 22 mmol/L (22-29); Chloride 109 mmol/L (98-107); Glucose 117 mg/dL (65-115); Osmolality Calculated 301 mOsm/kg (285-295); Potassium 4.7 mmol/L (3.5-5.1); Sodium 144 mmol/L (136-145)
[2022-12-22 08:08] LABS: Creatinine Clr Calc Pharmacy 48.8476
[2022-12-22] MEDS: ceFAZolin 2,000 MG in sodium chloride 0.9% (plus) 50 ML 100 MG IV (08:24)
[2022-12-22] MEDS: lidocaine-epi 2% 20 mL INJ INJECTION (08:57)
[2022-12-22] MEDS: tranexamic acid 1,000 mg/10mL SDV 1000 MG IV ×2 (09:21→10:21)
--- NOTE | 2022-12-22 10:00 | P.ANESUD_ITS ---
Pre-Anesthetic Update Pre-Anesthetic Assessment: Date of Surgery/Procedure: 12/22/22 Preop Nisreen gnosis: ASHD Proposed Procedure: Operation Date: 12/22/22 08:10 Proposed Procedures p lap repair incisional hernia with mesh 26024, K43.2(Not Applicable) - Alan Feldman, DO Any changes to Pre-Anesthetic Assessment?: No Last Intake: Intake Last Liquid Date 12/21/22 Last Liquid Time 21:00 Last Solid Date 12/21/22 Last Solid Time 21:00 Labs Last 48hrs: BMP 12/22/22 07:27 Sodium 144 Potassium 4.7 Chloride 109 H Carbon Dioxide 22 BUN 19 Creatinine 1.3 H Glucose 117 H Calcium 8.8 Vitals: Temperature 97.3 F L 12/22/22 07:07 Temperature Source Temporal Artery S can 12/22/22 07:07 Pulse Rate 78 12/22/22 07:07 Respiratory Rate 20 H 12/22/22 07:07 Blood Pressure 151/90 12/22/22 07:07 Blood Pressure Leanne n 110 12/22/22 07:07 Pulse Oximetry 97 12/22/22 07:07 Oxygen Delivery Me thod Room Air 12/22/22 07:10 Exam: Pre-Anes Outpt Exam: alert, oriented x 3, clear to auscultation bilaterally and regular rate & rhythm Cardiac Studies: Echocardiogram 10/30/22 Sestamibi Stress Test (Cardiology) 09/25 Cardiac Event Monitor 02/12/22
--- NOTE | 2022-12-22 10:35 | P.OP_ITS ---
Operative Report Date of procedure: December 22, 2022 Pre-op diagnosis: Preop Diagnosis recurrent incisional hernia Post-op diagnosis: same Procedure done: Laparoscopic repair of recurrent incisional hernia with mesh Implants: Managed by 8 inch Ventralight mesh Specimens removed/disposition: None Surgeon: Dr. Alan Feldman DO Anesthesia: General Estimated blood loss (mL): 20 Complications: None apparent Brief History: This a very pleasant 77-year-old female who presented my office with a recurrent incisional hernia. Laparoscopic repair with mesh was indicated. The risk and benefits were explained and documented. Procedure: Patient was wheeled into the operative room and placed on the OR table in a supine position. Abdomen was inspected prepped and draped in usual sterile fashion. Time-out was performed and all present were in agreement. A 15 blade scalp was used to make a 5 millimeter incision left upper quadrant. A Veress needle was placed into the incision and intra-abdominal insufflation was brought to 15 millimeters of mercury. A 12 millimeter trocar was placed into the left lower quadrant. The energy but device was then used to cut out the hernia sac was disposed of. Intraoperatively the hernia was discovered to be much larger than initially thought. Hernia defect measured 15 cm in greatest diameter. A 10 inch x 8 inch ventral light mesh was placed into the abdomen and brought up through the center of the hernia defect using an the Cooper-Hermilo. The mesh was then tacked in place in a double crown fashion. A second 5 mm trocar was placed into the left abdomen in order to facilitate placement of the mesh. The hernia sac was then removed from the abdomen via the left lower quadrant. The left lower quadrant port site was closed with an 0 Vicryl suture in a Cooper- Hermilo in a [id number] fashion. Incisions were closed with 4 O Vicryl in a subcuticular interrupted fashion. Skin glue was applied. Patient tolerated t he procedure well.
[2022-12-22] MEDS: fentaNYL 50 mcg/mL INJ 2mL IVP (10:50)
[2022-12-22] MEDS: albuterol 2.5 mg/3 mL Neb (11:20)
[2022-12-22] MEDS: ondansetron 2 mg/ML SDV 2 mL 4 MG IVP ×2 (11:43→12:25)
[2022-12-22] MEDS: HYDROcodone-acetaminophen 7.5-325 mg Tablet 1 TAB PO (12:50)
--- NOTE | 2022-12-22 13:42 | ANE.PACU2 ---
Inpatient post-anesthesia follow up: Airway intact: Yes Vital signs: Temperature 97.3 F Pulse Rate 64 Respiratory Rate 18 Blood Pressure 130/79 Pulse Oximetry 100 Oxygen Delivery Me thod Room Air Oxygen Flow Rate 3 Fraction of Inspir ed Oxygen Hydration adequate: Yes Nausea and vomiting: No Pain level: 4 Mental status: Baseline
== END 2022-12-22 13:45 | disposition home or self-care (01) ==
PROVIDERS: Anesthesiology; PCP Family Medicine; Visit Provider Surgery
PROC: 0WQF4ZZ Repair Abdominal Wall, Percutaneous Endoscopic Approach (ICD-10-PCS; CPT 49613; principal; 2022-12-22 08:10)
DX: K43.2 Incisional hernia without obstruction or gangrene (principal); I25.118 Atherosclerotic heart disease of native coronary artery with other forms of angina pectoris; Z86.718 Personal history of other venous thrombosis and embolism; K50.90 Crohn's disease, unspecified, without complications; Z79.01 Long term (current) use of anticoagulants
CPT/HCPCS: 49613; 36415; 36592; 51702; 80048; 93005; C1781; J0330; J0690; J1100; J2370; J2405; J2704; J2710; J3010; J3490; J7030; J7613

== ENCOUNTER 2022-12-30 15:00 | Emergency (ER) | payer MEDICARE, SELFPAY ==
[2022-12-30 15:36] VITALS: BP 119/72; PULSE 89; RESP 16; TEMP 37.4; O2SAT 96; BMI 41.9
--- NOTE | 2022-12-30 16:12 | XRR_ITS ---
PROCEDURE INFORMATION: Exam: XR Chest Exam date and time: 12/30/2022 3:26 PM Age: 77 years old Clinical indication: Other: Weakness; Prior surgery; Surgery date: 6+ months; Surgery type: Port, shoulder TECHNIQUE: Imaging protocol: Radiologic exam of the chest. Views: 1 view. COMPARISON: CR XR chest 1V portable [id number] 11/05/2022 4:58 AM FINDINGS: Tubes, catheters and devices: Right infusion port noted. Lungs: 9 mm calcified granuloma left lung. No consolidative pulmonary infiltrates are noted. Calcified hilar lymph nodes noted, consistent with old granulomatous disease. Pleural spaces: No pleural effusion. No pneumothorax. Heart/Mediastinum: Mild cardiomegaly is noted. Bones/joints: Right shoulder prosthesis noted. Mild degenerative thoracic spine changes are noted. XR/XR chest 1V portable [id number] IMPRESSION: 1. No acute abnormality demonstrated. 2. Findings of old granulomatous disease are identified. 3. Mild cardiomegaly is noted. 4. There is no interval change from the prior examination.
[2022-12-30 17:40] VITALS: BP 109/73; PULSE 93; RESP 18; O2SAT 98
--- NOTE | 2022-12-30 17:42 | W.ED.ABDPA2 ---
HPI - Abdominal Pain General: Chief Complaint: Abdominal Pain Stated Complaint: weakness/ leg swelling Time Seen by Provider: 12/30/22 17:25 Source: patient and family Mode of arrival: ambulatory Limitations: no limitations History of Present Illness: This lady made her way to the emergency department because of concerns predominantly of abdominal pains. She states that since her surgery last week for periumbilical hernia repair laparoscopically she has had persistent and worsening upper abdominal pain with worsening symptoms when she eats. She states she is also had her pain typical of her chronic Crohn disease. She has not any fevers, chills or blood in her stools or black tarry stools. He also reports that she has had persistent bilateral lower leg pain. She apparently had similar symptoms preoperatively and was found to have DVTs in both legs and started on Eliquis which she took for 1 month stopping prior to surgery but has not restarted that medication since surgery. Associated Symptoms: Reports nausea; Denies chills, dysuria, fever(s), hematochezia, hematemesis, melena, syncope and vomiting Review of Systems Const: Reports: change in appetite; Denies: fever(s) or chills Eyes: Denies: change in vision ENMT: Denies: odynophagia, nasal discharge or nasal congestion Card: Denies: chest pain, palpitations, irregular heart rhythm, edema, syncope or pre-syncope Resp: Denies: dyspnea, productive cough or non-productive cough GI: Reports: abdominal pain and nausea; Denies: vomiting, hematemesis, hematochezia or melena : Denies: flank pain, difficulty voiding, dysuria or urinary frequency Musc: Reports: extremity pain; Denies: neck pain, back pain or extremity swelling Skin/Breast: Denies: rash Neuro: Denies: headache(s), numbness in extremities or weakness in extremities Eddie/Lymph: Denies: easy bruising or easy bleeding PFSH ED PFSH: Medical History Allergy to iodine Atherosclerosis of coronary artery Chronic kidney disease CKD stage G3b/A1, GFR 30-44 and albumin creatinine ratio <30 mg/g Crohn's disease Depression GERD (gastroesophageal reflux disease) History of DVT (deep vein thrombosis) Hypertension Normocytic anemia JEFFREY on CPAP Surgical History History of bowel resection History of colonoscopy History of incisional hernia repair Port-A-Cath in place (05/15/21) Family History Other Diabetes Social History Smoking and tobacco status: never smoked Physical Exam Narrative: EXAM NARRATIVE: She appears to be comfortable and cooperative during the evaluation. She answers questions appropriately in a goal-directed fashion. Makes good eye contact. Const: COMMON NORMALS: no acute distress and patient oriented x3 GENERAL APPEARANCE: cooperative and comfortable NUTRITIONAL APPEARANCE: obese and overweight HENMT: COMMON NORMALS: normocephalic, Normal nasal mucous membranes and turbinates present, moist oral mucous membranes and oropharynx normal HEAD & SCALP: normocephalic FACE & SINUS: normal facial exam NOSE: Normal nasal mucous membranes and turbinates present Eye: COMMON NORMALS: Equal, round and reactive pupils present, EOMs intact bilaterally, conjunctivae normal and no scleral icterus CONJUNCTIVA: Yes conjunctivae normal PUPIL: Yes Equal, round and reactive pupils present Neck/C-Spine: COMMON NORMALS: full ROM, no lymphadenopathy and no JVD Chest: COMMONS NORMALS: normal inspection of the chest Resp: COMMON NORMALS: normal respiratory effort, No retractions, No use of accessory muscles and clear to auscultation bilaterally EFFORT & INSPECTION: Yes able to speak in complete sentences AUSCULTATION: clear to auscultation bilaterally Cardio: COMMON NORMALS: no JVD, regular rate, regular rhythm, No murmurs present (Cardio) and Peripheral pulses 2+ throughout RATE: regular rate RHYTHM: regular rhythm PERIPHERAL PULSES: Peripheral pulses 2+ throughout GI: INSPECTION: No abdominal wall ecchymosis and Yes scar (Typical laparoscopic scars noted. Healing up appropriately.) OTHER: Abdomen reveals central obesity. He has tenderness to palpation over the upper abdomen with voluntary guarding but no rebound. : COMMON NORMALS: Yes no CVA tenderness BLADDER/KIDNEY EXAM: Yes no CVA tenderness Back/Pelvis: COMMON NORMALS: no CVA tenderness, thoracic and lumbar spine normal to inspection and no thoracic nor lumbar tenderness Extremity: COMMON NORMALS: normal to inspection, full ROM and capillary refill normal NARRATIVE EXTREMITY EXAM: She has bilateral tenderness in the posterior lower legs and calves extending up into the medial upper leg. No erythema, lymphangitis, lymphadenopathy. Neuro: COMMON NORMALS: patient oriented x3, moves all extremities and no sensory deficits noted Psych: COMMON NORMALS: mental status grossly normal Skin: COMMON NORMALS: no rashes or lesions noted, no wounds and turgor normal GENERAL SKIN EXAM: no rashes or lesions noted and turgor normal Course Reevaluation(s): Reevaluation #1: Patient is clinically stable. No new or focal findings on reevaluation. I reviewed her current findings with both she and her accompanying daughter. Discussed expected course and care and return precautions in detail. Time: 20:16 Consultations: Consultation #1: I discussed with on-call surgeon regarding CT scan findings. No evidence at this time to suggest abscess or other intra-abdominal process at this time. Since his of our discussion was its reasonable to discharge her to home with return precautions and close follow-up. Time: 20:17 Vital Signs: Vital signs: Vital Signs Temperature 99.4 F 12/30/22 15:36 Pulse Rate 93 12/30/22 17:40 Respiratory Rate 18 12/30/22 17:40 Blood Pressure 109/73 12/30/22 17:40 Pulse Oximetry 98 12/30/22 17:40 Oxygen Delivery Me thod Room Air 12/30/22 17:40 MDM - Abdominal Pain Medical Decision Making This patient presented to the emergency department because of some abdominal discomfort. She states that she was having burning type pain across her upper abdomen. This is symptoms are different than she has experienced before. She states that after she eats she gets the burning kind of pain in her abdomen but she also gets it when she moves in certain locations or sits up etc. Has not had any vomiting or documented fevers. She states her stools have been consistent with prior stools. No blood or black tarry stools. She also has had some calf pain and she was concerned she might of had incomplete resolution of her DVTs that were noted preoperatively. Her clinical examination revealed her to be in no acute distress afebrile and normal vital signs otherwise. Her abdominal examination revealed upper abdominal tenderness but no rebound or guarding. She had healing laparoscopic surgery wounds without any drainage significant erythema etc. Imaging was obtained to ensure that there was no evidence of bowel obstruction or other acute intra-abdominal process. We also obtained venous ultrasounds to ensure that there was no recurrence of her DVT or continuation of DVT. Imaging of her abdomen and pelvis revealed ventral fluid collection consistent with a seroma and unlikely to be abscess in nature or other concerning finding. There is no concomitant intra-abdominal process noted. Her abdominal pains do not represent an acute intra-abdominal process very likely neurogenic in nature related to her recent surgery and stretching cutting of tissues etc. Her lower extremity venous Dopplers were reassuring and without evidence of DVT. She readily admits that she has not been very physically active postoperatively and I have encouraged her to increase her activity level as tolerated to help speed her postoperative recovery. We discussed expected course and return precautions in detail with both she and her daughter. Given her current clinical picture no additional studies indicated at this time as it would not affect our current disposition. No evidence of an ongoing emergency medical condition. Differential Diagnosis Likely abdominal pain Medical Records I reviewed the patient's medical records. I reviewed Dr. Feldman's operative note. Uncomplicated laparoscopic ventral hernia repair. Lab Data I reviewed the patient's lab results. Labs/Radiology: Radiology Impressions Chest X-Ray 12/30/22 16:12 IMPRESSION: 1. No acute abnormality demonstrated. 2. Findings of old granulomatous disease are identified. 3. Mild cardiomegaly is noted. 4. There is no interval change from the prior examination. Abdomen/Pelvis CT 12/30/22 17:43 IMPRESSION: 1. Status post ventral hernia repair, when compared to prior study of 09/11/2022. 2. There is a fluid collection seen in the ventral abdominal wall, measuring 17 cm craniocaudal x 5 cm AP x 9 cm transverse. This most likely represents a postop seroma. 3. Small calcified gallstones are noted in the dependent portion of the gallbladder. No changes of acute cholecystitis noted. Venous Duplex 12/30/22 17:43 IMPRESSION: 1. The study is limited by patient body habitus. 2. No evidence of deep vein thrombosis, bilateral lower extremities. EKG Data EKG 1: I personally reviewed and interpreted this EKG as follows: Interpretation: Contemporaneous review of resting EKG reveals a ventricular rate of 88 bpm. She has normal TN interval, normal QRS duration and a normal corrected QT interval. She has a leftward axis and a QRS morphology consistent with a right bundle branch block pattern. This EKG is essentially unchanged from prior EKGs contained within the system. Discharge Plan Discharge Patient Disposition: Home Clinical Impression: Seroma after procedure, S/P repair of recurrent ventral hernia Condition: Stable Prescriptions: No Action cholecalciferol (vitamin D3) 25 mcg (1,000 unit) capsule 25 mcg PO DAILY magnesium oxide 500 mg capsule 1,000 mg PO BID omega-3 fatty acids 1,000 mg capsule 1,000 mg PO DAILY vitamin B complex Tablet 1 tab PO DAILY Eliquis 5 mg tablet 5 mg PO BID Qty: 60 3RF Hold Instructions: Resume on 12/25/22. pantoprazole 40 mg tablet,delayed release (DR/EC) 40 mg PO DAILY nitroglycerin 0.4 mg tablet, sublingual 0.4 mg sublingual Q5M PRN (Reason: chest pain) Qty: 30 3RF Rx Instructions: until response; do not exceed 3 doses per episode cyanocobalamin (vitamin B-12) 1,000 mcg/mL solution 1,000 mcg IM Q30D Qty: 10 1RF folic acid 1 mg tablet 1 mg PO DAILY Qty: 90 3RF atorvastatin 40 mg tablet 20 mg PO BEDTIME Qty: 30 3RF hydrocodone-acetaminophen 7.5-325 mg tablet 1 tab PO Q6H PRN (Reason: pain) 5 Days Qty: 20 0RF Entyvio 300 mg Recon Soln 300 mg IV DIRECTED Rx Instructions: IV every 8 weeks gabapentin 100 mg capsule 100 mg PO BEDTIME PRN (Reason: Pain) Rx Instructions: at bedtime Probiotic 20 billion cell Capsule 20,000 mmu cells PO DAILY Rx Instructions: administer with a meal kqviava-xkpb-swqxp-oreg-capryl 100 mg-150 mg- 50 mg-150 mg Capsule 1 cap PO DAILY potassium chloride 10 mEq capsule, extended release 20 meq PO BID ondansetron HCl 4 mg tablet 4 mg PO QID PRN (Reason: Nausea) DOK 100 mg capsule 100 mg PO BID Qty: 14 0RF Discharge Orders: Discharge ED (Routine); Ordered 12/30/22 Ordered By: Cesar Crook Referrals: Vicente More MD [Primary Care Provider] - Discharge Diet: Advance as tolerated Discharge Activity: Increase activity as tolerated Patient Instructions: Opioid Safety, Pain Management Activity Restrictions/Additional Instructions: As we discussed you do not have evidence of any serious condition at this time. You have some fluid collection around your surgery which is likely contributing to your discomfort in addition to the surgery itself and the usual postoperative process. We encourage you to drink at least 4 to 8 glasses of water daily, began advancing your diet as tolerated to your usual diet. Should you develop temperature over 101, vomiting, increasing pain or other concerning symptoms you should return to the emergency department for reevaluation. Follow-up with Dr. Feldman for your usual postoperative check as scheduled. Take all your usual prescribed medications. Coding Level of Care Code ED Manager Medical for Shahriar Dubois
--- NOTE | 2022-12-30 17:43 | CTR_ITS ---
PROCEDURE INFORMATION: Exam: CT Abdomen And Pelvis Without Contrast Exam date and time: 12/30/2022 5:51 PM Age: 77 years old Clinical indication: Abdominal pain; Localized; Lower; Prior surgery; Surgery date: <1 month; Surgery type: Hernia repair; Additional info: Abd pain S/P hernia repair TECHNIQUE: Imaging protocol: Computed tomography of the abdomen and pelvis without contrast. Radiation optimization: All CT scans at this facility use at least one of these dose optimization techniques: automated exposure control; mA and/or kV adjustment per patient size (includes targeted exams where dose is matched to clinical indication); or iterative reconstruction. REPORTING DATA: Count of CT and Cardiac NM exams in prior 12 months: This patient has received 2 known CTs and 0 known cardiac nuclear medicine studies in the 12 months prior to the current study. COMPARISON: CT chest abdpel w/*[id number] 09/11/2022 2:58 PM RADIATION DOSE METRICS: Total DLP (mGy-cm): 1220 FINDINGS: Lungs: The lung bases appear unremarkable. Diaphragm: There is a small hiatal hernia present. Liver: The liver is unremarkable in appearance. Gallbladder and bile ducts: Small calcified gallstones are noted in the dependent portion of the gallbladder. No changes of acute cholecystitis noted. Pancreas: The pancreas is normal in appearance. No pancreatic duct dilatation. Spleen: Calcified granulomas are noted in the spleen. Adrenal glands: The adrenal glands appear within normal limits. Kidneys and ureters: The kidneys are morphologically normal. No nephrolithiasis. No hydronephrosis. No ureteral calculi. No obstructive uropathy. Stomach and bowel: No acute gastric abnormality demonstrated. Status post right hemicolectomy. Diverticulosis of the sigmoid colon. No acute diverticulitis. The small bowel is unremarkable as demonstrated. Appendix: Surgically absent appendix. Intraperitoneal space: No pneumoperitoneum. No significant fluid collection. Vasculature: The aorta is atherosclerotic. No aortic aneurysm. Lymph nodes: No pathologically enlarged lymph nodes. Urinary bladder: The urinary bladder is unremarkable in appearance. Reproductive: Uterus and adnexa unremarkable. Bones/joints: No acute fracture or other acute osseous abnormality. Degenerative spine changes are noted. Soft tissues: Postop change of the anterior abdominal wall noted, consistent with ventral hernia repair. There is a fluid collection seen in the ventral abdominal wall, measuring 17 cm craniocaudal x 5 cm AP x 9 cm transverse. This most likely represents a postop seroma. CT/CT abdomen pelvis wo con [id number] IMPRESSION: 1. Status post ventral hernia repair, when compared to prior study of 09/11/2022. 2. There is a fluid collection seen in the ventral abdominal wall, measuring 17 cm craniocaudal x 5 cm AP x 9 cm transverse. This most likely represents a postop seroma. 3. Small calcified gallstones are noted in the dependent portion of the gallbladder. No changes of acute cholecystitis noted.
--- NOTE | 2022-12-30 17:43 | USR_ITS ---
PROCEDURE INFORMATION: Exam: US Duplex Lower Extremity Veins, Bilateral Exam date and time: 12/30/2022 6:24 PM Age: 77 years old Clinical indication: Edema, localized; Lower extremity, bilateral; Prior surgery; Surgery date: <1 month; Surgery type: Hernia surgery 11/22/2022; Patient HX: Morbid obesity. History of dvt bilateral lower extremities S/P hernia surgery on 11/22/2022. Patient is taking eloquis. No history of pulmonary emboli per patient. ; Additional info: Dvt and leg pain TECHNIQUE: Imaging protocol: Real-time duplex ultrasound of the bilateral extremities with 2-D flowers scale, color Doppler flow and spectral waveform analysis including responses to compression and other maneuvers (when performed) with image documentation. Complete exam focused on the lower extremity veins. COMPARISON: CT abdomen pelvis wo con [id number] 12/30/2022 5:51 PM FINDINGS: Limitations: The study is limited by patient body habitus. Right deep veins: Unremarkable. The common femoral, femoral, proximal profunda femoral and popliteal veins are patent without thrombus. Normal Doppler waveforms. Normal compressibility and/or augmentation response. Right superficial veins: Saphenofemoral junction is patent without thrombus. Left deep veins: Unremarkable. The common femoral, femoral, proximal profunda femoral and popliteal veins are patent without thrombus. Normal Doppler waveforms. Normal compressibility and/or augmentation response. Left superficial veins: Saphenofemoral junction is patent without thrombus. Soft tissues: Unremarkable. US/CV venous duplex [facility] [id number] IMPRESSION: 1. The study is limited by patient body habitus. 2. No evidence of deep vein thrombosis, bilateral lower extremities.
--- NOTE | 2022-12-30 18:12 | ECG_ITS ---
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 Measurements Intervals [place] Rate: 88 P: 56 AR: 166 QRS: -70 QRSD: 168 T: 39 QT: 388 QTc: 470 Interpretive Statements SINUS RHYTHM RIGHT BUNDLE BRANCH BLOCK [120+ ms QRS DURATION, UPRIGHT V1, 40+ ms S IN I/aVL/V4/V5/V6] LEFT ANTERIOR FASCICULAR BLOCK [QRS AXIS <= -45, QR IN I, RS IN II] LEFT VENTRICULAR HYPERTROPHY AND ST-T CHANGE [VOLTAGE CRITERIA PLUS ST/T ABNORMALITY] POSSIBLE ANTEROSEPTAL MYOCARDIAL INFARCTION , OF INDETERMINATE AGE [30 ms Q WAVE IN V1-V4] Compared to ECG 12/18/2022 11:30:35 Left ventricular hypertrophy now present ST (T wave) deviation now present Myocardial infarct finding still present Electronically Signed On 12-30-2022 19:00:13 CDT by Fely Alvarado M.D. [id number]
== END 2022-12-30 20:44 | disposition home or self-care (01) ==
PROVIDERS: Emergency Provider Emergency Medicine; PCP Family Medicine
DX: L76.34 Postprocedural seroma of skin and subcutaneous tissue following other procedure (principal); I25.10 Atherosclerotic heart disease of native coronary artery without angina pectoris; I12.9 Hypertensive chronic kidney disease with stage 1 through stage 4 chronic kidney disease, or unspecified chronic kidney disease; N18.32 Chronic kidney disease, stage 3b; R60.0 Localized edema
CPT/HCPCS: 71045; 74176; 93005; 93970; 99284

== ENCOUNTER 2023-01-05 13:46 | Inpatient (IN) | payer MEDICARE, OTHER, SELFPAY ==
[2023-01-05] VITALS (89 sets, daily range): BP systolic 83–132; BP diastolic 54–88; PULSE 87–119; RESP 15–24; TEMP 36.1–37.4; O2SAT 80–100; BMI 45.3
--- NOTE | 2023-01-05 14:17 | PM.HP ---
Providers/Chief Complaint Admitting Physician: Alan Feldman DO Primary Care Provider: Vicente More MD Chief Complaint: abd pain, hypotension History of Present Illness Kaitlin Meade is a 77 year old female Medications/Allergies Home Medications Medication Instructions Recorded Confirmed Last Taken Type vedolizumab 300 mg intravenous 300 mg IV DIRECTED 11/20/19 12/18/22 11/24/22 History solution (Entyvio) cholecalciferol (vitamin D3) 25 25 mcg PO DAILY 12/27/21 12/18/22 12/19/22 History mcg (1,000 unit) capsule gabapentin 100 mg capsule 100 mg PO BEDTIME PRN Pain 04/10/22 12/18/22 12/19/22 History cyanocobalamin (vitamin B-12) 1,000 mcg IM Q30D #10 mL 06/18/22 12/18/22 12/12/22 Rx 1,000 mcg/mL injection solution folic acid 1 mg tablet 1 mg PO DAILY #90 tabs 09/16/22 12/18/22 12/21/22 Rx magnesium oxide 500 mg capsule 1,000 mg PO BID 09/22/22 12/18/22 12/21/22 History omega-3 fatty acids 1,000 mg 1,000 mg PO DAILY 09/22/22 12/18/22 12/19/22 History capsule vitamin B complex 1 tab PO DAILY 09/22/22 12/18/22 12/21/22 History nitroglycerin 0.4 mg sublingual 0.4 mg sublingual Q5M PRN chest 10/09/22 12/18/22 Unknown Rx tablet pain #30 tabs pantoprazole 40 mg tablet,delayed 40 mg PO DAILY 10/09/22 12/18/22 12/21/22 History release lactobacillus comb no.10 20 20,000 mmu cells PO DAILY 11/05/22 12/18/22 Unknown History billion cell capsule (Probiotic) tumeric 100 mg-sadiq 150 mg-olive 1 cap PO DAILY 11/05/22 12/18/22 12/19/22 History 50 mg-oreg 150 mg-caprylate capsule apixaban 5 mg tablet (Eliquis) 5 mg PO BID DVT #60 tabs 11/17/22 12/22/22 12/19/22 Rx atorvastatin 40 mg tablet 20 mg PO BEDTIME #30 tabs 11/27/22 12/18/22 12/19/22 Rx ondansetron HCl 4 mg tablet 4 mg PO QID PRN Nausea 12/18/22 12/18/22 Unknown History potassium chloride 10 mEq 20 meq PO BID 12/18/22 12/18/22 12/21/22 11:00 History capsule,extended release docusate sodium 100 mg capsule 100 mg PO BID #14 caps 12/22/22 Unknown Rx (DOK) hydrocodone 7.5 mg-acetaminophen 1 tab PO Q6H PRN pain 5 days #20 12/25/22 Unknown Rx 325 mg tablet tabs Allergies Allergy/AdvReac Type Severity Reaction Status Date / Time aspirin Allergy Unknown Verified 12/30/22 15:36 Iodine and Iodide Containing Allergy ALGY-Anaphy Verified 12/30/22 15:36 Produc laxis prochlorperazine Allergy Unknown Verified 12/30/22 15:36 [From Compazine] PFSH Acute PFSH: Medical History Allergy to iodine Atherosclerosis of coronary artery Chronic kidney disease CKD stage G3b/A1, GFR 30-44 and albumin creatinine ratio <30 mg/g Crohn's disease Depression GERD (gastroesophageal reflux disease) History of DVT (deep vein thrombosis) Hypertension Normocytic anemia JEFFREY on CPAP Surgical History History of bowel resection History of colonoscopy History of incisional hernia repair Port-A-Cath in place (05/15/21) Family History Other Diabetes Social History Smoking and tobacco status: never smoked Physical Exam Sepsis: Is patient septic: Yes Focused sepsis exam performed: Yes Date exam was performed: 01/05/23 Time exam was performed: 14:29 Data Other Labs: WBC 18, HGB 9.8, PLT 237 ESR 100 Creat 2.4 Alb 2.6 LFT's reviewed Lactate 2.1 Mg 1.5 [address] abd/pelvis no contrast large abscess, possible fistula between sigmoid and abscess via diveritulum Coding Level of Care Code Acute Code for Chg Fwd Diagnoses
--- NOTE | 2023-01-05 14:31 | P.CONIM_ITS ---
Providers/Reason For Consult Consulting Physician/Specialty*: Jesús Mclean MD Reason for Consult*: Sepsis Requesting Physician: Dr. Feldman Attending Physician: Alan Feldman DO Primary Care Provider: Vicente More MD History of Present Illness History of Present Illness Kaitlin Meade is a 77 year old female with history of Crohn's disease presenting from [facility] with abdominal pain for the last week, redness at previous abdominal hernia repair site(ocurred 12/22) for about a week and drainage starting today. First blood and now stool coming from incision/repair site. Nausea, decreased po intake. No blood in stool. Not eating in last 2 days but drinking. Last po intake 0800 today. No fever. On anticoagulation with DVT noted on imaging November 17, not seen on repeat imaging on 12/30. At [facility] received some Rocephin and Flagyl. Review of Systems General: Reports: 10 or more systems reviewed and unremarkable except in HPI and below Const: Reports: fatigue and malaise; Denies: fever(s) Card: Denies: chest pain Resp: Denies: dyspnea GI: Reports: abdominal pain and nausea; Denies: vomiting, hematochezia or melena Medications/Allergies Home Medications Medication Instructions Recorded Confirmed Last Taken Type vedolizumab 300 mg intravenous 300 mg IV DIRECTED 11/20/19 12/18/22 11/24/22 History solution (Entyvio) cholecalciferol (vitamin D3) 25 25 mcg PO DAILY 12/27/21 12/18/22 12/19/22 History mcg (1,000 unit) capsule gabapentin 100 mg capsule 100 mg PO BEDTIME PRN Pain 04/10/22 12/18/22 12/19/22 History cyanocobalamin (vitamin B-12) 1,000 mcg IM Q30D #10 mL 06/18/22 12/18/22 12/12/22 Rx 1,000 mcg/mL injection solution folic acid 1 mg tablet 1 mg PO DAILY #90 tabs 09/16/22 12/18/22 12/21/22 Rx magnesium oxide 500 mg capsule 1,000 mg PO BID 09/22/22 12/18/22 12/21/22 History omega-3 fatty acids 1,000 mg 1,000 mg PO DAILY 09/22/22 12/18/22 12/19/22 History capsule vitamin B complex 1 tab PO DAILY 09/22/22 12/18/22 12/21/22 History nitroglycerin 0.4 mg sublingual 0.4 mg sublingual Q5M PRN chest 10/09/22 12/18/22 Unknown Rx tablet pain #30 tabs pantoprazole 40 mg tablet,delayed 40 mg PO DAILY 10/09/22 12/18/22 12/21/22 History release lactobacillus comb no.10 20 20,000 mmu cells PO DAILY 11/05/22 12/18/22 Unknown History billion cell capsule (Probiotic) tumeric 100 mg-sadiq 150 mg-olive 1 cap PO DAILY 11/05/22 12/18/22 12/19/22 History 50 mg-oreg 150 mg-caprylate capsule apixaban 5 mg tablet (Eliquis) 5 mg PO BID DVT #60 tabs 11/17/22 12/22/22 12/19/22 Rx atorvastatin 40 mg tablet 20 mg PO BEDTIME #30 tabs 11/27/22 12/18/22 12/19/22 Rx ondansetron HCl 4 mg tablet 4 mg PO QID PRN Nausea 12/18/22 12/18/22 Unknown History potassium chloride 10 mEq 20 meq PO BID 12/18/22 12/18/22 12/21/22 11:00 History capsule,extended release docusate sodium 100 mg capsule 100 mg PO BID #14 caps 12/22/22 Unknown Rx (DOK) hydrocodone 7.5 mg-acetaminophen 1 tab PO Q6H PRN pain 5 days #20 12/25/22 Unknown Rx 325 mg tablet tabs Allergies Allergy/AdvReac Type Severity Reaction Status Date / Time aspirin Allergy Unknown Verified 12/30/22 15:36 Iodine and Iodide Containing Allergy ALGY-Anaphy Verified 12/30/22 15:36 Produc laxis prochlorperazine Allergy Unknown Verified 12/30/22 15:36 [From Compazine] PFSH Acute PFSH: Medical History (Updated 01/05/23 @ 14:54 by Jesús Mclean MD) Allergy to iodine Atherosclerosis of coronary artery Chronic kidney disease CKD stage G3b/A1, GFR 30-44 and albumin creatinine ratio <30 mg/g Crohn's disease Depression GERD (gastroesophageal reflux disease) History of DVT (deep vein thrombosis) Hypertension Normocytic anemia JEFFREY on CPAP Surgical History History of bowel resection History of colonoscopy History of incisional hernia repair Port-A-Cath in place (05/15/21) Family History Other Diabetes Social History Smoking and tobacco status: never smoked Vitals/I&O/Wt Weight last 48 hrs Weight 127.459 kg Physical Exam Narrative: General exam NAD HEENT AT/NC, PERRLA. Oropharynx clear Neck supple with no LAD/thyromagaly CV RRR without murmur. Port is noted right chest Lungs CTAB without wheezing, crackles Abd S/NT, hypoactive BS. Large dressing over hernia with copious amount of stool. Ext No c/c/e skin without rash Neuro no obvious focal deficits. 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 She has an anterior abdominal wall abscess, and recently had an abdominal hernia repair on December 22. There is suggestion on her CT scan from outside facility that there is a connection between sigmoid diverticula and the abscess site. Surgery is primary, and evaluating for surgery currently. Type and screen Zosyn IV Blood cultures will be obtained. I believe they were done at outside facility as well but cannot confirm this and looking at records. It does appear she received some Rocephin and Flagyl at the referring facility She is appropriately in the ICU setting Check baseline EKG CBC, CMP tomorrow (2) Sepsis: She appears to be septic. She has endorgan dysfunction with acute kidney injury. Source of sepsis is anterior abdominal wall abscess with enterocutaneous fistula. Her white blood cell count is markedly elevated. It is increased. Her systolic blood pressure is approximately 90 following boluses. I have ordered a lactate with reflex. Lactate at outside facility was elevated. I am not for sure if they diagnosed her with sepsis. She did receive fluids there. I know she received at least 1 L but suspect more. I am giving her a 500 cc bolus here, and reassessing immediately for more fluid upon her response. Will order norepinephrine, if needed (3) Crohn's disease: She has underlying Crohn's disease, and is currently on Entyvio Hold this immunosuppressant currently (4) History of DVT (deep vein thrombosis): She recently had a DVT in late November. She was placed on anticoagulation and a repeat ultrasound did not demonstrate a DVT on December 30. She stopped her anticoagulation then. I believe anticoagulation is still necessary. Will readdress this following her surgical procedure. She will initially go on DVT prophylaxis, increasing to therapeutic anticoagulation when safe to do so per surgery. SCDs as well for DVT prophylaxis (5) Acute kidney injury: Hydration Place Kate Repeat laboratory tomorrow, BMP Plan Other medical problems as outlined in past medical history Full code SCDs for DVT prophylaxis. Anticoagulation currently contraindicated is directly going to surgery Thank you for this consultation, I will continue to follow with you Consult Attestations Medical Necessity Statement: As per primary Critical Care Time: The high probability of a clinically significant, sudden or life threatening deterioration of the patient's [infectious, renal, GI] system(s) required my full and direct attention, intervention and personal management. The critical care time is as shown. This time is in addition to time spent performing any reported procedures but includes the following: [x] Data and vital sign review and interpretation [x] Patient assessment, examination and intervention [x] Documentation [x] Medication orders and management Critical Care Time (min): 45 Coding Level of Care Code Critical Care >/= 30 minutes Critical care time (in minutes): 45 The high probability of a clinically significant, sudden or life threatening deterioration, as referenced in this documentation, required my full and direct attention, intervention and personal management. The critical care time shown is in addition to time spent performing any reported separately billable procedures and includes the following: [x] Data and vital sign review and interpretation [x ] Patient assessment, examination and intervention [x] Medication orders and management [x] Patient/Family updates as able [x] Care Coordination and Documentation. Diagnoses Enterocutaneous fistula K63.2 Sepsis A41.9 Crohn's disease K50.90 History of DVT (deep vein thrombosis) Z86.718 Acute kidney injury N17.9 Time Spent (min) 45
[2023-01-05] MEDS: sodium chloride 0.9% 1,000 ML 125 ML IV ×2 (14:42→20:02)
[2023-01-05] MEDS: morphine 4 mg/mL SDV 1 mL IVP (14:42)
[2023-01-05] MEDS: ondansetron 2 mg/ML SDV 2 mL 4 MG IVP (14:42)
[2023-01-05] MEDS: piperacillin-tazobactam 3.375 GM in sodium chloride 0.9% (plus) 50 ML IV ×2 (14:42→23:35)
--- NOTE | 2023-01-05 14:48 | ECG_ITS ---
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 Measurements Intervals [place] Rate: 89 P: -76 NE: 122 QRS: -73 QRSD: 149 T: 65 QT: 359 QTc: 439 Interpretive Statements SINUS RHYTHM LEFT AXIS DEVIATION [QRS AXIS < -30] RIGHT BUNDLE BRANCH BLOCK [120+ ms QRS DURATION, UPRIGHT V1, 40+ ms S IN I/aVL/V4/V5/V6] POSSIBLE ANTERIOR MYOCARDIAL INFARCTION , OF INDETERMINATE AGE [30 ms Q WAVE IN V3/V4, OR R < 0.2 mV IN V4] Compared to ECG 12/30/2022 18:13:25 Left-axis deviation now present Left anterior fascicular block no longer present Left ventricular hypertrophy no longer present ST (T wave) deviation no longer present Myocardial infarct finding still present Electronically Signed On 01-05-2023 16:43:16 CDT by Eugenio Echavarria M.D. [id number]
--- NOTE | 2023-01-05 14:49 | P.HP_ITS ---
Providers/Chief Complaint Admitting Physician: Alan Feldman DO Primary Care Provider: Vicente More MD Chief Complaint: abd pain, hypotension History of Present Illness Kaitlin Meade is a 77 year old female, who underwent laparoscopic repair of a large recurrent incisional hernia with mesh 14 days ago, that presented to the hospital with a 2-day history of progressive weakness, abdominal pain and erythema over her abdomen. She presented to an outside hospital and CT showed possible fistulous connection between a diverticulum of her sigmoid colon and the mesh, with large abscess formation. She has a history of Crohn's disease and is immunosuppressed on Entyvio. She has a remote history of right hemicolectomy secondary to her Crohn's disease. Upon presentation she is septic and has foul-smelling purulence, consistent with stool, coming out of her abdomen. She denies any fever or chills at home but she is immunosuppressed. Her main reason for presenting to the hospital was progressive weakness. She has a history of DVT 6 weeks ago and has been on Eliquis but reports that she has not taken it for the past week. Review of Systems General: Reports: 10 or more systems reviewed and unremarkable except in HPI and below Medications/Allergies Home Medications Medication Instructions Recorded Confirmed Last Taken Type vedolizumab 300 mg intravenous 300 mg IV DIRECTED 11/20/19 12/18/22 11/24/22 History solution (Entyvio) cholecalciferol (vitamin D3) 25 25 mcg PO DAILY 12/27/21 12/18/22 12/19/22 History mcg (1,000 unit) capsule gabapentin 100 mg capsule 100 mg PO BEDTIME PRN Pain 04/10/22 12/18/22 12/19/22 History cyanocobalamin (vitamin B-12) 1,000 mcg IM Q30D #10 mL 06/18/22 12/18/22 12/12/22 Rx 1,000 mcg/mL injection solution folic acid 1 mg tablet 1 mg PO DAILY #90 tabs 09/16/22 12/18/22 12/21/22 Rx magnesium oxide 500 mg capsule 1,000 mg PO BID 09/22/22 12/18/22 12/21/22 History omega-3 fatty acids 1,000 mg 1,000 mg PO DAILY 09/22/22 12/18/22 12/19/22 Hi story capsule vitamin B complex 1 tab PO DAILY 09/22/22 12/18/22 12/21/22 History nitroglycerin 0.4 mg sublingual 0.4 mg sublingual Q5M PRN chest 10/09/22 12/18/22 Unknown Rx tablet pain #30 tabs pantoprazole 40 mg tablet,delayed 40 mg PO DAILY 10/09/22 12/18/22 12/21/22 History release lactobacillus comb no.10 20 20,000 mmu cells PO DAILY 11/05/22 12/18/22 Unknown History billion cell capsule (Probiotic) tumeric 100 mg-sadiq 150 mg-olive 1 cap PO DAILY 11/05/22 12/18/22 12/19/22 History 50 mg-oreg 150 mg-caprylate capsule apixaban 5 mg tablet (Eliquis) 5 mg PO BID DVT #60 tabs 11/17/22 12/22/22 12/19/22 Rx atorvastatin 40 mg tablet 20 mg PO BEDTIME #30 tabs 11/27/22 12/18/22 12/19/22 Rx ondansetron HCl 4 mg tablet 4 mg PO QID PRN Nausea 12/18/22 12/18/22 Unknown History potassium chloride 10 mEq 20 meq PO BID 12/18/22 12/18/22 12/21/22 11:00 History capsule,extended release docusate sodium 100 mg capsule 100 mg PO BID #14 caps 12/22/22 Unknown Rx (DOK) hydrocodone 7.5 mg-acetaminophen 1 tab PO Q6H PRN pain 5 days #20 12/25/22 Unknown Rx 325 mg tablet tabs Allergies Allergy/AdvReac Type Severity Reaction Status Date / Time aspirin Allergy Unknown Verified 12/30/22 15:36 Iodine and Iodide Containing Allergy ALGY-Anaphy Verified 12/30/22 15:36 Produc laxis prochlorperazine Allergy Unknown Verified 12/30/22 15:36 [From Compazine] PFSH Acute PFSH: Medical History Allergy to iodine Atherosclerosis of coronary artery Chronic kidney disease CKD stage G3b/A1, GFR 30-44 and albumin creatinine ratio <30 mg/g Crohn's disease Depression GERD (gastroesophageal reflux disease) History of DVT (deep vein thrombosis) Hypertension Normocytic anemia JEFFREY on CPAP Surgical History History of bowel resection History of colonoscopy History of incisional hernia repair Port-A-Cath in place (05/15/21) Family History Other Diabetes Social History Smoking and tobacco status: never smoked Vitals/I&O/Wt Last Vital Signs Resp 24 H 01/05/23 14:42 Pulse Ox 92 01/05/23 14:42 Weight last 48 hrs Weight 281 lb Physical Exam Narrative: General : Patient is well developed , morbidly obese, no acute distress, oriented x3 Head : Normal cephalic, a-traumatic. Ears : Pinnae and external canal are normal. Hearing is normal. Eyes : PERRLA, Sclera and injection are normal. No conjunctival discharge. Nose : Mucous membranes are without erythema. Throat : buccal mucosa is normal, gums are without significant recession or hypertrophy. Lungs : Equal chest rise bilaterally, no use of accessory muscles, trachea is midline. Cor : Rate and rhythm are normal. Abdomen : Soft, ND, mild diffuse tenderness with erythema on the lower half of the abdomen, feculent material leaking from incision, no g/r/m Extremities : No edema, no cyanosis or clubbing, dorsalis pedis pulses are present bilaterally, non-tender to palpation of calves. Upper extremities are normal bilaterally. Back : non-tender to palpation, no CVA tenderness. Neuro : CN II - XII intact, Upper and lower extremities have equal and full strength A&P Assessment and plan (1) S/P repair of recurrent ventral hernia: (2) Crohn's disease: (3) Sepsis: (4) History of DVT (deep vein thrombosis): Plan Admit to ICU IV antibiotics Medicine has been consulted To OR emergently for exploratory laparotomy, mesh removal, possible bowel resection, possible ostomy formation. The risk and benefits of the procedure, including but not limited to, bleeding, infection, scar, numbness, pain, damage to surrounding structures, , prolonged intubation, need for further surgery, were explained to the patient and her daughter. They understand the risks and wished to proceed. Attestations Medical Necessity Statement*: Patient will require more than 2 nights in the hospital for intensive care following exploratory laparotomy Coding Level of Care Code Acute Code for Chg Fwd Diagnoses S/P repair of recurrent ventral hernia Z98.890; Z87.19 Crohn's disease K50.90 Sepsis A41.9 History of DVT (deep vein thrombosis) Z86.718
--- NOTE | 2023-01-05 15:00 | ANES.PAUD2 ---
Pre-Anesthetic Update Pre-Anesthetic Assessment: Date of Surgery/Procedure: 01/05/23 Proposed Procedure: Operation Date: 01/05/23 15:30 Proposed Procedures p Exploratory Laparotomy(Not Applicable) - Alan Feldman, DO Any changes to Pre-Anesthetic Assessment?: Yes Changes from Pre-Anesthetic Assessment: acute abdomen Labs Last 48hrs: Blood Bank 01/05/23 15:19 Blood Type B Positive Rho(D) Type Positive Antibody Screen Negative Vitals: Temperature 99.4 F 01/05/23 13:50 Temperature Source Axillary 01/05/23 13:50 Pulse Rate 97 01/05/23 15:40 Respiratory Rate 18 01/05/23 15:40 Respiratory Effort Spontaneous, Non- Labored 01/05/23 14:42 Respiratory Depth Normal 01/05/23 14:42 Respiratory Patter n Normal 01/05/23 14:18 Blood Pressure 126/77 01/05/23 15:55 Blood Pressure Leanne n 93 01/05/23 15:55 Pulse Oximetry 89 L 01/05/23 15:40 Oxygen Delivery Me thod Room Air 01/05/23 15:40 Exam: Pre-Anes Outpt Exam: alert, oriented x 3, clear to auscultation bilaterally and regular rate & rhythm Cardiac Studies: Echocardiogram 10/30/22 Sestamibi Stress Test (Cardiology) 09/25/22 Cardiac Event Monitor 02/12/22
[2023-01-05] MEDS: magnesium sulfate premix 2 GM/50 ML PIGGYBACK IV (15:14)
--- NOTE | 2023-01-05 15:15 | XRR_ITS ---
PROCEDURE INFORMATION: Exam: XR Chest Exam date and time: 01/05/2023 2:21 PM Age: 77 years old Clinical indication: Device placement; Other: Central line placement TECHNIQUE: Imaging protocol: Radiologic exam of the chest. Views: 1 view. COMPARISON: CR XR chest 1V portable [id number] 12/30/2022 3:26 PM FINDINGS: Tubes, catheters and devices: Right chest port terminates in the right atrium. Left central line terminates in the mid SVC. Lungs: Calcified granuloma noted in the left upper lung. No consolidation. Pleural spaces: Unremarkable. No pleural effusion. No pneumothorax. Heart/Mediastinum: Unremarkable. No cardiomegaly. Bones/joints: Partially visualized right shoulder arthroplasty noted. XR/XR chest 1V portable [id number] IMPRESSION: Left central line in proper positioning.
[2023-01-05 15:46] LABS: Lactic Sepsis W/Reflex 1.5 mmol/L (0.5-2.2)
--- NOTE | 2023-01-05 16:05 | PC.NURSE ---
Patient arrived to ICU 10 at 1350. Patient was found to have stool leaking from abdomen in copious amounts. Dr. Feldman notified of patients arrival and Dr. Mclean consulted. See MAR for medication administration, and other charting for vitals. Kate catheter placed using aseptic technique. Consents obtained for central line placement and procedure. Patient in care of OR staff at 1550.
--- NOTE | 2023-01-05 17:21 | PM.OP ---
Operative Report Date of procedure: January 05, 2023 Pre-op diagnosis: Colocutaneous fistula Post-op diagnosis: Perforated sigmoid diverticulum Procedure done: Exploratory laparotomy Partial sigmoid colectomy Mesh explantation Placement of ABThera wound VAC Left subclavian central line placement Implants: ABThera wound VAC Specimens removed/disposition: Partial sigmoid colectomy Surgeon: Dr. Alan Feldman, Anesthesia: General Estimated blood loss (mL): 600 Complications: None apparent Findings: Perforated sigmoid diverticulum Colon was not adherent to the mesh Brief History: Is a very pleasant 77-year-old female who underwent a laparoscopic recurrent incisional hernia repair with a 10 inch by an 8 inch Ventralight mesh 14 days ago. She presented to the hospital with abdominal pain and weakness. CT showed possible fistulous connection coming from a sigmoid diverticulum. Patient is immunosuppressed on Entyvio for Crohn's disease. Exploratory laparotomy, mesh explantation, possible bowel resection, possible ostomy formation was indicated. The risk and benefits were explained and documented. Procedure: A left subclavian central line was placed by myself using the Seldinger technique sterilely. A chest x-ray confirmed proper placement and no pneumothorax. Patient was then wheeled in the operative room and placed on the OR table in the supine position. General tracheal intubation was achieved by the department of anesthesia. A timeout was performed. All present were in agreement. The abdomen was inspected prepped and draped in usual sterile fashion. There was copious feculent material coming from the abdomen. A 10 blade scalpel was then used to make a midline laparotomy from subxiphoid to inferior to the umbilicus. Feculent material was suctioned. The previous mesh that was placed was removed with manual traction. There was no bowel adherent to the mesh. There was significant inflammation of omentum. There was approximately 600 blood loss during this time. The bowel was ran and a small necrotic diverticulum of the sigmoid colon was identified with significant surrounding inflammation. CHERYLE stapler with a 100 mm blue load was used to resect approximately 4 inches of sigmoid colon. Patient was left in discontinuity. Copious saline irrigation was performed and hemostasis was noted. The ABThera wound VAC was then cut to size and put in place. Wound VAC had a good seal. Patient was then wheeled into the intensive care unit.
[2023-01-05] MEDS: propofol 1,000 MG/100 ML INJ 7.65 MG IV (17:50)
[2023-01-05 18:09] LABS: Hematocrit 31.9 % (37.0-47.0); Hemoglobin 9.6 g/dL (11.5-15.3)
[2023-01-05] MEDS: cisatracurium 100 MG in sodium chloride 0.9% 50 ML IV (18:09)
[2023-01-05] MEDS: vancomycin 1,250 MG/250 ML PIGGYBACK 250 MG IV (18:38)
[2023-01-05] MEDS: heparin 5,000 unit/mL INJ 1 mL 5000 UNIT SUBCUT (19:22)
--- NOTE | 2023-01-05 19:26 | PC.NURSE ---
Patient returned to ICU 10 from surgery at 1736. Ventilator settings are VC-AC, FIO2 80, VT400, RR 15, PEEP 8, 7.5 tube 22@lip. See MAR for medication administration and titration. Abdominal wound vac at 125, NG to low intermittent suction. 1800 TOF-0, BIZ 54 Patient family at bedside had no questions. See other charting for vitals.
--- NOTE | 2023-01-05 20:07 | XRR_ITS ---
PROCEDURE INFORMATION: Exam: XR Chest Exam date and time: 01/05/2023 7:31 PM Age: 77 years old Clinical indication: Device placement; Ng tube; Prior surgery; Surgery date: Post-operative (0-2 days); Surgery type: Abd; Additional info: Et/ng placement TECHNIQUE: Imaging protocol: Radiologic exam of the chest. Views: 1 view. COMPARISON: CR XR chest 1V portable [id number] 01/05/2023 2:21 PM FINDINGS: Tubes, catheters and devices: Endotracheal tube is located 5 mm from the alexander. Stable positioning central lines. NG tube terminates in the region of the stomach in the upper abdomen. Lungs: No significant interval change. Pleural spaces: No pleural effusion. No pneumothorax. Heart/Mediastinum: No significant interval change. Bones/joints: No significant interval change. XR/XR chest 1V portable [id number] IMPRESSION: 1. Endotracheal tube is located 5 mm alexander. 2. NG tube is in the expected location of the stomach.
[2023-01-05 20:28] LABS: ABG PCO2 54.8 mmHg (35-45); Alveolar-Arterial Oxygen Gradi 35.7 mmHg (5-10); Arterial Blood Gas Hematocrit 33.4 % (37-47); Base Excess ABG -9.5 mmol/L (-2.0-2.0); Blood Gas Allen Test Pos; Blood Gas Sample Site Radial, right; Blood Gas Sample Type Arterial; Carboxyhemoglobin 0.1 %THgb (0.4-20.1); HCO3 ABG 19.3 mmol/L (22-26); HGB O2 Sat 96.8 % (95-100); Ionized Calcium Level - ABG 1.1 mmol/L (1.1-1.4); Oxygen Device VENT; Oxygen Saturation ABG 97.8; Potassium Level - ABG 3.3 mmol/L (3.5-5.0); Total Hemoglobin 10.9 g/dL (12-16)
[2023-01-05 20:29] LABS: ABG PH Result 7.16 (7.35-7.45)
[2023-01-05] MEDS: sodium bicarbonate 1 mEq/mL SDV 50mL 50 MEQ IVP (20:57)
[2023-01-05 21:14] LABS: Hemoglobin 10.1 g/dL (11.5-15.3); Mean Corpuscular HGB Conc 29.7 g/dL (30.0-36.0); Mean Corpuscular Hemoglobin 28.2 pg (28.0-34.0); Mean Platelet Volume 10.1 fL (7.4-10.4); Platelet Count 278 10^3/cmm (130-400); Red Blood Count 3.58 10^6/uL (4.1-5.3); Red Cell Distribution Width 13.2 % (12.1-15.1); White Blood Count 29.4 10^3/uL (4.0-10.0)
[2023-01-05] MEDS: sodium bicarbonate 150 MEQ in dextrose 5% 1,000 ML 100 MEQ IV (21:17)
[2023-01-05 21:33] LABS: Alanine Aminotransferase 40 U/L (0-33); Alkaline Phosphatase 110 U/L (35-105); Anion Gap 19.5 (5-19); Aspartate Amino Transferase 63 U/L (0-32); Blood Urea Nitrogen 54 mg/dL (8-23); Calcium 7.8 mg/dL (8.5-10.5); Carbon Dioxide 17 mmol/L (22-29); Chloride 102 mmol/L (98-107); Globulin 3.2 g/dL (1.3-4.6); Glucose 113 mg/dL (65-115); Magnesium 1.7 mg/dL (1.7-2.3); Osmolality Calculated 296 mOsm/kg (285-295); Potassium 3.5 mmol/L (3.5-5.1); Sodium 135 mmol/L (136-145); Total Bilirubin 0.9 mg/dL (0.15-1.2); Total Protein 5.2 g/dL (6.6-8.7)
[2023-01-05 21:51] LABS: Slide Review Slide Review Perform
[2023-01-05 21:54] LABS: Band Neutrophils Absolute 0.9 10^3/cmm (0.0-1.2); Eosinophils 0 %; Lymphocytes 2 %; Monocytes Absolute 1.2 10^3/cmm (0.1-0.6); Total Cells Counted 100 (0-100)
[2023-01-05 21:55] LABS: Platelet Estimate Normal (Normal)
[2023-01-05 21:56] LABS: Absolute Neutrophil 26.5 10^3/cmm (1.4-6.5); Absolute Segmented Neutrophil 25.6 10/cmm (1.6-7.1); Segmented Neutrophils 87 %
[2023-01-05 23:27] LABS: ABG PCO2 29.9 mmHg (35-45); ABG PH Result 7.41 (7.35-7.45); Arterial Blood Gas Hematocrit 29.4 % (37-47); Base Excess ABG -5.1 mmol/L (-2.0-2.0); Blood Gas Allen Test Pos; Blood Gas Sample Site Radial, right; Blood Gas Sample Type Arterial; Carboxyhemoglobin 0.6 %THgb (0.4-20.1); HCO3 ABG 18.8 mmol/L (22-26); HGB O2 Sat 99.1 % (95-100); Ionized Calcium Level - ABG 0.9 mmol/L (1.1-1.4); Methemoglobin < 0.0 % (0.4-1.5); Oxygen Device VENT; Oxygen Saturation ABG 99.5; Potassium Level - ABG 6.9 mmol/L (3.5-5.0); Total Hemoglobin 9.6 g/dL (12-16)
[2023-01-05 23:28] LABS: Alveolar-Arterial Oxygen Gradi 18.9 mmHg (5-10); Blood Gas Tidal Volume 0.45
[2023-01-06] VITALS (152 sets, daily range): BP systolic 67–153; BP diastolic 47–96; PULSE 45–112; RESP 18; TEMP 36.3–36.7; O2SAT 88–100
[2023-01-06] MEDS: propofol 1,000 MG/100 ML INJ 49.71 MG IV (00:18)
--- NOTE | 2023-01-06 00:47 | PC.NURSE ---
Addendum entered by Whitley Peoples RN 01/06/23 00:58: New order for fixed rate vasopressin and 1L NS bolus. Original Note: Low BP: Levophed requirements increasing. See MAR for titration of levophed. Dr. Hernadez made aware of increasing requirments. Levophed is currently @16mcg/min.
[2023-01-06] MEDS: sodium chloride 0.9% 1,000 ML 999 ML IV (01:12)
[2023-01-06] MEDS: heparin 5,000 unit/mL INJ 1 mL 5000 UNIT SUBCUT ×3 (01:35→17:15)
[2023-01-06] MEDS: propofol 1,000 MG/100 ML INJ 45.89 MG IV ×2 (02:52→20:52)
[2023-01-06 02:53] LABS: Hemoglobin 8.9 g/dL (11.5-15.3); Mean Corpuscular HGB Conc 29.7 g/dL (30.0-36.0); Mean Corpuscular Hemoglobin 28.2 pg (28.0-34.0); Mean Corpuscular Volume 94.9 fl (81-99); Mean Platelet Volume 10.5 fL (7.4-10.4); Platelet Count 310 10^3/cmm (130-400); Red Blood Count 3.16 10^6/uL (4.1-5.3)
[2023-01-06 03:12] LABS: Alanine Aminotransferase 32 U/L (0-33); Albumin Level 1.7 g/dL (3.5-5.2); Alkaline Phosphatase 96 U/L (35-105); Anion Gap 19.4 (5-19); Aspartate Amino Transferase 53 U/L (0-32); Blood Urea Nitrogen 50 mg/dL (8-23); Calcium 7.1 mg/dL (8.5-10.5); Carbon Dioxide 19 mmol/L (22-29); Chloride 102 mmol/L (98-107); Globulin 2.8 g/dL (1.3-4.6); Glucose 189 mg/dL (65-115); Magnesium 1.6 mg/dL (1.7-2.3); Osmolality Calculated 302 mOsm/kg (285-295); Potassium 3.4 mmol/L (3.5-5.1); Sodium 137 mmol/L (136-145); Total Protein 4.5 g/dL (6.6-8.7)
[2023-01-06 03:22] LABS: Slide Review Slide Review Perform
[2023-01-06 03:25] LABS: White Blood Count 30.9 10^3/uL (4.0-10.0)
[2023-01-06 03:46] LABS: ABG PCO2 40.7 mmHg (35-45); Alveolar-Arterial Oxygen Gradi 10.9 mmHg (5-10); Arterial Blood Gas Hematocrit 29.1 % (37-47); Base Excess ABG -5.8 mmol/L (-2.0-2.0); Blood Gas Allen Test Pos; Blood Gas Sample Site Radial, right; Blood Gas Sample Type Arterial; Blood Gas Tidal Volume 0.43; Carboxyhemoglobin 0.6 %THgb (0.4-20.1); HCO3 ABG 20.2 mmol/L (22-26); HGB O2 Sat 93.3 % (95-100); Ionized Calcium Level - ABG 1.1 mmol/L (1.1-1.4); Methemoglobin 0.9 % (0.4-1.5); Oxygen Device VENT; Oxygen Saturation ABG 94.7; PO2 ABG 79.2 mmHg (80.0-100.0); Potassium Level - ABG 3.3 mmol/L (3.5-5.0); Total Hemoglobin 9.5 g/dL (12-16)
[2023-01-06] MEDS: sodium chloride 0.9% 1,000 ML 125 ML IV (03:58)
--- NOTE | 2023-01-06 05:00 | PC.NURSE ---
Physician Communication Dr. Hernadez updated on patient status; orders received for a 20 meq K-rider once IV and for 25% albumin in 100 ml IV once.
--- NOTE | 2023-01-06 05:30 | XRR_ITS ---
PROCEDURE INFORMATION: Exam: XR Chest Exam date and time: 01/06/2023 5:34 AM Age: 77 years old Clinical indication: Shortness of breath; Patient HX: PT on vent. ; Additional info: Post surgery TECHNIQUE: Imaging protocol: Radiologic exam of the chest. Views: 1 view. COMPARISON: CR (CHEST, ) 01/05/2023 7:31 PM FINDINGS: Tubes, catheters and devices: Right IJ approach MediPort is in satisfactory position, with distal tip at the level of the SVC/RA junction. Left IJ approach central line is in satisfactory position, with distal tip in the SVC, approximately 4 cm above the SVC/RA junction. Endotracheal tube is in satisfactory position. Feeding tube is in satisfactory position. Lungs: Low lung volumes. There is increased interstitial markings and haziness of the lungs, which in the setting of cardiomegaly is suggestive of pulmonary congestion. Pneumonia should be excluded clinically. Small calcified granuloma is again seen in the left upper lobe. Pleural spaces: Unremarkable. No pleural effusion. No pneumothorax. Heart/Mediastinum: Stable cardiomediastinal silhouette. Bones/joints: The patient is status post right shoulder arthroplasty. XR/XR chest 1V portable [id number] IMPRESSION: Imaging findings suggestive of pulmonary congestion. Pneumonia should be excluded clinically.
[2023-01-06] MEDS: potassium chloride premix 100 ML 50 MEQ IV (05:33)
--- NOTE | 2023-01-06 05:42 | PC.NURSE ---
Addendum entered by Whitley Peoples RN 01/06/23 06:14: IV Pump Weight (Nimbex): 45 kg entered in IV Nimbex pump at initiation. 127 kg weight on MAR. IV Nimbex pump edited to reflect MAR weight. MAR updated to refect increase in kg and therefore decrease in mcg/kg/min. Original Note: IV Pump Weight: 45 kg entered in IV Propofol pump at initation. 127 kg weight on MAR. IV pump weight edited to reflect MAR weight. MAR updated to reflect increase in kg and therefore decrease in mcg/kg/min. See MAR for titration.
[2023-01-06] MEDS: piperacillin-tazobactam 3.375 GM in sodium chloride 0.9% (plus) 50 ML IV ×3 (06:00→23:02)
[2023-01-06] MEDS: albumin 25 G/100 ML BAG 60 G IV ×3 (06:07→21:22)
--- NOTE | 2023-01-06 06:34 | PC.NURSE ---
BIS/TO4: 1900- 58, 1999- 64, 0- 55, 09/06 2300- 70, 11/04 0000- 51, 11/04 0200- 53, 11/04 0400- 56, 11/04 0500- 43, 11/04 0600- 48, 11/04
[2023-01-06] MEDS: propofol 1,000 MG/100 ML INJ 30.59 MG IV ×4 (08:00→15:53)
[2023-01-06] MEDS: magnesium sulfate premix 2 GM/50 ML PIGGYBACK IV ×2 (08:11→20:02)
[2023-01-06] MEDS: pantoprazole 40 mg SDV IVP (08:20)
[2023-01-06] MEDS: sodium bicarbonate 150 MEQ in dextrose 5% 1,000 ML 100 MEQ IV (08:57)
--- NOTE | 2023-01-06 09:00 | PM.PN ---
Subjective Subjective: Patient remains intubated sedated and paralyzed Vitals/I&O/Wt Last Vital Signs Temp 97.3 F L 01/07/23 02:00 Pulse 73 01/07/23 06:30 Resp 18 01/07/23 06:30 BP 94/57 01/07/23 06:30 Pulse Ox 100 01/07/23 06:30 O2 Del Method Mechanical Ventilation 01/07/23 06:30 FiO2 50 01/07/23 04:14 01/06/23 01/07/23 01/07/23 22:59 06:59 14:59 Intake Total 3169.993 / 4949.155 1755.620 / 6704.775 Output Total 1475 / 1475 1625 / 3100 Balance 1694.993 / 3474.155 130.620 / 3604.775 Weight last 48 hrs Weight 300 lb Weight 281 lb Physical Exam Narrative: General: Intubated and sedated and paralyzed Abdomen: Soft, wound VAC in place with 600 of drainage Urinary Catheter Management: Kate: Cath Placed During This Visit: yes Reason for Continuing Indwelling Catheter: Accurate Measurement of Urinary Output in Critically Ill Patients Urinary Catheter Date of Insertion: 01/05/23 Urinary Catheter Time of Insertion: 15:30 Data 01/07/23 02:21 01/07/23 05:00 Micro: Microbiology 01/05/23 17:59 Gram Stain - Final Sputum - Endotracheal Tube Aspirate Sputum Culture - Preliminary A&P Assessment and plan (1) S/P repair of recurrent ventral hernia: (2) Crohn's disease: (3) Sepsis: (4) History of DVT (deep vein thrombosis): Plan Status post exploratory laparotomy with partial sigmoid colectomy and ABThera wound VAC placement. Plan is medical optimization for takeback exploratory laparotomy and colostomy formation with possible closure tomorrow Attestations Medical Necessity Statement*: Patient requires multiple nights in the hospital for intensive care follow exploratory laparotomy and partial colectomy for perforation of sigmoid diverticulum Coding Level of Care Code Acute Code for Chg Fwd Diagnoses S/P repair of recurrent ventral hernia Z98.890; Z87.19 Crohn's disease K50.90 Sepsis A41.9 History of DVT (deep vein thrombosis) Z86.718
--- NOTE | 2023-01-06 11:04 | PM.PN ---
Subjective Subjective: Patient is sedated and paralyzed. Vasopressin was added overnight. Medications: Reviewed: Yes Vitals/I&O/Wt Last Vital Signs Temp 98.0 F 01/06/23 00:00 Pulse 69 01/06/23 10:15 Resp 18 01/06/23 07:52 BP 90/51 01/06/23 10:15 Pulse Ox 99 01/06/23 10:15 O2 Del Method Mechanical Ventilation 01/06/23 06:30 FiO2 30 01/06/23 07:52 01/05/23 01/06/23 01/06/23 22:59 06:59 14:59 Intake Total 3431.783 / 3431.783 2829.793 / 6261.576 1236.04 / 1236.04 Output Total 125 / 125 1275 / 1400 Balance 3306.783 / 3306.783 1554.793 / 4861.576 1236.04 / 1236.04 Weight last 48 hrs Weight 136.078 kg Weight 127.459 kg Physical Exam Narrative: General sedated, paralyzed HEENT: Oropharyngeal, endotracheal tube noted Neck supple with no LAD/thyromagaly CV RRR without murmur. Port is noted right chest, right subclavian central line noted Lungs CTAB without wheezing, crackles Abd S/NT, hypoactive BS. 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 She has an anterior abdominal wall abscess, and recently had an abdominal hernia repair on December 22. There is suggestion on her CT scan from outside facility that there is a connection between sigmoid diverticula and the abscess site. She is postoperative day #1 status post removal of mesh, partial sigmoid colectomy, placement of wound vacuum. She was left open. Continue Zosyn and vancomycin IV Blood cultures were done at outside facility prior to antibiotics. No read today. CBC, CMP tomorrow (2) Sepsis: She has been appropriately resuscitated with IV fluids Reduce IV fluids currently. She is currently on vasopressin and norepinephrine, will wean Continue Zosyn and vancomycin. CBC and CMP daily Secondary to severe metabolic acidosis associated with sepsis she is currently on a bicarbonate drip. Repeat BMP this afternoon. Albumin added every 8 hours (3) Crohn's disease: She has underlying Crohn's disease, and is currently on Entyvio Hold this immunosuppressant currently (4) History of DVT (deep vein thrombosis): She recently had a DVT in late November. She was placed on anticoagulation and a repeat ultrasound did not demonstrate a DVT on December 30. She stopped her anticoagulation then. I believe anticoagulation is still necessary. Currently on heparin subcutaneous. After surgical issues dealt with, will increase to therapeutic (5) Acute kidney injury: Improved, continue Kate Daily creatinine (6) Respiratory failure: Respiratory failure following surgery. Need to keep patient intubated secondary to open abdomen. Continue fentanyl, propofol, Nimbex for sedation and paralyzation Wean FiO2 as tolerated. Currently on FiO2 of 35%, PEEP of 8. Other settings reviewed as well. Chest x-ray I personally reviewed, and instructed respiratory to take endotracheal tube back 1 cm as tube was approximately half of centimeter from the alexander. Plan Hypomagnesemia. Supplement. Hypokalemia, supplement. Other medical problems as outlined in past medical history Full code SCDs for DVT prophylaxis. Anticoagulation currently contraindicated is directly going to surgery Thank you for this consultation, I will continue to follow with you Attestations Medical Necessity Statement*: Requires continued hospitalization secondary respiratory failure, sepsis, requiring pressor support in this patient with enterocutaneous fistula Critical Care Time: The high probability of a clinically significant, sudden or life threatening deterioration of the patient's [pulmonary, vascular, infectious disease, renal] system(s) required my full and direct attention, intervention and personal management. The critical care time is as shown. This time is in addition to time spent performing any reported procedures but includes the following: [x] Data and vital sign review and interpretation [x] Patient assessment, examination and intervention [x] Documentation [x] Medication orders and management Critical Care Time (min): 37 Coding Level of Care Code Critical Care >/= 30 minutes Diagnoses Enterocutaneous fistula K63.2 Sepsis A41.9 Crohn's disease K50.90 History of DVT (deep vein thrombosis) Z86.718 Acute kidney injury N17.9 Respiratory failure J96.90 Time Spent (min) 37
[2023-01-06] MEDS: cisatracurium 100 MG in sodium chloride 0.9% 50 ML 7.65 MG IV (13:24)
--- NOTE | 2023-01-06 15:20 | ECG_ITS ---
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 Measurements Intervals [place] Rate: 50 P: 249 [place]: 166 QRS: -72 QRSD: 206 T: 30 QT: 518 QTc: 474 Interpretive Statements ECTOPIC ATRIAL BRADYCARDIA RIGHT BUNDLE BRANCH BLOCK [120+ ms QRS DURATION, UPRIGHT V1, 40+ ms S IN I/aVL/V4/V5/V6] LEFT ANTERIOR FASCICULAR BLOCK [QRS AXIS <= -45, QR IN I, RS IN II] PROBABLE SEPTAL MYOCARDIAL INFARCTION , OF INDETERMINATE AGE [35 ms Q WAVE IN V1/V2] Compared to ECG 01/05/2023 14:48:32 Bradycardia, nonsinus now present Left anterior fascicular block now present Sinus rhythm no longer present Left-axis deviation no longer present Myocardial infarct finding still present Electronically Signed On 01-06-2023 16:49:46 CDT by Fely Alvarado M.D. [id number]
[2023-01-06 16:16] LABS: ABG PH Result 7.45 (7.35-7.45); Arterial Blood Gas Hematocrit 23.4 % (37-47); Base Excess ABG 1.6 mmol/L (-2.0-2.0); Blood Gas Allen Test Pos; Blood Gas Sample Type Arterial; HCO3 ABG 25.7 mmol/L (22-26); PO2 ABG 84.2 mmHg (80.0-100.0)
[2023-01-06 16:17] LABS: Anion Gap 14.8 (5-19); Blood Urea Nitrogen 42 mg/dL (8-23); Calcium 6.9 mg/dL (8.5-10.5); Carbon Dioxide 23 mmol/L (22-29); Chloride 100 mmol/L (98-107); Glucose 222 mg/dL (65-115); Magnesium 1.8 mg/dL (1.7-2.3); Osmolality Calculated 297 mOsm/kg (285-295); Sodium 135 mmol/L (136-145)
[2023-01-06 16:18] LABS: Blood Gas Operator Identificat MONRO; Blood Gas Sample Site Radial, left; Blood Gas Tidal Volume 0.45; Oxygen Device VENT
[2023-01-06 16:31] LABS: Potassium 2.8 mmol/L (3.5-5.1)
[2023-01-06] MEDS: sodium chlor 0.9% + KCl 20 mEq 20 MEQ/1,000 ML BAG 100 MEQ IV (17:09)
[2023-01-06] MEDS: vancomycin 1,250 MG/250 ML PIGGYBACK 250 MG IV (17:15)
[2023-01-06] MEDS: lidocaine 1% 5 ML in potassium chloride premix 100 ML 26.25 ML IV (17:16)
[2023-01-06] MEDS: propofol 1,000 MG/100 ML INJ 38.24 MG IV (18:21)
[2023-01-06] MEDS: DOPamine drip 400 MG/250 ML PREMIX 25.52 MG IV (18:22)
--- NOTE | 2023-01-06 18:51 | PC.NURSE ---
Approximately 1630 HR in the 40s, K 2.8. EKG performed. DR. Mclean gave order to decrease Nimbex, titrated down per MAR, fluid changes per MAR, K rider started per order. HR did not improve, bp 70's/50s. order received for dopamine gtt.
--- NOTE | 2023-01-06 18:55 | ECG_ITS ---
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 Measurements Intervals [place] Rate: 91 P: 0 [place]: 0 QRS: 193 QRSD: 181 T: 0 QT: 371 QTc: 457 Interpretive Statements ATRIAL FIBRILLATION WITH ABERRANT CONDUCTION OR VENTRICULAR PREMATURE COMPLEXES RIGHT BUNDLE BRANCH BLOCK [120+ ms QRS DURATION, UPRIGHT V1, 40+ ms S IN I/aVL/V4/V5/V6] ANTEROLATERAL MYOCARDIAL INFARCTION , POSSIBLY ACUTE Compared to ECG 01/06/2023 15:20:25 Ventricular premature complex(es) now present Aberrant conduction of supraventricular beat(s) now present Bradycardia, nonsinus no longer present Left anterior fascicular block no longer present Myocardial infarct finding still present Electronically Signed On 01-07-2023 6:20:14 CDT by Fely Alvarado M.D. [id number]
--- NOTE | 2023-01-06 19:00 | ECG_ITS ---
[facility] Test Date: 2023-01-06 Pat Name: Kaitlin Meade Department: Room: ICU10 Gender: Female Fleece Tier: : 1945 Requested By: Jesús Crabtree Order Number: [id number] Kody MD: Eugenio Echavarria M.D. Measurements Intervals [place] Rate: 88 P: 0 WV: 0 QRS: 193 QRSD: 149 T: 0 QT: 389 QTc: 472 Interpretive Statements SINUS RHYTHM WITH PVCs RIGHT BUNDLE BRANCH BLOCK [120+ ms QRS DURATION, UPRIGHT V1, 40+ ms S IN I/aVL/V4/V5/V6] ANTEROLATERAL MYOCARDIAL INFARCTION , POSSIBLY ACUTE [40+ ms Q WAVE IN I/aVL/V3-V6] Compared to ECG 01/06/2023 18:55:40 Atrial fibrillation no longer present Ventricular premature complex(es) no longer present Aberrant conduction of supraventricular beat(s) no longer present Myocardial infarct finding still present Electronically Signed On 01-07-2023 2:55:18 CDT by Eugenio Echavarria M.D. [email or web address] Educationmississippi baptist medical centerTriondkettering health greene memorial.Gecko TV/store/OM/[id number]
--- NOTE | 2023-01-06 19:00 | PC.NURSE ---
Vasopressin Off: Per shift report w/ ROSA Zhang vasopressin was titrated off on dayshift. MAR edited for 1900 01/06/23 to reflect that vasopressin was off on arrival to shift.
--- NOTE | 2023-01-06 19:09 | USCV_ITS ---
Kaitlin Meade Age: 77 Gender: F : 1945 Exam Date: 01/06/2023 19:28 Ordering Phys: Jesús Mclean MD Technologist: FRANKLIN Exam Location: [facility] [place] Indication: rhythm changes s/p laparoscopy BP: 90 / 54 HR: 82 Rhythm: Sinus Technical Quality: Adequate with [employer] MEASUREMENTS (Male / Female) Normal Values 2D ECHO LV Diastolic Diameter PLAX 4.4 cm 4.2 - 5.9 / 3.9 - 5.3 cm LV Systolic Diameter PLAX 3.7 cm IVS Diastolic Thickness 1.5 cm 0.6 - 1.0 / 0.6 - 0.9 cm IVS Systolic Thickness 1.5 cm LVPW Diastolic Thickness 1.2 cm 0.6 - 1.0 / 0.6 - 0.9 cm LVPW Systolic Thickness 1.8 cm LVOT Diameter 2.0 cm LV Ejection Fraction 2D Teich 34.2 % LV Ejection Fraction MOD 2C 47.6 % LV Ejection Fraction 2C AL 48.9 % LA Diameter 4.8 cm LA Width 5.6 cm LA Height 6.7 cm RA Width 4.1 cm RA Height 4.4 cm Aorta at Sinotubular Diameter 2.9 cm IVC Diameter 2.2 cm M-MODE Aortic Annulus Diameter 3.2 cm LA Ao Ratio MM 1.5 DOPPLER AV Peak Velocity 193.0 cm/s LVOT Peak Velocity 99.0 cm/s AV Area Cont Eq vti 1.6 cm squared AV Area Cont Eq pk 1.5 cm squared MV Area PHT 4.6 cm squared Mitral E to A Ratio 1.9 MV E' Velocity 65.5 cm/s Mitral E to MV E' Ratio 8.2 Mitral E to LV E' Lateral Ratio 8.1 Mitral E to LV E' Septal Ratio 8.3 TR Peak Velocity 319.0 cm/s TR Peak Gradient 40.7 mmHg TV Peak E Velocity 62.0 cm/s Right Atrial Pressure 10.0 mmHg Pulmonary Artery Systolic Pressu 50.7 mmHg FINDINGS Left Ventricle Left ventricle is normal size. LV systolic function is moderate to severely reduced with EF of 30-35%. Moderate to severe global hypokinesis. Right Ventricle Normal in size and function Right Atrium Grossly normal Left Atrium Dilated Mitral Valve Structurally normal mitral valve. Moderate mitral regurgitation. Aortic Valve Grossly normal. No significant stenosis or regurgitation. Tricuspid Valve Mild tricuspid regurgitation Pulmonic Valve Not well visualized Pericardium Normal Aorta Normal in size IVC Dilated CONCLUSIONS LV systolic function is severely reduced with EF of 30-35% Moderate to severe global hypokinesis Left atrial dilation Moderate mitral regurgitation Mild tricuspid regurgitation IVC is dilated Compared to prior echocardiogram from 10/2022, LV systolic function is severely reduced Eugenio Echavarria MD (Electronically Signed) Final Date: 07 January 2023 10:53 S
--- NOTE | 2023-01-06 19:16 | ECG_ITS ---
[facility] Test Date: 2023-01-06 Pat Name: Kaitlin Meade Department: Room: ICU10 Gender: Female Stoper: : 1945 Requested By: Jesús Crabtree Order Number: [id number] Kody MD: Eugenio Echavarria M.D. Measurements Intervals [place] Rate: 109 P: 241 KS: 84 QRS: -69 QRSD: 133 T: 60 QT: 308 QTc: 416 Interpretive Statements JUNCTIONAL TACHYCARDIA WITH FREQUENT SUPRAVENTRICULAR PREMATURE COMPLEXES RIGHT BUNDLE BRANCH BLOCK [120+ ms QRS DURATION, UPRIGHT V1, 40+ ms S IN I/aVL/V4/V5/V6] POSSIBLE ANTERIOR MYOCARDIAL INFARCTION , OF INDETERMINATE AGE [30 ms Q WAVE IN V3/V4, OR R < 0.2 mV IN V4] INFERIOR MYOCARDIAL INFARCTION , POSSIBLY ACUTE [40+ ms Q WAVE AND/OR ST/T ABNORMALITY IN II/aVF] Compared to ECG 01/06/2023 19:00:46 Junctional tachycardia now present Myocardial infarct finding still present Electronically Signed On 01-07-2023 2:58:48 CDT by Eugenio Echavarria M.D. [email or web address] [email or web address].[facility].uKnow Corporation/store/OM/[id number]
[2023-01-06] MEDS: aspirin 325 mg Tablet PO (19:20)
--- NOTE | 2023-01-06 19:23 | PM.CONSULT ---
Providers/Reason For Consult Consulting Physician/Specialty*: Eugenio Echavarria MD/ Cardiology Reason for Consult*: EKG changes Requesting Physician: Dr Mclean Attending Physician: Alan Feldman DO Primary Care Provider: Vicente More MD History of Present Illness History of Present Illness Kaitlin Meade is a 77 year old female with PMH of crohns disease who had a recent recurrent incisional hernia repair and came back with abdominal pain and weakness. 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 She is post op day 1 removal of mesh, partial sigmoid colectomy, placement of wound vacuum.? still is open. Cardiology was consulted as tele started showing dynamic changes. Initial troponin was found to be 90. Potassium is 2.8. Patient had cath about 2 months back that did not show significant CAD. ECHO in October showed normal LV systolic function. Review of Systems General: Reports: ROS unobtainable due to endotracheal tube Medications/Allergies Home Medications Medication Instructions Recorded Confirmed Last Taken Type vedolizumab 300 mg intravenous 300 mg IV DIRECTED 11/20/19 01/05/23 11/24/22 History solution (Entyvio) cholecalciferol (vitamin D3) 25 25 mcg PO DAILY 12/27/21 01/05/23 12/19/22 History mcg (1,000 unit) capsule gabapentin 100 mg capsule 100 mg PO BEDTIME PRN Pain 04/10/22 01/05/23 12/19/22 History cyanocobalamin (vitamin B-12) 1,000 mcg IM Q30D #10 mL 06/18/22 01/05/23 12/12/22 Rx 1,000 mcg/mL injection solution folic acid 1 mg tablet 1 mg PO DAILY #90 tabs 09/16/22 01/05/23 12/21/22 Rx magnesium oxide 500 mg capsule 1,000 mg PO BID 09/22/22 01/05/23 12/21/22 History omega-3 fatty acids 1,000 mg 1,000 mg PO DAILY 09/22/22 01/05/23 12/19/22 History capsule vitamin B complex 1 tab PO DAILY 09/22/22 01/05/23 12/21/22 History nitroglycerin 0.4 mg sublingual 0.4 mg sublingual Q5M PRN chest 10/09/22 01/05/23 Unknown Rx tablet pain #30 tabs pantoprazole 40 mg tablet,delayed 40 mg PO DAILY 10/09/22 01/05/23 12/21/22 History release lactobacillus comb no.10 20 20,000 mmu cells PO DAILY 11/05/22 01/05/23 Unknown History billion cell capsule (Probiotic) tumeric 100 mg-sadiq 150 mg-olive 1 cap PO DAILY 11/05/22 01/05/23 12/19/22 History 50 mg-oreg 150 mg-caprylate capsule atorvastatin 40 mg tablet 20 mg PO BEDTIME #30 tabs 11/27/22 01/05/23 12/19/22 Rx ondansetron HCl 4 mg tablet 4 mg PO QID PRN Nausea 12/18/22 01/05/23 Unknown History potassium chloride 10 mEq 20 meq PO BID 12/18/22 01/05/23 12/21/22 11:00 History capsule,extended release docusate sodium 100 mg capsule 100 mg PO BID #14 caps 12/22/22 01/05/23 Unknown Rx (DOK) hydrocodone 7.5 mg-acetaminophen 1 tab PO Q6H PRN pain 5 days #20 12/25/22 01/05/23 Unknown Rx 325 mg tablet tabs Allergies Allergy/AdvReac Type Severity Reaction Status Date / Time aspirin Allergy Unknown Verified 12/30/22 15:36 Iodine and Iodide Containing Allergy ALGY-Anaphy Verified 12/30/22 15:36 Produc laxis prochlorperazine Allergy Unknown Verified 12/30/22 15:36 [From Compazine] Current Medications Generic Name Dose Route Start Last Admin Trade Name Freq PRN Reason Stop Dose Admin Heparin Sodium (Porcine) 5,000 unit 01/05/23 18:00 01/06/23 17:15 Heparin 5,000 Unit/Ml Inj 1 Ml SUBCUT 5,000 unit Q8H SAMANTHA Administration Piperacillin Sod/Tazobactam 50 mls @ 12.5 mls/hr 01/05/23 15:00 01/06/23 19:20 Sod 3.375 gm/ Sodium Chloride IV Infused Q8H SAMANTHA Infusion Protocol Norepinephrine Bitartrate 4 mg 254 mls @ 0 mls/hr 01/05/23 14:45 01/06/23 18:45 / Dextrose IV 8 mcg/min .Q0M SAMANTHA 30.48 mls/hr Titration Protocol Per Protocol Vancomycin/PEG/NADA/Lysine/Water 1,250 mg in 250 mls @ 250 mls/hr 01/05/23 18:00 01/06/23 19:00 Vancocin IV Infused Q24H SAMANTHA Infusion Protocol Fentanyl 2,500 mcg/ Sodium 250 mls @ 0 mls/hr 01/05/23 17:45 01/06/23 18:17 Chloride IV 125 mcg/hr .Q0M SAMANTHA 12.5 mls/hr Administration Protocol Per Protocol Propofol 1,000 mg in 100 mls @ 0 mls/hr 01/05/23 17:45 01/06/23 18:21 Diprivan IV 50 mcg/kg/min .Q0M SAMANTHA 38.24 mls/hr Administration Protocol Per Protocol Cisatracurium Besylate 100 mg/ 100 mls @ 0 mls/hr 01/05/23 17:45 01/06/23 17:55 Sodium Chloride IV 0 mcg/kg/min .Q0M SAMANTHA 0 mls/hr Titration Protocol Per Protocol Vasopressin 40 unit/ Sodium 40 mls @ 0.03 mls/min 01/06/23 01:00 01/06/23 01:27 Chloride IV 0.03 mls/min CONT SAMANTHA Administration Albumin Human 25 g in 100 mls @ 60 mls/hr 01/06/23 14:00 01/06/23 19:00 Albumin IV Infused Q8H SAMANTHA Infusion Cisatracurium Besylate 100 mg/ 100 mls @ 0 mls/hr 01/06/23 13:15 01/06/23 16:00 Sodium Chloride IV 01/06/23 20:00 0 mcg/kg/min .Q0M SAMANTHA 0 mls/hr Titration Protocol Per Protocol Lidocaine HCl 5 ml/ Potassium 105 mls @ 26.25 mls/hr 01/06/23 16:34 01/06/23 17:16 Chloride IV 01/06/23 20:33 26.25 mls/hr ONCE ONE Administration Potassium Chloride/Sodium Chloride 20 meq in 1,000 mls @ 100 mls/hr 01/06/23 16:45 01/06/23 17:09 Sodium Chlor 0.9% + Kcl 20 Meq IV 100 mls/hr .Q10H SAMANTHA Administration Dopamine HCl/Dextrose 400 mg in 250 mls @ 25.515 mls/hr 01/06/23 18:15 01/06/23 18:22 Intropin Drip IV 5 mcg/kg/min CONT SAMANTHA 25.52 mls/hr Administration Protocol 5 MCG/KG/MIN Morphine Sulfate 4 mg 01/05/23 14:13 01/05/23 14:42 Morphine 4 Mg/Ml Sdv 1 Ml IVP 4 mg Q4H PRN Administration SEVERE PAIN Ondansetron HCl 4 mg 01/05/23 14:13 01/05/23 14:42 Ondansetron 2 Mg/Ml Sdv 2 Ml IVP 4 mg Q6H PRN Administration NAUSEA AND VOMITING Pantoprazole Sodium 40 mg 01/06/23 09:00 01/06/23 08:20 Pantoprazole 40 Mg Sdv IVP 40 mg DAILY SAMANTHA Administration PFSH Acute PFSH: Medical History Allergy to iodine Atherosclerosis of coronary artery Chronic kidney disease CKD stage G3b/A1, GFR 30-44 and albumin creatinine ratio <30 mg/g Crohn's disease Depression GERD (gastroesophageal reflux disease) History of DVT (deep vein thrombosis) Hypertension Normocytic anemia JEFFREY on CPAP Surgical History History of bowel resection History of colonoscopy History of incisional hernia repair Port-A-Cath in place (05/15/21) Family History Other Diabetes Social History Smoking and tobacco status: never smoked Vitals/I&O/Wt Last Vital Signs Temp 98.0 F 01/06/23 00:00 Pulse 45 L 01/06/23 18:00 Resp 18 01/06/23 18:06 BP 90/54 01/06/23 18:00 Pulse Ox 98 01/06/23 18:06 O2 Del Method Mechanical Ventilation 01/06/23 06:30 FiO2 30 01/06/23 18:06 01/06/23 01/06/23 01/06/23 06:59 14:59 22:59 Intake Total 2829.793 / 6261.576 1779.162 / 9687.203 7381.291 / 3868.453 Output Total 1275 / 1400 975 / 975 Balance 1554.793 / 4861.576 177.162 / 0494.007 3193.291 / 2893.453 Weight last 48 hrs Weight 300 lb Weight 281 lb Physical Exam Narrative: General: Intubated and sedated CV: Regularly regular Lungs : Diminished air entry Abd: Wound vac noted Ext: Warm Urinary Catheter Management: Kate: Cath Placed During This Visit: yes Reason for Continuing Indwelling Catheter: Accurate Measurement of Urinary Output in Critically Ill Patients Urinary Catheter Date of Insertion: 01/05/23 Urinary Catheter Time of Insertion: 15:30 Data 01/06/23 02:32 01/06/23 15:43 Micro: Microbiology 01/05/23 17:59 Gram Stain - Final Sputum - Endotracheal Tube Aspirate Sputum Culture - Preliminary A&P Assessment and plan (1) NSTEMI (non-ST elevated myocardial infarction): (2) Respiratory failure: (3) Acute kidney injury: (4) History of DVT (deep vein thrombosis): (5) Sepsis: (6) Enterocutaneous fistula: Plan Patient has sepsis, hypokalemia and has been having dynamic EKG changes. She had coronary angiogram 2 months ago that did not show significant stenosis. LV function was normal at that time. ECHO done today shows moderately reduced LV function with EF of 35%. Moderate global hypokinesis is seen. Possible stress cardiomyopathy vs NSTEMI Start heparin gtt. Monitor renal function and H and H. Family updated. Trend troponins Keep K >4. Wean down levophed as BP allows Thank you for involving us with care of this patient. We will continue to follow. Please call with questions. Consult Attestations Medical Necessity Statement: Care expected to cross 2 midnights. 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
[2023-01-06 19:46] LABS: Troponin(5th) Baseline 90 ng/L (0-10)
--- NOTE | 2023-01-06 19:51 | ECG_ITS ---
[facility] Test Date: 2023-01-06 Pat Name: Kaitlin Meade Department: Room: ICU10 Gender: Female Senior Etl Developer: ROYCE: 1945 Requested By: Eugenio Echavarria Order Number: [id number] Kody MD: Eugenio Echavarria M.D. Measurements Intervals [place] Rate: 77 P: 231 WA: 142 QRS: -47 QRSD: 141 T: 0 QT: 344 QTc: 392 Interpretive Statements SINUS RHYTHM WITH MARKED SINUS ARRHYTHMIA INTRAVENTRICULAR CONDUCTION DELAY [130+ ms QRS DURATION] Compared to ECG 01/06/2023 19:16:42 Intraventricular conduction delay now present Junctional tachycardia no longer present Right bundle-branch block no longer present Electronically Signed On 01-07-2023 2:54:41 CDT by Eugenio Echavarria M.D. [id number]
--- NOTE | 2023-01-06 20:17 | ECG_ITS ---
[facility] Test Date: 2023-01-06 Pat Name: Kaitlin Meade Department: Room: ICU10 Gender: Female Purification Operator: : 1945 Requested By: Eugenio Echavarria Order Number: [id number] Kody MD: Eugenio Echavarria M.D. Measurements Intervals [place] Rate: 84 P: 150 DC: 206 QRS: -32 QRSD: 169 T: 120 QT: 376 QTc: 447 Interpretive Statements SINUS RHYTHM WITH OCCASIONAL ECTOPIC PREMATURE COMPLEXES LEFT AXIS DEVIATION [QRS AXIS < -30] INTRAVENTRICULAR CONDUCTION DELAY [130+ ms QRS DURATION] POSSIBLE ANTERIOR MYOCARDIAL INFARCTION , OF INDETERMINATE AGE [30 ms Q WAVE IN V3/V4, OR R < 0.2 mV IN V4] Compared to ECG 01/06/2023 19:51:58 Left-axis deviation now present Myocardial infarct finding now present Sinus arrhythmia no longer present Electronically Signed On 01-07-2023 2:58:37 CDT by Eugenio Echavarria M.D. [id number]
[2023-01-06] MEDS: heparin drip 25,000 UNIT/500 ML PREMIX 36 UNIT IV (20:46)
[2023-01-06 21:52] LABS: Troponin 5 2HR 430.6 ng/L (0-10); Troponin 5 2HR Delta 340.6 ABS# (0-10)
--- NOTE | 2023-01-06 21:54 | ECG_ITS ---
[facility] Test Date: 2023-01-06 Pat Name: Kaitlin Meade Department: Room: ICU10 Gender: Female Director Of Primary: : 1945 Requested By: Eugenio Echavarria Order Number: [id number] Reading MD: Eugenio Echavarria M.D. Measurements Intervals [place] Rate: 85 P: 0 KS: 0 QRS: -31 QRSD: 166 T: 145 QT: 379 QTc: 453 Interpretive Statements Sinus bradycardia with first degree av block. PACs seen LEFT AXIS DEVIATION [QRS AXIS < -30] INTRAVENTRICULAR CONDUCTION DELAY [130+ ms QRS DURATION] PROBABLE ANTERIOR MYOCARDIAL INFARCTION , OF INDETERMINATE AGE [35 ms Q WAVE IN V3/V4] Compared to ECG 01/06/2023 20:17:23 Myocardial infarct finding still present Electronically Signed On 01-07-2023 2:58:31 CDT by Eugenio Echavarria M.D. [email or web address] Noted.IntelleGrow FinanceSellftrinity health system west campus.Think Sky/store/[id number]
--- NOTE | 2023-01-06 22:06 | PC.NURSE ---
EKG Changes: Rhythm changes noted on monitor on arrival to shift. EKG obtained @1854. Dr. Mclean called @185. New order for Troponin series, 325 Aspirin, and stat echo w/ contrast. Dr. Echavarria on unit @193. New order for EKG, Heparin drip w/ no bolus, and BMP check after infusion of Potassium and Mag.
[2023-01-06 22:50] LABS: Hemoglobin 8.5 g/dL (11.5-15.3); Mean Corpuscular HGB Conc 30.4 g/dL (30.0-36.0); Mean Corpuscular Hemoglobin 28.1 pg (28.0-34.0); Mean Corpuscular Volume 92.4 fl (81-99); Mean Platelet Volume 10.2 fL (7.4-10.4); Platelet Count 256 10^3/cmm (130-400); Red Blood Count 3.03 10^6/uL (4.1-5.3); Red Cell Distribution Width 13.2 % (12.1-15.1); White Blood Count 24.3 10^3/uL (4.0-10.0)
[2023-01-06 23:08] LABS: Absolute Neutrophil 21.6 10^3/cmm (1.4-6.5); Absolute Segmented Neutrophil 20.7 10/cmm (1.6-7.1); Eosinophils 0 %; Lymphocytes 3 %; Lymphocytes Absolute 0.7 10^3/cmm (1.2-3.4); Monocytes Absolute 0.5 10^3/cmm (0.1-0.6); Platelet Estimate Normal (Normal); Segmented Neutrophils 85 %; Total Cells Counted 100 (0-100); Toxic Vacuolation 1+
[2023-01-06 23:14] LABS: Anion Gap 17.2 (5-19); Blood Urea Nitrogen 38 mg/dL (8-23); Calcium 7.7 mg/dL (8.5-10.5); Carbon Dioxide 21 mmol/L (22-29); Chloride 101 mmol/L (98-107); Glucose 183 mg/dL (65-115); Osmolality Calculated 296 mOsm/kg (285-295); Potassium 3.2 mmol/L (3.5-5.1); Sodium 136 mmol/L (136-145)
[2023-01-06] MEDS: propofol 1,000 MG/100 ML INJ 34.41 MG IV (23:37)
[2023-01-07] VITALS (84 sets, daily range): BP systolic 71–130; BP diastolic 48–71; PULSE 67–99; RESP 17–18; TEMP 35.2–36.3; O2SAT 92–100
--- NOTE | 2023-01-07 01:03 | ECG_ITS ---
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 Measurements Intervals [place] Rate: 80 P: 198 AL: 112 QRS: -78 QRSD: 146 T: 84 QT: 391 QTc: 453 Interpretive Statements SINUS RHYTHM WITH SHORT AL INTERVAL LEFT AXIS DEVIATION [QRS AXIS < -30] RIGHT BUNDLE BRANCH BLOCK [120+ ms QRS DURATION, UPRIGHT V1, 40+ ms S IN I/aVL/V4/V5/V6] POSSIBLE ANTERIOR MYOCARDIAL INFARCTION , OF INDETERMINATE AGE [30 ms Q WAVE IN V3/V4, OR R < 0.2 mV IN V4] Compared to ECG 01/06/2023 20:18:50 Short AL interval now present Right bundle-branch block now present Atrial fibrillation no longer present Intraventricular conduction delay no longer present Myocardial infarct finding still present Electronically Signed On 01-07-2023 2:57:29 CDT by Eugenio Echavarria M.D. [email or web address] [email or web address]/[id number]
[2023-01-07] MEDS: propofol 1,000 MG/100 ML INJ 34.41 MG IV ×6 (02:44→23:16)
[2023-01-07 03:08] LABS: Hematocrit 26.1 % (37.0-47.0); Hemoglobin 7.9 g/dL (11.5-15.3); Mean Corpuscular HGB Conc 30.3 g/dL (30.0-36.0); Mean Corpuscular Hemoglobin 28.3 pg (28.0-34.0); Mean Corpuscular Volume 93.5 fl (81-99); Mean Platelet Volume 10.6 fL (7.4-10.4); Platelet Count 250 10^3/cmm (130-400); Red Blood Count 2.79 10^6/uL (4.1-5.3); Red Cell Distribution Width 13.2 % (12.1-15.1); White Blood Count 20.9 10^3/uL (4.0-10.0)
[2023-01-07 03:18] LABS: Partial Thromboplastin Time 66.2 SECONDS (23.9-36.7)
[2023-01-07 03:27] LABS: Phosphorus 3.3 mg/dL (2.5-4.5)
[2023-01-07] MEDS: sodium chlor 0.9% + KCl 20 mEq 20 MEQ/1,000 ML BAG 100 MEQ IV (03:39)
[2023-01-07 03:44] LABS: Slide Review Slide Review Perform
[2023-01-07] MEDS: DOPamine drip 400 MG/250 ML PREMIX 20.41 MG IV ×2 (03:49→15:50)
[2023-01-07 04:49] LABS: ABG PCO2 38.1 mmHg (35-45); ABG PH Result 7.42 (7.35-7.45); Arterial Blood Gas Hematocrit 23.2 % (37-47); Blood Gas Allen Test Pos; Blood Gas Operator Identificat JB; Blood Gas Sample Site Brachial, right; Blood Gas Sample Type Arterial; HCO3 ABG 24.5 mmol/L (22-26)
[2023-01-07 04:50] LABS: Blood Gas Tidal Volume 0.45; Oxygen Device VENT
[2023-01-07 05:36] LABS: Alanine Aminotransferase 17 U/L (0-33); Albumin Level 2.4 g/dL (3.5-5.2); Alkaline Phosphatase 75 U/L (35-105); Anion Gap 13.4 (5-19); Aspartate Amino Transferase 33 U/L (0-32); Blood Urea Nitrogen 36 mg/dL (8-23); Calcium 7.4 mg/dL (8.5-10.5); Carbon Dioxide 23 mmol/L (22-29); Chloride 105 mmol/L (98-107); Globulin 2.1 g/dL (1.3-4.6); Glucose 135 mg/dL (65-115); Osmolality Calculated 296 mOsm/kg (285-295); Potassium 3.4 mmol/L (3.5-5.1); Sodium 138 mmol/L (136-145); Total Bilirubin 0.8 mg/dL (0.15-1.2); Total Protein 4.5 g/dL (6.6-8.7)
[2023-01-07] MEDS: perflutren protein-a microsphr 0.22 mg/mL SDV 3 mL IV (05:46)
[2023-01-07] MEDS: piperacillin-tazobactam 3.375 GM in sodium chloride 0.9% (plus) 50 ML IV ×3 (06:19→23:54)
[2023-01-07] MEDS: albumin 25 G/100 ML BAG 60 G IV ×3 (06:30→23:45)
--- NOTE | 2023-01-07 07:00 | XRR_ITS ---
PROCEDURE INFORMATION: Exam: XR Chest Exam date and time: 01/07/2023 4:49 AM Age: 77 years old Clinical indication: Shortness of breath; Additional info: Resp failure TECHNIQUE: Imaging protocol: Radiologic exam of the chest. Views: 1 view. COMPARISON: CR (CHEST, ) 01/06/2023 5:34 AM FINDINGS: Tubes, catheters and devices: The endotracheal tube is above the level of the alexander. Chest port/Mediport has been placed via the right jugular approach with the tip in the atrium. Lungs: Patchy diffuse interstitial and alveolar airspace disease most pronounced within the left lung base. Edema and/or pneumonia. Pleural spaces: Unremarkable. No pleural effusion. No pneumothorax. Heart/Mediastinum: Unremarkable. No cardiomegaly. Bones/joints: Unremarkable. XR/XR chest 1V portable [id number] IMPRESSION: Patchy diffuse interstitial and alveolar airspace disease most pronounced within the left lung base. Edema and/or pneumonia. Favor edema. Progressive.
[2023-01-07] MEDS: lidocaine 1% 5 ML in potassium chloride premix 100 ML 26.25 ML IV (07:40)
[2023-01-07] MEDS: pantoprazole 40 mg SDV IVP (08:21)
--- NOTE | 2023-01-07 08:29 | PC.NURSE ---
Wound Vac canister Wound vac canister full and has been changed out.
[2023-01-07 10:20] LABS: Partial Thromboplastin Time 88.8 SECONDS (23.9-36.7)
[2023-01-07] MEDS: heparin drip 25,000 UNIT/500 ML PREMIX 34 UNIT IV (10:35)
--- NOTE | 2023-01-07 13:24 | PC.PHAR ---
[id number] vancomycin - pt received 2 doses 1250 q24h before order turned over to [facility] for dosing. Due to patient age/ht/wt/changing SCr, will draw a level before 3rd dose today at 1700 and reevaluate.
[2023-01-07 14:57] LABS: Anion Gap 15.7 (5-19); Blood Urea Nitrogen 31 mg/dL (8-23); Calcium 7.5 mg/dL (8.5-10.5); Carbon Dioxide 21 mmol/L (22-29); Chloride 106 mmol/L (98-107); Glucose 121 mg/dL (65-115); Osmolality Calculated 296 mOsm/kg (285-295); Potassium 3.7 mmol/L (3.5-5.1); Sodium 139 mmol/L (136-145)
--- NOTE | 2023-01-07 15:26 | P.PN_ITS ---
Subjective Subjective: Kaitlin was sedated, and comfortable when I saw her this morning as well as in the afternoon. I discussed her case with surgery, and her family. I reviewed events of last night, and currently with the nurse. Medications: Reviewed: Yes Vitals/I&O/Wt Last Vital Signs Temp 96.8 F L 01/07/23 07:35 Pulse 70 01/07/23 12:45 Resp 18 01/07/23 14:28 BP 106/62 01/07/23 12:45 Pulse Ox 100 01/07/23 14:28 O2 Del Method Mechanical Ventilation 01/07/23 07:35 FiO2 50 01/07/23 14:28 01/07/23 01/07/23 01/07/23 06:59 14:59 22:59 Intake Total 1755.620 / 6704.775 1085.837 / 1085.837 Output Total 1625 / 3100 1200 / 1200 Balance 130.620 / 3604.775 -114.163 / -114.163 Weight last 48 hrs Weight 136.078 kg Physical Exam Narrative: General sedated HEENT: Oropharyngeal, endotracheal tube noted Neck supple with no LAD/thyromagaly CV RRR without murmur. Port is noted right chest, right subclavian central line noted Lungs CTAB without wheezing, crackles Abd S/NT, hypoactive BS. 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 She has an anterior abdominal wall abscess, and recently had an abdominal hernia repair on December 22. There is suggestion on her CT scan from outside facility that there is a connection between sigmoid diverticula and the abscess site. She is postoperative day #2 status post removal of mesh, partial sigmoid colectomy, placement of wound vacuum. She was left open. Continue Zosyn and vancomycin IV Blood cultures were done at outside facility prior to antibiotics. Will have client support representative call and get results today. CBC, CMP tomorrow Probable closure today per surgery (2) Sepsis: She has been appropriately resuscitated with IV fluids Continue to reduce IV fluids She is off norepinephrine and vasopressin. She was placed on dopamine yesterday secondary to bradycardia. And weaning this as well. Continue Zosyn and vancomycin. CBC and CMP daily Bicarbonate drip has been discontinued. BMP this afternoon. Continue albumin currently. (3) Crohn's disease: She has underlying Crohn's disease, and is currently on Entyvio Hold this immunosuppressant currently (4) History of DVT (deep vein thrombosis): She recently had a DVT in late November. She was placed on anticoagulation and a repeat ultrasound did not demonstrate a DVT on December 30. She stopped her anticoagulation then. I believe anticoagulation is still necessary. Currently on a heparin drip (5) Acute kidney injury: Improved, continue Kate Daily creatinine (6) Respiratory failure: Respiratory failure following surgery. Need to keep patient intubated secondary to open abdomen. Continue fentanyl, propofol, for sedation Wean FiO2 as tolerated. Currently on FiO2 of 50%, PEEP of 8. Other settings reviewed as well. Chest x-ray demonstrates fluid overload today. Fluid reduced. Continue to monitor. Hopefully can diurese soon. Plan Elevated troponin, bradycardia. Cardiology has seen. Weaning dopamine. Consider cardiac evaluation near end of hospital stay. Aspirinn daily added. Currently on heparin drip. Add statin back tomorrow if renal function remains stable. Hypomagnesemia. normal today Hypokalemia, supplement. Other medical problems as outlined in past medical history Full code SCDs for DVT prophylaxis. Anticoagulation currently contraindicated is directly going to surgery Thank you for this consultation, I will continue to follow with you Attestations Medical Necessity Statement*: As per primary Critical Care Time: The high probability of a clinically significant, sudden or life threatening deterioration of the patient's [pulmonary, vascular, renal, GI] system(s) required my full and direct attention, intervention and personal management. The critical care time is as shown. This time is in addition to time spent performing any reported procedures but includes the following: [x] Data and vital sign review and interpretation [x] Patient assessment, examination and intervention [x] Documentation [x] Medication orders and management Critical Care Time (min): 39 Coding Level of Care Code Critical Care >/= 30 minutes Critical care time (in minutes): 39 The high probability of a clinically significant, sudden or life threatening deterioration, as referenced in this documentation, required my full and direct attention, intervention and personal management. The critical care time shown is in addition to time spent performing any reported separately billable procedures and includes the following: [x] Data and vital sign review and interpretation [x ] Patient assessment, examination and intervention [x] Medication orders and management [x] Patient/Family updates as able [x] Care Coordination and Documentation. Diagnoses Enterocutaneous fistula K63.2 Sepsis A41.9 Crohn's disease K50.90 History of DVT (deep vein thrombosis) Z86.718 Acute kidney injury N17.9 Respiratory failure J96.90
[2023-01-07 16:37] LABS: Partial Thromboplastin Time 94.5 SECONDS (23.9-36.7)
--- NOTE | 2023-01-07 17:20 | P.PN_ITS ---
Subjective Subjective: Since her potassium level was repleted, EKG changes stabilized. Clinically unchanged. Plan for surgery. Vitals/I&O/Wt Last Vital Signs Temp 96.8 F L 01/07/23 07:35 Pulse 70 01/07/23 12:45 Resp 18 01/07/23 16:51 BP 109/68 01/07/23 16:00 Pulse Ox 97 01/07/23 16:51 O2 Del Method Mechanical Ventilation 01/07/23 07:35 FiO2 50 01/07/23 16:51 01/07/23 01/07/23 01/07/23 06:59 14:59 22:59 Intake Total 1755.620 / 6704.775 1085.837 / 1085.837 245.26 / 1331.097 Output Total 1625 / 3100 1200 / 1200 1350 / 2550 Balance 130.620 / 3604.775 -114.163 / -114.163 -1104.74 / -1218.903 Weight last 48 hrs Weight 300 lb Physical Exam Narrative: General: Intubated and sedated CV: Regular Lungs : Diminished air entry Abd: Wound vac noted Ext: Warm Urinary Catheter Management: Kate: Cath Placed During This Visit: yes Reason for Continuing Indwelling Catheter: Accurate Measurement of Urinary Output in Critically Ill Patients Urinary Catheter Date of Insertion: 01/05/23 Urinary Catheter Time of Insertion: 15:30 Data 01/08/23 03:26 01/08/23 03:26 Micro: Microbiology 01/05/23 17:59 Gram Stain - Final Sputum - Endotracheal Tube Aspirate Sputum Culture - Final A&P Assessment and plan (1) NSTEMI (non-ST elevated myocardial infarction): (2) Respiratory failure: (3) Acute kidney injury: (4) History of DVT (deep vein thrombosis): (5) Sepsis: (6) Enterocutaneous fistula: Plan Patient is overall stable. Does have moderately reduced LV systolic function likely secondary to stress cardiomyopathy. NSTEMI cannot be ruled out at this time. Continue anticoagulation. Thank you for involving us with care of this patient. We will continue to follow. Please call with questions. Attestations Medical Necessity Statement*: Care expected to cross 2 midnights. Coding Level of Care Code Acute Code for [facility] Diagnoses NSTEMI (non-ST elevated myocardial infarction) I21.4 Respiratory failure J96.90 Acute kidney injury N17.9 History of DVT (deep vein thrombosis) Z86.718 Sepsis A41.9 Enterocutaneous fistula K63.2
[2023-01-07 17:50] LABS: Hemoglobin 7.4 g/dL (11.5-15.3)
--- NOTE | 2023-01-07 18:44 | ANES.PAUD2 ---
Pre-Anesthetic Update Pre-Anesthetic Assessment: Date of Surgery/Procedure: 01/07/23 Proposed Procedure: Operation Date: 01/05/23 15:30 Proposed Procedures p Exploratory Laparotomy(Not Applicable) - Aaln Feldman, DO Operation Date: 01/07/23 17:00 Proposed Procedures p Exploratory Laparotomy(Not Applicable) - Alan Feldman, DO Any changes to Pre-Anesthetic Assessment?: No Labs Last 48hrs: Short CBC 01/05/23 01/06/23 01/06/23 Range/Units 21:02 02:32 22:35 WBC 29.4 H 30.9 H* 24.3 H (4.0-10.0) 10^3/ uL Hgb 10.1 L 8.9 L 8.5 L (11.5-15.3) g/dL Hct 34.0 L 30.0 L 28.0 L (37.0-47.0) % MCV 95.0 94.9 92.4 (81-99) fl Plt Count 278 310 256 (130-400) 10^3/c mm 01/07/23 01/07/23 Range/Units 02:21 17:42 WBC 20.9 H (4.0-10.0) 10^3/ uL Hgb 7.9 L 7.4 L (11.5-15.3) g/dL Hct 26.1 L (37.0-47.0) % MCV 93.5 (81-99) fl Plt Count 250 (130-400) 10^3/c mm BMP 01/05/23 01/06/23 01/06/23 21:02 02:32 13:44 Sodium 135 L 137 Cancelled Potassium 3.5 3.4 L Cancelled Chloride 102 102 Cancelled Carbon Dioxide 17 L 19 L Cancelled BUN 54 H 50 H Cancelled Creatinine 2.0 H 1.9 H Cancelled Glucose 113 189 H Cancelled Calcium 7.8 L 7.1 L Cancelled 01/06/23 01/06/23 01/07/23 15:43 22:35 05:00 Sodium 135 L 136 138 Potassium 2.8 L* 3.2 L 3.4 L Chloride 100 101 105 Carbon Dioxide 23 21 L 23 BUN 42 H 38 H 36 H Creatinine 1.5 H 1.4 H 1.3 H Glucose 222 H 183 H 135 H Calcium 6.9 L 7.7 L 7.4 L 06/07/23 13:28 Sodium 139 Potassium 3.7 Chloride 106 Carbon Dioxide 21 L BUN 31 H Creatinine 1.3 H Glucose 121 H Calcium 7.5 L Cardiac Enzymes 01/06/23 01/06/23 01/07/23 Range/Units 19:17 21:13 01:26 Troponin T Baselin e 90 H (0-10) ng/L Troponin T 120 Min [place] 430.6 H (0-10) ng/L Delta Troponin T 340.6 H* (0-10) ABS# Troponin T Hi Sens 6Hr 685.0 H (0-10) ng/L Troponin T Hi Sens 6Hr Delta 595.0 H* (0-12) ng/L Liver Function 01/05/23 01/06/23 01/07/23 Range/Units 21:02 02:32 05:00 Total Bilirubin 0.9 1.0 0.8 (0.15-1.2) mg/dL AST 63 H 53 H 33 H (0-32) U/L ALT 40 H 32 17 (0-33) U/L Alkaline Phosphata se 110 H 96 75 (35-105) U/L Albumin 2.0 L 1.7 L 2.4 L (3.5-5.2) g/dL Blood Bank 01/05/23 15:19 Blood Type B Positive Rho(D) Type Positive Antibody Screen Negative Coags 01/07/23 01/07/23 01/07/23 02:21 09:54 16:00 APTT 66.2 H 88.8 H 94.5 H ABG 01/05/23 01/05/23 01/06/23 19:10 22:46 05:00 Specimen Type Arterial Arterial Arterial Sample Site Radial, right Radial, right Radial, right ABG pH 7.16 L* 7.41 7.30 L ABG pCO2 54.8 H 29.9 L 40.7 ABG pO2 225.0 H 170.0 H 79.2 L ABG HCO3 19.3 L 18.8 L 20.2 L ABG O2 Saturation 97.8 99.5 94.7 ABG Base Excess -9.5 L -5.1 L -5.8 L A-a O2 Gradient 35.7 H 18.9 H 10.9 H O2 Delivery Device Vent Vent Vent FiO2 80.0 50.0 30.0 Tidal Volume 0.40 0.45 0.43 PEEP 8.0 8.0 8.0 01/06/23 01/07/23 16:01 04:17 Specimen Type Arterial Arterial Sample Site Radial, left Brachial, right ABG pH 7.45 7.42 ABG pCO2 37.0 38.1 ABG pO2 84.2 104.0 H ABG HCO3 25.7 24.5 ABG O2 Saturation ABG Base Excess 1.6 0.0 A-a O2 Gradient O2 Delivery Device Vent Vent FiO2 30.0 30.0 Tidal Volume 0.45 0.45 PEEP 8.0 8.0 Vitals: Temperature 96.8 F L 01/07/23 07:35 Temperature Source Axillary 01/07/23 07:35 Pulse Rate 70 01/07/23 12:45 Pulse Rhythm Regular 01/07/23 16:00 Pulse Strength 1+ Faint 01/07/23 16:00 Respiratory Rate 18 01/07/23 16:51 Respiratory Effort Mechanically Vent ilated 01/07/23 16:00 Respiratory Depth Normal 01/07/23 16:00 Respiratory Patter n Normal 01/05/23 14:18 Blood Pressure 86/63 01/07/23 17:59 Blood Pressure Leanne n 70 01/07/23 17:59 Pulse Oximetry 97 01/07/23 16:51 Oxygen Delivery Me thod Mechanical Ventil ation 01/07/23 07:35 Fraction of Inspir ed Oxygen 50 01/07/23 16:51 Exam: Pre-Anes Outpt Exam: alert, oriented x 3, clear to auscultation bilaterally and regular rate & rhythm Cardiac Studies: Echocardiogram 01/06/23 Sestamibi Stress Test (Cardiology) 09/25/22 Cardiac Event Monitor 02/12/22
[2023-01-07 18:56] LABS: Vancomycin Trough 10.2 ug/mL (10-15)
--- NOTE | 2023-01-07 19:00 | PC.NURSE ---
Heparin Drip Off: Per shift report w/ ROSA Fischer Heparin drip was shut off on day shift per order from Dr. Feldman. Heparin drip off on arrival to shift. MAR edited for 1900 to reflect this.
--- NOTE | 2023-01-07 19:23 | PM.PN ---
Vitals/I&O/Wt Last Vital Signs Temp 96.8 F L 01/07/23 07:35 Pulse 70 01/07/23 12:45 Resp 18 01/07/23 16:51 BP 86/63 01/07/23 17:59 Pulse Ox 97 01/07/23 16:51 O2 Del Method Mechanical Ventilation 01/07/23 07:35 FiO2 50 01/07/23 16:51 01/07/23 01/07/23 01/07/23 06:59 14:59 22:59 Intake Total 1755.620 / 6704.775 1085.837 / 1085.837 343.902 / 1429.739 Output Total 1625 / 3100 1200 / 1200 1500 / 2700 Balance 130.620 / 3604.775 -114.163 / -114.163 -1156.098 / -1270.261 Weight last 48 hrs Weight 300 lb Physical Exam Urinary Catheter Management: Kate: Cath Placed During This Visit: yes Reason for Continuing Indwelling Catheter: Accurate Measurement of Urinary Output in Critically Ill Patients Urinary Catheter Date of Insertion: 01/05/23 Urinary Catheter Time of Insertion: 15:30 Data 01/07/23 17:42 01/07/23 13:28 Micro: Microbiology 01/05/23 17:59 Gram Stain - Final Sputum - Endotracheal Tube Aspirate Sputum Culture - Final A&P Assessment and plan (1) S/P repair of recurrent ventral hernia: (2) Crohn's disease: (3) Sepsis: (4) History of DVT (deep vein thrombosis): (5) Septic shock: (6) NSTEMI (non-ST elevated myocardial infarction): Plan Status post exploratory laparotomy with partial sigmoid colectomy and ABThera wound VAC placement. Reverse heparin drip with protamine 2 OR for planned second look exploratory laparotomy, possible bowel resection, colostomy The risk and benefits of the procedure, including but not limited to, bleeding, infection, damage surrounding structures, scar, numbness, pain, fistulas, need for repeat surgery, prolonged infection, ostomy malfunction, prolonged intubation and poor outcome, were explained to the family including the daughter. They are understanding the risks and wish to proceed Attestations Medical Necessity Statement*: Requires multiple more nights in the hospital for intensive care following exploratory laparotomy Coding Level of Care Code Acute Code for [facility] Diagnoses S/P repair of recurrent ventral hernia Z98.890; Z87.19 Crohn's disease K50.90 Sepsis A41.9 History of DVT (deep vein thrombosis) Z86.718 Septic shock A41.9; R65.21 NSTEMI (non-ST elevated myocardial infarction) I21.4
--- NOTE | 2023-01-07 19:32 | PC.NURSE ---
Left for Surgery: OR team arrived on unit @1900. Pt left for surgery @1900 01/07/23.
[2023-01-07 20:22] LABS: Hematocrit 25.3 % (37.0-47.0); Hemoglobin 7.7 g/dL (11.5-15.3)
[2023-01-07 21:20] LABS: INR 1.28 (0.8-1.2)
[2023-01-07 21:21] LABS: Partial Thromboplastin Time 26.3 SECONDS (23.9-36.7)
[2023-01-07 21:22] LABS: Fibrinogen 559 mg/dL (174-498)
[2023-01-07 21:32] LABS: Platelet Count 200 10^3/cmm (130-400)
--- NOTE | 2023-01-07 22:30 | PC.NURSE ---
Back from Surgery: Pt arrived from OR to ICU 10 @2230 01/07/23. Air-way patent, reconnected to mechanical ventilator. Continuos cardiac monitoring continued. Wound VAC present to medial abd. Shaq drain present to L. abd. Per report w/ OR, Dopamine was titrated down to 2 mcg/kg/min and Levophed was restarted at 4 mcg/min during surgery. MAR updated @2230 to reflect this. See MAR for titration of drips. Verbal order from Dr. Feldman to infuse 1 unit blood. Blood product given to this RN from OR nurse via cooler. Blood verified w/ 2 RN's prior to administration. Family at bedside to see pt.
--- NOTE | 2023-01-07 22:31 | P.OP_ITS ---
Operative Report Date of procedure: January 07, 2023 Pre-op diagnosis: Open abdomen with bowel in discontinuity Post-op diagnosis: Status post colocolonic anastomosis and closure of the abdomen Procedure done: Exploratory laparotomy with partial colectomy and colocolonic anastomosis Implants: Vistaseal and 19 Cam[place]onian Shaq drain Specimens removed/disposition: Partial sigmoid colectomy specimen Surgeon: Dr. Alan Feldman DO Anesthesia: General Estimated blood loss (mL): 500 Complications: None apparent Brief History: This is a very pleasant 77-year-old female that was found to have a perforated sigmoid colon diverticulum with stool in the abdomen. She underwent an exploratory laparotomy and partial sigmoid colectomy and was left with an open abdomen and an ABThera wound VAC system. Takeback with repeat exploratory laparotomy was indicated. The risks and benefits were explained and documented. Procedure: Patient was wheeled in operative room and placed on the OR table in the supine position. General anesthesia was achieved by the department of anesthesia. A timeout was performed. All present were in agreement. The ABThera wound VAC system was taken off and the abdomen was inspected prepped and draped in usual sterile fashion. Remaining wound VAC was removed and the bowel was inspected. There was areas of necrotic soft tissue that was sharply debrided and the abdominal wall. Fresh bleeding tissue was left. I then mobilized the remaining sigmoid colon and found that both ends of the bowel were very healthy appearing. I made the decision to anastomosis. A [id number] functional end-to-end colocolonic anastomosis was made by using CHERYLE staplers with 400 mm blue loads x2. Specimen was passed off as a partial colectomy at the anastomotic site. The anastomosis was reinforced with 3-0 Vicryl Lembert style sutures. Vistaseal was then placed over the anastomosis. Prior to using Vistaseal 500 cc of normal saline was used to flush over the anastomotic site. Abdomen was suctioned. Hemostasis was achieved. A 19 [place] Shaq drain was placed along the left colic gutter over the anastomosis and down to the pelvis coming out of the left lower quadrant. The drain was sewn into place using 2-0 silk. The abdominal fascia was then closed using #1 PDS x2 in a running fashion. A wound VAC was then placed over the fascia and set to 125 mmHg. Patient tolerated the procedure well and was wheeled into the intensive care unit.
[2023-01-07] MEDS: sodium chloride 0.9% 100 mL Bag 50 ML IV (23:15)
[2023-01-08] VITALS (108 sets, daily range): BP systolic 76–132; BP diastolic 49–78; PULSE 62–105; RESP 18–20; TEMP 35.5–37.5; O2SAT 94–100
[2023-01-08] MEDS: propofol 1,000 MG/100 ML INJ 30.59 MG IV (01:59)
[2023-01-08 03:40] LABS: Hemoglobin 9.4 g/dL (11.5-15.3); Mean Corpuscular HGB Conc 30.3 g/dL (30.0-36.0); Mean Corpuscular Hemoglobin 28.5 pg (28.0-34.0); Mean Corpuscular Volume 93.9 fl (81-99); Mean Platelet Volume 10.6 fL (7.4-10.4); Platelet Count 262 10^3/cmm (130-400); Red Cell Distribution Width 13.7 % (12.1-15.1)
[2023-01-08 03:55] LABS: Alanine Aminotransferase 13 U/L (0-33); Albumin Level 3.1 g/dL (3.5-5.2); Alkaline Phosphatase 69 U/L (35-105); Anion Gap 16.1 (5-19); Aspartate Amino Transferase 25 U/L (0-32); Blood Urea Nitrogen 33 mg/dL (8-23); Calcium 7.4 mg/dL (8.5-10.5); Carbon Dioxide 21 mmol/L (22-29); Chloride 108 mmol/L (98-107); Globulin 1.7 g/dL (1.3-4.6); Glucose 177 mg/dL (65-115); Magnesium 1.8 mg/dL (1.7-2.3); Osmolality Calculated 304 mOsm/kg (285-295); Phosphorus 4.1 mg/dL (2.5-4.5); Potassium 4.1 mmol/L (3.5-5.1); Sodium 141 mmol/L (136-145); Total Protein 4.8 g/dL (6.6-8.7)
[2023-01-08 04:04] LABS: Slide Review Slide Review Perform
[2023-01-08 04:06] LABS: Absolute Segmented Neutrophil 27.2 10/cmm (1.6-7.1); Eosinophils 0 %; Lymphocytes 2 %; Monocytes Absolute 1.3 10^3/cmm (0.1-0.6); Platelet Estimate Normal (Normal); Segmented Neutrophils 85 %; Total Cells Counted 100 (0-100)
[2023-01-08] MEDS: propofol 1,000 MG/100 ML INJ 19.12 MG IV (05:56)
[2023-01-08] MEDS: albumin 25 G/100 ML BAG 60 G IV ×3 (06:10→21:18)
[2023-01-08] MEDS: piperacillin-tazobactam 3.375 GM in sodium chloride 0.9% (plus) 50 ML IV ×3 (06:12→22:27)
[2023-01-08 06:19] LABS: ABG PCO2 40.8 mmHg (35-45); ABG PH Result 7.36 (7.35-7.45); Base Excess ABG -2.5 mmol/L (-2.0-2.0); Blood Gas Allen Test Pos; Blood Gas Operator Identificat JB; Blood Gas Sample Site Radial, right; Blood Gas Sample Type Arterial; Blood Gas Tidal Volume 0.45; HCO3 ABG 22.9 mmol/L (22-26); Oxygen Device VENT
--- NOTE | 2023-01-08 07:00 | XRR_ITS ---
PROCEDURE INFORMATION: Exam: XR Chest Exam date and time: 01/08/2023 1:12 AM Age: 77 years old Clinical indication: Condition or disease; Lung condition and disease; Respiratory failure; Status not specified; Patient HX: Resp failure. Intubated. TECHNIQUE: Imaging protocol: Radiologic exam of the chest. Views: 1 view. COMPARISON: CR (CHEST, ) 01/07/2023 4:49 AM FINDINGS: Tubes, catheters and devices: Right chest port in the distal SVC. Left subclavian approach central venous catheter within the mid SVC. Endotracheal tube position 3-4 cm cephalad to alexander. Enteric tube in the gastric body. Lungs: Low lung volumes. Patchy perihilar opacities greater on left than right similar to comparison. Small left upper lobe calcified granuloma redemonstrated. Pleural spaces: Unremarkable. No pleural effusion. No pneumothorax. Heart/Mediastinum: Mildly enlarged cardiac silhouette. Bones/joints: Right humerus arthroplasty redemonstrated. XR/XR chest 1V portable [id number] IMPRESSION: No significant change in exam.
[2023-01-08] MEDS: pantoprazole 40 mg SDV IVP (08:05)
[2023-01-08] MEDS: aspirin 81 mg EC Tablet PO (08:05)
--- NOTE | 2023-01-08 10:31 | PC.SOCIAL ---
Imm update Imm not updated at this time as patient is intubated and not likely to dc within the next 24 hours.
--- NOTE | 2023-01-08 11:37 | P.PN_ITS ---
Subjective Subjective: Kaitlin is sedated on the ventilator. She underwent colonic anastomosis, partial colectomy, exploratory laparotomy last night. Medications: Reviewed: Yes Vitals/I&O/Wt Last Vital Signs Temp 97.5 F L 01/08/23 06:30 Pulse 69 01/08/23 10:15 Resp 18 01/08/23 11:33 BP 105/59 01/08/23 10:15 Pulse Ox 98 01/08/23 11:33 O2 Del Method Mechanical Ventilation 01/08/23 06:30 O2 Flow Rate 10 01/07/23 22:30 FiO2 40 01/08/23 11:33 01/07/23 01/08/23 01/08/23 22:59 06:59 14:59 Intake Total 1823.488 / 3244.325 1086.706 / 4331.031 Output Total 2200 / 3400 545 / 3945 Balance -376.512 / -155.675 541.706 / 386.031 Weight last 48 hrs Weight 134.263 kg Physical Exam Narrative: General sedated HEENT: Oropharyngeal, endotracheal tube noted Neck supple with no LAD/thyromagaly CV RRR without murmur. Port is noted right chest, right subclavian central line noted Lungs CTAB without wheezing, crackles Abd S/NT, hypoactive BS. Wound vacuum over surgical site. BRIAN drains noted Ext No c/c/e skin without rash Urinary Catheter Management: Kate: Cath Placed During This Visit: yes Reason for Continuing Indwelling Catheter: Accurate Measurement of Urinary Output in Critically Ill Patients Urinary Catheter Date of Insertion: 01/05/23 Urinary Catheter Time of Insertion: 15:30 Data 01/08/23 03:26 01/08/23 03:26 Micro: Microbiology 01/05/23 17:59 Gram Stain - Final Sputum - Endotracheal Tube Aspirate Sputum Culture - Final A&P Assessment and plan (1) Enterocutaneous fistula: Patient has evidence of enterocutaneous fistula. She has an anterior abdominal wall abscess, and recently had an abdominal hernia repair on December 22. There is suggestion on her CT scan from outside facility that there is a connection between sigmoid diverticula and the abscess site. She is postoperative day #3 status post removal of mesh, partial sigmoid colectomy, placement of wound vacuum. She is now postoperative day #2 status post exploratory laparotomy, partial colectomy and colonic anastomosis. Continue Zosyn and vancomycin IV Blood cultures were done at outside facility prior to antibiotics. We will call today and get report CBC, CMP tomorrow (2) Sepsis: She has been appropriately resuscitated with IV fluids She went back on norepinephrine, and continued on dopamine yesterday. Dopamine was initiated for bradycardia. Wean both of these today. Continue Zosyn and vancomycin. CBC and CMP daily Continue albumin currently. White blood cell count is increased, as expected following surgery (3) Crohn's disease: She has underlying Crohn's disease, and is currently on Entyvio Hold this immunosuppressant currently (4) History of DVT (deep vein thrombosis): She recently had a DVT in late November. She was placed on anticoagulation and a repeat ultrasound did not demonstrate a DVT on December 30. She stopped her anticoagulation then. I believe anticoagulation is still necessary. Currently on a heparin drip (5) Acute kidney injury: Improved, continue Kate Daily creatinine (6) Respiratory failure: Respiratory failure following surgery. Wean sedation and ventilator today Wean FiO2 as tolerated. Later settings reviewed Chest x-ray demonstrates patchy infiltrates Plan Elevated troponin, bradycardia. Cardiology has seen. Wean dopamine. Consider cardiac evaluation near end of hospital stay. Aspirin daily added. Currently on heparin drip. Add statin back Hypomagnesemia. normal today Hypokalemia, normal today Other medical problems as outlined in past medical history Full code SCDs for DVT prophylaxis. Anticoagulation currently contraindicated is directly going to surgery Thank you for this consultation, I will continue to follow with you Attestations Medical Necessity Statement*: Needs continued hospital stay for IV antibiotics for sepsis, respiratory failure requiring mechanical support Critical Care Time: The high probability of a clinically significant, sudden or life threatening deterioration of the patient's [cardiac, infectious disease, GI] system(s) required my full and direct attention, intervention and personal management. The critical care time is as shown. This time is in addition to time spent performing any reported procedures but includes the following: [x] Data and vital sign review and interpretation [x] Patient assessment, examination and intervention [x] Documentation [x] Medication orders and management Critical Care Time (min): 36 Coding Level of Care Code Critical Care >/= 30 minutes Critical care time (in minutes): 36 The high probability of a clinically significant, sudden or life threatening det erioration, as referenced in this documentation, required my full and direct attention, intervention and personal management. The critical care time shown is in addition to time spent performing any reported separately billable procedures and includes the following: [x] Data and vital sign review and interpretation [x ] Patient assessment, examination and intervention [x] Medication orders and management [x] Patient/Family updates as able [x] Care Coordination and Documentation. Diagnoses Enterocutaneous fistula K63.2 Sepsis A41.9 Crohn's disease K50.90 History of DVT (deep vein thrombosis) Z86.718 Acute kidney injury N17.9 Respiratory failure J96.90
[2023-01-08] MEDS: vancomycin 1,500 MG/300 ML PIGGYBACK 250 MG IV (12:12)
--- NOTE | 2023-01-08 12:35 | ANE.PACU2 ---
Inpatient post-anesthesia follow up: Airway intact: No Vital signs: Temperature 97.5 F Pulse Rate 69 Respiratory Rate 18 Blood Pressure 105/59 Pulse Oximetry 98 Oxygen Delivery Me thod Mechanical Ventila tion Oxygen Flow Rate 10 Fraction of Inspir ed Oxygen 40 Hydration adequate: Yes Nausea and vomiting: Yes Pain level: 1 Mental status: Altered
[2023-01-08] MEDS: propofol 1,000 MG/100 ML INJ 7.65 MG IV (13:59)
--- NOTE | 2023-01-08 18:20 | P.PN_ITS ---
Subjective Subjective: Patient is stable. No significant changes. Vitals/I&O/Wt Last Vital Signs Temp 97.5 F L 01/08/23 06:30 Pulse 93 01/08/23 17:30 Resp 18 01/08/23 17:17 BP 104/64 01/08/23 17:30 Pulse Ox 98 01/08/23 17:30 O2 Del Method Mechanical Ventilation 01/08/23 06:30 O2 Flow Rate 10 01/07/23 22:30 FiO2 30 01/08/23 17:17 01/08/23 01/08/23 01/08/23 06:59 14:59 22:59 Intake Total 1086.706 / 4331.031 619.229 / 619.229 22.86 / 642.089 Output Total 545 / 3945 700 / 700 Balance 541.706 / 386.031 619.229 / 619.229 -677.14 / -57.911 Weight last 48 hrs Weight 296 lb Physical Exam Narrative: General: Intubated and sedated CV: Regular Lungs : Diminished air entry Ext: Warm Urinary Catheter Management: Kate: Cath Placed During This Visit: yes Reason for Continuing Indwelling Catheter: Accurate Measurement of Urinary Output in Critically Ill Patients Urinary Catheter Date of Insertion: 01/05/23 Urinary Catheter Time of Insertion: 15:30 Data 01/09/23 15:06 01/09/23 15:06 A&P Assessment and plan (1) NSTEMI (non-ST elevated myocardial infarction): (2) Respiratory failure: (3) Acute kidney injury: (4) History of DVT (deep vein thrombosis): (5) Sepsis: (6) Enterocutaneous fistula: Plan No changes. Clinically stable. Tonight she will finish 48 hours of heparin drip. Telemetry monitoring. Once patient is stable, prior to her discharge, we will plan ischemic work-up Thank you for involving us with care of this patient. We will continue to follow. Please call with questions. Attestations Medical Necessity Statement*: Care expected to cross 2 midnights. Coding Level of Care Code Acute Code for [facility] Diagnoses NSTEMI (non-ST elevated myocardial infarction) I21.4 Respiratory failure J96.90 Acute kidney injury N17.9 History of DVT (deep vein thrombosis) Z86.718 Sepsis A41.9 Enterocutaneous fistula K63.2
--- NOTE | 2023-01-08 20:55 | PC.NURSE ---
Dopamine and Levophed drips adjusted in OCT to reflect drip rates upon transfer of care at shift change.
[2023-01-08] MEDS: atorvastatin 40 mg Tablet 20 MG PO (21:18)
[2023-01-08] MEDS: heparin drip 25,000 UNIT/500 ML PREMIX 36 UNIT IV (22:03)
[2023-01-09] VITALS (72 sets, daily range): BP systolic 81–137; BP diastolic 46–78; PULSE 63–94; RESP 18–32; TEMP 36.7–37.5; O2SAT 89–100
[2023-01-09] MEDS: propofol 1,000 MG/100 ML INJ 7.65 MG IV ×2 (01:48→12:34)
[2023-01-09 04:10] LABS: Hematocrit 24.7 % (37.0-47.0); Hemoglobin 7.4 g/dL (11.5-15.3); Mean Corpuscular Hemoglobin 28.2 pg (28.0-34.0); Mean Corpuscular Volume 94.3 fl (81-99); Mean Platelet Volume 10.5 fL (7.4-10.4); Platelet Count 187 10^3/cmm (130-400); Red Blood Count 2.62 10^6/uL (4.1-5.3); Red Cell Distribution Width 14.2 % (12.1-15.1); White Blood Count 16.7 10^3/uL (4.0-10.0)
[2023-01-09 04:31] LABS: Alanine Aminotransferase 9 U/L (0-33); Albumin Level 3.3 g/dL (3.5-5.2); Alkaline Phosphatase 59 U/L (35-105); Anion Gap 14.6 (5-19); Aspartate Amino Transferase 22 U/L (0-32); Blood Urea Nitrogen 29 mg/dL (8-23); Calcium 7.5 mg/dL (8.5-10.5); Carbon Dioxide 23 mmol/L (22-29); Chloride 108 mmol/L (98-107); Globulin 1.5 g/dL (1.3-4.6); Glucose 118 mg/dL (65-115); Magnesium 1.7 mg/dL (1.7-2.3); Osmolality Calculated 301 mOsm/kg (285-295); Phosphorus 3.5 mg/dL (2.5-4.5); Potassium 3.6 mmol/L (3.5-5.1); Sodium 142 mmol/L (136-145); Total Bilirubin 2.4 mg/dL (0.15-1.2); Total Protein 4.8 g/dL (6.6-8.7)
[2023-01-09 04:42] LABS: Slide Review Slide Review Perform
[2023-01-09 04:43] LABS: Eosinophils 0 %; Lymphocytes 9 %; Lymphocytes Absolute 1.5 10^3/cmm (1.2-3.4); Platelet Estimate Decreased (Normal); Segmented Neutrophils 72 %; Total Cells Counted 100 (0-100)
[2023-01-09 05:41] LABS: ABG PCO2 35.8 mmHg (35-45); ABG PH Result 7.42 (7.35-7.45); Arterial Blood Gas Hematocrit 31.1 % (37-47); Base Excess ABG -1.4 mmol/L (-2.0-2.0); Blood Gas Allen Test Pos; Blood Gas Operator Identificat JB; Blood Gas Sample Site Brachial, right; Blood Gas Sample Type Arterial; HCO3 ABG 22.9 mmol/L (22-26); Oxygen Device VENT; PO2 ABG 59.1 mmHg (80.0-100.0)
[2023-01-09 05:42] LABS: Blood Gas Tidal Volume 0.45
[2023-01-09] MEDS: piperacillin-tazobactam 3.375 GM in sodium chloride 0.9% (plus) 50 ML IV ×3 (06:06→22:43)
[2023-01-09] MEDS: albumin 25 G/100 ML BAG 60 G IV (06:07)
--- NOTE | 2023-01-09 07:27 | XR_ITS ---
WS: [id number] Portable AP supine chest, 01/09/2023 Clinical Data: resp failure Comparison: Portable chest, 01/08/2023 Findings: The right infusion catheter, left subclavian catheter, endotracheal tube and gastroenteric tube remain in the same position. There are monitor leads on the chest wall. There are patchy bilater al opacities more in the left than the right unchanged. The heart is at the upper limits of normal. T he patient is rotated. There is a right shoulder arthroplasty. XR/XR chest 1V portable [id number] Impression: 1. No change in multiple tubes. 2. No change in patchy lower lobe opacities and cardiomegaly.
[2023-01-09] MEDS: pantoprazole 40 mg SDV IVP (09:33)
[2023-01-09] MEDS: lidocaine 1% 5 ML in potassium chloride premix 100 ML 26.25 ML IV ×2 (09:33→14:39)
[2023-01-09] MEDS: aspirin 81 mg EC Tablet PO (09:34)
[2023-01-09 10:38] LABS: Partial Thromboplastin Time 89.5 SECONDS (23.9-36.7)
[2023-01-09] MEDS: lanolin oint 7 gm 1 APPLIC TOPICAL (10:48)
--- NOTE | 2023-01-09 11:23 | P.PN_ITS ---
Subjective Subjective: Kaitlin is sedated on the ventilator. Family is at bedside, and I discussed her case in detail with them. Medications: Reviewed: Yes Vitals/I&O/Wt Last Vital Signs Temp 99.0 F 01/09/23 10:42 Pulse 83 01/09/23 10:42 Resp 32 H 01/09/23 10:42 BP 112/55 01/09/23 10:42 Pulse Ox 100 01/09/23 10:42 O2 Del Method Mechanical Ventilation 01/08/23 06:30 O2 Flow Rate 10 01/07/23 22:30 FiO2 40 01/09/23 08:12 01/08/23 01/09/23 01/09/23 22:59 06:59 14:59 Intake Total 376.479 / 995.708 324.218 / 1319.926 0 / 0 Output Total 1160 / 1160 380 / 1540 Balance -783.521 / -164.292 -55.782 / -220.074 0 / 0 Weight last 48 hrs Weight 134.263 kg Physical Exam Narrative: General sedated. Ventilator settings reviewed. FiO2 40%, PEEP of 8. FiO2 has increased slightly secondary to last blood gas. HEENT: Oropharyngeal, endotracheal tube noted Neck supple with no LAD/thyromagaly CV RRR without murmur. Port is noted right chest, right subclavian central line noted Lungs CTAB without wheezing, crackles Abd S/NT, hypoactive BS. Wound vacuum over surgical site. 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 She has an anterior abdominal wall abscess, and recently had an abdominal hernia repair on December 22. There is suggestion on her CT scan from outside facility that there is a connection between sigmoid diverticula and the abscess site. She is postoperative day #4 status post removal of mesh, partial sigmoid colectomy, placement of wound vacuum. She is now postoperative day #3 status post exploratory laparotomy, partial colectomy and colonic anastomosis. Continue Zosyn and vancomycin IV Blood cultures were done at outside facility prior to antibiotics. Nursing calling again today to get report update CBC, CMP tomorrow Initiate TPN today. Dietary consult. (2) Sepsis: She has been appropriately resuscitated with IV fluids She went back on norepinephrine, and continued on dopamine yesterday. Dopamine was initiated for bradycardia. Wean all pressors have now been able to be disc ontinued. Continue Zosyn and vancomycin. CBC and CMP daily White blood cell count decreasing. Discontinue albumin at this point. (3) Crohn's disease: She has underlying Crohn's disease, and is currently on Entyvio Hold this immunosuppressant currently (4) History of DVT (deep vein thrombosis): She recently had a DVT in late November. She was placed on anticoagulation and a repeat ultrasound did not demonstrate a DVT on December 30. She stopped her ant icoagulation then. I believe anticoagulation is still necessary at discharge. Changing to DVT prophylaxis dosing today. (5) Acute kidney injury: Improved, continue Kate Daily creatinine (6) Respiratory failure: Respiratory failure following surgery. Wean ventilator as tolerated. Hopefully can extubate tomorrow. Chest x-ray demonstrates patchy infiltrates, more on the left Plan Elevated troponin, bradycardia. Cardiology has seen. Dopamine has now been discontinued consider cardiac evaluation near end of hospital stay. Aspirin daily added. Add statin back. Has been on heparin drip for over 48 hours following concern of non-ST elevation myocardial infarction. Discussed with cardiology and will discontinue at this time. She has had some recurrent anemia. We will place her back on heparin subcutaneous. Note that she had a recent angiogram demonstrating no flow-limiting lesions. Replace potassium today, goal is to keep potassium approximately 4. Supplement magnesium today as it is 1.7. Anemia. Hemoglobin 7.4 today. Blood pressure is borderline. We will transfuse 1 unit, Lasix 40 mg IV today following transfusion Hypomagnesemia. normal today Hypokalemia, normal today Other medical problems as outlined in past medical history Full code SCDs for DVT prophylaxis. Heparin for DVT prophylaxis Thank you for this consultation, I will continue to follow with you Attestations Medical Necessity Statement*: Needs continued hospitalization secondary respiratory failure, sepsis, need for antibiotics, need for mechanical ventilation. Critical Care Time: The high probability of a clinically significant, sudden or life threatening deterioration of the patient's [pulmonary, GI, vascular,] system(s) required my full and direct attention, intervention and personal management. The critical care time is as shown. This time is in addition to time spent performing any reported procedures but includes the following: [x] Data and vital sign review and interpretation [x] Patient assessment, examination and intervention [x] Documentation [x] Medication orders and management Critical Care Time (min): 40 Coding Level of Care Code Critical Care >/= 30 minutes Critical care time (in minutes): 40 The high probability of a clinically significant, sudden or life threatening deterioration, as referenced in this documentation, required my full and direct attention, intervention and personal management. The critical care time shown is in addition to time spent performing any reported separately billable procedures and includes the following: [x] Data and vital sign review and interpretation [x ] Patient assessment, examination and intervention [x] Medication orders and management [x] Patient/Family updates as able [x] Care Coordination and Documentation. Diagnoses Enterocutaneous fistula K63.2 Sepsis A41.9 Crohn's disease K50.90 History of DVT (deep vein thrombosis) Z86.718 Acute kidney injury N17.9 Respiratory failure J96.90
[2023-01-09] MEDS: magnesium sulfate premix 2 GM/50 ML PIGGYBACK IV (12:34)
[2023-01-09] MEDS: vancomycin 1,500 MG/300 ML PIGGYBACK 250 MG IV (14:47)
[2023-01-09] MEDS: FUROsemide 10 mg/mL SDV 4mL 40 MG IVP (15:03)
[2023-01-09 15:14] LABS: Hematocrit 27.5 % (37.0-47.0); Hemoglobin 8.5 g/dL (11.5-15.3)
--- NOTE | 2023-01-09 16:02 | PM.PN ---
Subjective Subjective: Patient's overall condition is unchanged. Rhythm is stable. Vitals/I&O/Wt Last Vital Signs Temp 99.0 F 01/09/23 10:42 Pulse 90 01/09/23 15:00 Resp 21 H 01/09/23 13:39 BP 137/66 01/09/23 15:00 Pulse Ox 98 01/09/23 15:00 O2 Del Method Mechanical Ventilation 01/08/23 06:30 O2 Flow Rate 10 01/07/23 22:30 FiO2 40 01/09/23 13:39 01/09/23 01/09/23 01/09/23 06:59 14:59 22:59 Intake Total 324.218 / 1619.926 82.365 / 82.365 Output Total 380 / 1540 550 / 550 Balance -55.782 / 79.926 82.365 / 82.365 -550 / -467.635 Weight last 48 hrs Weight 296 lb Physical Exam Narrative: General: Intubated and sedated CV: Regular Lungs : Diminished air entry Ext: Warm Urinary Catheter Management: Kate: Cath Placed During This Visit: yes Reason for Continuing Indwelling Catheter: Accurate Measurement of Urinary Output in Critically Ill Patients Urinary Catheter Date of Insertion: 01/05/23 Urinary Catheter Time of Insertion: 15:30 Data 01/10/23 03:45 01/10/23 03:45 A&P Assessment and plan (1) NSTEMI (non-ST elevated myocardial infarction): (2) Respiratory failure: (3) Acute kidney injury: (4) History of DVT (deep vein thrombosis): (5) Sepsis: (6) Enterocutaneous fistula: Plan Patient is overall stable. Continue current medications. Telemetry monitoring. Prior to discharge ischemic work-up will be planned. Renal function has improved. Thank you for involving us with care of this patient. We will continue to follow. Please call with questions. Attestations Medical Necessity Statement*: Care expected to cross 2 midnights. Coding Level of Care Code Acute Code for [facility] Diagnoses NSTEMI (non-ST elevated myocardial infarction) I21.4 Respiratory failure J96.90 Acute kidney injury N17.9 History of DVT (deep vein thrombosis) Z86.718 Sepsis A41.9 Enterocutaneous fistula K63.2
--- NOTE | 2023-01-09 17:23 | PC.NURSE ---
300ml total in Gastric content in canister since placement. Not all from this shift.
[2023-01-09] MEDS: heparin 5,000 unit/mL INJ 1 mL 5000 UNIT SUBCUT (18:30)
[2023-01-09] MEDS: atorvastatin 40 mg Tablet 20 MG PO (20:57)
[2023-01-09] MEDS: propofol 1,000 MG/100 ML INJ 15.3 MG IV (22:53)
[2023-01-10] VITALS (65 sets, daily range): BP systolic 83–171; BP diastolic 48–98; PULSE 56–97; RESP 16–26; TEMP 36.8–37.5; O2SAT 95–100
[2023-01-10] MEDS: heparin 5,000 unit/mL INJ 1 mL 5000 UNIT SUBCUT ×3 (01:06→18:38)
[2023-01-10 04:41] LABS: Basophils # 0.1 10^3/uL (0.0-0.1); Basophils % 0.4 %; Eosinophils # 0.3 10^3/uL (0.0-0.8); Eosinophils % 1.6 %; Hematocrit 27.4 % (37.0-47.0); Hemoglobin 8.3 g/dL (11.5-15.3); Lymphocytes # 1.1 10^3/uL (0.8-4.8); Lymphocytes % 6.8 %; Mean Corpuscular HGB Conc 30.3 g/dL (30.0-36.0); Mean Corpuscular Hemoglobin 28.5 pg (28.0-34.0); Mean Corpuscular Volume 94.2 fl (81-99); Mean Platelet Volume 10.9 fL (7.4-10.4); Monocytes # 0.6 10^3/uL (0.2-0.9); Monocytes % 3.6 %; Neutrophils # 11.21 10^3/uL (1.8-7.7); Neutrophils % 72.4 %; Nucleated Red Blood Cells % 0.1 %; Platelet Count 185 10^3/cmm (130-400); Red Blood Count 2.91 10^6/uL (4.1-5.3); Red Cell Distribution Width 14.8 % (12.1-15.1); White Blood Count 15.5 10^3/uL (4.0-10.0)
[2023-01-10 04:56] LABS: Slide Review Slide Review Perform
[2023-01-10 05:02] LABS: Alanine Aminotransferase 9 U/L (0-33); Alkaline Phosphatase 65 U/L (35-105); Anion Gap 16.8 (5-19); Aspartate Amino Transferase 21 U/L (0-32); Blood Urea Nitrogen 30 mg/dL (8-23); Calcium 8.1 mg/dL (8.5-10.5); Carbon Dioxide 22 mmol/L (22-29); Chloride 106 mmol/L (98-107); Globulin 2.1 g/dL (1.3-4.6); Glucose 103 mg/dL (65-115); Magnesium 1.8 mg/dL (1.7-2.3); Osmolality Calculated 298 mOsm/kg (285-295); Phosphorus 3.2 mg/dL (2.5-4.5); Potassium 3.8 mmol/L (3.5-5.1); Sodium 141 mmol/L (136-145); Total Bilirubin 2.3 mg/dL (0.15-1.2); Total Protein 5.1 g/dL (6.6-8.7)
[2023-01-10] MEDS: propofol 1,000 MG/100 ML INJ 7.65 MG IV (05:20)
[2023-01-10 05:23] LABS: ABG PCO2 37.9 mmHg (35-45); ABG PH Result 7.39 (7.35-7.45); Arterial Blood Gas Hematocrit 28.1 % (37-47); Base Excess ABG -1.9 mmol/L (-2.0-2.0); Blood Gas Allen Test Pos; Blood Gas Sample Type Arterial; HCO3 ABG 22.8 mmol/L (22-26)
[2023-01-10 05:25] LABS: Blood Gas Operator Identificat JB; Blood Gas Sample Site Radial, right; Blood Gas Tidal Volume 0.45; Oxygen Device VENT
[2023-01-10] MEDS: piperacillin-tazobactam 3.375 GM in sodium chloride 0.9% (plus) 50 ML IV ×3 (06:13→22:26)
--- NOTE | 2023-01-10 07:00 | XRR_ITS ---
PROCEDURE INFORMATION: Exam: XR Chest Exam date and time: 01/10/2023 8:00 AM Age: 77 years old Clinical indication: Shortness of breath; Additional info: Resp failure TECHNIQUE: Imaging protocol: Radiologic exam of the chest. Views: 1 view. COMPARISON: CR XR chest 1V portable [id number] 01/09/2023 6:38 AM FINDINGS: Tubes, catheters and devices: An endotracheal tube, nasogastric tube, MediPort catheter and left subclavian catheter projects in satisfactory position. Lungs: Benign calcified granuloma in the left lung with calcified left hilar lymph nodes. Patchy left basilar opacity consistent with basilar infiltrate or atelectasis. Pleural spaces: Unremarkable. No pleural effusion. No pneumothorax. Heart/Mediastinum: Unremarkable. No cardiomegaly. Bones/joints: Unremarkable. XR/XR chest 1V portable [id number] IMPRESSION: Stable patchy infiltrate or atelectasis in the left base.
[2023-01-10] MEDS: aspirin 81 mg EC Tablet PO (08:04)
[2023-01-10] MEDS: pantoprazole 40 mg SDV IVP (08:04)
[2023-01-10] MEDS: vancomycin 1,500 MG/300 ML PIGGYBACK 250 MG IV (11:41)
[2023-01-10] MEDS: AA-Dex 5%-20% w/Lytes 1,000 ML with multivitamin inj 10 ML 15 ML IV (12:42)
--- NOTE | 2023-01-10 13:05 | PM.PN ---
Subjective Medications: Reviewed: Yes Vitals/I&O/Wt Last Vital Signs Temp 99.5 F 01/10/23 08:30 Pulse 59 L 01/10/23 11:30 Resp 18 01/10/23 10:38 BP 105/59 01/10/23 11:30 Pulse Ox 98 01/10/23 11:30 O2 Del Method Mechanical Ventilation 01/10/23 08:30 O2 Flow Rate 10 01/07/23 22:30 FiO2 30 01/10/23 10:38 01/09/23 01/10/23 01/10/23 22:59 06:59 14:59 Intake Total 129.560 / 261.925 136.358 / 398.283 932.922 / 932.922 Output Total 2145 / 2145 2050 / 4195 Balance -2015.440 / -1883.075 -1913.642 / -3796.717 932.922 / 932.922 Weight last 48 hrs Weight 135.681 kg Physical Exam Narrative: General: Patient is awake and alert. Head: Normocephalic. Atraumatic. EOM intact. Neck: No JVD. Cardiovascular: RRR. No gallops. No murmurs. Lungs: Clear to auscultation, no use of accessory muscles, no crackles or wheezes. Skin: No jaundice. No rashes. Abdomen: Soft. Not distended. Normal bowel sounds. Extremities: No cyanosis or clubbing. Musculoskeletal: Normal muscular development. Neurological: No myoclonus. Moves all 4 extremities. Urinary Catheter Management: Kate: Cath Placed During This Visit: yes Reason for Continuing Indwelling Catheter: Accurate Measurement of Urinary Output in Critically Ill Patients Urinary Catheter Date of Insertion: 01/05/23 Urinary Catheter Time of Insertion: 15:30 Data 01/10/23 03:45 01/10/23 03:45 A&P Assessment and plan (1) Enterocutaneous fistula: History of ventral hernia repair c/b bowel leak Status post repair and anastomosis General surgery following, appreciate recommendations Abdomen wound covered partially by wound vac Starting TPN Monitoring electrolytes Fentanyl for pain control for now May need LTACH placement, [facility] aware (2) Respiratory failure: Remains intubated on ventilator Clarify anticipated surgical plans If no upcoming surgery, evaluate for extubation trials Propfolol for sedation for now Imaging reviewed (3) Septic shock: Continue Levophed for MAP goal of 65 mmHg Judicious use vasopressors given recent bowel surgery Continue broad spectrum antibiotics w/ Zosyn and vancomycin (4) History of DVT (deep vein thrombosis): Continue heparin at ppx dosing d/t anemia requiring transfusion Revisit decision to reinitation therapeutic anticoaguation as she improves (5) Crohn's disease: Hold Entyvio (6) Acute kidney injury: Resolved, renal function at baseline (7) Myocardial injury: Echo and EKG reviewed Continue telemetry Cardiology evaluated Will need evaluated for ischemic work up prior to discharge Plan DVT ppx: Heparin Code Status: Full Code Attestations Medical Necessity Statement*: Patient remains critically ill intubated on ventilator, on vasopressor support, and complex wound requiring ongoing hospitalization. Critical Care Time: The high probability of a clinically significant, sudden or life threatening deterioration of the patient's pulmonary, cardiovascular, circulatory, gastrointestinal, system(s) required my full and direct attention, intervention and personal management. The critical care time is as shown. This time is in addition to time spent performing any reported procedures but includes the following: [x] Data and vital sign review and interpretation [x] Patient assessment, examination and intervention [x] Documentation [x] Medication orders and management Critical Care Time (min): 45 Coding Level of Care Code Acute Code for [facility] Diagnoses Enterocutaneous fistula K63.2 Respiratory failure J96.90 Septic shock A41.9; R65.21 History of DVT (deep vein thrombosis) Z86.718 Crohn's disease K50.90 Acute kidney injury N17.9 Myocardial injury I5A
--- NOTE | 2023-01-10 15:51 | PC.NURSE ---
Extubated [address] Cespedes in room. No complications. Neuro intact afterwards.
[2023-01-10] MEDS: morphine 4 mg/mL SDV 1 mL IVP (19:26)
[2023-01-10] MEDS: atorvastatin 40 mg Tablet 20 MG PO (20:23)
--- NOTE | 2023-01-10 20:44 | PC.NURSE ---
Addendum entered by Michaela Lawson RN 01/10/23 20:46: Witnessed and verified in medroom of waste. Original Note: Drugs Cleared from pumps after extubation. Fentanyl wasted 55mL Propofol wated 5 mL Infusions stopped and completed in [facility]
[2023-01-11] VITALS (49 sets, daily range): BP systolic 91–127; BP diastolic 49–79; PULSE 60–84; RESP 16–25; TEMP 36.3–37.1; O2SAT 95–98
[2023-01-11] MEDS: heparin 5,000 unit/mL INJ 1 mL 5000 UNIT SUBCUT ×3 (01:31→17:39)
[2023-01-11] MEDS: morphine 4 mg/mL SDV 1 mL IVP ×3 (01:32→12:02)
[2023-01-11 05:43] LABS: Hematocrit 29.2 % (37.0-47.0); Hemoglobin 8.7 g/dL (11.5-15.3); Mean Corpuscular HGB Conc 29.8 g/dL (30.0-36.0); Mean Corpuscular Hemoglobin 28.6 pg (28.0-34.0); Mean Corpuscular Volume 96.1 fl (81-99); Platelet Count 184 10^3/cmm (130-400); Red Blood Count 3.04 10^6/uL (4.1-5.3); Red Cell Distribution Width 14.9 % (12.1-15.1)
[2023-01-11 06:04] LABS: Alanine Aminotransferase 9 U/L (0-33); Alkaline Phosphatase 70 U/L (35-105); Anion Gap 15.1 (5-19); Aspartate Amino Transferase 17 U/L (0-32); Blood Urea Nitrogen 28 mg/dL (8-23); Calcium 8.3 mg/dL (8.5-10.5); Carbon Dioxide 23 mmol/L (22-29); Chloride 108 mmol/L (98-107); Creatinine Clr Calc Pharmacy 76.6103; Globulin 2.4 g/dL (1.3-4.6); Glucose 145 mg/dL (65-115); Magnesium 1.7 mg/dL (1.7-2.3); Osmolality Calculated 302 mOsm/kg (285-295); Phosphorus 3.2 mg/dL (2.5-4.5); Potassium 4.1 mmol/L (3.5-5.1); Sodium 142 mmol/L (136-145); Total Bilirubin 1.2 mg/dL (0.15-1.2); Total Protein 5.4 g/dL (6.6-8.7)
[2023-01-11] MEDS: piperacillin-tazobactam 3.375 GM in sodium chloride 0.9% (plus) 50 ML IV ×3 (06:13→23:13)
[2023-01-11 06:30] LABS: Slide Review Slide Review Perform
[2023-01-11 06:34] LABS: Lymphocytes 17 %; Monocytes Absolute 0.2 10^3/cmm (0.1-0.6); Total Cells Counted 100 (0-100)
[2023-01-11 06:35] LABS: Absolute Eosinophils 0.1 10^3/cmm (0.0-0.7); Absolute Segmented Neutrophil 6.8 10/cmm (1.6-7.1); Eosinophils 1 %; Segmented Neutrophils 62 %
[2023-01-11 06:36] LABS: Absolute Neutrophil 7.8 10^3/cmm (1.4-6.5); Giant Platelets Trace; Platelet Estimate Normal (Normal)
--- NOTE | 2023-01-11 07:15 | PM.PN ---
Subjective Subjective: Patient seen and examined. Now extubated Vitals/I&O/Wt Last Vital Signs Temp 98.1 F 01/12/23 00:00 Pulse 74 01/12/23 06:00 Resp 14 01/12/23 06:00 BP 107/75 01/12/23 06:00 Pulse Ox 91 01/12/23 06:00 O2 Del Method Nasal Cannula 01/11/23 11:15 O2 Flow Rate 3 01/11/23 11:15 FiO2 30 01/12/23 06:00 01/11/23 01/12/23 01/12/23 22:59 06:59 14:59 Intake Total 496.25 / 896.25 754.336 / 1650.586 Output Total 2725 / 3500 875 / 4375 Balance -2228.75 / -2603.75 -120.664 / -2724.414 Weight last 48 hrs Weight 297 lb 9.985 oz Weight 294 lb 12.8 oz Physical Exam Narrative: Abdomen: Soft, nondistended, appropriately tender, no guarding rebound or masses Wound VAC in place without erythema or exudate or leak Urinary Catheter Management: Kate: Cath Placed During This Visit: yes Reason for Continuing Indwelling Catheter: Accurate Measurement of Urinary Output in Critically Ill Patients Urinary Catheter Date of Insertion: 01/05/23 Urinary Catheter Time of Insertion: 15:30 Data 01/12/23 02:35 01/12/23 02:35 Micro: Microbiology 01/12/23 06:05 Blood Culture - Preliminary Blood SPECIMEN COLLECTED 01/12/23 05:55 Blood Culture - Preliminary Blood SPECIMEN COLLECTED A&P Assessment and plan (1) S/P repair of recurrent ventral hernia: (2) Crohn's disease: (3) Sepsis: (4) History of DVT (deep vein thrombosis): (5) Septic shock: (6) NSTEMI (non-ST elevated myocardial infarction): Plan Septic shock resolved Now extubated Await return of bowel function Medical management per hospitalist-appreciated No further planned surgical intervention Attestations Medical Necessity Statement*: Patient requires multiple more nights in the hospital for recovery after exploratory laparotomies Coding Level of Care Code Acute Code for [facility] Diagnoses S/P repair of recurrent ventral hernia Z98.890; Z87.19 Crohn's disease K50.90 Sepsis A41.9 History of DVT (deep vein thrombosis) Z86.718 Septic shock A41.9; R65.21 NSTEMI (non-ST elevated myocardial infarction) I21.4
[2023-01-11] MEDS: pantoprazole 40 mg SDV IVP (08:20)
[2023-01-11] MEDS: ondansetron 2 mg/ML SDV 2 mL 4 MG IVP (08:21)
[2023-01-11] MEDS: magnesium sulfate premix 2 GM/50 ML PIGGYBACK IV (08:46)
--- NOTE | 2023-01-11 08:53 | PC.NURSE ---
pt c/o nausea and pain in abdomen medicated with zofran and morphine at this time repositioned wound vac intact small drainage noted
[2023-01-11] MEDS: aspirin 81 mg EC Tablet PO (11:15)
[2023-01-11] MEDS: vancomycin 1,500 MG/300 ML PIGGYBACK 250 MG IV (12:02)
--- NOTE | 2023-01-11 13:10 | PC.NURSE ---
pt family request pain medication be changed to dilaludid notified
[2023-01-11] MEDS: HYDROmorphone 1 mg/mL INJ 1 mL 0.2 MG IVP ×3 (13:41→21:38)
--- NOTE | 2023-01-11 18:24 | P.PN_ITS ---
Subjective Subjective: She is feeling generally weak. Some pain but not in any specific location, however spread all over. Denies any needs. Medications: Reviewed: Yes Vitals/I&O/Wt Last Vital Signs Temp 97.4 F L 01/11/23 18:14 Pulse 73 01/11/23 18:00 Resp 18 01/11/23 18:00 BP 127/59 01/11/23 18:00 Pulse Ox 97 01/11/23 18:00 O2 Del Method Nasal Cannula 01/11/23 11:15 O2 Flow Rate 3 01/11/23 11:15 FiO2 30 01/11/23 18:00 01/11/23 01/11/23 01/11/23 06:59 14:59 22:59 Intake Total 405.208 / 1602.798 400 / 400 Output Total 700 / 3905 775 / 775 1000 / 1775 Balance -294.792 / -2302.202 -375 / -375 -1000 / -1375 Weight last 48 hrs Weight 133.719 kg Weight 135.681 kg Physical Exam Const: COMMON NORMALS: alert GENERAL APPEARANCE: cooperative ORIE NTATION/CONSCIOUSNESS: Yes awake OTHER: Weak HENMT: COMMON NORMALS: oropharynx normal Neck/C-Spine: COMMON NORMALS: no JVD Resp: COMMON NORMALS: normal respiratory effort and clear to auscultation bilaterally AUSCULTATION: clear to auscultation bilaterally Cardio: COMMON NORMALS: no JVD, regular rhythm, S1 normal heart sound present, S2 normal heart sound present and No murmurs present (Cardio) RHYTHM: regular rhythm HEART SOUNDS: S1 normal heart sound present and S2 normal heart sound present GI: COMMON NORMALS: Soft to palpation AUSCULTATION: Yes Absent bowel sounds PALPATION: Yes Soft to palpation OTHER: Mid abdominal wound VAC dressing. Extremity: COMMON NORMALS: no joint enlargement and no pedal edema Neuro: COMMON NORMALS: moves all extremities SENSORIUM/ORIENTATION: Yes alert Skin: COMMON NORMALS: no rashes or lesions noted GENERAL SKIN EXAM: no rashes or lesions noted Urinary Catheter Management: Kate: Cath Placed During This Visit: yes Reason for Continuing Indwelling Catheter: Accurate Measurement of Urinary Output in Critically Ill Patients Urinary Catheter Date of Insertion: 01/05/23 Urinary Catheter Time of Insertion: 15:30 Data 01/11/23 05:27 01/11/23 05:27 A&P Assessment and plan (1) Enterocutaneous fistula: Continue bowel rest for now with ileus. Awaiting return of bowel function. Discussed with surgery, in case noted return, trial of possibly enteral feed, possibly by NGT as she is quite weak. Continue parenteral nutrition for now. Continue wound VAC. Okay for anticoagulation. Start heparin drip in case need to be discontinued. Monitor blood counts with risk of bleeding. Okay for PT, OT assessment per discussion with surgery. Noted leukocytosis with decrease down to 11, although noted bandemia of 9. Discussed also with surgery. For now continue empiric antibiotics with Zosyn, vancomycin. She has weaned off pressors. Monitor blood pressures, support MAP if needed. She is otherwise afebrile. Maintaining blood pressures. Without sinus tachycardia or at this time other signs suggestive of ongoing infection. Continue to monitor condition. Status post removal of mesh, partial sigmoid colectomy, placement of wound va cuum.? Status post exploratory laparotomy, partial colectomy and colonic anastomosis. Status post ventral hernia repair She is generally very weak. Will need rehabilitation. Discussing with case management as well, further consideration of rehabilitation may depend on need level of care required, consideration of SNF versus LTACH. Start wearing IV pain control. As per request of family pain medication was changed from IV morphine to Dilaudid IV. Continue care on medical surgical floor if okay with surgery. (2) History of DVT (deep vein thrombosis): Discussed with surgery, okay to start anticoagulation. Discussed with nursing staff, just received subcu heparin -no initial bolus. Start heparin drip in case needs to be continued. Monitor blood counts. She recently had a DVT in late November. She was placed on anticoagulation and a repeat ultrasound did not demonstrate a DVT on December 30. She stopped her anticoagulation then. Anticoagulation believed to be still needed at discharge (3) Sepsis: She has been appropriately resuscitated with IV fluids She went back on norepinephrine, and continued on dopamine yesterday. Dopamine was initiated for bradycardia. Wean all pressors have now been able to be discontinued. Continue Zosyn and vancomycin. CBC and CMP daily White blood cell count decreasing. Discontinue albumin at this point. (4) Respiratory failure: Resolving. Extubated last night. On nasal cannula oxygen. (5) Septic shock: Resolved (6) Crohn's disease: Hold onto the (7) Acute kidney injury: Resolved (8) Myocardial injury: Cardiology documentation appreciated. Echo and EKG reviewed Continue telemetry Cardiology evaluated Will need evaluated for ischemic work up prior to discharge (9) Physical deconditioning: Very weak, extubated yesterday, prior to that with mechanical ventilatory support 01/05-01/10. Possible ICU myopathy as well. PT, OT assessment. She is generally very weak. Will need rehabilitation. Discussing with case management as well, further consideration of rehabilitation may depend on need level of care required, consideration of SNF versus LTACH. Plan Anemia. Hemoglobin improved up to 8.7. Restart anticoagulation with recent DVT, heparin drip in case need to discontinue. Follow-up CBC. At risk of bleeding. Received 1 unit RBC transfusion. Hypomagnesemia. Magnesium low, 1.7. Additional supplementation given. Follow- up needs and well requested. Hypokalemia, resolved Other medical problems as outlined in past medical history Called her Amaya daughter for an update as well but could not reach her. Attestations Medical Necessity Statement*: Continue admission for assessment management of ileus, awaiting return of bowel function, postoperative care, wound VAC, initiation of anticoagulation with recent DVT, monitoring for bleeding, continued parenteral nutritional support, therapy assessment, further determination on post discharge level of care and planning. Diagnoses Enterocutaneous fistula K63.2 History of DVT (deep vein thrombosis) Z86.718 Sepsis A41.9 Respiratory failure J96.90 Septic shock A41.9; R65.21 Crohn's disease K50.90 Acute kidney injury N17.9 Myocardial injury I5A Physical deconditioning R53.81
[2023-01-11] MEDS: heparin drip 25,000 UNIT/500 ML PREMIX 37.44 UNIT IV (19:43)
[2023-01-11] MEDS: atorvastatin 40 mg Tablet 20 MG PO (21:20)
[2023-01-12] VITALS (31 sets, daily range): BP systolic 86–142; BP diastolic 48–84; PULSE 62–91; RESP 13–23; TEMP 36.7–37.1; O2SAT 91–99; BMI 48.0
[2023-01-12] MEDS: AA-Dex 5%-20% w/Lytes 1,000 ML with multivitamin inj 10 ML 55 ML IV (01:09)
[2023-01-12] MEDS: HYDROmorphone 1 mg/mL INJ 1 mL 0.2 MG IVP ×5 (01:38→21:44)
[2023-01-12 02:53] LABS: Basophils # 0.1 10^3/uL (0.0-0.1); Basophils % 0.5 %; Eosinophils # 0.4 10^3/uL (0.0-0.8); Eosinophils % 4.1 %; Hematocrit 28.2 % (37.0-47.0); Hemoglobin 8.2 g/dL (11.5-15.3); Lymphocytes # 1.3 10^3/uL (0.8-4.8); Lymphocytes % 12.5 %; Mean Corpuscular HGB Conc 29.1 g/dL (30.0-36.0); Mean Corpuscular Hemoglobin 28.9 pg (28.0-34.0); Mean Corpuscular Volume 99.3 fl (81-99); Mean Platelet Volume 10.2 fL (7.4-10.4); Monocytes # 0.5 10^3/uL (0.2-0.9); Monocytes % 5.1 %; Neutrophils # 6.78 10^3/uL (1.8-7.7); Neutrophils % 65.6 %; Nucleated Red Blood Cells % 0 %; Platelet Count 187 10^3/cmm (130-400); Red Blood Count 2.84 10^6/uL (4.1-5.3); Red Cell Distribution Width 14.9 % (12.1-15.1); White Blood Count 10.3 10^3/uL (4.0-10.0)
[2023-01-12 02:56] LABS: Slide Review Slide Review Perform
[2023-01-12 03:00] LABS: Anion Gap 11.2 (5-19); Blood Urea Nitrogen 27 mg/dL (8-23); Calcium 8.2 mg/dL (8.5-10.5); Carbon Dioxide 26 mmol/L (22-29); Chloride 110 mmol/L (98-107); Glucose 157 mg/dL (65-115); Magnesium 1.8 mg/dL (1.7-2.3); Osmolality Calculated 304 mOsm/kg (285-295); Potassium 4.2 mmol/L (3.5-5.1); Sodium 143 mmol/L (136-145)
[2023-01-12 03:03] LABS: Partial Thromboplastin Time 120.4 SECONDS (23.9-36.7)
[2023-01-12] MEDS: heparin 5,000 unit/mL INJ 1 mL 5000 UNIT SUBCUT (06:22)
[2023-01-12] MEDS: piperacillin-tazobactam 3.375 GM in sodium chloride 0.9% (plus) 50 ML IV ×3 (06:22→23:46)
--- NOTE | 2023-01-12 08:25 | PM.PN ---
Subjective Subjective: Patient is extremely fatigued lethargic However able to talk and participate during interview Currently on 2 L of oxygen No passage of flatus or bowel movement yet Wound VAC in place Kate catheter in place Serous drainage in Hemovac Discontinue heparin drip No sign of DVT on recent ultrasound Adequate urine output I requested blood cultures Afebrile Vitals/I&O/Wt Last Vital Signs Temp 98.1 F 01/12/23 00:00 Pulse 74 01/12/23 06:00 Resp 14 01/12/23 06:00 BP 107/75 01/12/23 06:00 Pulse Ox 91 01/12/23 06:00 O2 Del Method Nasal Cannula 01/11/23 11:15 O2 Flow Rate 3 01/11/23 11:15 FiO2 30 01/12/23 06:00 01/11/23 01/12/23 01/12/23 22:59 06:59 14:59 Intake Total 496.25 / 896.25 754.336 / 1650.586 Output Total 2725 / 3500 875 / 4375 Balance -2228.75 / -2603.75 -120.664 / -2724.414 Weight last 48 hrs Weight 135 kg Weight 133.719 kg Physical Exam Narrative: Fluid overloaded Deconditioned Kate catheter in place Wound VAC Hemovac with serous drainage Abdomen soft Currently on 2 L oxygen Able to follow commands NG to suction 75 mill content in the container Lower extremity trace edema S1, S2 Urinary Catheter Management: Kate: Cath Placed During This Visit: yes Reason for Continuing Indwelling Catheter: Accurate Measurement of Urinary Output in Critically Ill Patients Urinary Catheter Date of Insertion: 01/05/23 Urinary Catheter Time of Insertion: 15:30 Data 01/12/23 02:35 01/12/23 02:35 Micro: Microbiology 01/12/23 06:05 Blood Culture - Preliminary Blood SPECIMEN COLLECTED 01/12/23 05:55 Blood Culture - Preliminary Blood SPECIMEN COLLECTED A&P Assessment and plan (1) Physical deconditioning: (2) Myocardial injury: (3) Septic shock: (4) NSTEMI (non-ST elevated myocardial infarction): (5) Respiratory failure: (6) Acute kidney injury: (7) Hypoglycemia: (8) History of DVT (deep vein thrombosis): (9) Sepsis: (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, removal of mesh partial sigmoid colectomy colonic anastomosis Status post repair, wound VAC in place Heparin drip discontinued Nutrition: Would prefer oral feeding once she started passing flatus continue TPN for now Deconditioning isolated myopathy Will need LTAC placement Acute hypoxia: Currently on 2 L no signs of respiratory distress DVT diagnosed in Apri Right leg DVT no DVT found on recent ultrasound I have discontinue heparin drip I might switch her to therapeutic Lovenox Eliquis at the time of discharge Crohn's disease: Hold Entyvio Myocardial injury with troponin leak Previous coronary angiogram was unremarkable We will do stress test when she is able to get out of bed Anemia: Status post 1 unit PRBC Full code Continue ICU management PT/OT Attestations Medical Necessity Statement*: Continue ICU management Diagnoses Physical deconditioning R53.81 Myocardial injury I5A Septic shock A41.9; R65.21 NSTEMI (non-ST elevated myocardial infarction) I21.4 Respiratory failure J96.90 Acute kidney injury N17.9 Hypoglycemia E16.2 History of DVT (deep vein thrombosis) Z86.718 Sepsis A41.9 Enterocutaneous fistula K63.2 JEFFREY on CPAP G47.33; Z99.89 Crohn's disease K50.90 Ventral hernia K43.9
[2023-01-12] MEDS: pantoprazole 40 mg SDV IVP (09:47)
--- NOTE | 2023-01-12 11:48 | PC.SOCIAL ---
IMM Updated Updated pt's daughter on IMM. No questions voiced. Provided pt a copy. Initialed, dated, & timed copy in chart.
[2023-01-12] MEDS: morphine 4 mg/mL SDV 1 mL 2 MG IVP (12:46)
--- NOTE | 2023-01-12 18:55 | PC.NURSE ---
Tube feed started this shift. Patient is tolerating well. Dr. Feldman gave order to advance to 60ml/hr and stop TPN when tube feed is at goal.
[2023-01-13] VITALS (25 sets, daily range): BP systolic 110–131; BP diastolic 59–103; PULSE 85–104; RESP 14–24; TEMP 36.2–37.9; O2SAT 94–100
[2023-01-13] MEDS: morphine 4 mg/mL SDV 1 mL 2 MG IVP ×2 (00:14→10:24)
[2023-01-13] MEDS: enoxaparin 150 mg/mL Syringe 130 MG SUBCUT (03:46)
[2023-01-13 04:08] LABS: Basophils % 0.3 %; Eosinophils # 0.3 10^3/uL (0.0-0.8); Eosinophils % 2.3 %; Hematocrit 32.6 % (37.0-47.0); Hemoglobin 9.3 g/dL (11.5-15.3); Lymphocytes # 0.9 10^3/uL (0.8-4.8); Lymphocytes % 7.3 %; Mean Corpuscular HGB Conc 28.5 g/dL (30.0-36.0); Mean Corpuscular Hemoglobin 28.7 pg (28.0-34.0); Mean Corpuscular Volume 100.6 fl (81-99); Mean Platelet Volume 10.4 fL (7.4-10.4); Monocytes # 0.4 10^3/uL (0.2-0.9); Monocytes % 3.1 %; Neutrophils % 82.9 %; Nucleated Red Blood Cells % 0 %; Platelet Count 221 10^3/cmm (130-400); Red Blood Count 3.24 10^6/uL (4.1-5.3); Red Cell Distribution Width 15.1 % (12.1-15.1); White Blood Count 12.7 10^3/uL (4.0-10.0)
[2023-01-13 04:20] LABS: Anion Gap 12.7 (5-19); Blood Urea Nitrogen 26 mg/dL (8-23); Calcium 8.4 mg/dL (8.5-10.5); Carbon Dioxide 26 mmol/L (22-29); Chloride 110 mmol/L (98-107); Glucose 185 mg/dL (65-115); Osmolality Calculated 308 mOsm/kg (285-295); Potassium 4.7 mmol/L (3.5-5.1); Sodium 144 mmol/L (136-145)
[2023-01-13] MEDS: piperacillin-tazobactam 3.375 GM in sodium chloride 0.9% (plus) 50 ML IV (06:31)
[2023-01-13 07:46] LABS: Glucose Point of Care 188 mg/dL (70-110)
[2023-01-13] MEDS: HYDROmorphone 1 mg/mL INJ 1 mL 0.2 MG IVP ×2 (08:05→11:24)
[2023-01-13] MEDS: pantoprazole 40 mg SDV IVP (08:07)
--- NOTE | 2023-01-13 08:33 | P.PN_ITS ---
Subjective Subjective: Patient is a fatigued and lethargic. Vitals/I&O/Wt Last Vital Signs Temp 97.1 F L 01/13/23 05:00 Pulse 100 01/13/23 07:34 Resp 18 01/13/23 08:05 BP 130/71 01/13/23 06:00 Pulse Ox 98 01/13/23 08:05 O2 Del Method Nasal Cannula 01/13/23 07:34 O2 Flow Rate 2 01/13/23 07:34 FiO2 30 01/13/23 00:00 01/12/23 01/13/23 01/13/23 22:59 06:59 14:59 Intake Total 1060 / 1110 865 / 1975 Output Total 845 / 845 830 / 1675 Balance 215 / 265 35 / 300 Weight last 48 hrs Weight 291 lb 8 oz Weight 297 lb 9.985 oz Physical Exam Narrative: GENERAL: Patient is lethargic HEART: Regular LUNGS: Diminished air entry ABDOMEN: Soft EXTREMITIES: Lower extremities with 1+ edema bilaterally. Urinary Catheter Management: Kate: Cath Placed During This Visit: yes Reason for Continuing Indwelling Catheter: Accurate Measurement of Urinary Output in Critically Ill Patients Urinary Catheter Date of Insertion: 01/05/23 Urinary Catheter Time of Insertion: 15:30 Data 01/13/23 03:06 01/13/23 03:06 Micro: Microbiology 01/12/23 06:05 Blood Culture - Preliminary Blood NEGATIVE TO DATE 01/12/23 05:55 Blood Culture - Preliminary Blood NEGATIVE TO DATE A&P Assessment and plan (1) NSTEMI (non-ST elevated myocardial infarction): (2) Respiratory failure: (3) Acute kidney injury: (4) History of DVT (deep vein thrombosis): (5) Sepsis: (6) Enterocutaneous fistula: Plan Patient is stable from cardiac standpoint. Patient and family considering hospice care. Please call with questions Attestations Medical Necessity Statement*: Care expected to cross 2 midnights. Coding Level of Care Code Acute Code for [facility] Diagnoses NSTEMI (non-ST elevated myocardial infarction) I21.4 Respiratory failure J96.90 Acute kidney injury N17.9 History of DVT (deep vein thrombosis) Z86.718 Sepsis A41.9 Enterocutaneous fistula K63.2
--- NOTE | 2023-01-13 10:10 | PC.NURSE ---
Patient told NUrse and daughter ilaan that she wants to be DNR. Nurse explained that changing her code status for DNR would mean that we will continue medical treatment, but in the event that her heart were to stop there would not be resuscitation efforts. Patient states that she wants us to stop treating her and allow her to . Nurse explained that starting comfort care would be a change of treatment goals where we will focus on primarily on patient comfort and allow them to pass. Patient said thats what she wants and she wants to go home. NUrse told the family that if she chooses comfort care she does have the ability to change her mind, and that i will contact the physician to discuss this further with them to make sure they are fully informed and know what other treatments options may still be left.
--- NOTE | 2023-01-13 10:17 | PC.NURSE ---
Late note: Upon morning asssessment, patient's BRIAN drain was found to be quickly draining a brown substance. NUrse alerted Dr wheeler who came to bedside, ordered a CT, and explained to the patient that she will likely have to go back to surgery to repair a leak and will likely end up with a colonoscopy.
--- NOTE | 2023-01-13 11:22 | PC.PT ---
Attempted to see Kaitlin Halina today but she was about to go for a STAT CT scan. Nursing states it may be better to attempt to see her tomorrow.
--- NOTE | 2023-01-13 11:38 | PC.OT ---
OT TREATMENT HELD AFTER DISCUSSION WITH P.T. AND READING NURSES NOTES. WILL AWAIT NEW INFORMATION AND ATTEMPT TREATMENT TOMORROW IF NEEDED
--- NOTE | 2023-01-13 12:18 | P.PN_ITS ---
Subjective Subjective: This Morning patient has low-grade fever 100.3, vancomycin was added to her Zosyn We noticed that there were stool mixed tube feeds coming in her drain immediately tube feeds were discontinued requested stat CT scan of her abdomen pelvis with oral and IV contrast We were about to take her to the CT scan when Dr. Feldman had a discussion with the family who were thinking about hospice care, I confirmed with the patient who is stating that she does not want to go for CT scan or surgical intervention if that is needed she does not want any medical therapy at this point she would like to pursue hospice care in the hospital, family is at the bedside, patient is able to understand my questions able to make decisions for herself at this point and make her needs known Hospice inpatient admission CODE STATUS changed We will transfer out of ICU to [facility] Vitals/I&O/Wt Last Vital Signs Temp 100.3 F H 01/13/23 08:00 Pulse 104 H 01/13/23 10:00 Resp 22 H 01/13/23 11:24 BP 129/78 01/13/23 10:00 Pulse Ox 95 01/13/23 10:24 O2 Del Method Nasal Cannula 01/13/23 08:00 O2 Flow Rate 2 01/13/23 08:00 FiO2 30 01/13/23 12:00 01/12/23 01/13/23 01/13/23 22:59 06:59 14:59 Intake Total 1060 / 1110 865 / 1975 50 / 50 Output Total 845 / 845 830 / 1675 170 / 170 Balance 215 / 265 35 / 300 -120 / -120 Weight last 48 hrs Weight 132.222 kg Weight 135 kg Physical Exam Narrative: Patient is laying supine Not able to get up out of bed Drain with stool and tube feeds mixed content NG to poor running with tube feeds which were discontinued Abdomen however soft nontender Mild hyperemia around Hemovac drain Wound VAC in place Kate catheter in place Left-sided central line in place Patient is fatigued and lethargic however able to understand commands answer my questions appropriately Currently on 2 L of oxygen Urinary Catheter Management: Kate: Cath Placed During This Visit: yes Reason for Continuing Indwelling Catheter: Accurate Measurement of Urinary Output in Critically Ill Patients Urinary Catheter Date of Insertion: 01/05/23 Urinary Catheter Time of Insertion: 15:30 Data 01/13/23 03:06 01/13/23 03:06 Micro: Microbiology 01/12/23 06:05 Blood Culture - Preliminary Blood NEGATIVE TO DATE 01/12/23 05:55 Blood Culture - Preliminary Blood NEGATIVE TO DATE A&P Assessment and plan (1) Counseling regarding advanced care planning and goals of care: (2) Crohn's disease: (3) JEFFREY on CPAP: (4) Enterocutaneous fistula: (5) History of DVT (deep vein thrombosis): (6) Acute kidney injury: (7) NSTEMI (non-ST elevated myocardial infarction): (8) Septic shock: (9) Myocardial injury: (10) Physical deconditioning: (11) Hospice care: Plan There was concern for colon rupture versus fistula leak versus anastomosis leak when tube feeds were noted in the Hemovac drain patient is spiking low-grade fever getting tachycardic we requested CT scan of abdomen pelvis on stat basis with oral and IV contrast however patient and her family decided to pursue hospice care, patient was evaluated multiple times today, patient and her family both want to pursue hospice in the hospital, I have notified my social services director Goals of care changed to inpatient hospice I will transfer patient out of ICU to [facility] keep her n.p.o., remove NG tube and keep her pain-free with opioids, she carries guarded prognosis, Dr. Feldman notified Attestations Medical Necessity Statement*: Patient transitioned to hospice care today and High Time (Patient was evaluated multiple times) for a total of 90 minutes, includes reviewing past or interval history, examining/interviewing patient, placing orders, counseling patient/family/other support, updating patient/family/other support, discussing plan of care with staff, communicating with other healthcare providers, documenting encounter and coordinating care Diagnoses Counseling regarding advanced care planning and goals of care Z71.89 Crohn's disease K50.90 JEFFREY on CPAP G47.33; Z99.89 Enterocutaneous fistula K63.2 History of DVT (deep vein thrombosis) Z86.718 Acute kidney injury N17.9 NSTEMI (non-ST elevated myocardial infarction) I21.4 Septic shock A41.9; R65.21 Myocardial injury I5A Physical deconditioning R53.81 Hospice care Z51.5
[2023-01-13] MEDS: HYDROmorphone 1 mg/mL INJ 1 mL 0.5 MG IVP ×6 (13:02→22:51)
--- NOTE | 2023-01-13 13:50 | PC.NURSE ---
Left abdominal BRIAN drain removed per Dr wheeler orders. After removal, a large amount of stool poured from the BRIAN drain wound which needed to be suctioned away. Approximately 200mL of liquid stool. Wound vac discontinued. Wet to dry dressing with kerlix and ABD applied. Sides of the abdominal incision approximated using silk tape.
[2023-01-13] MEDS: LORazepam 2 mg/mL INJ 1 mL IVP (18:15)
[2023-01-13] MEDS: glycopyrrolate 0.2 mg/mL SDV 2 mL IV (18:48)
--- NOTE | 2023-01-13 18:53 | PC.NURSE ---
Shift SUmmary: patient's rosy drain was draining copious amount of stool. Initial plan was to get a CT and then go to surgery, but patient refused and wanted to go comfort care. Wound vac disconnected and ROSY drain removed. Patient is currently receiving comfort measures while in the hospital with hospice services on board. Left lower abdomen wound needs to be assessed frequently due to output. Approximately 400mL of stool output from the incision today.
--- NOTE | 2023-01-13 20:25 | PC.NURSE ---
Colostomy bag applied to BRIAN drain site due to frequent stools draining from site.
--- NOTE | 2023-01-13 21:22 | PC.NURSE ---
Family at bedside and requested that vitals were not obtained due to the potential of disturbing the pt. This nurse asked if a physical assessment could be performed and family asked to hold off until further notice. The goal of care is to keep the patient as comfortable as possible.
[2023-01-14] VITALS (11 sets, daily range): BP systolic 70–89; BP diastolic 38–56; PULSE 74–78; RESP 7–20; TEMP 37.1; O2SAT 94–97
[2023-01-14] MEDS: HYDROmorphone 1 mg/mL INJ 1 mL 0.5 MG IVP ×3 (03:51→09:37)
[2023-01-14] MEDS: LORazepam 2 mg/mL INJ 1 mL IVP ×8 (05:05→23:19)
--- NOTE | 2023-01-14 10:16 | PM.PN ---
Subjective Subjective: This morning patient did not asked me to change of any of her medications however she has been requiring opioids quite frequently I will increase the dose of Dilaudid to 1 mg every 2 hours Patient is laying supine Family is adamant that they do not want [facility] placement, they have not considered hospice at home yet turn out worker notified Vitals/I&O/Wt Last Vital Signs Temp 100.2 F H 01/13/23 12:00 Pulse 85 01/13/23 14:00 Resp 18 01/14/23 09:37 BP 125/103 01/13/23 14:00 Pulse Ox 97 01/13/23 20:47 O2 Del Method Nasal Cannula 01/13/23 12:00 O2 Flow Rate 2 01/13/23 12:00 FiO2 30 01/13/23 16:00 01/13/23 01/14/23 01/14/23 22:59 06:59 14:59 Output Total 200 / 370 Balance -200 / -320 Weight last 48 hrs Weight 132.222 kg Physical Exam Narrative: Patient laying supine Abdomen distended Tender to palpate Patient is able to answer my question Awake and alert pleasant and cooperative Currently on 2 L family is at the bedside Urinary Catheter Management: Kate: Cath Placed During This Visit: yes Reason for Continuing Indwelling Catheter: Other Urinary Catheter Date of Insertion: 01/05/23 Urinary Catheter Time of Insertion: 15:30 Data 01/13/23 03:06 01/13/23 03:06 Micro: Microbiology 01/12/23 18:20 MRSA Culture - Final Nose 01/12/23 06:05 Blood Culture - Preliminary Blood NEGATIVE TO DATE 01/12/23 05:55 Blood Culture - Preliminary Blood NEGATIVE TO DATE A&P Assessment and plan (1) Hospice care: Plan Continue hospice care Adjust dose of opioids Family has not contemplated for hospice at home They do not want supervisor public health nursing notified Hospice care at this point Attestations Medical Necessity Statement*: Continue medical management Diagnoses Hospice care Z51.5
[2023-01-14] MEDS: HYDROmorphone 1 mg/mL INJ 1 mL IVP ×10 (11:22→23:19)
[2023-01-14] MEDS: glycopyrrolate 0.2 mg/mL SDV 2 mL IV (11:36)
--- NOTE | 2023-01-14 16:22 | P.MISC_ITS ---
Miscellaneous Note Purpose of Documentation: I was asked to assess this patient and infectious disease consult for enter ocutaneous fistula and mesh infection. In the interim unfortunately patient appears to have a clinical decline and has been transitioned to comfort care. Infectious disease consult has been canceled for this reason.
--- NOTE | 2023-01-14 19:11 | PC.NURSE ---
Dilaudid and Ativan Dr Feldman said to try and give the ativan and dilaudid every hour.
--- NOTE | 2023-01-14 19:20 | PC.NURSE ---
DILAUDID AND ATIVAN TO BE GIVEN Q1H PER DR. SMITH. HOSPICE NURSE NOTIFIED.
[2023-01-14] MEDS: blistex lip oint 7 gm Tube 1 APPLIC TOPICAL (23:19)
[2023-01-15] VITALS (10 sets, daily range): BP systolic 63–80; BP diastolic 41–56; PULSE 81–103; RESP 4–20; TEMP 36.7–37; O2SAT 80–94
[2023-01-15] MEDS: LORazepam 2 mg/mL INJ 1 mL IVP ×26 (00:11→23:34)
[2023-01-15] MEDS: HYDROmorphone 1 mg/mL INJ 1 mL IVP ×25 (00:11→23:34)
--- NOTE | 2023-01-15 10:40 | PM.PN ---
Subjective Subjective: Patient is showing signs of agonal breathing family and hospice nurse at the bedside Vitals/I&O/Wt Last Vital Signs Temp 98.7 F 01/14/23 19:41 Pulse 103 H 01/15/23 08:32 Resp 4 L 01/15/23 03:29 BP 80/56 01/15/23 08:32 Pulse Ox 80 L 01/15/23 03:29 O2 Del Method Nasal Cannula 01/15/23 03:29 O2 Flow Rate 2 01/13/23 12:00 FiO2 30 01/13/23 16:00 01/14/23 01/15/23 01/15/23 22:59 06:59 14:59 Intake Total 120 / 240 Output Total 835 / 1085 200 / 1285 Balance -715 / -845 -200 / -1045 Physical Exam Narrative: Agonal breathing Urinary Catheter Management: Kate: Cath Placed During This Visit: yes Reason for Continuing Indwelling Catheter: Hospice/Comfort/Palliative Care Urinary Catheter Date of Insertion: 01/05/23 Urinary Catheter Time of Insertion: 15:30 Data 01/13/23 03:06 01/13/23 03:06 A&P Assessment and plan (1) Hospice care: Plan Continue hospice care I would not change of any other opiates today I do believe patient likely will next 24 to 48 hours Attestations Medical Necessity Statement*: Hospice care Coding Level of Care Code Acute Code for Chg Fwd Diagnoses Hospice care Z51.5
--- NOTE | 2023-01-15 18:25 | PC.NURSE ---
patients family was asked to bathe patient, upon entering room patients family asked to wait till lineman service or work dispatcher. Patient was turned and readjusted
[2023-01-15] MEDS: HYDROmorphone 1 mg/mL INJ 1 mL 0.5 MG IVP (19:08)
--- NOTE | 2023-01-15 20:18 | PC.NURSE ---
Dr. Feldman and family requesting Dilaudid and Ativan to be given q30 minutes.
[2023-01-15] MEDS: blistex lip oint 7 gm Tube 1 APPLIC TOPICAL (22:34)
[2023-01-16] MEDS: HYDROmorphone 1 mg/mL INJ 1 mL IVP ×28 (00:05→19:17)
[2023-01-16] MEDS: LORazepam 2 mg/mL INJ 1 mL IVP ×28 (00:05→19:16)
[2023-01-16 00:12] VITALS: BP 100/61; PULSE 80; RESP 14; TEMP 36.5; O2SAT 85
[2023-01-16 08:24] VITALS: RESP 17
[2023-01-16] MEDS: glycopyrrolate 0.2 mg/mL SDV 2 mL IV ×2 (10:39→15:56)
[2023-01-16 11:14] VITALS: RESP 8
--- NOTE | 2023-01-16 12:18 | PM.PN ---
Subjective Subjective: Agonal breathing Is receiving Xanax and opioids Vitals/I&O/Wt Last Vital Signs Temp 97.7 F 01/16/23 00:12 Pulse 80 01/16/23 00:12 Resp 8 L 01/16/23 11:14 BP 100/61 01/16/23 00:12 Pulse Ox 85 L 01/16/23 00:12 O2 Del Method Nasal Cannula 01/16/23 00:12 O2 Flow Rate 2 01/13/23 12:00 FiO2 30 01/13/23 16:00 01/15/23 01/16/23 01/16/23 22:59 06:59 14:59 Intake Total 0 / 0 Output Total 30 / 130 100 / 230 Balance -30 / -130 -100 / -230 Physical Exam Narrative: Hospice care Urinary Catheter Management: Kate: Cath Placed During This Visit: yes Reason for Continuing Indwelling Catheter: Hospice/Comfort/Palliative Care Urinary Catheter Date of Insertion: 01/05/23 Urinary Catheter Time of Insertion: 15:30 Data 01/13/23 03:06 01/13/23 03:06 A&P Assessment and plan (1) Hospice care: Plan Hospice care Attestations Medical Necessity Statement*: Hospice care Coding Level of Care Code Acute Code for Chg Fwd Diagnoses Hospice care Z51.5
[2023-01-16 12:57] VITALS: RESP 10
--- NOTE | 2023-01-16 13:34 | PC.SOCIAL ---
IMM not given. IMM not updated with family. Pt is on In patient hospice on comfort care at this time.
[2023-01-16 15:44] VITALS: RESP 10
[2023-01-16 16:55] VITALS: RESP 11
--- NOTE | 2023-01-16 19:27 | PC.NURSE ---
1919 patient quit breathing and stopped heartrate at 1919. was verified with 2nd nurse Howie LEE
--- NOTE | 2023-01-16 21:07 | PC.NURSE ---
01/16/23 at 1947 [facility] has been notified.
--- NOTE | 2023-01-16 21:36 | P.DES_ITS ---
Discharge Providers DDS Date of Admission: 01/05/23 13:46 Date Summary Completed: 01/16/23 Attending Provider at Admission: Alan Feldman DO Time of : 19:20 Attending Provider at Discharge: Alan Feldman DO Primary Care Provider: Vicente More MD DS Diagnoses Hospital Diagnoses (1) Hospice care: Reason for Visit Reason for Visit abd pain, hypotension Summary Date and Time of Date of : 01/16/23 Time of : 19:20 Summary Summary: Patient was admitted for management and evaluation of enterocutaneous fistula she carries history of chronic disease she was admitted to Dr. Feldman's ser vice patient went for the surgery medicine team was consulted for postoperative management, there was concern for anastomosis leak versus perforation when we noticed tube feeds in her Hemovac drain, patient did not pursue any CT scan or surgical intervention and decided to go on hospice, Dr. Feldman's service is the primary Additional Data Advance directives?: Yes Discharge Plan Discharge Condition: Stable Prescriptions: No Action cholecalciferol (vitamin D3) 25 mcg (1,000 unit) capsule 25 mcg PO DAILY magnesium oxide 500 mg capsule 1,000 mg PO BID omega-3 fatty acids 1,000 mg capsule 1,000 mg PO DAILY vitamin B complex Tablet 1 tab PO DAILY pantoprazole 40 mg tablet,delayed release (DR/EC) 40 mg PO DAILY nitroglycerin 0.4 mg tablet, sublingual 0.4 mg sublingual Q5M PRN (Reason: chest pain) Qty: 30 3RF Rx Instructions: until response; do not exceed 3 doses per episode cyanocobalamin (vitamin B-12) 1,000 mcg/mL solution 1,000 mcg IM Q30D Qty: 10 1RF folic acid 1 mg tablet 1 mg PO DAILY Qty: 90 3RF atorvastatin 40 mg tablet 20 mg PO BEDTIME Qty: 30 3RF hydrocodone-acetaminophen 7.5-325 mg tablet 1 tab PO Q6H PRN (Reason: pain) 5 Days Qty: 20 0RF Entyvio 300 mg Recon Soln 300 mg IV DIRECTED Rx Instructions: IV every 8 weeks gabapentin 100 mg capsule 100 mg PO BEDTIME PRN (Reason: Pain) Rx Instructions: at bedtime Probiotic 20 billion cell Capsule 20,000 mmu cells PO DAILY Rx Instructions: administer with a meal mjqdlxo-eidg-ckgiz-oreg-capryl 100 mg-150 mg- 50 mg-150 mg Capsule 1 cap PO DAILY potassium chloride 10 mEq capsule, extended release 20 meq PO BID ondansetron HCl 4 mg tablet 4 mg PO QID PRN (Reason: Nausea) docusate sodium [DOK] 100 mg capsule 100 mg PO BID Qty: 14 0RF Patient Instructions: Opioid Safety DS Attestations Time Spent in /Discharge Care*: less than 30 min Quality - AMI: AMI present?: No Quality - Stroke: CVA present?: No Quality - VTE: VTE present?: No Coding Level of Care Code Acute Code for Chg Fwd Diagnoses Hospice care Z51.5
--- NOTE | 2023-01-16 22:29 | PC.NURSE ---
Addendum entered by Leslie Brock RN 01/16/23 22:39: Patient's pillow, blanket, and socks sent to [facility] [place] with patient. Original Note: Post Mortem Post mortem care completed at 2116. Pt bathed, all lines removed. Pt transferred to [facility] [place] at 2222.
--- NOTE | 2023-01-17 00:23 | PC.NURSE ---
Pt transferred to [facility] [place] at [id number]
--- NOTE | 2023-01-17 03:25 | PC.NURSE ---
[facility]S patient portal representative has picked up body for transport.
== END 2023-01-16 22:17 | disposition expired | DRG 853 ==
LOC: ICU 01-13 12:55 → MEDSURG 01-13 20:48
PROVIDERS: Anesthesiology; Internal Medicine; Admitting Provider Surgery; PCP Family Medicine; Visit Provider Surgery
PROC: 0DTN0ZZ Resection of Sigmoid Colon, Open Approach (ICD-10-PCS; CPT 49000; principal; 2023-01-05 15:30)
PROC: 0JB80ZZ Excision of Abdomen Subcutaneous Tissue and Fascia, Open Approach (ICD-10-PCS; CPT 49000; principal; 2023-01-07 17:00)
PROC: 0JB80ZZ Excision of Abdomen Subcutaneous Tissue and Fascia, Open Approach (ICD-10-PCS; 2023-01-07 17:00)
PROC: 0JB80ZZ Excision of Abdomen Subcutaneous Tissue and Fascia, Open Approach (ICD-10-PCS; 2023-01-07 17:00)
DX: A41.9 Sepsis, unspecified organism (principal); J95.821 Acute postprocedural respiratory failure; K55.049 Acute infarction of large intestine, extent unspecified; K50.113 Crohn's disease of large intestine with fistula; L02.211 Cutaneous abscess of abdominal wall; K57.20 Diverticulitis of large intestine with perforation and abscess without bleeding; I13.0 Hypertensive heart and chronic kidney disease with heart failure and stage 1 through stage 4 chronic kidney disease, or unspecified chronic kidney disease; I50.20 Unspecified systolic (congestive) heart failure; N17.9 Acute kidney failure, unspecified; D84.821 Immunodeficiency due to drugs; Z91.041 Radiographic dye allergy status; I25.10 Atherosclerotic heart disease of native coronary artery without angina pectoris; N18.32 Chronic kidney disease, stage 3b; F32.A Depression, unspecified; K21.9 Gastro-esophageal reflux disease without esophagitis; Z86.718 Personal history of other venous thrombosis and embolism; D63.1 Anemia in chronic kidney disease; G47.33 Obstructive sleep apnea (adult) (pediatric); Z99.89 Dependence on other enabling machines and devices; Z90.49 Acquired absence of other specified parts of digestive tract; Z51.5 Encounter for palliative care; R77.8 Other specified abnormalities of plasma proteins; R00.1 Bradycardia, unspecified; I08.1 Rheumatic disorders of both mitral and tricuspid valves; E87.6 Hypokalemia; Z79.69 Long term (current) use of other immunomodulators and immunosuppressants
CPT/HCPCS: 36415; 36416; 36430; 36591; 36592; 36600; 51702; 71045; 80048; 80051; 80053; 80202; 82330; 82803; 82805; 82962; 83605; 83735; 84100; 84132; 84484; 85007; 85014; 85018; 85025; 85049; 85384; 85610; 85730; 86850; 86900; 86920; 87040; 87070; 87205; 87641; 88309; 93005; 94002; 94003; 94799; 96372; 96376; 97163; 97167; 97530; A4570; C1751; C8929; C9113; J0330; J1170; J1265; J1644; J1650; J1940; J2060; J2250; J2270; J2370; J2405; J2543; J2704; J3010; J3370; J3475; J3480; J3490; J7030; J7050; J7060; J7070; J7120; P9016; P9046; Q9956